=== PATIENT | male | born 1945 | race Caucasian/White ===

== ENCOUNTER 2017-05-18 10:24 | Inpatient (IN) | payer OTHER, MEDICARE ==
[2017-05-18] VITALS (8 sets, daily range): BP systolic 114–140; BP diastolic 57–65; PULSE 92–105; RESP 17–18; TEMP 98–99.1; O2SAT 92–98
[~2017-05-18] VITALS: Ht 182.9 cm; Wt 66.0 kg
[2017-05-18] MEDS ORDERED: IOHEXOL 350 MG/ML 10 ML VIAL (for RAD DIAG) IVCONTRAST ONE (10:25)
[2017-05-18] MEDS ORDERED: ALBU2TAB4 PO (11:06)
[2017-05-18] MEDS ORDERED: HYDR-3801 PO (11:06)
[2017-05-18] MEDS ORDERED: LEVO50TA4 PO (11:06)
[2017-05-18] MEDS ORDERED: MIRA3350 PO (11:06)
[2017-05-18] MEDS ORDERED: PROT40TA PO (11:06)
[2017-05-18] MEDS ORDERED: POTA10CA PO (11:06)
[2017-05-18] MEDS ORDERED: MORP-43 PO (11:06)
[2017-05-18] MEDS ORDERED: ALLO300T2 PO (11:06)
[2017-05-18] MEDS ORDERED: COLA100C5 (11:06)
[2017-05-18] MEDS ORDERED: FURO1TAB62 PO (11:06)
[2017-05-18 11:48] LABS: AUTOMATED NEUTROPHIL # 5.9 TH/MM3 (1.8-7.7); BASOPHIL % 0.3 % (0.0-2.0); EOSINOPHIL % 0.1 % (0.0-4.0); HEMATOCRIT 21.6 % (39.0-51.0); HEMOGLOBIN 7.3 GM/DL (13.0-17.0); LYMPHOCYTE # 0.4 TH/MM3 (1.0-4.8); MEAN CELL VOLUME 88.1 FL (80.0-100.0); MEAN CORPUSCULAR HEMOGLOBIN 29.5 PG (27.0-34.0); MEAN CORPUSCULAR HGB CONC 33.5 % (32.0-36.0); MEAN PLATELET VOLUME 8.7 FL (7.0-11.0); MONO % 9.2 % (0.0-8.0); MONOCYTE # 0.6 TH/MM3 (0-0.9); NEUT % 84.4 % (16.0-70.0); PLATELET COUNT 127 TH/MM3 (150-450); RED BLOOD COUNT 2.46 MIL/MM3 (4.50-5.90); RED CELL DISTRIBUTION WIDTH 22.6 % (11.6-17.2)
--- NOTE | 2017-05-18 11:49 | RADRPT ---
EXAM DATE/TIME: 05/18/2017 11:36 [facility] COMPARISON: No previous studies available for comparison. INDICATIONS : Fever short of breath. MEDICAL HISTORY : Lymphoma. SURGICAL HISTORY : Infusaport left ENCOUNTER: Initial ACUITY: 1 day PAIN SCORE: 5/10 LOCATION: Bilateral chest FINDINGS: PA and lateral views of the chest demonstrate small moderate bilateral pleural effusions with bibasil ar densities. Heart borderline enlarged. [id number] catheter in the left tip in the cavoatrial ирина ction. There is linear opacity in the right midlung/right lower lobe. Osseous structures are intact. CONCLUSION: 1. Small moderate bilateral pleural effusions and bibasilar densities likely atelectasis. 2. Right midlung/right basilar subsegmental atelectasis/scarring. Eugenio Truong MD on May 18, 2017 at 11:45 Board Certified Radiologist. This report was verified electronically.
--- NOTE | 2017-05-18 11:53 | PD ---
HPI Chief Complaint: Fever Time Seen by Provider: 10:34 Travel History International Travel<30 days: No Contact w/Intl Traveler<30days: No Traveled to known affect area: No History of Present Illness HPI Patient is a 71 year old male recently diagnosed with Non-Hodgkin lymphoma currently undergoing chemotherapy presenting with a fever. His reports that this morning his temperature was 100.6 and she was informed by his oncologist Dr. Mauro to go immediately to the ER with any temperature above 100.5. The patient is followed by Dr. Ha. On 04/14 he was in the hospital diagnosed with neutropenic fever. During this hospitalization he had bilateral thoracocentesis with 2L and 1L drained. His only symptom today is worsening right sided lateral chest pain which is similar to the chest pain he felt in his most recent hospitalization. It is most painful when he takes a deep breath. Denies shortness of breath, chills, nausea, vomiting, abdominal pain. Severity is 100.6, associated with some mild back pain and right-sided lateral chest pain, context as above, gradually worsening. He has not taken any Tylenol ibuprofen prior to arrival. PFSH Past Medical History Asthma: Yes Cancer: Yes (Non hodgkins lymphoma) Congestive Heart Failure: Yes GERD: Yes Gout: Yes Hypertension: Yes Thyroid Disease: Yes Influenza Vaccination: Yes ?: Not Social History Alcohol Use: No Tobacco Use: No Substance Use: No Allergies-Medications (Allergen,Severity, Reaction): Coded Allergies: itraconazole (Verified Allergy, Unknown, 05/18/17) Reported Meds & Prescriptions Reported Meds & Active Scripts Active Reported Miralax Powder (Polyethylene Glycol 3350 Powder) 17 Gm Powd 17 Gm PO DAILY Mix and dissolve one measuring cap-ful (17 grams) in water or juice. Morphabond ER 12 HR (Morphine Sulfate) 15 Mg Tab 15 Mg PO Q12H Colace (Docusate Sodium) 100 Mg Capsule Albuterol (Albuterol Sulfate) 2 Mg Tab 2.5 Mg PO TID Potassium Chloride ER (Potassium Chloride) 10 Meq Cap 10 Meq PO BID Protonix (Pantoprazole Sodium) 40 Mg Tab 40 Mg PO DAILY Allopurinol 300 Mg Tab 300 Mg PO DAILY Hydralazine (Hydralazine HCl) 100 Mg Tab 100 Mg PO BID Take with meals Lasix (Furosemide) 20 Mg Tab 20 Mg PO BID Levothyroxine (Levothyroxine Sodium) 50 Mcg Tab 50 Mcg PO DAILY Review of Systems Except as stated in HPI: all other systems reviewed are Neg Physical Exam Narrative GENERAL: Well-developed and nourished but in no obvious distress, quite pleasant. SKIN: Focused skin assessment warm/dry. HEAD: Atraumatic. Normocephalic. EYES: Pupils equal and round. No scleral icterus. No injection or drainage. ENT: No nasal bleeding or discharge. Mucous membranes pink and moist. TMs clear bilaterally, oropharynx clear and moist. NECK: Trachea midline. No JVD. CARDIOVASCULAR: Regular rate and rhythm. No murmur appreciated. RESPIRATORY: No accessory muscle use. Clear to auscultation. Breath sounds equal bilaterally. GASTROINTESTINAL: Abdomen soft, non-tender, nondistended. Hepatic and splenic margins not palpable. MUSCULOSKELETAL: No obvious deformities. No clubbing. No cyanosis. No edema. NEUROLOGICAL: Awake and alert. No obvious cranial nerve deficits. Motor grossly within normal limits. Normal speech. PSYCHIATRIC: Appropriate mood and affect; insight and judgment normal. Data Data Last Documented VS Vital Signs Date Time Temp Pulse Resp B/P (MAP) Pulse Ox O2 Delivery O2 Flow Rate FiO2 05/18/17 15:10 93 18 117/57 (77) 95 Nasal Cannula 2.00 05/18/17 10:53 99.0 Orders Orders Sepsis Workup Initiated (05/18/17 ) Complete Blood Count With Diff (05/18/17 11:11) Comprehensive Metabolic Panel (05/18/17 11:11) Prothrombin Time / Inr (Pt) (05/18/17 11:11) Act Partial Throm Time (Ptt) (05/18/17 11:11) Lactic Acid Sepsis Protocol (05/18/17 11:11) Magnesium (Mg) (05/18/17 11:11) Phosphorus (Po4) (05/18/17 11:11) Lipase (05/18/17 11:11) Ckmb (Isoenzyme) Profile (05/18/17 11:11) Urinalysis - C+S If Indicated (05/18/17 11:11) Influenzae A/B Antigen (05/18/17 11:11) Blood Culture (05/18/17 11:11) Chest, Pa & Lat (05/18/17 11:11) Ecg Monitoring (05/18/17 11:11) Iv Access Insert/Monitor (05/18/17 11:11) Oximetry (05/18/17 11:11) Oxygen Administration (05/18/17 11:11) Isolation 08,20 (05/18/17 11:11) Urine Culture (05/18/17 11:50) Morphine Inj (Morphine Inj) (05/18/17 13:00) Electrocardiogram (05/18/17 ) Ct Abd/Pel W Iv Contrast(Rout) (05/18/17 ) Hydromorphone Pf Inj (Dilaudid Pf Inj) (05/18/17 15:00) (Hub Use Only)Inp Phy Cons/Ref (05/18/17 ) Iohexol 350 Inj (Omnipaque 350 Inj) (05/18/17 10:25) Cefepime Inj (Maxipime Inj) (05/18/17 16:15) Admit Order (Ed Use Only) (05/18/17 ) Labs Laboratory Tests Test 05/18/17 11:20 05/18/17 11:50 White Blood Count 7.0 TH/MM3 Red Blood Count 2.46 MIL/MM3 Hemoglobin 7.3 GM/DL Hematocrit 21.6 % Mean Corpuscular Volume 88.1 FL Mean Corpuscular Hemoglobin 29.5 PG Mean Corpuscular Hemoglobin Concent 33.5 % Red Cell Distribution Width 22.6 % Platelet Count 127 TH/MM3 Mean Platelet Volume 8.7 FL Neutrophils (%) (Auto) 84.4 % Lymphocytes (%) (Auto) 6.0 % Monocytes (%) (Auto) 9.2 % Eosinophils (%) (Auto) 0.1 % Basophils (%) (Auto) 0.3 % Neutrophils # (Auto) 5.9 TH/MM3 Lymphocytes # (Auto) 0.4 TH/MM3 Monocytes # (Auto) 0.6 TH/MM3 Eosinophils # (Auto) 0.0 TH/MM3 Basophils # (Auto) 0.0 TH/MM3 CBC Comment AUTO DIFF Differential Total Cells Counted 100 Neutrophils % (Manual) 70 % Band Neutrophils % 17 % Lymphocytes % 7 % Monocytes % 4 % Neutrophils # (Manual) 6.2 TH/MM3 Metamyelocytes 1 % Myelocytes 1 % Differential Comment FINAL DIFF MANUAL Toxic Granulation 1+ Toxic Vacuolation PRESENT Platelet Estimate LOW Platelet Morphology Comment NORMAL Polychromasia 2.0 % Tear Drop Cells 1+ Prothrombin Time 12.0 SEC Prothromb Time International Ratio 1.2 RATIO Activated Partial Thromboplast Time 32.8 SEC Blood Urea Nitrogen 12 MG/DL Creatinine 0.49 MG/DL Random Glucose 143 MG/DL Total Protein 6.0 GM/DL Albumin 2.6 GM/DL Calcium Level 8.3 MG/DL Phosphorus Level 3.5 MG/DL Magnesium Level 1.8 MG/DL Alkaline Phosphatase 90 U/L Aspartate Amino Transf (AST/SGOT) 10 U/L Alanine Aminotransferase (ALT/SGPT) 12 U/L Total Bilirubin 0.3 MG/DL Sodium Level 134 MEQ/L Potassium Level 4.2 MEQ/L Chloride Level 97 MEQ/L Carbon Dioxide Level 27.5 MEQ/L Anion Gap 10 MEQ/L Estimat Glomerular Filtration Rate 169 ML/MIN Lactic Acid Level 1.0 mmol/L Total Creatine Kinase 19 U/L Lipase 54 U/L Urine Color YELLOW Urine Turbidity CLEAR Urine pH 6.5 Urine Specific [place] 1.013 Urine Protein 30 mg/dL Urine Glucose (UA) NEG mg/dL Urine Ketones NEG mg/dL Urine Occult Blood MOD Urine Nitrite NEG Urine Bilirubin NEG Urine Urobilinogen 2.0 MG/DL Urine Leukocyte Esterase NEG Urine RBC 71 /hpf Urine WBC 2 /hpf Urine Bacteria OCC /hpf Urine Hyaline Casts 1 /lpf Urine Mucus FEW /lpf Microscopic Urinalysis Comment CATH-CULTURE IND MDM Medical Decision Making Medical Screen Exam Complete: Yes Emergency Medical Condition: Yes Differential Diagnosis Fever, neutropenic fever, pneumonia, urinary tract infection, influenza. Narrative Course Patient roomed in emergency department, initial workup significant for some moderate thrombocytopenia and moderate anemia, no syncope and source of infection was identified, chest x-ray negative, UA negative, influenza test negative. Hemodynamically stable he has not been febrile in the emergency department. The patient was discussed with Dr. Ha and she is concerned given his level of neutropenia in the past that he would do well from observation status and appeared cefepime at this time. So ordered and discussed with Dr. Escamilla who will admit. A CT scan was ordered on revisit as the patient stated his pain was getting a little worse in his back. Last 24 hours Impressions Chest X-Ray 05/18/17 1111 Signed Impressions: Service Date/Time: Thursday, May 18, 2017 11:36 - CONCLUSION: 1. Small moderate bilateral pleural effusions and bibasilar densities likely atelectasis. 2. Right midlung/right basilar subsegmental atelectasis/scarring. Eugenio Truong MD Abdomen/Pelvis CT 05/18/17 0000 Signed Impressions: Service Date/Time: Thursday, May 18, 2017 15:33 - CONCLUSION: 1. Moderate size bilateral pleural effusions with consolidation in both posterior lung bases. 2. Mild splenomegaly with abnormal low attenuation area in the anterior spleen which could represent an area of infarction or possible mass. 3. Mild hepatomegaly with scattered small low attenuation lesions which are nonspecific but may represent cysts. 4. Bilateral ureteral stent catheters in place with mild hydronephrosis and tiny renal calculi. 5. Anasarca and ascites. 6. Possible mild retroperitoneal adenopathy. 7. Nonspecific bowel gas pattern. Thuan Bustamante MD Diagnosis Primary Impression: Fever Qualified Codes: R50.9 - Fever, unspecified Admitting Information Admitting Physician Requests: Observation Condition: Stable Young Atwood MD May 18, 2017 11:53
[2017-05-18 11:55] LABS: INTERNATIONAL NORMALIZED RATIO 1.2 RATIO
[2017-05-18 12:08] LABS: ALBUMIN 2.6 GM/DL (3.4-5.0); ALT (GPT) 12 U/L (12-78); AST (GOT) 10 U/L (15-37); BICARBONATE 27.5 MEQ/L (21.0-32.0); BLOOD UREA NITROGEN 12 MG/DL (7-18); CALCIUM 8.3 MG/DL (8.5-10.1); CHLORIDE 97 MEQ/L (98-107); CREATININE 0.49 MG/DL (0.60-1.30); GLOMERULAR FILTRATION RATE 169 ML/MIN (>89); GLUCOSE,RANDOM 143 MG/DL (74-106); MAGNESIUM 1.8 MG/DL (1.5-2.5); SODIUM (NA) 134 MEQ/L (136-145)
[2017-05-18 12:12] LABS: ALKALINE PHOSPHATASE 90 U/L (45-117); PHOSPHORUS 3.5 MG/DL (2.5-4.9); TOTAL BILIRUBIN ADULT 0.3 MG/DL (0.2-1.0)
[2017-05-18 12:15] LABS: BACTERIA, URINE OCC /hpf; BILIRUBIN, URINE NEG (NEG); BLOOD, URINE MOD (NEG); GLUCOSE,URINE NEG (NEG); HYALINE CAST, URINE 1 /lpf (RARE); KETONE, URINE NEG (NEG); MUCUS URINE FEW /lpf (OCC); NITRITE,URINE NEG (NEG); PH, URINE 6.5 (5.0-8.5); URINE COLOR YELLOW (YELLW/STRAW); URINE LEUKOCYTE ESTERASE NEG (NEG)
[2017-05-18 12:47] LABS: BANDS 17 % (0-6); LYMPHOCYTES 7 % (9-44); METAMYELOCYTES 1 % (0-1); MONOCYTES 4 % (0-8); MYELOCYTES 1 % (0-0); NEUTROPHIL # MANUAL DIFF 6.2 TH/MM3 (1.8-7.7); POLYS (SEG NEUTROPHILS) 70 % (16-70)
[2017-05-18 12:48] LABS: TOXIC GRANULATION 1+ (NORMAL)
[2017-05-18 12:49] LABS: TOXIC VACUOLATION PRESENT (NONE SEEN)
[2017-05-18 12:50] LABS: TEARDROP RBCS 1+ (NORMAL)
[2017-05-18] MEDS ORDERED: MORPHINE SULFATE 2 MG/ML INJ IV PUSH ONE (13:00)
[2017-05-18] MEDS ORDERED: HYDROmorphone HCL PF 2 MG/ML VIAL IV PUSH ONE (15:00)
--- NOTE | 2017-05-18 16:06 | RADRPT ---
EXAM DATE/TIME: 05/18/2017 15:33 [facility] COMPARISON: No previous studies available for comparison. INDICATIONS : Patient has fever and abdominal pain. IV CONTRAST: 96 cc Omnipaque 350 (iohexol) IV ORAL CONTRAST: No oral contrast ingested. RADIATION DOSE: 6.17 CTDIvol (mGy) MEDICAL HISTORY : Hypertension. Lymphoma. SURGICAL HISTORY : None. ENCOUNTER: Initial ACUITY: 1 day PAIN SCALE: 5/10 LOCATION: abdomen TECHNIQUE: Volumetric scanning of the abdomen and pelvis was performed. Using automated exposure control and ad justment of the mA and/or kV according to patient size, radiation dose was kept as low as reasonably achievable to obtain optimal diagnostic quality images. DICOM format image data is available electro nically for review and comparison. FINDINGS: LOWER LUNGS: There are moderate-sized bilateral pleural effusions with consolidation in both posterior lung bases. LIVER: The liver is mildly prominent with multiple small scattered low attenuation lesions measuring less th an a centimeter. SPLEEN: There is mild splenomegaly with abnormal low attenuation area involving the anterior spleen measuring up to 3 cm. There is surrounding small amount of ascitic fluid. PANCREAS: Within normal limits. KIDNEYS: Normal in size and shape. The cyst extends off the upper pole of the right kidney. There are bilatera l ureteral stent catheters in place with mild hydronephrosis. There is a single minute 1 mm calculus in the upper pole the left kidney and tiny less than 1 mm calculus in the lower pole of the right kid suyapa. ADRENAL GLANDS: Within normal limits. VASCULAR: There is no aortic aneurysm. BOWEL/MESENTERY: No oral contrast was given limiting the sensitivity of the exam. There is evidence of anasarca and as cites greatest in the anterior pelvis. There are multiple loops of nondilated air-containing small bekah wel. Gas and stool is noted segmental and colon. There is no evidence of free air. ABDOMINAL WALL: Within normal limits. RETROPERITONEUM: Not well delineated due to the anasarca and ascites. There is soft tissue density in the retroperiton eum which is poorly defined. BLADDER: No wall thickening or mass. REPRODUCTIVE: Within normal limits. INGUINAL: There is no lymphadenopathy or hernia. MUSCULOSKELETAL: Within normal limits for patient age. CONCLUSION: 1. Moderate size bilateral pleural effusions with consolidation in both posterior lung bases. 2. Mild splenomegaly with abnormal low attenuation area in the anterior spleen which could represent an area of infarction or possible mass. 3. Mild hepatomegaly with scattered small low attenuation lesions which are nonspecific but may repre sent cysts. 4. Bilateral ureteral stent catheters in place with mild hydronephrosis and tiny renal calculi. 5. Anasarca and ascites. 6. Possible mild retroperitoneal adenopathy. 7. Nonspecific bowel gas pattern. Thuan Bustamante MD on May 18, 2017 at 15:54 Board Certified Radiologist. This report was verified electronically.
[2017-05-18] MEDS ORDERED: CEFEPIME INJ 1,000 MG in SODIUM CHLORIDE 0.9% INJ 100 ML IV ONE (16:15)
--- NOTE | 2017-05-18 18:25 | HHI.HP ---
HPI Service [facility] Primary Care Physician Sancho Mackenzie MD Admission Diagnosis Fever Diagnoses: (1) Non-Hodgkin lymphoma Diagnosis: Principal (2) Fever Diagnosis: Principal (3) Anemia Diagnosis: Principal (4) HTN (hypertension) Diagnosis: Principal Chief Complaint: fevers Travel History International Travel<30 Days: No Contact w/Intl Traveler <30 Da: No Traveled to Known Affected Are: No History of Present Illness 71-year-old male with a typically no past medical history prior to February 2017 when he was diagnosed with non-Hodgkin's lymphoma. Since that diagnosis patient has also been diagnosed with hypertension, elevated uric acid levels, hypothyroidism. She has been under the care of and began chemotherapy on 04/04/17. He also mentions that he was recently hospitalized at [facility] followed by due to an infection in his blood for which she had been receiving IV antibiotics. was at bedside reports that patient was due to repeat his blood check cultures tomorrow to see if he was to continue on IV antibiotics. She presented to the emergency room department today with complaints of fever. She reports that was informed by his oncologist that if he was to have a fever above 100.5 he was to come to the emergency department. Last night he noticed his temperature was 100.3. This morning he checked his temperature and he was 100.6. He denies any chills, nausea, vomiting, diarrhea, abdominal pain, headache, open sores or wounds recent ill contacts. who is very meticulous and has documented no signs shares with me that they have last week he was having high blood pressures along with shortness of breath. He visited his doctor and was instructed to try exercises and high blood pressure along with shortness of breath was attributed to dehydration. She reports that he follow the instructions of his doctor and performed exercises as well as improved hydration and symptoms of shortness of breath and hypertension resolved. She denies any constipation, blood in stool, or abdominal pain. He also denies any dysuria or hematuria although noticed that yesterday his urine had an odor. He does complain of chronic pain and reports that he takes his morphine sulfate on a regular basis and pain is well controlled. At the current moment he reports pain in the right mid back which is increased with shortness of breath. will consult DR MONTALVO MAY NEED ID CONSULT IN FUTURE Review of Systems Constitutional: COMPLAINS OF: Fatigue, Fever, DENIES: Diaphoretic episodes, Weight gain, Weight loss, Chills, Dizziness Endocrine: DENIES: Heat/cold intolerance, Polydipsia, Polyphagia Eyes: DENIES: Blurred vision, Diplopia, Eye inflammation, Eye pain Ears, nose, mouth, throat: DENIES: Tinnitus, Hearing loss, Vertigo, Nasal discharge, Oral lesions, Throat pain Respiratory: DENIES: Apneas, Cough, Snoring, Wheezing, Hemoptysis, Sputum production Cardiovascular: DENIES: Chest pain, Palpitations, Syncope, Dyspnea on Exertion , PND Gastrointestinal: DENIES: Abdominal pain, Black stools, Bloody stools, Constipation, Diarrhea, Nausea Genitourinary: DENIES: Sexual dysfunction, Urinary frequency, Urinary incontinence, Urgency Musculoskeletal: COMPLAINS OF: Joint pain, Back pain, DENIES: Muscle aches, Stiffness, Joint Swelling Integumentary: DENIES: Abnormal pigmentation, Nail changes, Pruritus Hematologic/lymphatic: DENIES: Bruising, Lymphadenopathy Immunologic/allergic: DENIES: Eczema, Urticaria Neurologic: DENIES: Abnormal gait, Localized weakness, Paresthesias, Seizures, Speech Problems, Poor Balance Psychiatric: DENIES: Anxiety, Confusion, Mood changes, Depression, Hallucinations, Agitation, Suicidal Ideation, Homicidal Ideation Except as stated in HPI: all other systems reviewed are Neg Past Family Social History Past Medical History Non-Hodgkin's lymphoma hypothyroidism HTN elevated uric acid Past Surgical History August 2016 bilateral inguinal hernia repairs 2012 right hip replacement Renal stent Left upper chest port Reported Medications Reported Meds & Active Scripts Active Reported Miralax Powder (Polyethylene Glycol 3350 Powder) 17 Gm Powd 17 Gm PO DAILY Mix and dissolve one measuring cap-ful (17 grams) in water or juice. Morphabond ER 12 HR (Morphine Sulfate) 15 Mg Tab Q4 hours. Colace (Docusate Sodium) 100 Mg Capsule BID Albuterol (Albuterol Sulfate) 2 Mg Tab 2.5 Mg PO TID Potassium Chloride ER (Potassium Chloride) 10 Meq Cap 10 Meq PO BID Protonix (Pantoprazole Sodium) 40 Mg Tab 40 Mg PO DAILY Allopurinol 300 Mg Tab 300 Mg PO DAILY Hydralazine (Hydralazine HCl) 50 Mg Tab PRN for SBP>130 Take with meals Lasix (Furosemide) 20 Mg Tab 20 Mg PO BID Levothyroxine (Levothyroxine Sodium) 50 Mcg Tab 50 Mcg PO DAILY Metoprolol Tartrate 25mg BID hold for SBP<110 or HR <55 Medications verified with at bedside and patient Allergies: Coded Allergies: itraconazole (Verified Allergy, Unknown, 05/18/17) Active Ordered Medications Current Medications Medications (Trade) Dose Ordered Sig/Mikael Route Start Time Stop Time Status Last Admin (NS Flush) 2 ml UNSCH PRN IV FLUSH 05/18/17 18:45 UNV (NS Flush) 2 ml BID IV FLUSH 05/18/17 21:00 UNV (Tylenol) 650 mg Q4H PRN PO 05/18/17 18:45 (Zofran Inj) 4 mg Q6H PRN IVP 05/18/17 18:45 UNV (Narcan Inj) 0.4 mg UNSCH PRN IV PUSH 05/18/17 18:45 UNV (Evelia-Colace) 1 tab BID PO 05/18/17 21:00 UNV (Milk Of Magnesia Liq) 30 ml Q12H PRN PO 05/18/17 18:45 UNV (Senokot) 17.2 mg Q12H PRN PO 05/18/17 18:45 UNV (Dulcolax Supp) 10 mg DAILY PRN RECTAL 05/18/17 18:45 UNV (Lactulose Liq) 30 ml DAILY PRN PO 05/18/17 18:45 UNV (Percocet 5-325 Mg) 1 tab Q6H PRN PO 05/18/17 18:45 UNV (Percocet 10-325 Mg) 1 tab Q6H PRN PO 05/18/17 18:45 UNV (Morphine Inj) 2 mg Q3H PRN IV PUSH 05/18/17 18:45 UNV (Morphine Inj) 4 mg Q3H PRN IV PUSH 05/18/17 18:45 UNV (Zyloprim) 300 mg DAILY PO 05/19/17 09:00 (Synthroid) 50 mcg DAILY PO 05/19/17 09:00 UNV (Protonix) 40 mg DAILY PO 05/19/17 09:00 UNV (Duoneb Neb) 1 ampule Q4HR NEB PRN NEB 05/18/17 18:45 Family History PROBABLE HYPERTENSION Social History Tobacco, alcohol, illicit drug use: Denies Physical Exam Vital Signs Vital Signs Date Time Temp Pulse Resp B/P (MAP) Pulse Ox O2 Delivery O2 Flow Rate FiO2 05/18/17 17:42 98.4 105 18 117/58 (77) 98 Nasal Cannula 2.00 05/18/17 15:10 93 18 117/57 (77) 95 Nasal Cannula 2.00 05/18/17 11:28 98 Room Air 05/18/17 11:28 18 98 Room Air 05/18/17 10:57 91 18 96 Room Air 05/18/17 10:53 99.0 92 18 128/59 (82) 95 Room Air 05/18/17 10:39 99.1 101 18 140/65 (90) 98 Room Air Physical Exam GENERAL: She is a thin male, well-developed patient, in no apparent distress. SKIN: No rashes, ecchymoses or lesions. Cool and dry. HEAD: Atraumatic. Normocephalic. No temporal or scalp tenderness. EYES: Pupils equal round and reactive. Extraocular motions intact. No scleral icterus. No injection or drainage. ENT: Nose without bleeding, purulent drainage or septal hematoma. Throat without erythema, tonsillar hypertrophy or exudate. Uvula midline. Airway patent. NECK: Trachea midline. No JVD. Supple, nontender, no meningeal signs. CARDIOVASCULAR: Regular rate and rhythm without murmurs, gallops, or rubs. RESPIRATORY: Diminished at bases otherwise clear. Breath sounds equal bilaterally. No wheezes, rales, or rhonchi. GASTROINTESTINAL: Abdomen soft, non-tender, nondistended. No palpable masses. No guarding. MUSCULOSKELETAL: Extremities without clubbing, or cyanosis. Foot edema +2, right foot edema +1. No joint tenderness, effusion, or edema noted. No calf tenderness. Negative Homans sign bilaterally. NEUROLOGICAL: Awake and alert. Cranial nerves II through XII intact. Motor and sensory grossly within normal limits. Five out of 5 muscle strength in all muscle groups. Normal speech. Laboratory Laboratory Tests Test 05/18/17 11:20 05/18/17 11:50 White Blood Count 7.0 Red Blood Count 2.46 Hemoglobin 7.3 Hematocrit 21.6 Mean Corpuscular Volume 88.1 Mean Corpuscular Hemoglobin 29.5 Mean Corpuscular Hemoglobin Concent 33.5 Red Cell Distribution Width 22.6 Platelet Count 127 Mean Platelet Volume 8.7 Neutrophils (%) (Auto) 84.4 Lymphocytes (%) (Auto) 6.0 Monocytes (%) (Auto) 9.2 Eosinophils (%) (Auto) 0.1 Basophils (%) (Auto) 0.3 Neutrophils # (Auto) 5.9 Lymphocytes # (Auto) 0.4 Monocytes # (Auto) 0.6 Eosinophils # (Auto) 0.0 Basophils # (Auto) 0.0 CBC Comment AUTO DIFF Differential Total Cells Counted 100 Neutrophils % (Manual) 70 Band Neutrophils % 17 Lymphocytes % 7 Monocytes % 4 Neutrophils # (Manual) 6.2 Metamyelocytes 1 Myelocytes 1 Differential Comment FINAL DIFF MANUAL Toxic Granulation 1+ Toxic Vacuolation PRESENT Platelet Estimate LOW Platelet Morphology Comment NORMAL Polychromasia 2.0 Tear Drop Cells 1+ Prothrombin Time 12.0 Prothromb Time International Ratio 1.2 Activated Partial Thromboplast Time 32.8 Blood Urea Nitrogen 12 Creatinine 0.49 Random Glucose 143 Total Protein 6.0 Albumin 2.6 Calcium Level 8.3 Phosphorus Level 3.5 Magnesium Level 1.8 Alkaline Phosphatase 90 Aspartate Amino Transf (AST/SGOT) 10 Alanine Aminotransferase (ALT/SGPT) 12 Total Bilirubin 0.3 Sodium Level 134 Potassium Level 4.2 Chloride Level 97 Carbon Dioxide Level 27.5 Anion Gap 10 Estimat Glomerular Filtration Rate 169 Lactic Acid Level 1.0 Total Creatine Kinase 19 Lipase 54 Urine Color YELLOW Urine Turbidity CLEAR Urine pH 6.5 Urine Specific [place] 1.013 Urine Protein 30 Urine Glucose (UA) NEG Urine Ketones NEG Urine Occult Blood MOD Urine Nitrite NEG Urine Bilirubin NEG Urine Urobilinogen 2.0 Urine Leukocyte Esterase NEG Urine RBC 71 Urine WBC 2 Urine Bacteria OCC Urine Hyaline Casts 1 Urine Mucus FEW Microscopic Urinalysis Comment CATH-CULTURE IND Date/Time Source Procedure Growth Status 05/18/17 11:20 Blood Peripheral Aerobic Blood Culture Pending Received 05/18/17 11:20 Blood Peripheral Anaerobic Blood Culture Pending Received 05/18/17 11:20 Nasal Washing Influenza Types A,B Antigen (PATRICIA) - Final NEGATIVE FOR FLU A AND B ANTIGEN.... Complete 05/18/17 11:50 Urine Catheterized Urine Urine Culture Pending Received Result Diagram: 05/18/17 1120 05/18/17 1120 Imaging Last Impressions Chest X-Ray 05/18/17 1111 Signed Impressions: Service Date/Time: Thursday, May 18, 2017 11:36 - CONCLUSION: 1. Small moderate bilateral pleural effusions and bibasilar densities likely atelectasis. 2. Right midlung/right basilar subsegmental atelectasis/scarring. Eugenio Truong MD Abdomen/Pelvis CT 05/18/17 0000 Signed Impressions: Service Date/Time: Thursday, May 18, 2017 15:33 - CONCLUSION: 1. Moderate size bilateral pleural effusions with consolidation in both posterior lung bases. 2. Mild splenomegaly with abnormal low attenuation area in the anterior spleen which could represent an area of infarction or possible mass. 3. Mild hepatomegaly with scattered small low attenuation lesions which are nonspecific but may represent cysts. 4. Bilateral ureteral stent catheters in place with mild hydronephrosis and tiny renal calculi. 5. Anasarca and ascites. 6. Possible mild retroperitoneal adenopathy. 7. Nonspecific bowel gas pattern. MD Mariana Rao VTE Risk Assessment Caprini VTE Risk Assessment: Mod/High Risk (score >= 2) Caprini Risk Assessment Model Point Value = 1 Point Value = 2 Point Value = 3 Point Value = 5 Age 41-60 Minor surgery BMI > 25 kg/m2 Swollen legs Varicose veins or History of unexplained or recurrent spontaneous Oral contraceptives or hormone replacement Sepsis (< 1 month) Serious lung disease, including pneumonia (< 1 month) Abnormal pulmonary function Acute myocardial infarction Congestive heart failure (< 1 month) History of inflammatory bowel disease Medical patient at bed rest Age 61-74 Arthroscopic surgery Major open surgery (> 45 min) Laparoscopic surgery (> 45 min) Malignancy Confined to bed (> 72 hours) Immobilizing plaster cast Central venous access Age >= 75 History of VTE Family history of VTE Factor V Leiden Prothrombin 02138P Lupus anticoagulant Anticardiolipin antibodies Elevated serum homocysteine Heparin-induced thrombocytopenia Other congenital or acquired thrombophilia Stroke (< 1 month) Elective arthroplasty Hip, pelvis, or leg fracture Acute spinal cord injury (< 1 month) Prophylaxis Regimen Total Risk Factor Score Risk Level Prophylaxis Regimen 0-1 Low Early ambulation 2 Moderate Order ONE of the following: *Sequential Compression Device (SCD) *Heparin 5000 units SQ BID 3-4 Higher Order ONE of the following medications: *Heparin 5000 units SQ TID *Enoxaparin/Lovenox 40 mg SQ daily (WT < 150 kg, CrCl > 30 mL/min) *Enoxaparin/Lovenox 30 mg SQ daily (WT < 150 kg, CrCl > 10-29 mL/min) *Enoxaparin/Lovenox 30 mg SQ BID (WT < 150 kg, CrCl > 30 mL/min) AND/OR *Sequential Compression Device (SCD) 5 or more Highest Order ONE of the following medications: *Heparin 5000 units SQ TID (Preferred with Epidurals) *Enoxaparin/Lovenox 40 mg SQ daily (WT < 150 kg, CrCl > 30 mL/min) *Enoxaparin/Lovenox 30 mg SQ daily (WT < 150 kg, CrCl > 10-29 mL/min) *Enoxaparin/Lovenox 30 mg SQ BID (WT < 150 kg, CrCl > 30 mL/min) AND *Sequential Compression Device (SCD) Assessment and Plan Problem List: (1) Back pain, chronic ICD Code: M54.9 - Dorsalgia, unspecified; G89.29 - Other chronic pain (2) Non-Hodgkin lymphoma ICD Code: C85.90 - Non-Hodgkin lymphoma, unspecified, unspecified site (3) HTN (hypertension) ICD Code: I10 - Essential (primary) hypertension (4) Anemia ICD Code: D64.9 - Anemia, unspecified (5) Fever ICD Code: R50.9 - Fever, unspecified Assessment and Plan 71-year-old male with history of non-Hodgkin's lymphoma, hypertension, gout, hypothyroidism, and elevated uric acid levels who presents to the emergency department with reports of fevers since last night. Patient is followed by who is his oncologist. Non-Hodgkin's lymphoma Fevers Chronic pain Anemia - CBC with no leukocytosis, elevated neutrophil count at 84.4 - T-max on admission 99.1, her rate 101 - Blood cultures 2 obtained and pending - Nasal washings negative for flu - Chest x-ray reviewed, small to moderate bilateral pleural effusions and basilar densities likely atelectasis. Right mid lung/right basilar subsegmental atelectasis/scarring. - CT scan viewed, moderate size bilateral pleural effusions and consolidation in both posterior lung bases. Mild splenomegaly with abnormal low attenuation areas in the anterior spleen which could represent areas of infarction or possible mass. Mild hepatomegaly with scattered small low ALISA relation lesions which are nonspecific but may represent cysts. Bilateral urethral stent catheters in place with mild hydronephrosis and tiny renal calculi. Sarcoma and ascites, retroperitoneal adenopathy. - UA positive cultures and sensitivity pending, follow and adjust antibiotics accordingly - Cefepime 1 g given IV in the emergency department, continue will also add IV Vanco. - Consult oncology, appreciate recommendations - Pain management with home dose Morphine, oral Percocet and IV morphine for breakthrough pain. HTN, controlled -Will hold off on HTN meds, if needed will restart Gout - Continue home meds Hypothyroidism - Continue home dose Synthroid DVT- pro sub q Lovenox The exam, history, and the medical decision-making described in the above note were completed with the assistance of the mid-level provider. I reviewed and agree with the findings presented. I attest that I had a [id number] encounter with the patient on the same day, and personally performed and documented my assessment and findings in the medical record. Code Status FULL CODE Discussed Condition With ER PHYSICIAN AND MOLD TECHNICIAN AND RN AND PT AND Physician Certification 2 Midnight Certification Type: Admission for Inpatient Services Order for Inpatient Services The services are ordered in accordance with Medicare regulations or non- Medicare payer requirements, as applicable. In the case of services not specified as inpatient-only, they are appropriately provided as inpatient services in accordance with the 2-midnight benchmark. Estimated LOS (days): 3 days is the estimated time the patient will need to remain in the hospital, assuming treatment plan goals are met and no additional complications. Post-Hospital Plan: Home Dia Lopez May 18, 2017 18:25 John Escamilla DO May 18, 2017 19:28
[2017-05-18] MEDS ORDERED: MORPHINE SULFATE 2 MG/ML INJ IV PUSH PRN (18:45)
[2017-05-18] MEDS ORDERED: SENNOSIDES 8.6 MG TAB PO PRN (18:45)
[2017-05-18] MEDS ORDERED: LACTULOSE SYRUP 20 GM/30 ML CUP PO PRN (18:45)
[2017-05-18] MEDS ORDERED: ACETAMINOPHEN 325 MG TAB PO PRN (18:45)
[2017-05-18] MEDS ORDERED: oxyCODONE/ACETAMINOPHEN 5 MG/325 MG TAB PO PRN (18:45)
[2017-05-18] MEDS ORDERED: NALOXONE HCL 0.4 MG/ML AMP IV PUSH PRN (18:45)
[2017-05-18] MEDS ORDERED: MAGNESIUM HYDROXIDE SUSP 30 ML CUP PO PRN (18:45)
[2017-05-18] MEDS ORDERED: oxyCODONE/ACETAMINOPHEN 10 MG/325 MG TAB PO PRN (18:45)
[2017-05-18] MEDS ORDERED: RESP: ALBUTEROL 2.5 MG/IPRATROPIUM 0.5 MG NEB (PRN) NEB (18:45)
[2017-05-18] MEDS ORDERED: BISACODYL 10 MG SUPP RECTAL PRN (18:45)
[2017-05-18] MEDS ORDERED: ONDANSETRON HCL 4 MG/2 ML VIAL IVP PRN (18:45)
[2017-05-18] MEDS ORDERED: VANCOMYCIN INJ 1,000 MG in SODIUM CHLOR 0.9% 250 ML INJ 250 ML IV ONE (19:15)
[2017-05-18] MEDS ORDERED: Vancomycin Consult Pharmacy 1 EA OTHER SCH (19:15)
[2017-05-18] MEDS ORDERED: VANCOMYCIN 1,500 MG/NS 500 ML IV ONE ×2 (20:00)
[2017-05-18] MEDS ORDERED: ENOXAPARIN SODIUM 30 MG/0.3 ML SYRINGE SQ SCH (21:00)
[2017-05-18] MEDS: DOCUSATE SODIUM 50 MG/SENNA 8.6 MG TAB PO SCH (21:45)
[2017-05-18] MEDS: MORPHINE SULFATE 15 MG TAB PO SCH (21:46)
[2017-05-18] MEDS: SODIUM CHLORIDE 0.9% FLUSH 10 ML FLUSH IV FLUSH SCH (21:46)
[2017-05-19] VITALS (13 sets, daily range): BP systolic 117–185; BP diastolic 57–87; PULSE 85–102; RESP 14–19; TEMP 96.2–99.1; O2SAT 92–96
[2017-05-19] MEDS: MORPHINE SULFATE 15 MG TAB PO SCH ×6 (00:44→20:06)
[2017-05-19] MEDS: LEVOTHYROXINE SODIUM 50 MCG TAB PO SCH (05:27)
[2017-05-19] MEDS: CEFEPIME INJ 1,000 MG in SODIUM CHLORIDE 0.9% INJ 100 ML IV SCH ×2 (05:27→16:12)
[2017-05-19 06:51] LABS: ALBUMIN 2.2 GM/DL (3.4-5.0); ALT (GPT) 11 U/L (12-78); AST (GOT) 15 U/L (15-37); BLOOD UREA NITROGEN 9 MG/DL (7-18); CALCIUM 8.3 MG/DL (8.5-10.1); CHLORIDE 101 MEQ/L (98-107); CREATININE 0.48 MG/DL (0.60-1.30); GLOMERULAR FILTRATION RATE 173 ML/MIN (>89); GLUCOSE,RANDOM 130 MG/DL (74-106); MAGNESIUM 1.7 MG/DL (1.5-2.5); PHOSPHORUS 3.4 MG/DL (2.5-4.9); SODIUM (NA) 135 MEQ/L (136-145)
[2017-05-19 07:00] LABS: ALKALINE PHOSPHATASE 78 U/L (45-117); FREE T4 1.41 NG/DL (0.76-1.46); TOTAL BILIRUBIN ADULT 0.4 MG/DL (0.2-1.0); TOTAL PROTEIN 5.1 GM/DL (6.4-8.2)
[2017-05-19 07:05] LABS: AUTOMATED NEUTROPHIL # 4.1 TH/MM3 (1.8-7.7); BASOPHIL % 0.5 % (0.0-2.0); EOSINOPHIL % 0.2 % (0.0-4.0); LYMPH % 6.9 % (9.0-44.0); LYMPHOCYTE # 0.3 TH/MM3 (1.0-4.8); MEAN CELL VOLUME 88.4 FL (80.0-100.0); MEAN CORPUSCULAR HEMOGLOBIN 29.3 PG (27.0-34.0); MEAN CORPUSCULAR HGB CONC 33.2 % (32.0-36.0); MEAN PLATELET VOLUME 8.8 FL (7.0-11.0); MONO % 9.3 % (0.0-8.0); MONOCYTE # 0.5 TH/MM3 (0-0.9); NEUT % 83.1 % (16.0-70.0); PLATELET COUNT 107 TH/MM3 (150-450); RED BLOOD COUNT 2.09 MIL/MM3 (4.50-5.90); RED CELL DISTRIBUTION WIDTH 22.5 % (11.6-17.2); WHITE BLOOD COUNT 4.9 TH/MM3 (4.0-11.0)
[2017-05-19 07:20] LABS: HEMATOCRIT 18.5 % (39.0-51.0); HEMOGLOBIN 6.1 GM/DL (13.0-17.0)
[2017-05-19] MEDS ORDERED: SODIUM CHLOR 0.9% 250 ML INJ 250 ML IV ONE (07:45)
[2017-05-19 08:03] LABS: BANDS 22 % (0-6); LYMPHOCYTES 6 % (9-44); MONOCYTES 8 % (0-8); NEUTROPHIL # MANUAL DIFF 4.2 TH/MM3 (1.8-7.7); POLYS (SEG NEUTROPHILS) 64 % (16-70); TOXIC GRANULATION 1+ (NORMAL)
[2017-05-19 08:04] LABS: OVALOCYTES 1+ (NORMAL)
[2017-05-19] MEDS: DOCUSATE SODIUM 50 MG/SENNA 8.6 MG TAB PO SCH ×2 (08:24→20:06)
[2017-05-19] MEDS: PANTOPRAZOLE SOD 40 MG DELAYED RELEASE TAB PO SCH (08:24)
[2017-05-19] MEDS: SODIUM CHLORIDE 0.9% FLUSH 10 ML FLUSH IV FLUSH SCH ×2 (08:24→20:07)
[2017-05-19] MEDS: ALLOPURINOL 300 MG TAB PO SCH (08:24)
[2017-05-19] MEDS: POLYETHYLENE GLYCOL 17 GM PKG PO SCH (08:25)
[2017-05-19] MEDS: VANCOMYCIN INJ 1,250 MG in SODIUM CHLOR 0.9% 250 ML INJ 250 ML IV SCH ×2 (09:41→22:29)
[2017-05-19 16:05] LABS: HEMOGLOBIN A1C 5.4 % (4.3-6.0)
[2017-05-19] MEDS: FUROSEMIDE 20 MG TAB PO SCH (16:11)
[2017-05-19 17:56] LABS: AUTOMATED NEUTROPHIL # 5.7 TH/MM3 (1.8-7.7); BASOPHIL % 0.4 % (0.0-2.0); EOSINOPHIL % 0.2 % (0.0-4.0); HEMATOCRIT 23.3 % (39.0-51.0); HEMOGLOBIN 8.1 GM/DL (13.0-17.0); LYMPH % 6.3 % (9.0-44.0); LYMPHOCYTE # 0.4 TH/MM3 (1.0-4.8); MEAN CELL VOLUME 87.5 FL (80.0-100.0); MEAN CORPUSCULAR HEMOGLOBIN 30.6 PG (27.0-34.0); MEAN PLATELET VOLUME 8.4 FL (7.0-11.0); MONO % 7.3 % (0.0-8.0); MONOCYTE # 0.5 TH/MM3 (0-0.9); NEUT % 85.8 % (16.0-70.0); PLATELET COUNT 121 TH/MM3 (150-450); RED BLOOD COUNT 2.66 MIL/MM3 (4.50-5.90); RED CELL DISTRIBUTION WIDTH 18.3 % (11.6-17.2); WHITE BLOOD COUNT 6.6 TH/MM3 (4.0-11.0)
--- NOTE | 2017-05-19 18:58 | HHI.PR ---
Subjective Remarks 71M here for a fever that so far seems to be caused by UTI. Blood cultures pending. He has no complaints today. Says he thought his urine smelled funny last weekend. Objective Vitals Vital Signs Date Time Temp Pulse Resp B/P (MAP) Pulse Ox O2 Delivery O2 Flow Rate FiO2 05/19/17 17:26 98.4 85 18 128/62 95 05/19/17 16:00 96.7 94 19 128/61 (83) 93 05/19/17 14:54 96.2 94 18 126/61 95 05/19/17 14:31 97.5 97 17 132/60 95 05/19/17 12:00 98.0 97 19 119/57 (77) 95 05/19/17 11:55 97.9 93 17 122/58 95 05/19/17 11:28 98.2 96 17 122/58 94 05/19/17 08:26 92 05/19/17 08:00 97.8 102 19 117/58 (77) 94 05/19/17 05:24 98.4 99 14 143/62 (89) 92 05/19/17 00:30 99.1 100 126/62 (83) 93 05/18/17 22:01 95 21 05/18/17 20:00 98.5 97 17 114/58 (76) 92 05/18/17 19:10 98.0 99 17 125/59 (81) 95 I/O 05/18/17 05/18/17 05/18/17 05/19/17 05/19/17 05/19/17 07:00 15:00 23:00 07:00 15:00 23:00 Intake Total 240 ml 662.5 ml 550 ml Balance 240 ml 662.5 ml 550 ml Intake Oral 240 ml IV Total 262.5 ml 150 ml Packed Cells 400 ml 400 ml # Voids 2 # Bowel Movements 0 Result Diagram: 05/19/17 1730 05/19/17 0555 Objective Remarks GENERAL: Well-nourished, tall, thin patient. SKIN: Warm and dry, resolving blister type rash on both legs HEAD: Normocephalic. EYES: No scleral icterus. No injection or drainage. NECK: Supple, trachea midline. No JVD or lymphadenopathy. CARDIOVASCULAR: Regular rate and rhythm without murmurs, gallops, or rubs. RESPIRATORY: Breath sounds equal bilaterally. No accessory muscle use. GASTROINTESTINAL: Abdomen soft, non-tender, nondistended. EXTREMITIES: No cyanosis, or edema. NEUROLOGICAL: Awake, alert, and oriented x 3. Non-focal. A/P Problem List: (1) Back pain, chronic ICD Code: M54.9 - Dorsalgia, unspecified; G89.29 - Other chronic pain (2) Non-Hodgkin lymphoma ICD Code: C85.90 - Non-Hodgkin lymphoma, unspecified, unspecified site (3) HTN (hypertension) ICD Code: I10 - Essential (primary) hypertension (4) Anemia ICD Code: D64.9 - Anemia, unspecified (5) Fever ICD Code: R50.9 - Fever, unspecified Assessment and Plan Neutropenic Fever Baseline WBC per patient is 0.6, so normal level of WBC on labs may be his mounted defense to infection Undergoing chemotherapy for Non-Hodgkin's Lymphoma Fevers reducing on Vancomycin UTI was born in the presence of Keflex for his leg and Flagyl for bacteremia Continue IV Vancomycin, and plan for PO choices that are not beta-lactams (ie Cipro vs. Bactrim) Blood cultures pending Flu test negative Anemia Recieving PRBC today Will follow H&H Hypertension Metoprolol held due to normal BP h/o Gout, Hypothyroidism Continue home meds DVT Prophylaxis Lovenox held at patient's request due to low PLT and severe anemia Will discuss resuming tomorrow if they agree Problem Qualifiers (1) Fever: Qualified Codes: R50.9 - Fever, unspecified Gio Thomason MD May 19, 2017 18:58
[2017-05-19] MEDS: cloNIDine HCL 0.1 MG TAB PO PRN (20:21)
[2017-05-19 20:44] LABS: CALCIUM 8.7 MG/DL (8.5-10.1); CREATININE 0.46 MG/DL (0.60-1.30)
[2017-05-19] MEDS: MORPHINE SULFATE 2 MG/ML INJ IV PUSH PRN (22:39)
[2017-05-20] VITALS (7 sets, daily range): BP systolic 121–168; BP diastolic 54–72; PULSE 88–99; RESP 16–22; TEMP 96.8–98.7; O2SAT 92–95
[2017-05-20] MEDS: MORPHINE SULFATE 15 MG TAB PO SCH ×6 (00:10→20:18)
[2017-05-20] MEDS: cloNIDine HCL 0.1 MG TAB PO PRN (00:14)
--- NOTE | 2017-05-20 01:21 | EKG ---
Date Performed: 05/18/2017 Time Performed: 11:10:40 PTAGE: 71 years EKG: Sinus rhythm NORMAL ECG PREVIOUS TRACING : 05/18/2017 11.01 DOCTOR: Jd Vogel Interpretating Date/Time 05/20/2017 01:19:13
[2017-05-20] MEDS: CEFEPIME INJ 1,000 MG in SODIUM CHLORIDE 0.9% INJ 100 ML IV SCH ×2 (04:37→16:10)
[2017-05-20] MEDS: LEVOTHYROXINE SODIUM 50 MCG TAB PO SCH (04:37)
--- NOTE | 2017-05-20 08:06 | MB ---
cc: PAUL MONTALVO MD DATE OF CONSULTATION 05/20/2017 CHIEF COMPLAINT 1. Stage IV diffuse large B-cell lymphoma. 2. Fever 3. Chemotherapy HISTORY OF PRESENT ILLNESS Mr. Hawthorne is a 71-year-old gentleman who was previously in normal health when he developed a decline in his performance status and B-symptoms and was subsequently diagnosed with a diffuse large B-cell lymphoma, germinal center B-cell type, non-double hit lymphoma. He received cycle one of chemotherapy on April 04, 2017 in [place], [place]. He subsequently was hospitalized at [facility], admitted on April 14 for febrile neutropenia. A blood cell count on admission was 0.8, hemoglobin 8.9 and platelet count is 63,000. He was found to have positive blood cultures with bacteremia due to Bacteroides fragilis with possible blood cultures found on April 14 with repeat blood cultures negative. He was initially treated with broad spectrum antibiotics which were decreased to IV Flagyl and then to oral Flagyl. He was discharged from the hospital with two weeks of oral antibiotic therapy which he has completed. He received his second cycle of chemotherapy on May 04, 2017. He reports that he has tolerated this chemotherapy very well. He states that the swelling in his legs has completely resolved and he has noticed a decrease and his abdominal distension from his ascites. No nausea or vomiting, an increase in his appetite where he is eating [id number] calories per day. He reports that he and his check his vital signs and temperature approximately four x per day. He had been running a little bit on the high side and then his fever cracked 100.5 and they brought him into the emergency room. In the emergency room, his chest x-ray showed small to moderate bilateral pleural effusions and bibasilar densities likely atelectasis. Cultures including blood cultures and urine cultures were negative. He is negative for influenza and he has been afebrile since he has been here. He is on broad-spectrum antibiotic therapy. PAST MEDICAL HISTORY 1. Hypertension 2. Diffuse large B-cell lymphoma PAST SURGICAL HISTORY 1. Hernia repair 2. Hip replacement 3. Bilateral ureteral stent placement ROS: as above in HPI FAMILY HISTORY Mother at the age of 64 of colon cancer. Father at the age of 78 from an [place]. Maternal grandmother at the age of 74 from leukemia. SOCIAL HISTORY He is . He has a good support system with his . He is a former smoker. PHYSICAL EXAMINATION GENERAL: This is a chronically ill appearing man in no distress sitting in bedside chair. EYES: PERRLA and EOMI. EARS, NOSE, AND THROAT: Oropharynx is clear. RESPIRATORY: Clear to auscultation bilaterally. CARDIOVASCULAR: Regular rate and rhythm with no murmurs. ABDOMEN: Soft, mild distension, nontender. EXTREMITIES: No edema, healing lesions on the anterior shins from past swelling and irritation of the skin. Overall, the patient is thin and gaunt and does have a chronically ill-appearing look about him. NEUROLOGIC: He is grossly nonfocal. ASSESSMENT/PLAN 1. Fever in a patient with diffuse large B-cell lymphoma on chemotherapy. Cultures including urine culture and blood cultures are negative. Chest x-ray with no evidence of pneumonia. He is currently on antibiotic therapy with Cefepme. Continue to follow cultures and temperature. 2. Previous bacteremia status post completion of antibiotic therapy prior to initiation of chemotherapy. 3. Diffuse large B-cell lymphoma: next round of chemotherapy is due on May 25, 2016. MD JAYJAY Shankar/NAREN /1:01 AM /7:50 AM NEO
[2017-05-20] MEDS: FUROSEMIDE 20 MG TAB PO SCH (09:00)
[2017-05-20] MEDS: POLYETHYLENE GLYCOL 17 GM PKG PO SCH (09:00)
[2017-05-20] MEDS: PANTOPRAZOLE SOD 40 MG DELAYED RELEASE TAB PO SCH (09:00)
[2017-05-20] MEDS: ALLOPURINOL 300 MG TAB PO SCH (09:00)
[2017-05-20] MEDS: DOCUSATE SODIUM 50 MG/SENNA 8.6 MG TAB PO SCH ×2 (09:00→20:18)
[2017-05-20] MEDS: SODIUM CHLORIDE 0.9% FLUSH 10 ML FLUSH IV FLUSH SCH ×2 (09:00→20:19)
[2017-05-20] MEDS ORDERED: PHARMACY ORDERED LAB ONE (09:45)
[2017-05-20] MEDS: VANCOMYCIN INJ 1,250 MG in SODIUM CHLOR 0.9% 250 ML INJ 250 ML IV SCH ×2 (10:00→20:18)
[2017-05-20] MEDS ORDERED: FUROSEMIDE 20 MG/2 ML VIAL IV PUSH ONE (11:45)
[2017-05-20] MEDS: SODIUM CHLORIDE 0.9% FLUSH 10 ML FLUSH IV FLUSH PRN ×2 (15:47→16:10)
[2017-05-20] MEDS: MORPHINE SULFATE 2 MG/ML INJ IV PUSH PRN (15:47)
--- NOTE | 2017-05-20 19:21 | HHI.PR ---
Subjective Remarks 71M admitted for neutropenic fever. Patient is doing very well today, afebrile , eager to go home. Objective Vitals Vital Signs Date Time Temp Pulse Resp B/P (MAP) Pulse Ox O2 Delivery O2 Flow Rate FiO2 05/20/17 17:09 18 05/20/17 16:00 97.3 96 16 121/54 (76) 95 05/20/17 15:52 18 05/20/17 12:00 97.7 88 16 131/58 (82) 94 05/20/17 09:03 92 05/20/17 08:00 97.6 99 18 123/61 (81) 92 05/20/17 04:35 96.8 98 16 133/64 (87) 95 05/20/17 00:09 98.6 97 168/72 (104) 93 05/19/17 20:20 95 05/19/17 20:03 98.1 95 16 185/87 (119) 96 I/O 05/19/17 05/19/17 05/19/17 05/20/17 05/20/17 05/20/17 06:59 14:59 22:59 06:59 14:59 22:59 Intake Total 240 ml 662.5 ml 1305 ml 842.5 ml 720 ml Balance 240 ml 662.5 ml 1305 ml 842.5 ml 720 ml Intake Oral 240 ml 755 ml 480 ml 720 ml IV Total 262.5 ml 150 ml 362.5 ml Packed Cells 400 ml 400 ml # Voids 2 7 3 5 # Bowel Movements 0 1 0 1 Result Diagram: 05/19/17 1730 05/19/172014 Objective Remarks GENERAL: Well-nourished, tall, thin patient. SKIN: Warm and dry, resolving blister type rash on both legs HEAD: Normocephalic. EYES: No scleral icterus. No injection or drainage. NECK: Supple, trachea midline. No JVD or lymphadenopathy. CARDIOVASCULAR: Regular rate and rhythm without murmurs, gallops, or rubs. RESPIRATORY: Breath sounds equal bilaterally. No accessory muscle use. GASTROINTESTINAL: Abdomen soft, non-tender, nondistended. EXTREMITIES: No cyanosis, or edema. NEUROLOGICAL: Awake, alert, and oriented x 3. Non-focal. A/P Problem List: (1) Back pain, chronic ICD Code: M54.9 - Dorsalgia, unspecified; G89.29 - Other chronic pain (2) Non-Hodgkin lymphoma ICD Code: C85.90 - Non-Hodgkin lymphoma, unspecified, unspecified site (3) HTN (hypertension) ICD Code: I10 - Essential (primary) hypertension (4) Anemia ICD Code: D64.9 - Anemia, unspecified (5) Fever ICD Code: R50.9 - Fever, unspecified Assessment and Plan Neutropenic Fever Blood counts are improved, normalizing, fever resolved Undergoing chemotherapy for Non-Hodgkin's Lymphoma UTI was born in the presence of Keflex for his leg and Flagyl for bacteremia Continue IV Vancomycin, and plan for PO choices that are not beta-lactams (ie Cipro vs. Bactrim) Blood cultures pending Flu test negative Anemia Hgb improved following 2 units of PRBC, at 8.1 Hypertension Metoprolol held due to normal BP h/o Gout, Hypothyroidism Continue home meds DVT Prophylaxis Lovenox held at patient's request due to low PLT and severe anemia Will discuss resuming tomorrow if they agree Problem Qualifiers (1) Fever: Qualified Codes: R50.9 - Fever, unspecified Gio Thomason MD May 20, 2017 19:21
[2017-05-20 21:17] LABS: AUTOMATED NEUTROPHIL # 5.3 TH/MM3 (1.8-7.7); BASOPHIL % 0.5 % (0.0-2.0); EOSINOPHIL % 0.5 % (0.0-4.0); HEMOGLOBIN 8.2 GM/DL (13.0-17.0); LYMPH % 6.4 % (9.0-44.0); LYMPHOCYTE # 0.4 TH/MM3 (1.0-4.8); MEAN CELL VOLUME 88.2 FL (80.0-100.0); MEAN PLATELET VOLUME 8.5 FL (7.0-11.0); MONO % 8.6 % (0.0-8.0); MONOCYTE # 0.5 TH/MM3 (0-0.9); PLATELET COUNT 147 TH/MM3 (150-450); RED BLOOD COUNT 2.72 MIL/MM3 (4.50-5.90); RED CELL DISTRIBUTION WIDTH 19.6 % (11.6-17.2); WHITE BLOOD COUNT 6.3 TH/MM3 (4.0-11.0)
[2017-05-21] VITALS: BP 149/66; PULSE 99; RESP 20; TEMP 98.5; O2SAT 94
[2017-05-21] MEDS: MORPHINE SULFATE 15 MG TAB PO SCH ×3 (00:13→08:48)
[2017-05-21] MEDS: LEVOTHYROXINE SODIUM 50 MCG TAB PO SCH (04:44)
[2017-05-21] MEDS: CEFEPIME INJ 1,000 MG in SODIUM CHLORIDE 0.9% INJ 100 ML IV SCH (04:45)
[2017-05-21 05:33] LABS: CREATININE 0.45 MG/DL (0.60-1.30)
[2017-05-21 08:00] VITALS: BP 123/60; PULSE 109; RESP 18; TEMP 97.3; O2SAT 96
[2017-05-21] MEDS: ALLOPURINOL 300 MG TAB PO SCH (08:48)
[2017-05-21] MEDS: DOCUSATE SODIUM 50 MG/SENNA 8.6 MG TAB PO SCH (08:49)
[2017-05-21] MEDS: SODIUM CHLORIDE 0.9% FLUSH 10 ML FLUSH IV FLUSH SCH (08:49)
[2017-05-21] MEDS: POLYETHYLENE GLYCOL 17 GM PKG PO SCH (08:49)
[2017-05-21] MEDS: PANTOPRAZOLE SOD 40 MG DELAYED RELEASE TAB PO SCH (08:49)
[2017-05-21] MEDS: FUROSEMIDE 20 MG TAB PO SCH (08:49)
--- NOTE | 2017-05-21 09:10 | HHI.PR ---
Subjective Remarks Patient states that he is not short of breath or coughing. She did not have the symptoms either prior to admission. He has not had any chills or fever. He wants to go home. He denies any symptoms of diarrhea nor any chills or fever. Objective Vitals Vital Signs Date Time Temp Pulse Resp B/P (MAP) Pulse Ox O2 Delivery O2 Flow Rate FiO2 05/21/17 00:00 98.5 99 20 149/66 (93) 94 05/20/17 20:00 98.7 93 22 142/65 (90) 94 05/20/17 17:09 18 05/20/17 16:00 97.3 96 16 121/54 (76) 95 05/20/17 15:52 18 05/20/17 12:00 97.7 88 16 131/58 (82) 94 05/20/17 09:03 92 I/O 05/20/17 05/20/17 05/20/17 05/21/17 05/21/17 05/21/17 07:00 15:00 23:00 07:00 15:00 23:00 Intake Total 842.5 ml 982.5 ml 460 ml Balance 842.5 ml 982.5 ml 460 ml Intake Oral 480 ml 720 ml 360 ml IV Total 362.5 ml 262.5 ml 100 ml # Voids 3 5 2 # Bowel Movements 0 1 0 Result Diagram: 05/20/17201905/21/17 0455 Other Results Microbiology Date/Time Source Procedure Growth Status 05/18/17 11:20 Blood Peripheral Aerobic Blood Culture - Preliminary NO GROWTH IN 2 DAYS Resulted 05/18/17 11:20 Blood Peripheral Anaerobic Blood Culture - Preliminary NO GROWTH IN 2 DAYS Resulted 05/18/17 11:20 Nasal Washing Influenza Types A,B Antigen (PATRICIA) - Final NEGATIVE FOR FLU A AND B ANTIGEN.... Complete 05/18/17 11:50 Urine Catheterized Urine Urine Culture - Final NO GROWTH IN 48 HOURS. Complete Objective Remarks GENERAL: This is a well-nourished, well-developed patient, in no apparent distress. CARDIOVASCULAR: Regular rate and rhythm RESPIRATORY: Relatively clear to auscultation bilaterally GASTROINTESTINAL: Abdomen soft, non-tender, nondistended. Normal active bowel sounds MUSCULOSKELETAL: Extremities without clubbing, cyanosis, or edema. NEURO: Alert & Oriented x4 to person, place, time, situation. Moves all ext x4 A/P Problem List: (1) Back pain, chronic ICD Code: M54.9 - Dorsalgia, unspecified; G89.29 - Other chronic pain Status: Chronic (2) Non-Hodgkin lymphoma ICD Code: C85.90 - Non-Hodgkin lymphoma, unspecified, unspecified site Status: Acute (3) HTN (hypertension) ICD Code: I10 - Essential (primary) hypertension Status: Chronic (4) Anemia ICD Code: D64.9 - Anemia, unspecified (5) Fever ICD Code: R50.9 - Fever, unspecified Status: Resolved Assessment and Plan Patient was admitted for Neutropenic Fever and has been undergoing chemotherapy for non-Hodgkin's lymphoma Blood counts are improved, normalizing, fever resolved Undergoing chemotherapy for Non-Hodgkin's Lymphoma with next cycle in May Patient has been on IV vancomycin and cefepime since admission with negative blood cultures and urine cultures. Flu test negative Although patient had some pulmonary findings of CT, there is no signs of symptoms of pneumonia and this could be due to atelectasis; at this time, will discharge patient to home on by mouth Levaquin. Anemia, likely due to chemotherapy therapy induced Hgb improved following 2 units of PRBC, at 8.1 No signs of active bleeding Hypertension, essential Metoprolol held due to normal BP h/o Gout, Hypothyroidism Continue home medications. DVT Prophylaxis Lovenox held at patient's request due to low PLT and severe anemia Bilateral SCDs Discharge Planning Discharge patient home with outpatient follow-up with oncology. Problem Qualifiers (1) HTN (hypertension): Qualified Codes: I10 - Essential (primary) hypertension (2) Fever: Qualified Codes: R50.9 - Fever, unspecified Sarah Pickering MD May 21, 2017 09:10
[2017-05-21] MEDS ORDERED: LEVA750T9 PO (09:13)
--- NOTE | 2017-05-21 09:19 | HHI.DS ---
Discharge Summary Admission Date May 18, 2017 at 16:04 Discharge Date: May 21, 2017 Admitting Diagnosis Fever (1) Neutropenia with fever ICD Code: D70.9 - Neutropenia, unspecified; R50.81 - Fever presenting with conditions classified elsewhere Diagnosis: Principal Status: Resolved (2) Back pain, chronic ICD Code: M54.9 - Dorsalgia, unspecified; G89.29 - Other chronic pain Diagnosis: Secondary Status: Chronic (3) Non-Hodgkin lymphoma ICD Code: C85.90 - Non-Hodgkin lymphoma, unspecified, unspecified site Diagnosis: Principal Status: Acute (4) HTN (hypertension) ICD Code: I10 - Essential (primary) hypertension Diagnosis: Secondary Status: Chronic (5) Anemia ICD Code: D64.9 - Anemia, unspecified Diagnosis: Secondary Procedures none Brief History - From Admission 71-year-old male with a typically no past medical history prior to February 2017 when he was diagnosed with non-Hodgkin's lymphoma. Since that diagnosis patient has also been diagnosed with hypertension, elevated uric acid levels, hypothyroidism. She has been under the care of and began chemotherapy on 04/04/17. He also mentions that he was recently hospitalized at [facility] followed by due to an infection in his blood for which she had been receiving IV antibiotics. was at bedside reports that patient was due to repeat his blood check cultures tomorrow to see if he was to continue on IV antibiotics. She presented to the emergency room department today with complaints of fever. She reports that was informed by his oncologist that if he was to have a fever above 100.5 he was to come to the emergency department. Last night he noticed his temperature was 100.3. This morning he checked his temperature and he was 100.6. He denies any chills, nausea, vomiting, diarrhea, abdominal pain, headache, open sores or wounds recent ill contacts. who is very meticulous and has documented no signs shares with me that they have last week he was having high blood pressures along with shortness of breath. He visited his doctor and was instructed to try exercises and high blood pressure along with shortness of breath was attributed to dehydration. She reports that he follow the instructions of his doctor and performed exercises as well as improved hydration and symptoms of shortness of breath and hypertension resolved. She denies any constipation, blood in stool, or abdominal pain. He also denies any dysuria or hematuria although noticed that yesterday his urine had an odor. He does complain of chronic pain and reports that he takes his morphine sulfate on a regular basis and pain is well controlled. At the current moment he reports pain in the right mid back which is increased with shortness of breath. will consult DR MONTALVO MAY NEED ID CONSULT IN FUTURE CBC/BMP: 05/20/17 2020 05/21/17 0455 Significant Findings Laboratory Tests Test 05/18/17 11:20 05/18/17 11:50 05/19/17 05:55 05/19/17 17:30 Red Blood Count 2.46 MIL/MM3 (4.50-5.90) 2.09 MIL/MM3 (4.50-5.90) 2.66 MIL/MM3 (4.50-5.90) Hemoglobin 7.3 GM/DL (13.0-17.0) 6.1 GM/DL (13.0-17.0) 8.1 GM/DL (13.0-17.0) Hematocrit 21.6 % (39.0-51.0) 18.5 % (39.0-51.0) 23.3 % (39.0-51.0) Red Cell Distribution Width 22.6 % (11.6-17.2) 22.5 % (11.6-17.2) 18.3 % (11.6-17.2) Platelet Count 127 TH/MM3 (150-450) 107 TH/MM3 (150-450) 121 TH/MM3 (150-450) Neutrophils (%) (Auto) 84.4 % (16.0-70.0) 83.1 % (16.0-70.0) 85.8 % (16.0-70.0) Lymphocytes (%) (Auto) 6.0 % (9.0-44.0) 6.9 % (9.0-44.0) 6.3 % (9.0-44.0) Monocytes (%) (Auto) 9.2 % (0.0-8.0) 9.3 % (0.0-8.0) Lymphocytes # (Auto) 0.4 TH/MM3 (1.0-4.8) 0.3 TH/MM3 (1.0-4.8) 0.4 TH/MM3 (1.0-4.8) Band Neutrophils % 17 % (0-6) 22 % (0-6) Lymphocytes % 7 % (9-44) 6 % (9-44) Myelocytes 1 % (0-0) Toxic Granulation 1+ (NORMAL) 1+ (NORMAL) Toxic Vacuolation PRESENT (NONE SEEN) Platelet Estimate LOW (NORMAL) LOW (NORMAL) Polychromasia 2.0 % (0.0-1.9) Tear Drop Cells 1+ (NORMAL) Prothrombin Time 12.0 SEC (9.8-11.6) Activated Partial Thromboplast Time 32.8 SEC (24.3-30.1) Creatinine 0.49 MG/DL (0.60-1.30) 0.48 MG/DL (0.60-1.30) Random Glucose 143 MG/DL (74-106) 130 MG/DL (74-106) Total Protein 6.0 GM/DL (6.4-8.2) 5.1 GM/DL (6.4-8.2) Albumin 2.6 GM/DL (3.4-5.0) 2.2 GM/DL (3.4-5.0) Calcium Level 8.3 MG/DL (8.5-10.1) 8.3 MG/DL (8.5-10.1) Aspartate Amino Transf (AST/SGOT) 10 U/L (15-37) Sodium Level 134 MEQ/L (136-145) 135 MEQ/L (136-145) Chloride Level 97 MEQ/L (98-107) Total Creatine Kinase 19 U/L (39-308) Lipase 54 U/L (73-393) Urine Protein 30 mg/dL (NEG-TRACE) Urine Occult Blood MOD (NEG) Urine RBC 71 /hpf (0-3) Urine Bacteria OCC /hpf (NONE) Urine Mucus FEW /lpf (OCC) Ovalocytes 1+ (NORMAL) Alanine Aminotransferase (ALT/SGPT) 11 U/L (12-78) Thyroid Stimulating Hormone 3rd Gen 4.200 uIU/ML (0.358-3.740) Test 1/30/18 20:15 05/20/17 09:40 05/20/17 20:20 05/21/17 04:55 Creatinine 0.46 MG/DL (0.60-1.30) 0.45 MG/DL (0.60-1.30) Random Glucose 137 MG/DL (74-106) Red Blood Count 2.72 MIL/MM3 (4.50-5.90) Hemoglobin 8.2 GM/DL (13.0-17.0) Hematocrit 24.0 % (39.0-51.0) Red Cell Distribution Width 19.6 % (11.6-17.2) Platelet Count 147 TH/MM3 (150-450) Neutrophils (%) (Auto) 84.0 % (16.0-70.0) Lymphocytes (%) (Auto) 6.4 % (9.0-44.0) Monocytes (%) (Auto) 8.6 % (0.0-8.0) Lymphocytes # (Auto) 0.4 TH/MM3 (1.0-4.8) Imaging Last Impressions Chest X-Ray 05/18/17 1111 Signed Impressions: Service Date/Time: Thursday, May 18, 2017 11:36 - CONCLUSION: 1. Small moderate bilateral pleural effusions and bibasilar densities likely atelectasis. 2. Right midlung/right basilar subsegmental atelectasis/scarring. Eugenio Truong MD Abdomen/Pelvis CT 05/18/17 0000 Signed Impressions: Service Date/Time: Thursday, May 18, 2017 15:33 - CONCLUSION: 1. Moderate size bilateral pleural effusions with consolidation in both posterior lung bases. 2. Mild splenomegaly with abnormal low attenuation area in the anterior spleen which could represent an area of infarction or possible mass. 3. Mild hepatomegaly with scattered small low attenuation lesions which are nonspecific but may represent cysts. 4. Bilateral ureteral stent catheters in place with mild hydronephrosis and tiny renal calculi. 5. Anasarca and ascites. 6. Possible mild retroperitoneal adenopathy. 7. Nonspecific bowel gas pattern. Thuan Bustamante MD PE at Discharge GENERAL: This is a well-nourished, well-developed patient, in no apparent distress. CARDIOVASCULAR: Regular rate and rhythm RESPIRATORY: Relatively clear to auscultation bilaterally GASTROINTESTINAL: Abdomen soft, non-tender, nondistended. Normal active bowel sounds MUSCULOSKELETAL: Extremities without clubbing, cyanosis, or edema. NEURO: Alert & Oriented x4 to person, place, time, situation. Moves all ext x4 Hospital Course 71-year-old white male currently undergoing chemotherapy for non-Hodgkin's lymphoma was admitted for neutropenia fever with negative blood and urine cultures. There is no clinical symptoms of pneumonia nor any other symptoms of abdominal pain with diarrhea. He responded well with IV cefepime IV and vancomycin IV with no further fevers during hospitalization. His blood counts were improving on oscillation and required 2 units of transfusion for his acute anemia likely due to his lymphoma and recent chemotherapy. Dr. Montalvo, hematology oncology did see the patient during this hospitalization and recommended follow-up as an outpatient. This time patient has a maximum benefit of hospital stay, he'll be discharged home on by mouth Levaquin with outpatient follow-up Pt Condition on Discharge: Good Discharge Disposition: Discharge Home Discharge Time: <= 30 minutes Discharge Instructions DIET: Follow Instructions for: As Tolerated, No Restrictions, Heart Healthy Diet Activities you can perform: Regular-No Restrictions Follow up Referrals: Oncology/Hematology PCP Follow-up New Medications: Levofloxacin (Levaquin) 750 Mg Tablet 750 MG PO DAILY for Infection for 5 Days, #5 TAB 0 Refills Continued Medications: Albuterol (Albuterol) 2 Mg Tab 2.5 MG PO TID for Asthma Management, #90 TAB 0 Refills Allopurinol (Allopurinol) 300 Mg Tab 300 MG PO DAILY for Gout, #30 TAB 0 Refills Docusate Sodium (Colace) 100 Mg Capsule Furosemide (Lasix) 20 Mg Tab 20 MG PO BID, #60 TAB 0 Refills Hydralazine (Hydralazine) 100 Mg Tab 100 MG PO BID for Blood Pressure Management, TAB 0 Refills Take with meals Levothyroxine (Levothyroxine) 50 Mcg Tab 50 MCG PO DAILY for Thyroid, #30 TAB 0 Refills Morphine Sulfate ER 12 HR (Morphabond ER 12 HR) 15 Mg Tab 15 MG PO Q12H, TAB 0 Refills Pantoprazole (Protonix) 40 Mg Tab 40 MG PO DAILY for Reflux, #30 TAB 0 Refills Polyethylene Glycol 3350 Powder (Miralax Powder) 17 Gm Powd 17 GM PO DAILY for Constipation, #1 CAN 0 Refills Mix and dissolve one measuring cap-ful (17 grams) in water or juice. Potassium Chloride ER (Potassium Chloride ER) 10 Meq Cap 10 MEQ PO BID for Electrolyte Replacement, #60 CAP 0 Refills Sarah Pickering MD May 21, 2017 09:19
[2017-05-21] MEDS ORDERED: SODIUM CHLORIDE 0.9% FLUSH 10 ML FLUSH IVF PRN (11:00)
[2017-05-21 11:38] LABS: AUTOMATED NEUTROPHIL # 6.2 TH/MM3 (1.8-7.7); BASOPHIL % 0.3 % (0.0-2.0); EOSINOPHIL % 0.2 % (0.0-4.0); HEMATOCRIT 25.7 % (39.0-51.0); HEMOGLOBIN 8.5 GM/DL (13.0-17.0); LYMPH % 4.7 % (9.0-44.0); LYMPHOCYTE # 0.3 TH/MM3 (1.0-4.8); MEAN CELL VOLUME 88.7 FL (80.0-100.0); MEAN CORPUSCULAR HEMOGLOBIN 29.5 PG (27.0-34.0); MEAN CORPUSCULAR HGB CONC 33.3 % (32.0-36.0); MEAN PLATELET VOLUME 8.5 FL (7.0-11.0); MONO % 7.4 % (0.0-8.0); MONOCYTE # 0.5 TH/MM3 (0-0.9); NEUT % 87.4 % (16.0-70.0); PLATELET COUNT 156 TH/MM3 (150-450); RED BLOOD COUNT 2.89 MIL/MM3 (4.50-5.90); RED CELL DISTRIBUTION WIDTH 19.3 % (11.6-17.2)
--- NOTE | 2017-05-21 12:10 | PD.ONC.PN ---
Subjective Subjective Remarks Afebrile overnight. Late entry, patient seen at 10AM. Patient has a discharge order entered. He feels very good and is very eager to go home. states he feels like his buttock wound will improve when he goes home because he won't be sitting down so much. Patient's notes that the patient has a rash on both ankles. It doesn't itch. He noticed it after blood transfusion the other day. It coincides with swelling in both ankles that started after the blood transfusion. Objective Data Date Time Temp Pulse Resp B/P (MAP) Pulse Ox O2 Delivery O2 Flow Rate FiO2 05/21/17 08:00 97.3 109 18 123/60 (81) 96 05/21/17 00:00 98.5 99 20 149/66 (93) 94 05/20/17 20:00 98.7 93 22 142/65 (90) 94 05/20/17 17:09 18 05/20/17 16:00 97.3 96 16 121/54 (76) 95 05/20/17 15:52 18 05/21/17 05/21/17 05/21/17 06:59 14:59 22:59 Intake Total 460 ml Balance 460 ml Result Diagram: 05/21/17 1100 05/21/17 0455 Laboratory Results Laboratory Tests Test 05/20/17 20:20 05/21/17 04:55 05/21/17 11:00 White Blood Count 6.3 TH/MM3 7.0 TH/MM3 Red Blood Count 2.72 MIL/MM3 2.89 MIL/MM3 Hemoglobin 8.2 GM/DL 8.5 GM/DL Hematocrit 24.0 % 25.7 % Mean Corpuscular Volume 88.2 FL 88.7 FL Mean Corpuscular Hemoglobin 30.0 PG 29.5 PG Mean Corpuscular Hemoglobin Concent 34.0 % 33.3 % Red Cell Distribution Width 19.6 % 19.3 % Platelet Count 147 TH/MM3 156 TH/MM3 Mean Platelet Volume 8.5 FL 8.5 FL Neutrophils (%) (Auto) 84.0 % 87.4 % Lymphocytes (%) (Auto) 6.4 % 4.7 % Monocytes (%) (Auto) 8.6 % 7.4 % Eosinophils (%) (Auto) 0.5 % 0.2 % Basophils (%) (Auto) 0.5 % 0.3 % Neutrophils # (Auto) 5.3 TH/MM3 6.2 TH/MM3 Lymphocytes # (Auto) 0.4 TH/MM3 0.3 TH/MM3 Monocytes # (Auto) 0.5 TH/MM3 0.5 TH/MM3 Eosinophils # (Auto) 0.0 TH/MM3 0.0 TH/MM3 Basophils # (Auto) 0.0 TH/MM3 0.0 TH/MM3 CBC Comment DIFF FINAL DIFF FINAL Differential Comment Creatinine 0.45 MG/DL Estimat Glomerular Filtration Rate 186 ML/MIN Objective Remarks GENERAL: Pleasant middle aged male, sitting up in chair with feet elevated on bedside commode SKIN: Warm and dry. fine macular red rash on bilateral ankles. appears to be dermatitis. no papules or welts. no sign of infection. HEAD: Normocephalic. EYES: No injection or drainage. NECK: Supple, trachea midline. CARDIOVASCULAR: Regular rate and rhythm RESPIRATORY: Breath sounds equal bilaterally. No accessory muscle use. GASTROINTESTINAL: Abdomen soft, non-tender, nondistended. EXTREMITIES: No cyanosis. 2+ dependent edema in bilateral ankles. NEUROLOGICAL: No obvious focal deficit. Awake, alert, and oriented x3. Assessment/Plan Assessment 71y/o male with Stage IV diffuse large B-cell lymphoma admitted with fever. Now afebrile with negative blood cultures and feeling improved. Plan 1. rash on ankles + dependent edema: this looks like some type of contact dermatitis, especially as it seems to be in the distribution of his socks. It is blanchable and is not petechiae or infection. I advised the patient and to monitor it and keep feet elevated when sitting d/t the dependent edema. 2. DLBCL: follow up in clinic on 05/25/17. Nimco Benson May 21, 2017 12:10
[2017-05-22] MEDS ORDERED: PHARMACY ORDERED LAB ONE (09:45)
== END 2017-05-21 11:41 | disposition home or self-care (01) | DRG 809 ==
LOC: NEPE 10:24 → NEDA 16:04 → N07A 20:36
PROVIDERS: ADMIT Family Medicine; ATTEND Family Medicine
PROC: 30233N1 Transfusion of Nonautologous Red Blood Cells into Peripheral Vein, Percutaneous Approach (ICD-10-PCS; principal; 2017-05-19)
DX: D70.9 Neutropenia, unspecified (principal); C83.30 Diffuse large B-cell lymphoma, unspecified site; R50.81 Fever presenting with conditions classified elsewhere; D64.81 Anemia due to antineoplastic chemotherapy; I10 Essential (primary) hypertension; E03.9 Hypothyroidism, unspecified; G89.29 Other chronic pain; M10.9 Gout, unspecified; L25.9 Unspecified contact dermatitis, unspecified cause; S80.822A Blister (nonthermal), left lower leg, initial encounter; S80.821A Blister (nonthermal), right lower leg, initial encounter; X58.XXXA Exposure to other specified factors, initial encounter; Z96.641 Presence of right artificial hip joint
CPT/HCPCS: 36430; 71046; 74177; 80048; 80053; 80202; 81001; 82550; 82565; 83036; 83605; 83690; 83735; 84100; 84439; 84443; 85007; 85025; 85027; 85610; 85730; 86850; 86900; 86901; 86920; 87040; 87086; 87804; 93005; 94150; 96374; 96375; J0692; J1170; J1642; J1650; J1940; J2270; J3370; J7040; J7050; P9040; Q9967

== ENCOUNTER 2017-06-06 08:15 | Inpatient (IN) | payer OTHER, MEDICARE ==
[2017-06-06] VITALS (10 sets, daily range): BP systolic 128–146; BP diastolic 61–67; PULSE 92–121; RESP 18; TEMP 98.3–100.3; O2SAT 96–99
[~2017-06-06] VITALS: Ht 182.9 cm; Wt 69.4 kg
[~2017-06-06 08:15] MED LIST: ALBU2TAB4 PO; ALLO300T2 PO; COLA100C5; FURO1TAB62 PO; HYDR-3801 PO; LEVA750T9 PO; LEVO50TA4 PO; MIRA3350 PO; MORP-43 PO; POTA10CA PO; PROT40TA PO
--- NOTE | 2017-06-06 09:29 | RADRPT ---
EXAM DATE/TIME: 06/06/2017 09:21 [facility] COMPARISON: CHEST PA & LAT, May 18, 2017, 11:36. INDICATIONS : Fever. MEDICAL HISTORY : Lymphoma. SURGICAL HISTORY : Infusaport. ENCOUNTER: Initial ACUITY: 1 day PAIN SCORE: 0/10 LOCATION: Bilateral chest FINDINGS: There is a proximal infiltrate in the right midlung and right lower lung with a right-sided pleural e ffusion. The effusion appears to be stable compared to the prior study. Infiltrate appears to be mild ly increased compared to the prior study. There is blunting of the left costophrenic angle consisting a left-sided effusion which appears to be stable. There is a left-sided [id number] in place. No p neumothorax. The heart size is stable. CONCLUSION: 1. There continues to be bilateral pleural effusions, right greater than left. This is Essentially ab out the same compared to the prior exam. 2. Increasing parenchymal infiltrate in the right lung base compared to the prior study. Jaylan Candelaria MD on June 06, 2017 at 9:26 Board Certified Radiologist. This report was verified electronically.
[2017-06-06] MEDS ORDERED: SODIUM CHLOR 0.9% 1000 ML INJ 1,000 ML IV ONE (09:30)
[2017-06-06] MEDS ORDERED: ACETAMINOPHEN 325 MG TAB PO ONE (09:30)
[2017-06-06] MEDS ORDERED: HYDROmorphone HCL PF 1 MG/ML VIAL IV PUSH ONE (09:30)
[2017-06-06] MEDS ORDERED: HYDROmorphone HCL PF 2 MG/ML VIAL IV PUSH ONE (09:45)
[2017-06-06 10:27] LABS: HEMOGLOBIN 8.4 GM/DL (13.0-17.0); MEAN CELL VOLUME 85.6 FL (80.0-100.0); MEAN CORPUSCULAR HGB CONC 33.8 % (32.0-36.0); MEAN PLATELET VOLUME 8.1 FL (7.0-11.0); PLATELET COUNT 67 TH/MM3 (150-450); RED BLOOD COUNT 2.92 MIL/MM3 (4.50-5.90); RED CELL DISTRIBUTION WIDTH 19.1 % (11.6-17.2); WHITE BLOOD COUNT 2.2 TH/MM3 (4.0-11.0)
[2017-06-06] MEDS ORDERED: HYDR-3799 PO (10:36)
[2017-06-06] MEDS ORDERED: METO25TA3 PO (10:36)
[2017-06-06] MEDS ORDERED: VANCOMYCIN INJ 1,250 MG in SODIUM CHLOR 0.9% 250 ML INJ 250 ML IV ONE (10:45)
[2017-06-06] MEDS ORDERED: CEFEPIME INJ 2,000 MG in SODIUM CHLORIDE 0.9% INJ 100 ML IV ONE (10:45)
--- NOTE | 2017-06-06 10:48 | PD ---
HPI Chief Complaint: Fever Time Seen by Provider: 09:05 Travel History International Travel<30 days: No Contact w/Intl Traveler<30days: No Traveled to known affect area: No History of Present Illness HPI 71-year-old male arrives due to fever. He has lymphoma and is currently undergoing chemotherapy. He follows with Dr. Pena and Dr. Ha. He reports back pain in the thoracic distribution. He has a history of pleural effusions which tend to correlate with severity of back pain. Severity moderate. Timing constant. Temperature at home was 102. PFSH Past Medical History Asthma: No Heart Rhythm Problems: No Cancer: Yes (Non-Hodgkins Lymphoma 2016) Cardiovascular Problems: Yes High Cholesterol: No Chemotherapy: Yes Chest Pain: No Congestive Heart Failure: No COPD: No Diabetes: No Endocrine: Yes GERD: Yes Gout: Yes Genitourinary: Yes (Kidney stent placed March 2017) Hypertension: Yes Immune Disorder: No Implanted Vascular Access Dvce: Yes Kidney Stones: No Musculoskeletal: No Neurologic: No Psychiatric: No Reproductive: No Respiratory: Yes Renal Failure: No Sickle Cell Disease: No Sleep Apnea: No Thyroid Disease: Yes (Hypothyroidism) Tetanus Vaccination: Unknown Influenza Vaccination: Yes ?: Not Past Surgical History Abdominal Surgery: Yes (Bilateral inguinal hernia repair) Cardiac Surgery: No Ear Surgery: No Endocrine Surgery: No Eye Surgery: No Genitourinary Surgery: No Gynecologic Surgery: No Insulin Pump: Yes (R hip replacement) Oral Surgery: No Thoracic Surgery: No Other Surgery: Yes Social History Alcohol Use: No Tobacco Use: Yes (15 PACK YEARS) Substance Use: No Allergies-Medications (Allergen,Severity, Reaction): Coded Allergies: itraconazole (Verified Allergy, Unknown, 05/18/17) Reported Meds & Prescriptions Reported Meds & Active Scripts Active Reported Hydralazine HCl 25 Mg Tablet 25 Mg PO TID Metoprolol Tartrate 25 Mg Tab 25 Mg PO BID Miralax Powder (Polyethylene Glycol 3350 Powder) 17 Gm Powd 17 Gm PO DAILY Mix and dissolve one measuring cap-ful (17 grams) in water or juice. Morphabond ER 12 HR (Morphine Sulfate) 15 Mg Tab 15 Mg PO Q12H Colace (Docusate Sodium) 100 Mg Capsule Albuterol (Albuterol Sulfate) 2 Mg Tab 2.5 Mg PO TID Potassium Chloride ER (Potassium Chloride) 10 Meq Cap 10 Meq PO BID Protonix (Pantoprazole Sodium) 40 Mg Tab 40 Mg PO DAILY Allopurinol 300 Mg Tab 300 Mg PO DAILY Lasix (Furosemide) 20 Mg Tab 20 Mg PO BID Levothyroxine (Levothyroxine Sodium) 50 Mcg Tab 50 Mcg PO DAILY Review of Systems Except as stated in HPI: all other systems reviewed are Neg General / Constitutional: No: Fever Physical Exam Narrative GENERAL: 71-year-old male mild distress secondary to fever and illness Vital Signs Date Time Temp Pulse Resp B/P (MAP) Pulse Ox O2 Delivery O2 Flow Rate FiO2 06/06/17 10:29 99.1 06/06/17 09:30 100.3 92 18 129/61 (83) 96 Room Air 06/06/17 09:27 98 Room Air 06/06/17 08:34 18 97 Room Air 06/06/17 08:19 98.6 109 18 146/64 (91) 98 SKIN: Warm and dry. HEAD: Atraumatic. Normocephalic. EYES: Pupils equal and round. No scleral icterus. No injection or drainage. ENT: No nasal bleeding or discharge. Mucous membranes pink and moist. NECK: Trachea midline. No JVD. CARDIOVASCULAR: Tachycardic. Regular rhythm. RESPIRATORY: Slightly diminished breath sounds in the bases. No significant dyspnea. GASTROINTESTINAL: Abdomen soft, non-tender, nondistended. Hepatic and splenic margins not palpable. MUSCULOSKELETAL: Extremities without clubbing, cyanosis, or edema. No obvious deformities. NEUROLOGICAL: Awake and alert. No obvious cranial nerve deficits. Motor grossly within normal limits. Five out of 5 muscle strength in the arms and legs. Normal speech. PSYCHIATRIC: Appropriate mood and affect; insight and judgment normal. Data Data Last Documented VS Vital Signs Date Time Temp Pulse Resp B/P (MAP) Pulse Ox O2 Delivery O2 Flow Rate FiO2 06/06/17 10:29 99.1 06/06/17 09:30 92 18 129/61 (83) 96 Room Air Orders Orders Complete Blood Count With Diff (06/06/17 09:07) Comprehensive Metabolic Panel (06/06/17 09:07) Urinalysis - C+S If Indicated (06/06/17 09:07) Blood Culture (06/06/17 09:07) Iv Access Insert/Monitor (06/06/17 09:07) Chest, Single Ap (06/06/17 09:07) Ecg Monitoring (06/06/17 09:07) Oximetry (06/06/17 09:07) Hydromorphone Pf Inj (Dilaudid Pf Inj) (06/06/17 09:30) Sodium Chlor 0.9% 1000 Ml Inj (Ns 1000 M (06/06/17 09:30) Acetaminophen (Tylenol) (06/06/17 09:30) Hydromorphone Pf Inj (Dilaudid Pf Inj) (06/06/17 09:45) Cefepime Inj (Maxipime Inj) (06/06/17 10:45) Vancomycin Inj (Vancomycin Inj) (06/06/17 10:45) Oseltamivir (Tamiflu) (06/06/17 11:00) Lactic Acid Sepsis Protocol (06/06/17 10:48) Admit Order (Ed Use Only) (06/06/17 ) Flight Follower / Telemetry BRIANNA.Q8H (06/06/17 10:56) Vital Signs (Adult) Q4H (06/06/17 10:56) Diet Heart Healthy (06/06/17 Lunch) Activity Bed Rest (06/06/17 10:56) Labs Laboratory Tests Test 06/06/17 09:15 06/06/17 09:20 White Blood Count 2.2 TH/MM3 Red Blood Count 2.92 MIL/MM3 Hemoglobin 8.4 GM/DL Hematocrit 25.0 % Mean Corpuscular Volume 85.6 FL Mean Corpuscular Hemoglobin 29.0 PG Mean Corpuscular Hemoglobin Concent 33.8 % Red Cell Distribution Width 19.1 % Platelet Count 67 TH/MM3 Mean Platelet Volume 8.1 FL CBC Comment AUTO DIFF Differential Total Cells Counted 100 Neutrophils % (Manual) 29 % Band Neutrophils % 32 % Lymphocytes % 11 % Monocytes % 25 % Eosinophils % 1 % Neutrophils # (Manual) 1.4 TH/MM3 Metamyelocytes 1 % Myelocytes 1 % Differential Comment FINAL DIFF MANUAL Platelet Estimate LOW Platelet Morphology Comment NORMAL Ovalocytes 1+ Blood Urea Nitrogen 15 MG/DL Creatinine 0.63 MG/DL Random Glucose 155 MG/DL Total Protein 6.1 GM/DL Albumin 2.8 GM/DL Calcium Level 8.9 MG/DL Alkaline Phosphatase 109 U/L Aspartate Amino Transf (AST/SGOT) 11 U/L Alanine Aminotransferase (ALT/SGPT) 13 U/L Total Bilirubin 0.7 MG/DL Sodium Level 131 MEQ/L Potassium Level 4.2 MEQ/L Chloride Level 95 MEQ/L Carbon Dioxide Level 27.3 MEQ/L Anion Gap 9 MEQ/L Estimat Glomerular Filtration Rate 126 ML/MIN Urine Color YELLOW Urine Turbidity HAZY Urine pH 5.5 Urine Specific [place] 1.018 Urine Protein 30 mg/dL Urine Glucose (UA) NEG mg/dL Urine Ketones NEG mg/dL Urine Occult Blood MOD Urine Nitrite NEG Urine Bilirubin NEG Urine Urobilinogen 2.0 MG/DL Urine Leukocyte Esterase NEG Urine RBC /hpf Urine WBC 1 /hpf Urine Bacteria RARE /hpf Urine Hyaline Casts 1 /lpf Urine Mucus FEW /lpf Microscopic Urinalysis Comment CULT NOT INDICATED MDM Medical Decision Making Medical Screen Exam Complete: Yes Emergency Medical Condition: Yes Differential Diagnosis Neutropenic fever, sepsis, influenza Narrative Course CBC & BMP Diagram 06/06/17 09:15 Last Impressions Chest X-Ray 06/06/17 0907 Signed Impressions: Service Date/Time: Thursday, June 06, 2017 09:21 - CONCLUSION: 1. There continues to be bilateral pleural effusions, right greater than left. This is Essentially about the same compared to the prior exam. 2. Increasing parenchymal infiltrate in the right lung base compared to the prior study. Jaylan Candelaria MD Patient will be admitted for IV antibiotics. There is potential for influenza infection as well. Cefepime Vanco started Tamiflu added. d/w Dr Whitten Sepsis Criteria SIRS Criteria (2 or more): Heart rate over 90, WBC > 09344, < 4000 or > 10% bands Diagnosis Primary Impression: Fever Qualified Codes: R50.9 - Fever, unspecified Additional Impression: Neutropenic fever Admitting Information Admitting Physician Requests: Admit Danilo Vogel MD Jun 06, 2017 10:48
[2017-06-06 10:50] LABS: BACTERIA, URINE RARE /hpf; BILIRUBIN, URINE NEG (NEG); BLOOD, URINE MOD (NEG); GLUCOSE,URINE NEG (NEG); HYALINE CAST, URINE 1 /lpf (RARE); KETONE, URINE NEG (NEG); MUCUS URINE FEW /lpf (OCC); NITRITE,URINE NEG (NEG); PH, URINE 5.5 (5.0-8.5); URINE COLOR YELLOW (YELLW/STRAW); URINE LEUKOCYTE ESTERASE NEG (NEG)
[2017-06-06 10:52] LABS: ALBUMIN 2.8 GM/DL (3.4-5.0); AST (GOT) 11 U/L (15-37); BICARBONATE 27.3 MEQ/L (21.0-32.0); BLOOD UREA NITROGEN 15 MG/DL (7-18); CALCIUM 8.9 MG/DL (8.5-10.1); CHLORIDE 95 MEQ/L (98-107); CREATININE 0.63 MG/DL (0.60-1.30); GLOMERULAR FILTRATION RATE 126 ML/MIN (>89); GLUCOSE,RANDOM 155 MG/DL (74-106); SODIUM (NA) 131 MEQ/L (136-145)
[2017-06-06 10:53] LABS: ALT (GPT) 13 U/L (12-78)
[2017-06-06 10:55] LABS: ALKALINE PHOSPHATASE 109 U/L (45-117); TOTAL BILIRUBIN ADULT 0.7 MG/DL (0.2-1.0); TOTAL PROTEIN 6.1 GM/DL (6.4-8.2)
--- NOTE | 2017-06-06 10:55 | HHI.HP ---
HPI Service [facility] Hospitalists Primary Care Physician Sancho Mackenzie MD Admission Diagnosis Diagnoses: Chief Complaint: fever and low back pain Travel History International Travel<30 Days: No Contact w/Intl Traveler <30 Da: No Traveled to Known Affected Are: No History of Present Illness This is a 71-year-old male with history of non-Hodgkin's lymphoma undergoing chemotherapy under Dr. Ha (Becky) presenting with fever of 101. He started chemotherapy 04/04/2017. In April, he was hospitalized at [facility] for which she was treated for an infection, readmitted at [facility] late April for neutropenic fever complicated by anemia. Patient was discharged May 21. Patient then went for his 3rd cycle of chemotherapy R-CHOP 05/28/17 and 4th cycle scheduled 06/15/17. Since his chemotherapy, patient has been stable without any clinical complaints until 2 days ago when he started having mild coughing, productive with pale yellow sputum not associated with SOB or chest pain. He Also started having right low back pain radiating to the right hip yesterday. No sick contacts. noticed that his blood pressure is elevated than usual with SBP to 158, HR 122, and fever 101 hence patient was brought to the hospital. Patient denies any nausea, vomiting, chest pain, shortness of breath, headache, diarrhea or any urinary symptoms. Patient took his metoprolol today. Review of Systems ROS Limitations: Other (All other pertinent systems were reviewed and are negative.) Past Family Social History Past Medical History Non-Hodgkin's lymphoma hypothyroidism HTN elevated uric acid History of gout Past Surgical History August 2016 bilateral inguinal hernia repairs 2012 right hip replacement Renal stent Left upper chest port Reported Medications Hydralazine HCl 25 Mg Tablet 25 Mg PO TID when necessary for SBP more than 160. Metoprolol Tartrate 25 Mg Tab 25 Mg PO BID Miralax Powder (Polyethylene Glycol 3350 Powder) 17 Gm Powd 17 Gm PO DAILY Mix and dissolve one measuring cap-ful (17 grams) in water or juice. Morphabond ER 12 HR (Morphine Sulfate) 15 Mg Tab 15 Mg PO Q12H Colace (Docusate Sodium) 100 Mg Capsule Albuterol (Albuterol Sulfate) 2 Mg Tab 2.5 Mg PO TID Potassium Chloride ER (Potassium Chloride) 10 Meq Cap 10 Meq PO BID Protonix (Pantoprazole Sodium) 40 Mg Tab 40 Mg PO DAILY Allopurinol 300 Mg Tab 300 Mg PO DAILY Lasix (Furosemide) 20 Mg Tab 20 Mg PO BID Levothyroxine (Levothyroxine Sodium) 50 Mcg Tab 50 Mcg PO DAILY Allergies: Coded Allergies: itraconazole (Verified Allergy, Unknown, 05/18/17) Family History ? Hypertension Social History Denies any history of significant tobacco, alcohol or drug use. Physical Exam Vital Signs Vital Signs Date Time Temp Pulse Resp B/P (MAP) Pulse Ox O2 Delivery O2 Flow Rate FiO2 06/06/17 10:29 99.1 06/06/17 09:30 100.3 92 18 129/61 (83) 96 Room Air 06/06/17 09:27 98 Room Air 06/06/17 08:34 18 97 Room Air 06/06/17 08:19 98.6 109 18 146/64 (91) 98 Physical Exam GENERAL: Not in acute distress, well-nourished. 10. HEAD: Atraumatic. Normocephalic. No temporal or scalp tenderness. EYES: PERRL, full EOMs, no jaundice, nonicteric, pink conjunctivae without injection, moist mucosa NECK: Trachea midline, no mass, no obvious thyromegaly. No JVD or lymphadenopathy. CARDIOVASCULAR: Regular rate and rhythm without murmurs, gallops, or rubs. RESPIRATORY: Clear to auscultation with normal respiratory effort. Decreased breath sounds on the right, no wheezing or crackles. GASTROINTESTINAL: Abdomen soft, normal bowel sounds, non-tender, nondistended. No hepato-splenomegaly or palpable mass. No guarding. MARIE and exam deferred. MUSCULOSKELETAL: Extremities without clubbing, cyanosis, trace lower extremity edema. No joint tenderness. No calf tenderness. Distal pulses intact, 2+ bilaterally. NEUROLOGICAL: Awake, alert, oriented 3. No obvious cranial nerve deficits. Moves all 4 extremities, muscle strength testing 5 over 5. Motor and sensory grossly within normal limits. .Supple neck, no meningeal signs. Grossly negative cerebellar examination. No focal neurologic deficits. Laboratory Laboratory Tests Test 06/06/17 09:15 06/06/17 09:20 White Blood Count 2.2 Red Blood Count 2.92 Hemoglobin 8.4 Hematocrit 25.0 Mean Corpuscular Volume 85.6 Mean Corpuscular Hemoglobin 29.0 Mean Corpuscular Hemoglobin Concent 33.8 Red Cell Distribution Width 19.1 Platelet Count 67 Mean Platelet Volume 8.1 CBC Comment AUTO DIFF Blood Urea Nitrogen 15 Creatinine 0.63 Random Glucose 155 Albumin 2.8 Calcium Level 8.9 Aspartate Amino Transf (AST/SGOT) 11 Alanine Aminotransferase (ALT/SGPT) 13 Sodium Level 131 Potassium Level 4.2 Chloride Level 95 Carbon Dioxide Level 27.3 Anion Gap 9 Estimat Glomerular Filtration Rate 126 Urine Color YELLOW Urine Turbidity HAZY Urine pH 5.5 Urine Specific [place] 1.018 Urine Protein 30 Urine Glucose (UA) NEG Urine Ketones NEG Urine Occult Blood MOD Urine Nitrite NEG Urine Bilirubin NEG Urine Urobilinogen 2.0 Urine Leukocyte Esterase NEG Urine RBC Urine WBC 1 Urine Bacteria RARE Urine Hyaline Casts 1 Urine Mucus FEW Microscopic Urinalysis Comment CULT NOT INDICATED Date/Time Source Procedure Growth Status 06/06/17 09:20 Blood Peripheral Aerobic Blood Culture Pending Received 06/06/17 09:20 Blood Peripheral Anaerobic Blood Culture Pending Received Result Diagram: 06/06/17 0915 06/06/17 0915 Imaging Last Impressions Chest X-Ray 06/06/17 0907 Signed Impressions: Service Date/Time: Tuesday, June 06, 2017 09:21 - CONCLUSION: 1. There continues to be bilateral pleural effusions, right greater than left. This is Essentially about the same compared to the prior exam. 2. Increasing parenchymal infiltrate in the right lung base compared to the prior study. Jaylan Candelaria MD Caprini VTE Risk Assessment Caprini VTE Risk Assessment: Mod/High Risk (score >= 2) Caprini Risk Assessment Model Point Value = 1 Point Value = 2 Point Value = 3 Point Value = 5 Age 41-60 Minor surgery BMI > 25 kg/m2 Swollen legs Varicose veins or History of unexplained or recurrent spontaneous Oral contraceptives or hormone replacement Sepsis (< 1 month) Serious lung disease, including pneumonia (< 1 month) Abnormal pulmonary function Acute myocardial infarction Congestive heart failure (< 1 month) History of inflammatory bowel disease Medical patient at bed rest Age 61-74 Arthroscopic surgery Major open surgery (> 45 min) Laparoscopic surgery (> 45 min) Malignancy Confined to bed (> 72 hours) Immobilizing plaster cast Central venous access Age >= 75 History of VTE Family history of VTE Factor V Leiden Prothrombin [id number] Lupus anticoagulant Anticardiolipin antibodies Elevated serum homocysteine Heparin-induced thrombocytopenia Other congenital or acquired thrombophilia Stroke (< 1 month) Elective arthroplasty Hip, pelvis, or leg fracture Acute spinal cord injury (< 1 month) Prophylaxis Regimen Total Risk Factor Score Risk Level Prophylaxis Regimen 0-1 Low Early ambulation 2 Moderate Order ONE of the following: *Sequential Compression Device (SCD) *Heparin 5000 units SQ BID 3-4 Higher Order ONE of the following medications: *Heparin 5000 units SQ TID *Enoxaparin/Lovenox 40 mg SQ daily (WT < 150 kg, CrCl > 30 mL/min) *Enoxaparin/Lovenox 30 mg SQ daily (WT < 150 kg, CrCl > 10-29 mL/min) *Enoxaparin/Lovenox 30 mg SQ BID (WT < 150 kg, CrCl > 30 mL/min) AND/OR *Sequential Compression Device (SCD) 5 or more Highest Order ONE of the following medications: *Heparin 5000 units SQ TID (Preferred with Epidurals) *Enoxaparin/Lovenox 40 mg SQ daily (WT < 150 kg, CrCl > 30 mL/min) *Enoxaparin/Lovenox 30 mg SQ daily (WT < 150 kg, CrCl > 10-29 mL/min) *Enoxaparin/Lovenox 30 mg SQ BID (WT < 150 kg, CrCl > 30 mL/min) AND *Sequential Compression Device (SCD) Assessment and Plan Problem List: (1) Pleural effusion ICD Code: J90 - Pleural effusion, not elsewhere classified Status: Acute (2) NHL (non-Hodgkin's lymphoma) ICD Code: C85.90 - Non-Hodgkin lymphoma, unspecified, unspecified site Status: Chronic (3) Hypertension ICD Code: I10 - Essential (primary) hypertension Status: Acute (4) Anemia ICD Code: D64.9 - Anemia, unspecified Status: Acute (5) Fever ICD Code: R50.9 - Fever, unspecified Status: Acute (6) Neutropenic fever ICD Code: D70.9 - Neutropenia, unspecified; R50.81 - Fever presenting with conditions classified elsewhere Status: Acute Assessment and Plan This is a 71-year-old male diagnosed with non-Hodgkin's lymphoma in February 2017 presenting with fever. Non-Hodgkin's lymphoma, pleural effusion, consider pneumonia -chest x-ray personally reviewed showed bilateral pleural effusion right greater than left, similar to prior chest x-rays but with increasing parenchymal infiltrate on the right base compared to chest x-ray on May 18, 2017. With fever and leukocytosis, start vancomycin and Zosyn. Check rapid flu and sputum culture. Hold off on Tamiflu for now, consult hematology, follow-up blood culture results. DuoNeb's as needed Pancytopenia-previous hemoglobin is 9.1, now at 8.4, previously platelet count is 200, now at 67. Check differential count for leukopenia of 2.2. Check LDH, haptoglobin, consult hematology/oncology. Urinalysis unremarkable. Monitor CBC. Mild hyponatremia-could be secondary to dehydration specially with hypochloremia , ORAL rehydration for now, hold Lasix for now (taking for edema) Hypertension- restart metoprolol, hydralazine as needed. Hypothyroidism-continue Synthroid History of gout-continue allopurinol DVT prophylaxis: With thrombocytopenia and anemia, relative contraindication for blood thinners. Start SCDs Discussed Condition With Patient's Physician Certification 2 Midnight Certification Type: Admission for Inpatient Services Order for Inpatient Services The services are ordered in accordance with Medicare regulations or non- Medicare payer requirements, as applicable. In the case of services not specified as inpatient-only, they are appropriately provided as inpatient services in accordance with the 2-midnight benchmark. Estimated LOS (days): 2 days is the estimated time the patient will need to remain in the hospital, assuming treatment plan goals are met and no additional complications. Post-Hospital Plan: Home Problem Qualifiers (1) Fever: Qualified Codes: R50.9 - Fever, unspecified Rk Whitten MD Jun 06, 2017 10:55
[2017-06-06] MEDS ORDERED: OSELTAMIVIR PHOSPHATE 75 MG CAP PO ONE (11:00)
[2017-06-06 11:10] LABS: BANDS 32 % (0-6); LYMPHOCYTES 11 % (9-44); METAMYELOCYTES 1 % (0-1); MONOCYTES 25 % (0-8); MYELOCYTES 1 % (0-0); NEUTROPHIL # MANUAL DIFF 1.4 TH/MM3 (1.8-7.7); POLYS (SEG NEUTROPHILS) 29 % (16-70)
[2017-06-06 11:11] LABS: OVALOCYTES 1+ (NORMAL)
[2017-06-06] MEDS ORDERED: ACETAMINOPHEN 325 MG TAB PO PRN ×2 (11:30→11:45)
[2017-06-06] MEDS ORDERED: NALOXONE HCL 0.4 MG/ML AMP IV PUSH PRN ×2 (11:30→11:45)
[2017-06-06] MEDS ORDERED: BISACODYL 10 MG SUPP RECTAL PRN (11:30)
[2017-06-06] MEDS ORDERED: ONDANSETRON HCL 4 MG/2 ML VIAL IVP PRN (11:30)
[2017-06-06] MEDS ORDERED: LACTULOSE SYRUP 20 GM/30 ML CUP PO PRN (11:30)
[2017-06-06] MEDS ORDERED: MAGNESIUM HYDROXIDE SUSP 30 ML CUP PO PRN (11:30)
[2017-06-06] MEDS ORDERED: hydrALAZINE HCL 25 MG TAB PO PRN (11:30)
[2017-06-06] MEDS ORDERED: SENNOSIDES 8.6 MG TAB PO PRN (11:30)
[2017-06-06] MEDS ORDERED: MORPHINE SULFATE 4 MG/ML INJ IV PUSH PRN (11:45)
[2017-06-06] MEDS ORDERED: RESP: ALBUTEROL 2.5 MG/IPRATROPIUM 0.5 MG NEB (PRN) NEB (11:45)
[2017-06-06] MEDS ORDERED: MORPHINE SULFATE 15 MG TAB PO PRN (11:45)
[2017-06-06] MEDS: MORPHINE SULFATE 15 MG CONTROLLED RELEASE TAB PO SCH (15:00)
[2017-06-06] MEDS: PIPERACIL-TAZO 3.375 GM PREMIX 50 ML IV SCH ×2 (16:10→21:30)
--- NOTE | 2017-06-06 17:22 | MB ---
cc: PAUL MONTALVO MD, RUBY ANNE E. M.D. DATE OF CONSULTATION 06/06/17 REASON FOR CONSULTATION [address] Whitten CHIEF COMPLAINT Dr. Whitten requests a consultation for Mr. Hawthorne regarding newly diagnosed diffuse large B-cell lymphoma. HISTORY OF PRESENT ILLNESS Mr. Hawthorne is a 71-year-old man with advanced stage IV diffuse large B-cell lymphoma status post cycle two of R-CHOP chemotherapy about nine days ago. He was feeling well until the day of his admission. He reports starting a fever in the afternoon and presented to the emergency room with fever and neutropenia. His ANC is 1400. He denies any localizing symptoms. He is not short of breath. He presents with large left-sided pleural effusion, obstructive neuropathy and renal insufficiency. He has tolerated the chemotherapy well. 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 He has optimized his diet. His weight is stable. He denies any sick contact. No sore throat. No urinary complaints. Bowel movements are good. Denies any nausea associated with the chemotherapy. The rest of the review of systems is negative. PAST MEDICAL HISTORY 1. Hypertension 2. Lymphoma 3. Pleural effusion, 4. Chronic pain. PAST SURGICAL HISTORY 1. Hernia repair 2. Hip replacement 3. Stent placement 4. Colonoscopy. FAMILY HISTORY Mother age 64 of colon cancer. Father of heart disease age 78. SOCIAL HISTORY He is , lives with his . He quit smoking 15 years ago, has a 40 pack-year smoking history. He previously consumed two drinks per day. PHYSICAL EXAMINATION VITAL SIGNS: Temperature 98.3, heart rate 97, respiratory rate 18, blood pressure 132/63, saturation 97%. GENERAL: Mr. Hawthorne is a well-developed slender elderly man in no acute distress. HEENT: Pupils are round, reactive to light and accommodation. He has generalized pallor. Oropharynx is clear. No erythema. NECK: Supple with no adenopathy. No axillary adenopathy. LUNGS: Diminished breath sounds in the right lung field. CARDIOVASCULAR: A normal rate, rhythm. ABDOMEN: Benign, soft and nontender. LOWER EXTREMITIES: Lower extremity with healing scab on the left lower leg. No edema. NEUROLOGIC: Nonfocal. LABORATORY DATA Significant for pancytopenia. White blood cell count 2.2, hemoglobin 8.4, platelet count of 67,000, ANC 1400. Sodium was 131, BUN 15, creatinine 0.63. ALLERGIES ITRACONAZOLE MEDICATIONS Current, 1. Allopurinol. 2. Protonix. 3. MiraLax. 4. Synthroid. 5. Vancomycin. 6. Lopressor. 7. Piperacillin/tazobactam 8. Oramorph 15 mg q.12 h. 9. Oxycodone p.r.n. pain. 10. Morphine p.r.n. for breakthrough 11. Ondansetron p.r.n. 12. Lactulose p.r.n. ASSESSMENT/PLAN Mr. Hawthorne is a 71-year-old man with stage IV diffuse large B-cell lymphoma status post R-CHOP chemotherapy nine days ago. He is admitted for neutropenic fever. We discussed the concern for neutropenia and fever. He is improving with his CHOP chemotherapy. His third spacing has improved. He has no localizing symptoms. We discussed, however, empiric antibiotic therapy. Blood cultures were obtained. Urine cultures are obtained. He denies any urinary symptoms. He reports the same thing happened during the last cycle of chemotherapy. He did receive G-CSF support. His pain medication regimen will continue. We will monitor for breakthrough pain and treat accordingly. We will monitor his bowel regimen continuous to keep his bowel movements regular. Empiric antibiotic therapy is initiated. We will follow the cultures. Dr. Montalvo will return on Thursday to resume his care. I anticipate prompt recovery despite the cytopenia. We will monitor closely. MD TOBIAS Gallardo/ /2:51 PM /4:48 PM
[2017-06-06] MEDS: METOPROLOL TARTRATE 25 MG TAB PO SCH (21:27)
[2017-06-06] MEDS: DOCUSATE SODIUM 50 MG/SENNA 8.6 MG TAB PO SCH (21:27)
[2017-06-06] MEDS: SODIUM CHLORIDE 0.9% FLUSH 10 ML FLUSH IV FLUSH SCH (21:28)
[2017-06-07] VITALS (12 sets, daily range): BP systolic 121–151; BP diastolic 49–72; PULSE 100–115; RESP 16–18; TEMP 97.6–100.9; O2SAT 92–96
[2017-06-07] MEDS: VANCOMYCIN INJ 1,250 MG in SODIUM CHLOR 0.9% 250 ML INJ 250 ML IV SCH ×2 (00:10→10:53)
[2017-06-07] MEDS: MORPHINE SULFATE 15 MG CONTROLLED RELEASE TAB PO SCH ×2 (04:08→15:20)
[2017-06-07] MEDS: PIPERACIL-TAZO 3.375 GM PREMIX 50 ML IV SCH ×4 (04:09→23:24)
[2017-06-07] MEDS: LEVOTHYROXINE SODIUM 50 MCG TAB PO SCH (06:26)
[2017-06-07 08:00] LABS: ALBUMIN 2.3 GM/DL (3.4-5.0); AST (GOT) 5 U/L (15-37); BICARBONATE 28.1 MEQ/L (21.0-32.0); BLOOD UREA NITROGEN 11 MG/DL (7-18); CALCIUM 8.4 MG/DL (8.5-10.1); CHLORIDE 99 MEQ/L (98-107); GLOMERULAR FILTRATION RATE 213 ML/MIN (>89); GLUCOSE,RANDOM 128 MG/DL (74-106); SODIUM (NA) 135 MEQ/L (136-145)
[2017-06-07 08:02] LABS: ALT (GPT) 8 U/L (12-78)
[2017-06-07 08:04] LABS: ALKALINE PHOSPHATASE 88 U/L (45-117); TOTAL BILIRUBIN ADULT 0.6 MG/DL (0.2-1.0); TOTAL PROTEIN 5.1 GM/DL (6.4-8.2)
--- NOTE | 2017-06-07 08:37 | HHI.PR ---
Subjective Remarks Patient seen and examined this morning. Temperature 98.6, overnight T-max 100.9 , pulse 100, respiratory rate 18, blood pressure 121/57, pulse ox 95 on room air. Patient is sitting up on side of bed reports that he is feeling a lot better at this time. Has not felt like he had a fever since middle the night. He is glad that he is feeling better some. He understands that because of his illness with Hodgkin lymphoma and fever that we will continue monitoring him in the hospital at this time, and he agrees to this plan. Objective Vitals Vital Signs Date Time Temp Pulse Resp B/P (MAP) Pulse Ox O2 Delivery O2 Flow Rate FiO2 06/07/17 06:31 98.6 100 18 121/57 (78) 95 06/07/17 05:17 16 06/07/17 04:06 99.0 108 16 151/72 (98) 96 06/07/17 01:59 16 06/07/17 00:12 100.9 101 18 129/58 (81) 93 06/06/17 19:25 06/06/17 19:10 98 06/06/17 18:00 99.5 113 18 146/67 (93) 99 Room Air 06/06/17 15:01 103 18 143/63 (89) 98 Room Air 06/06/17 13:30 98.3 97 18 132/63 (86) 97 Room Air 06/06/17 11:30 98 18 128/67 (87) 98 Room Air 06/06/17 10:37 18 06/06/17 10:37 18 06/06/17 10:29 99.1 06/06/17 09:30 100.3 92 18 129/61 (83) 96 Room Air 06/06/17 09:27 98 Room Air 06/06/17 08:34 18 97 Room Air I/O 06/06/17 06/06/17 06/06/17 06/07/17 06/07/17 06/07/17 07:00 15:00 23:00 07:00 15:00 23:00 Intake Total 1362.5 ml 50 ml Balance 1362.5 ml 50 ml Intake IV Total 1362.5 ml 50 ml Result Diagram: 06/06/1715 06/07/1719 Imaging Last Impressions Chest X-Ray 06/06/17 0907 Signed Impressions: Service Date/Time: Tuesday, June 06, 2017 09:21 - CONCLUSION: 1. There continues to be bilateral pleural effusions, right greater than left. This is Essentially about the same compared to the prior exam. 2. Increasing parenchymal infiltrate in the right lung base compared to the prior study. Jaylan Candelaria MD Objective Remarks GEN: Thin, cachectic appearing male. No acute distress. CV: Regular rate and rhythm without obvious murmurs LUNGS: Clear to auscultation bilaterally. Normal respiratory effort. No wheezes , rales, rhonchi. GI: Soft, nontender, nondistended. No palpable masses. Bowel sounds WNL. EXT: No edema. NEURO/PSYCH: Afocal. Awake, alert, and oriented x3. Appropriate insight and judgment. Medications and IVs Current Medications Medications (Trade) Dose Ordered Sig/Mikael Route Start Time Stop Time Status Last Admin (NS Flush) 2 ml UNSCH PRN IV FLUSH 06/06/17 11:30 (NS Flush) 2 ml BID IV FLUSH 06/06/17 21:00 06/06/17 21:28 (Tylenol) 650 mg Q4H PRN PO 06/06/17 11:30 (Zofran Inj) 4 mg Q6H PRN IVP 06/06/17 11:30 (Narcan Inj) 0.4 mg UNSCH PRN IV PUSH 06/06/17 11:30 (Evelia-Colace) 1 tab BID PO 06/06/17 21:00 06/06/17 21:27 (Milk Of Magnesia Liq) 30 ml Q12H PRN PO 06/06/17 11:30 (Senokot) 17.2 mg Q12H PRN PO 06/06/17 11:30 (Dulcolax Supp) 10 mg DAILY PRN RECTAL 06/06/17 11:30 (Lactulose Liq) 30 ml DAILY PRN PO 06/06/17 11:30 (Zyloprim) 300 mg DAILY PO 06/07/17 09:00 (Apresoline) 25 mg TID PRN PO 06/06/17 11:30 (Synthroid) 50 mcg DAILY@0600 PO 06/07/17 06:00 06/07/17 06:26 (Lopressor) 25 mg BID PO 06/06/17 21:00 06/06/17 21:27 (Protonix) 40 mg DAILY PO 06/07/17 09:00 (Miralax) 17 gm DAILY PO 06/07/17 09:00 (Oramorph Sr) 15 mg Q12H PO 06/06/17 15:00 06/07/17 04:08 Piperacillin Sod/ Tazobactam Sod 50 ml @ 100 mls/hr Q6H IV 06/06/17 16:00 06/07/17 04:09 Vancomycin HCl 1250 mg/Sodium Chloride 262.5 ml @ 262.5 mls/ hr Q12H IV 06/07/17 00:00 06/07/17 00:10 (Duoneb Neb) 1 ampule Q4HR NEB PRN NEB 06/06/17 11:45 (Tylenol) 650 mg Q6H PRN PO 06/06/17 11:45 (Morphine Inj) 4 mg Q3H PRN IV PUSH 06/06/17 11:45 (Roxicodone) 5 mg Q4H PRN PO 06/06/17 11:45 06/07/17 00:10 (Msir) 5 mg Q4H PRN PO 06/06/17 11:45 A/P Problem List: (1) Pleural effusion ICD Code: J90 - Pleural effusion, not elsewhere classified Status: Acute (2) NHL (non-Hodgkin's lymphoma) ICD Code: C85.90 - Non-Hodgkin lymphoma, unspecified, unspecified site Status: Chronic (3) Hypertension ICD Code: I10 - Essential (primary) hypertension Status: Acute (4) Anemia ICD Code: D64.9 - Anemia, unspecified Status: Acute (5) Fever ICD Code: R50.9 - Fever, unspecified Status: Acute (6) Neutropenic fever ICD Code: D70.9 - Neutropenia, unspecified; R50.81 - Fever presenting with conditions classified elsewhere Status: Acute Assessment and Plan This is a 71-year-old male diagnosed with non-Hodgkin's lymphoma in February 2017 presenting with fever. Non-Hodgkin's lymphoma, pleural effusion, consider pneumonia -chest x-ray personally reviewed showed bilateral pleural effusion right greater than left, similar to prior chest x-rays but with increasing parenchymal infiltrate on the right base compared to chest x-ray on May 18, 2017. With fever and leukocytosis, start vancomycin and Zosyn. Check sputum culture. Negative for flu, will not start Tamiflu at this time, consult hematology, follow-up blood culture results. DuoNeb's as needed Pancytopenia-previous hemoglobin is 9.1, now at 8.4, previously platelet count is 200, now at 67. Check differential count for leukopenia of 2.2. Check LDH, haptoglobin, consult hematology/oncology. Urinalysis unremarkable. Monitor CBC. Mild hyponatremia-improved, 135, could be secondary to dehydration specially with hypochloremia, ORAL rehydration for now, hold Lasix for now (taking for edema) Hypertension- restart metoprolol, hydralazine as needed. Hypothyroidism-continue Synthroid History of gout-continue allopurinol DVT prophylaxis: With thrombocytopenia and anemia, relative contraindication for blood thinners. Start SCDs Problem Qualifiers (1) Fever: Qualified Codes: R50.9 - Fever, unspecified Humberto Berry MD, R3 Jun 07, 2017 08:37
[2017-06-07] MEDS: MORPHINE SULFATE 15 MG TAB PO PRN ×3 (09:58→23:04)
[2017-06-07] MEDS: POLYETHYLENE GLYCOL 17 GM PKG PO SCH (09:58)
[2017-06-07] MEDS: DOCUSATE SODIUM 50 MG/SENNA 8.6 MG TAB PO SCH ×2 (09:59→21:29)
[2017-06-07] MEDS: METOPROLOL TARTRATE 25 MG TAB PO SCH ×2 (09:59→21:29)
[2017-06-07] MEDS: PANTOPRAZOLE SOD 40 MG DELAYED RELEASE TAB PO SCH (09:59)
[2017-06-07] MEDS: SODIUM CHLORIDE 0.9% FLUSH 10 ML FLUSH IV FLUSH SCH ×2 (09:59→21:32)
[2017-06-07] MEDS: ALLOPURINOL 300 MG TAB PO SCH (09:59)
--- NOTE | 2017-06-07 10:46 | PD.ONC.PN ---
Subjective Subjective Remarks Tmax 100.9 overnight. Patient resting in bed in nad. States, " I feel much better today." Objective Data Date Time Temp Pulse Resp B/P (MAP) Pulse Ox O2 Delivery O2 Flow Rate FiO2 06/07/17 10:14 99.0 06/07/17 09:19 112 18 127/62 (83) 95 06/07/17 06:31 98.6 100 18 121/57 (78) 95 06/07/17 05:17 16 06/07/17 04:06 99.0 108 16 151/72 (98) 96 06/07/17 04:00 108 06/07/17 01:59 16 06/07/17 00:12 100.9 101 18 129/58 (81) 93 06/07/17 00:00 103 06/06/17 21:36 121 06/06/17 19:25 06/06/17 19:10 98 06/06/17 18:00 99.5 113 18 146/67 (93) 99 Room Air 06/06/17 15:01 103 18 143/63 (89) 98 Room Air 06/06/17 13:30 98.3 97 18 132/63 (86) 97 Room Air 06/06/17 11:30 98 18 128/67 (87) 98 Room Air 06/07/17 06/07/17 06/07/17 07:00 15:00 23:00 Intake Total 240 ml Output Total 101 ml Balance 139 ml Result Diagram: 06/06/17 0915 06/07/17 0619 Laboratory Results Laboratory Tests Test 06/06/17 11:35 06/07/17 06:19 Lactic Acid Level 0.8 mmol/L Haptoglobin 279 MG/DL Blood Urea Nitrogen 11 MG/DL Creatinine 0.40 MG/DL Random Glucose 128 MG/DL Total Protein 5.1 GM/DL Albumin 2.3 GM/DL Calcium Level 8.4 MG/DL Alkaline Phosphatase 88 U/L Aspartate Amino Transf (AST/SGOT) 5 U/L Alanine Aminotransferase (ALT/SGPT) 8 U/L Lactate Dehydrogenase 144 U/L Total Bilirubin 0.6 MG/DL Sodium Level 135 MEQ/L Potassium Level 3.6 MEQ/L Chloride Level 99 MEQ/L Carbon Dioxide Level 28.1 MEQ/L Anion Gap 8 MEQ/L Estimat Glomerular Filtration Rate 213 ML/MIN Culture Results Microbiology Date/Time Source Procedure Growth Status 06/06/17 09:20 Blood Peripheral Aerobic Blood Culture Pending Received 06/06/17 09:20 Blood Peripheral Anaerobic Blood Culture Pending Received 06/06/17 09:15 Blood Peripheral Aerobic Blood Culture Pending Received 06/06/17 09:15 Blood Peripheral Anaerobic Blood Culture Pending Received 06/06/17 16:10 Nasal Washing Influenza Types A,B Antigen (PATRICIA) - Final NEGATIVE FOR FLU A AND B ANTIGEN.... Complete 06/06/17 15:15 Sputum Expectorated Sputum Gram Stain - Final Resulted 06/06/17 15:15 Sputum Expectorated Sputum Sputum Culture Pending Resulted Administered Medications Medications (Trade) Dose Ordered Sig/Mikael Route PRN Reason Start Time Stop Time Status Last Admin Dose Admin Sodium Chloride (NS Flush) 2 ml BID IV FLUSH 06/06/17 21:00 06/07/17 09:59 Senna/Docusate Sodium (Evelia-Colace) 1 tab BID PO 06/06/17 21:00 06/07/17 09:59 Allopurinol (Zyloprim) 300 mg DAILY PO 06/07/17 09:00 06/07/17 09:59 Levothyroxine Sodium (Synthroid) 50 mcg DAILY@0600 PO 06/07/17 06:00 06/07/17 06:26 Metoprolol Tartrate (Lopressor) 25 mg BID PO 06/06/17 21:00 06/07/17 09:59 Pantoprazole Sodium (Protonix) 40 mg DAILY PO 06/07/17 09:00 06/07/17 09:59 Polyethylene Glycol (Miralax) 17 gm DAILY PO 06/07/17 09:00 06/07/17 09:58 Morphine Sulfate (Oramorph Sr) 15 mg Q12H PO 06/06/17 15:00 06/07/17 04:08 Piperacillin Sod/ Tazobactam Sod 50 ml @ 100 mls/hr Q6H IV 06/06/17 16:00 06/07/17 09:58 Vancomycin HCl 1250 mg/Sodium Chloride 262.5 ml @ 262.5 mls/ hr Q12H IV 06/07/17 00:00 06/07/17 00:10 Morphine Sulfate (Msir) 15 mg Q3H PRN PO pain 3-10 06/07/17 09:00 06/07/17 09:58 Objective Remarks GENERAL: Middle aged male, sitting up in bed in nad. SKIN: Warm and dry. HEAD: Normocephalic. EYES: No injection or drainage. NECK: Supple, trachea midline CARDIOVASCULAR: Regular rate and rhythm RESPIRATORY: Breath sounds equal bilaterally. No accessory muscle use. GASTROINTESTINAL: Abdomen soft, non-tender, nondistended. EXTREMITIES: No cyanosis NEUROLOGICAL: awake and alert, normal speech. moving all extremities. Assessment/Plan Problem List: (1) Neutropenic fever ICD Codes: D70.9 - Neutropenia, unspecified; R50.81 - Fever presenting with conditions classified elsewhere Status: Acute Plan: --BC pending --on Zosyn + Vanco --CXR shows bilateral pleural effusions and increasing parenchymal infiltrate, right lung base. (2) NHL (non-Hodgkin's lymphoma) ICD Codes: C85.90 - Non-Hodgkin lymphoma, unspecified, unspecified site Status: Chronic Plan: --s/p RCHOP in clinic --follows with Dr. Ha. Assessment 71y/o male with newly diagnosed diffuse large B-cell lymphoma admitted with neutropenic fever. h/o Hypertension. Lymphoma. Pleural effusion. Chronic pain. Plan 1. continue antibiotics. 2. give 2 unit pRBC. 3. start gentle hydration with NS @ 42cc/hr. Attending Statement The exam, history, and the medical decision-making described in the above note were completed with the assistance of the mid-level provider. I reviewed and agree with the findings presented. I attest that I had a [id number] encounter with the patient on the same day, and personally performed and documented my assessment and findings in the medical record. Fevers continue, still neutropenic, cultures pending. Transfuse 2uprbc. Clinically improve, tolerating abx therapy. Problem Qualifiers (1) NHL (non-Hodgkin's lymphoma): Nimco Benson Jun 07, 2017 10:46 Margie Jacobs MD Jun 07, 2017 23:39
[2017-06-07] MEDS: SODIUM CHLOR 0.9% 1000 ML INJ 1,000 ML IV SCH ×2 (11:00→23:00)
[2017-06-07 11:10] LABS: MEAN CELL VOLUME 85.1 FL (80.0-100.0); MEAN CORPUSCULAR HEMOGLOBIN 28.7 PG (27.0-34.0); MEAN CORPUSCULAR HGB CONC 33.8 % (32.0-36.0); MEAN PLATELET VOLUME 8.3 FL (7.0-11.0); PLATELET COUNT 62 TH/MM3 (150-450); RED CELL DISTRIBUTION WIDTH 19.6 % (11.6-17.2); WHITE BLOOD COUNT 3.3 TH/MM3 (4.0-11.0)
[2017-06-07 11:16] LABS: HEMOGLOBIN 6.9 GM/DL (13.0-17.0)
[2017-06-07 11:17] LABS: HEMATOCRIT 20.4 % (39.0-51.0)
[2017-06-07 11:34] LABS: CALCIUM 8.4 MG/DL (8.5-10.1); CREATININE 0.67 MG/DL (0.60-1.30)
[2017-06-07] MEDS ORDERED: SODIUM CHLOR 0.9% 250 ML INJ 250 ML IV ONE (11:45)
[2017-06-07] MEDS ORDERED: FUROSEMIDE 20 MG/2 ML VIAL IV PUSH ONE (11:45)
[2017-06-07 12:04] LABS: BANDS 41 % (0-6); LYMPHOCYTES 4 % (9-44); MONOCYTES 10 % (0-8); NEUTROPHIL # MANUAL DIFF 2.8 TH/MM3 (1.8-7.7); POLYS (SEG NEUTROPHILS) 45 % (16-70); TOXIC GRANULATION 2+ (NORMAL)
[2017-06-07] MEDS: ACETAMINOPHEN 325 MG TAB PO PRN (19:36)
[2017-06-07] MEDS: diphenhydrAMINE HCL 25 MG CAP PO PRN (19:36)
[2017-06-08] VITALS (12 sets, daily range): BP systolic 107–150; BP diastolic 54–68; PULSE 89–111; RESP 16–20; TEMP 98.1–101.7; O2SAT 92–95
[2017-06-08] MEDS: VANCOMYCIN INJ 1,250 MG in SODIUM CHLOR 0.9% 250 ML INJ 250 ML IV SCH ×2 (00:57→11:19)
[2017-06-08] MEDS: ACETAMINOPHEN 325 MG TAB PO PRN (00:58)
[2017-06-08] MEDS: diphenhydrAMINE HCL 25 MG CAP PO PRN (00:58)
[2017-06-08] MEDS: SODIUM CHLORIDE 0.9% FLUSH 10 ML FLUSH IV FLUSH PRN ×3 (01:10→05:59)
[2017-06-08] MEDS: MORPHINE SULFATE 15 MG TAB PO PRN ×6 (02:16→21:47)
[2017-06-08] MEDS: MORPHINE SULFATE 15 MG CONTROLLED RELEASE TAB PO SCH ×2 (03:05→15:26)
[2017-06-08] MEDS: PIPERACIL-TAZO 3.375 GM PREMIX 50 ML IV SCH (05:08)
[2017-06-08] MEDS: LEVOTHYROXINE SODIUM 50 MCG TAB PO SCH (05:58)
[2017-06-08 06:22] LABS: HEMATOCRIT 23.7 % (39.0-51.0); HEMOGLOBIN 8.1 GM/DL (13.0-17.0); MEAN CELL VOLUME 85.2 FL (80.0-100.0); MEAN CORPUSCULAR HEMOGLOBIN 29.2 PG (27.0-34.0); MEAN CORPUSCULAR HGB CONC 34.3 % (32.0-36.0); MEAN PLATELET VOLUME 8.4 FL (7.0-11.0); PLATELET COUNT 57 TH/MM3 (150-450); RED BLOOD COUNT 2.78 MIL/MM3 (4.50-5.90); RED CELL DISTRIBUTION WIDTH 17.4 % (11.6-17.2); WHITE BLOOD COUNT 4.6 TH/MM3 (4.0-11.0)
[2017-06-08 06:47] LABS: BICARBONATE 28.3 MEQ/L (21.0-32.0); CALCIUM 8.1 MG/DL (8.5-10.1); CREATININE 0.44 MG/DL (0.60-1.30)
[2017-06-08] MEDS: DOCUSATE SODIUM 50 MG/SENNA 8.6 MG TAB PO SCH ×2 (07:50→21:25)
[2017-06-08] MEDS: PANTOPRAZOLE SOD 40 MG DELAYED RELEASE TAB PO SCH (07:50)
[2017-06-08] MEDS: ALLOPURINOL 300 MG TAB PO SCH (07:50)
[2017-06-08] MEDS: POLYETHYLENE GLYCOL 17 GM PKG PO SCH (07:50)
[2017-06-08] MEDS: METOPROLOL TARTRATE 25 MG TAB PO SCH ×2 (07:51→21:25)
[2017-06-08] MEDS: SODIUM CHLORIDE 0.9% FLUSH 10 ML FLUSH IV FLUSH SCH ×2 (07:51→21:27)
[2017-06-08] MEDS ORDERED: POTASSIUM CHLORIDE 20 MEQ CONTROLLED RELEASE TAB PO ONE (09:00)
[2017-06-08 09:17] LABS: BANDS 17 % (0-6); LYMPHOCYTES 17 % (9-44); MONOCYTES 9 % (0-8); NEUTROPHIL # MANUAL DIFF 3.4 TH/MM3 (1.8-7.7); POLYS (SEG NEUTROPHILS) 57 % (16-70)
[2017-06-08 09:18] LABS: OVALOCYTES 1+ (NORMAL); TOXIC GRANULATION 2+ (NORMAL)
--- NOTE | 2017-06-08 11:27 | PD.ONC.PN ---
Subjective Subjective Remarks Patient has low-grade fever of 100.1 last evening Has been afebrile since then Reports he feels overall much improved No longer neutropenic Objective Data Date Time Temp Pulse Resp B/P (MAP) Pulse Ox O2 Delivery O2 Flow Rate FiO2 06/08/17 09:30 95 21 06/08/17 08:00 98.2 110 18 127/66 (86) 95 06/08/17 07:50 85 Room Air 06/08/17 05:01 98.1 99 16 128/55 93 06/08/17 01:55 98.7 89 18 128/54 93 06/08/17 00:49 99.0 90 18 107/64 93 06/07/17 21:48 98.8 106 18 128/54 93 06/07/17 21:20 100.1 108 18 125/49 92 06/07/17 19:40 100.5 106 18 137/58 (84) 96 06/07/17 15:26 99.4 115 18 145/56 (85) 06/07/17 12:19 97.6 101 18 136/60 (85) 95 06/08/17 06/08/17 06/08/17 07:00 15:00 23:00 Intake Total 1685 ml Output Total 950 ml 400 ml Balance 735 ml -400 ml Result Diagram: 06/08/1755406/08/17 0555 Laboratory Results Laboratory Tests Test 06/08/17 05:55 White Blood Count 4.6 TH/MM3 Red Blood Count 2.78 MIL/MM3 Hemoglobin 8.1 GM/DL Hematocrit 23.7 % Mean Corpuscular Volume 85.2 FL Mean Corpuscular Hemoglobin 29.2 PG Mean Corpuscular Hemoglobin Concent 34.3 % Red Cell Distribution Width 17.4 % Platelet Count 57 TH/MM3 Mean Platelet Volume 8.4 FL CBC Comment AUTO DIFF Differential Total Cells Counted 100 Neutrophils % (Manual) 57 % Band Neutrophils % 17 % Lymphocytes % 17 % Monocytes % 9 % Neutrophils # (Manual) 3.4 TH/MM3 Differential Comment FINAL DIFF MANUAL Toxic Granulation 2+ Platelet Estimate LOW Platelet Morphology Comment NORMAL Ovalocytes 1+ Blood Urea Nitrogen 8 MG/DL Creatinine 0.44 MG/DL Random Glucose 122 MG/DL Calcium Level 8.1 MG/DL Sodium Level 137 MEQ/L Potassium Level 3.4 MEQ/L Chloride Level 101 MEQ/L Carbon Dioxide Level 28.3 MEQ/L Anion Gap 8 MEQ/L Estimat Glomerular Filtration Rate 191 ML/MIN Culture Results Microbiology Date/Time Source Procedure Growth Status 06/06/17 09:20 Blood Peripheral Aerobic Blood Culture - Preliminary NO GROWTH IN 2 DAYS Resulted 06/06/17 09:20 Blood Peripheral Anaerobic Blood Culture - Preliminary NO GROWTH IN 2 DAYS Resulted 06/06/17 09:15 Blood Peripheral Aerobic Blood Culture - Preliminary NO GROWTH IN 2 DAYS Resulted 06/06/17 09:15 Blood Peripheral Anaerobic Blood Culture - Preliminary NO GROWTH IN 2 DAYS Resulted 06/06/17 16:10 Nasal Washing Influenza Types A,B Antigen (PATRICIA) - Final NEGATIVE FOR FLU A AND B ANTIGEN.... Complete 06/06/17 15:15 Sputum Expectorated Sputum Gram Stain - Final Resulted 06/06/17 15:15 Sputum Expectorated Sputum Sputum Culture - Preliminary HEAVY GROWTH NORMAL RESPIRATORY GABRIEL... Resulted Administered Medications Medications (Trade) Dose Ordered Sig/Mikael Route PRN Reason Start Time Stop Time Status Last Admin Dose Admin Sodium Chloride (NS Flush) 2 ml UNSCH PRN IV FLUSH FLUSH AFTER USING IV ACCESS 06/06/17 11:30 06/08/17 05:59 Sodium Chloride (NS Flush) 2 ml BID IV FLUSH 06/06/17 21:00 06/08/17 07:51 Senna/Docusate Sodium (Evelia-Colace) 1 tab BID PO 06/06/17 21:00 06/08/17 07:50 Allopurinol (Zyloprim) 300 mg DAILY PO 06/07/17 09:00 06/08/17 07:50 Levothyroxine Sodium (Synthroid) 50 mcg DAILY@0600 PO 06/07/17 06:00 06/08/17 05:58 Metoprolol Tartrate (Lopressor) 25 mg BID PO 06/06/17 21:00 06/08/17 07:51 Pantoprazole Sodium (Protonix) 40 mg DAILY PO 06/07/17 09:00 06/08/17 07:50 Polyethylene Glycol (Miralax) 17 gm DAILY PO 06/07/17 09:00 06/08/17 07:50 Morphine Sulfate (Oramorph Sr) 15 mg Q12H PO 06/06/17 15:00 06/08/17 03:05 Piperacillin Sod/ Tazobactam Sod 50 ml @ 100 mls/hr Q6H IV 06/06/17 16:00 06/08/17 05:08 Vancomycin HCl 1250 mg/Sodium Chloride 262.5 ml @ 262.5 mls/ hr Q12H IV 06/07/17 00:00 06/08/17 11:19 Morphine Sulfate (Msir) 15 mg Q3H PRN PO pain 3-10 06/07/17 09:00 06/08/17 11:18 Sodium Chloride 1,000 ml @ 42 mls/hr [id number] IV 06/07/17 11:00 06/07/17 23:00 Objective Remarks GENERAL: Middle aged male, sitting up in chair at bedside in no obvious distress. Visitor present. SKIN: Warm and dry. HEAD: Normocephalic. EYES: No injection or drainage. NECK: Supple, trachea midline CARDIOVASCULAR: Regular rate and rhythm. RESPIRATORY: Breath sounds equal bilaterally. No accessory muscle use. GASTROINTESTINAL: Abdomen soft, non-tender, nondistended. EXTREMITIES: No cyanosis. No edema NEUROLOGICAL: Awake and alert, normal speech. Moving all extremities. Assessment/Plan Problem List: (1) Neutropenic fever ICD Codes: D70.9 - Neutropenia, unspecified; R50.81 - Fever presenting with conditions classified elsewhere Status: Acute Plan: --BC show no growth 2 days --on Vanco --CXR shows bilateral pleural effusions and increasing parenchymal infiltrate, right lung base. (2) NHL (non-Hodgkin's lymphoma) ICD Codes: C85.90 - Non-Hodgkin lymphoma, unspecified, unspecified site Status: Chronic Plan: --s/p RCHOP in clinic --follows with Dr. Ha. Assessment 71y/o male with newly diagnosed diffuse large B-cell lymphoma admitted with neutropenic fever. h/o Hypertension. Lymphoma. Pleural effusion. Chronic pain. Plan 1. Stop Zosyn 2. Continue vancomycin 3. If blood cultures remain negative tomorrow and no more fever he can likely be discharged on po antibiotics 4. Discontinue neutropenic precautions 5. Monitor CBC Attending Statement The exam, history, and the medical decision-making described in the above note were completed with the assistance of the mid-level provider. I reviewed and agree with the findings presented. I attest that I had a [id number] encounter with the patient on the same day, and personally performed and documented my assessment and findings in the medical record. 71 yoM with DLBCL admitted with neutropenic fever. continue to follow cultures. continue broad spectrum antibiotics. Problem Qualifiers (1) NHL (non-Hodgkin's lymphoma): Smita Zapien Jun 08, 2017 11:27 Flakita Ha MD Jun 09, 2017 07:22
[2017-06-08] MEDS ORDERED: ALPRAZolam 0.25 MG TAB PO ONE (16:45)
--- NOTE | 2017-06-08 17:41 | RADRPT ---
EXAM DATE/TIME: 06/08/2017 17:20 [facility] COMPARISON: CHEST SINGLE AP, June 06, 2017, 9:21. INDICATIONS : Fever. Cough. MEDICAL HISTORY : Lymphoma. SURGICAL HISTORY : Infusaport. ENCOUNTER: Subsequent ACUITY: 2 days PAIN SCORE: 3/10 LOCATION: Right chest FINDINGS: Stable left subclavian [id number]. Redemonstration of bilateral small pleural effusions, right gre ater than left with associated airspace disease. This is more confluent in the right mid to lower arin g zones. The cardiomediastinal contours are stable. Remainder of the exam is unchanged. CONCLUSION: 1. No significant interval change. 2. Stable bilateral pleural effusions, right greater than left, with bilateral lower lung zone airspa ce consolidation more confluent in the mid to lower lung zone on the right. Kobe Conteh MD on June 08, 2017 at 17:37 Board Certified Radiologist. This report was verified electronically.
--- NOTE | 2017-06-08 18:19 | HHI.PR ---
Subjective Remarks Patient looks frail cachectic and tired Objective Vitals Vital Signs Date Time Temp Pulse Resp B/P (MAP) Pulse Ox O2 Delivery O2 Flow Rate FiO2 06/08/17 15:28 101.7 111 20 150/67 (94) 93 06/08/17 15:21 20 06/08/17 13:43 99.0 95 18 128/62 (84) 95 06/08/17 09:30 95 21 06/08/17 08:00 98.2 110 18 127/66 (86) 95 06/08/17 07:50 85 Room Air 06/08/17 05:01 98.1 99 16 128/55 93 06/08/17 01:55 98.7 89 18 128/54 93 06/08/17 00:49 99.0 90 18 107/64 93 06/07/17 21:48 98.8 106 18 128/54 93 06/07/17 21:20 100.1 108 18 125/49 92 06/07/17 19:40 100.5 106 18 137/58 (84) 96 I/O 06/07/17 06/07/17 06/07/17 06/08/17 06/08/17 06/08/17 07:00 15:00 23:00 07:00 15:00 23:00 Intake Total 240 ml 1095 ml 1685 ml 1800 ml Output Total 101 ml 500 ml 950 ml 400 ml 800 ml Balance 139 ml 595 ml 735 ml -400 ml 1000 ml Intake Oral 240 ml 760 ml 240 ml 1800 ml IV Total 315 ml 575 ml Packed Cells 800 ml Blood Product IV Normal Saline Flush 20 ml 70 ml Output Urine Total 100 ml 500 ml 950 ml 400 ml 800 ml Stool Total 1 ml # Bowel Movements 0 Result Diagram: 06/08/17 0555 06/08/17 0555 Objective Remarks GEN: Thin, cachectic appearing male. No acute distress. cv: s1 s2 , no m LUNGS: Decreased breath sounds on the right base. No wheezes, rales, rhonchi. GI: Soft, nontender, nondistended. No palpable masses. Bowel sounds WNL. EXT: No edema or cyanosis, pedal pulses appreciated NEURO/PSYCH: Awake alert oriented x3. Appropriate insight and judgment. A/P Problem List: (1) Pleural effusion ICD Code: J90 - Pleural effusion, not elsewhere classified Status: Acute (2) NHL (non-Hodgkin's lymphoma) ICD Code: C85.90 - Non-Hodgkin lymphoma, unspecified, unspecified site Status: Chronic (3) Hypertension ICD Code: I10 - Essential (primary) hypertension Status: Acute (4) Anemia ICD Code: D64.9 - Anemia, unspecified Status: Acute (5) Fever ICD Code: R50.9 - Fever, unspecified Status: Acute (6) Neutropenic fever ICD Code: D70.9 - Neutropenia, unspecified; R50.81 - Fever presenting with conditions classified elsewhere Status: Acute Assessment and Plan 06/08: Continued to have fever max 101.7, hemoglobin improved from 6.9-8.1, continue vancomycin and monitor blood culture, appreciate oncology input, Repeat CBC BMP in a.m., monitor temperature, blood pressure A/p: This is a 71-year-old male diagnosed with non-Hodgkin's lymphoma in February 2017 presenting with fever. Non-Hodgkin's lymphoma, pleural effusion, consider pneumonia -chest x-ray personally reviewed showed bilateral pleural effusion right greater than left, similar to prior chest x-rays but with increasing parenchymal infiltrate on the right base compared to chest x-ray on May 18, 2017. With fever and leukocytosis, start vancomycin and Zosyn. Check sputum culture. Negative for flu, will not start Tamiflu at this time, consult hematology, follow-up blood culture results. DuoNeb's as needed Pancytopenia-previous hemoglobin is 9.1, now at 8.4, previously platelet count is 200, now at 67. Check differential count for leukopenia of 2.2. Check LDH, haptoglobin, consult hematology/oncology. Urinalysis unremarkable. Monitor CBC. Mild hyponatremia-improved, 135, could be secondary to dehydration specially with hypochloremia, ORAL rehydration for now, hold Lasix for now (taking for edema) Hypertension- restart metoprolol, hydralazine as needed. Hypothyroidism-continue Synthroid History of gout-continue allopurinol DVT prophylaxis: With thrombocytopenia and anemia, relative contraindication for blood thinners. Start SCDs Problem Qualifiers (1) NHL (non-Hodgkin's lymphoma): (2) Fever: Qualified Codes: R50.9 - Fever, unspecified Erik Govea MD Jun 08, 2017 18:18
[2017-06-08] MEDS: SODIUM CHLOR 0.9% 1000 ML INJ 1,000 ML IV SCH (23:00)
[2017-06-09] VITALS (9 sets, daily range): BP systolic 124–136; BP diastolic 55–65; PULSE 84–105; RESP 16–18; TEMP 97.8–100; O2SAT 90–95
[2017-06-09] MEDS: VANCOMYCIN INJ 1,250 MG in SODIUM CHLOR 0.9% 250 ML INJ 250 ML IV SCH ×2 (00:36→14:05)
[2017-06-09] MEDS: MORPHINE SULFATE 15 MG TAB PO PRN ×7 (00:48→21:05)
[2017-06-09 01:18] LABS: BILIRUBIN, URINE NEG (NEG); BLOOD, URINE MOD (NEG); GLUCOSE,URINE NEG (NEG); KETONE, URINE NEG (NEG); MUCUS URINE FEW /lpf (OCC); NITRITE,URINE NEG (NEG); SQUAMOUS EPITHELIAL CELL URINE <1 /hpf (0-5); URINE COLOR YELLOW (YELLW/STRAW); URINE LEUKOCYTE ESTERASE NEG (NEG)
[2017-06-09] MEDS: MORPHINE SULFATE 15 MG CONTROLLED RELEASE TAB PO SCH ×2 (03:05→17:38)
[2017-06-09] MEDS: SODIUM CHLORIDE 0.9% FLUSH 10 ML FLUSH IV FLUSH PRN (03:07)
[2017-06-09 05:31] LABS: AUTOMATED NEUTROPHIL # 4.8 TH/MM3 (1.8-7.7); BASOPHIL # 0.1 TH/MM3 (0-0.2); BASOPHIL % 1.2 % (0.0-2.0); EOSINOPHIL % 0.6 % (0.0-4.0); HEMATOCRIT 24.4 % (39.0-51.0); HEMOGLOBIN 8.4 GM/DL (13.0-17.0); LYMPH % 8.3 % (9.0-44.0); LYMPHOCYTE # 0.5 TH/MM3 (1.0-4.8); MEAN CELL VOLUME 85.7 FL (80.0-100.0); MEAN CORPUSCULAR HEMOGLOBIN 29.5 PG (27.0-34.0); MEAN CORPUSCULAR HGB CONC 34.5 % (32.0-36.0); MEAN PLATELET VOLUME 8.7 FL (7.0-11.0); MONO % 9.4 % (0.0-8.0); MONOCYTE # 0.6 TH/MM3 (0-0.9); NEUT % 80.5 % (16.0-70.0); PLATELET COUNT 78 TH/MM3 (150-450); RED BLOOD COUNT 2.85 MIL/MM3 (4.50-5.90); RED CELL DISTRIBUTION WIDTH 18.3 % (11.6-17.2); WHITE BLOOD COUNT 5.9 TH/MM3 (4.0-11.0)
[2017-06-09 05:51] LABS: BICARBONATE 26.3 MEQ/L (21.0-32.0); CALCIUM 8.4 MG/DL (8.5-10.1); CREATININE 0.48 MG/DL (0.60-1.30)
[2017-06-09] MEDS: LEVOTHYROXINE SODIUM 50 MCG TAB PO SCH (06:29)
[2017-06-09] MEDS ORDERED: SODIUM CHLORIDE 0.9% FLUSH 10 ML FLUSH IV FLUSH PRN (06:45)
[2017-06-09 06:59] LABS: BANDS 17 % (0-6); LYMPHOCYTES 6 % (9-44); MONOCYTES 7 % (0-8); NEUTROPHIL # MANUAL DIFF 5.1 TH/MM3 (1.8-7.7); POLYS (SEG NEUTROPHILS) 70 % (16-70)
[2017-06-09 07:00] LABS: TOXIC GRANULATION 1+ (NORMAL)
[2017-06-09] MEDS: DOCUSATE SODIUM 50 MG/SENNA 8.6 MG TAB PO SCH ×2 (07:54→21:06)
[2017-06-09] MEDS: PANTOPRAZOLE SOD 40 MG DELAYED RELEASE TAB PO SCH (07:54)
[2017-06-09] MEDS: METOPROLOL TARTRATE 25 MG TAB PO SCH ×2 (07:54→21:05)
[2017-06-09] MEDS: POLYETHYLENE GLYCOL 17 GM PKG PO SCH (07:54)
[2017-06-09] MEDS: SODIUM CHLORIDE 0.9% FLUSH 10 ML FLUSH IV FLUSH SCH ×2 (07:58→21:08)
[2017-06-09] MEDS: ALLOPURINOL 300 MG TAB PO SCH (07:59)
[2017-06-09] MEDS: PIPERACIL-TAZO 4.5 GM PREMIX 100 ML IV SCH ×3 (11:27→22:46)
[2017-06-09] MEDS ORDERED: Vancomycin Consult Pharmacy 1 EA OTHER SCH (12:30)
--- NOTE | 2017-06-09 12:44 | PD.ONC.PN ---
Subjective Subjective Remarks Tmax 101.7 yesterday afternoon. Patient states he feels much better today. Denies cough, no urinary symptoms. feels ready to go home and tackle his "to-do" list. Objective Data Date Time Temp Pulse Resp B/P (MAP) Pulse Ox O2 Delivery O2 Flow Rate FiO2 06/09/17 11:30 94 06/09/17 06:35 98.3 06/09/17 03:08 98.5 06/09/17 03:08 97.8 104 16 131/55 (80) 94 06/09/17 00:00 18 06/08/17 23:56 99.7 106 18 146/68 (94) 92 06/08/17 23:55 100.2 06/08/17 21:00 Room Air 06/08/17 20:58 99.0 109 18 139/54 (82) 94 06/08/17 20:30 94 21 06/08/17 19:28 99.9 06/08/17 16:26 18 06/08/17 16:26 18 06/08/17 15:30 93 Room Air 06/08/17 15:28 101.7 111 20 150/67 (94) 93 06/08/17 15:21 20 06/08/17 13:43 99.0 95 18 128/62 (84) 95 06/09/17 06/09/17 06/09/17 06:59 14:59 22:59 Intake Total 720 ml Output Total 600 ml Balance 120 ml Result Diagram: 06/09/17 0310 06/09/17 0310 Laboratory Results Laboratory Tests Test 06/09/17 00:00 06/09/17 03:10 Urine Color YELLOW Urine Turbidity HAZY Urine pH 8.0 Urine Specific [place]ard 1.016 Urine Protein 100 mg/dL Urine Glucose (UA) NEG mg/dL Urine Ketones NEG mg/dL Urine Occult Blood MOD Urine Nitrite NEG Urine Bilirubin NEG Urine Urobilinogen LESS THAN 2.0 MG/DL Urine Leukocyte Esterase NEG Urine RBC /hpf Urine WBC 5 /hpf Urine Squamous Epithelial Cells <1 /hpf Urine Mucus FEW /lpf Microscopic Urinalysis Comment CULT NOT INDICATED White Blood Count 5.9 TH/MM3 Red Blood Count 2.85 MIL/MM3 Hemoglobin 8.4 GM/DL Hematocrit 24.4 % Mean Corpuscular Volume 85.7 FL Mean Corpuscular Hemoglobin 29.5 PG Mean Corpuscular Hemoglobin Concent 34.5 % Red Cell Distribution Width 18.3 % Platelet Count 78 TH/MM3 Mean Platelet Volume 8.7 FL Neutrophils (%) (Auto) 80.5 % Lymphocytes (%) (Auto) 8.3 % Monocytes (%) (Auto) 9.4 % Eosinophils (%) (Auto) 0.6 % Basophils (%) (Auto) 1.2 % Neutrophils # (Auto) 4.8 TH/MM3 Lymphocytes # (Auto) 0.5 TH/MM3 Monocytes # (Auto) 0.6 TH/MM3 Eosinophils # (Auto) 0.0 TH/MM3 Basophils # (Auto) 0.1 TH/MM3 CBC Comment AUTO DIFF Differential Total Cells Counted 100 Neutrophils % (Manual) 70 % Band Neutrophils % 17 % Lymphocytes % 6 % Monocytes % 7 % Neutrophils # (Manual) 5.1 TH/MM3 Differential Comment FINAL DIFF MANUAL Toxic Granulation 1+ Platelet Estimate LOW Platelet Morphology Comment NORMAL Blood Urea Nitrogen 10 MG/DL Creatinine 0.48 MG/DL Random Glucose 137 MG/DL Calcium Level 8.4 MG/DL Sodium Level 137 MEQ/L Potassium Level 3.8 MEQ/L Chloride Level 102 MEQ/L Carbon Dioxide Level 26.3 MEQ/L Anion Gap 9 MEQ/L Estimat Glomerular Filtration Rate 173 ML/MIN Culture Results Microbiology Date/Time Source Procedure Growth Status 06/08/17 18:35 Blood Peripheral Aerobic Blood Culture - Preliminary NO GROWTH IN 1 DAY Resulted 06/08/17 18:35 Blood Peripheral Anaerobic Blood Culture - Preliminary NO GROWTH IN 1 DAY Resulted 06/08/17 18:00 Blood Peripheral Aerobic Blood Culture - Preliminary NO GROWTH IN 1 DAY Resulted 06/08/17 18:00 Blood Peripheral Anaerobic Blood Culture - Preliminary NO GROWTH IN 1 DAY Resulted 06/06/17 16:10 Nasal Washing Influenza Types A,B Antigen (PATRICIA) - Final NEGATIVE FOR FLU A AND B ANTIGEN.... Complete 06/06/17 15:15 Sputum Expectorated Sputum Gram Stain - Final Complete 06/06/17 15:15 Sputum Expectorated Sputum Sputum Culture - Final HEAVY GROWTH NORMAL RESPIRATORY GABRIEL Complete 06/09/17 00:00 Urine Clean Catch Urine Culture Pending Received Administered Medications Medications (Trade) Dose Ordered Sig/Mikael Route PRN Reason Start Time Stop Time Status Last Admin Dose Admin Sodium Chloride (NS Flush) 2 ml UNSCH PRN IV FLUSH FLUSH AFTER USING IV ACCESS 06/06/17 11:30 06/09/17 03:07 Sodium Chloride (NS Flush) 2 ml BID IV FLUSH 06/06/17 21:00 06/09/17 07:58 Acetaminophen (Tylenol) 650 mg Q4H PRN PO TEMP > 100.4 06/06/17 11:30 06/08/17 15:34 Senna/Docusate Sodium (Evelia-Colace) 1 tab BID PO 06/06/17 21:00 06/09/17 07:54 Allopurinol (Zyloprim) 300 mg DAILY PO 06/07/17 09:00 06/09/17 07:59 Levothyroxine Sodium (Synthroid) 50 mcg DAILY@0600 PO 06/07/17 06:00 06/09/17 06:29 Metoprolol Tartrate (Lopressor) 25 mg BID PO 06/06/17 21:00 06/09/17 07:54 Pantoprazole Sodium (Protonix) 40 mg DAILY PO 06/07/17 09:00 06/09/17 07:54 Polyethylene Glycol (Miralax) 17 gm DAILY PO 06/07/17 09:00 06/09/17 07:54 Morphine Sulfate (Oramorph Sr) 15 mg Q12H PO 06/06/17 15:00 06/09/17 03:05 Vancomycin HCl 1250 mg/Sodium Chloride 262.5 ml @ 262.5 mls/ hr Q12H IV 06/07/17 00:00 06/09/17 00:36 Morphine Sulfate (Msir) 15 mg Q3H PRN PO pain 3-10 06/07/17 09:00 06/09/17 11:27 Sodium Chloride 1,000 ml @ 42 mls/hr [id number] IV 06/07/17 11:00 06/08/17 23:00 Piperacillin Sod/ Tazobactam Sod 100 ml @ 200 mls/hr Q6H IV 06/09/17 10:00 06/09/17 11:27 Objective Remarks GENERAL: Pleasant male, sitting up in chair next to bed. appears well and in nad. . SKIN: Warm and dry. HEAD: Normocephalic. EYES: No injection or drainage. NECK: Supple, trachea midline. CARDIOVASCULAR: Regular rate and rhythm RESPIRATORY: Breath sounds equal bilaterally. No accessory muscle use. GASTROINTESTINAL: Abdomen soft, non-tender, nondistended. EXTREMITIES: No cyanosis NEUROLOGICAL: awake and alert, normal speech. Assessment/Plan Problem List: (1) Neutropenic fever ICD Codes: D70.9 - Neutropenia, unspecified; R50.81 - Fever presenting with conditions classified elsewhere Status: Acute Plan: --BC, 06/08: show no growth x 1 day --BC show no growth 2 days --on Zosyn + Vanco --CXR shows bilateral pleural effusions and bilateral lower airspace consolidation. (2) NHL (non-Hodgkin's lymphoma) ICD Codes: C85.90 - Non-Hodgkin lymphoma, unspecified, unspecified site Status: Chronic Plan: --s/p RCHOP in clinic --follows with Dr. Ha. Assessment 71y/o male with newly diagnosed diffuse large B-cell lymphoma admitted with neutropenic fever. h/o Hypertension. Lymphoma. Pleural effusion. Chronic pain. Plan 1. resume Zosyn 2. if patient spikes another fever today will consult infectious disease. 3. monitor CBC Attending Statement The exam, history, and the medical decision-making described in the above note were completed with the assistance of the mid-level provider. I reviewed and agree with the findings presented. I attest that I had a [id number] encounter with the patient on the same day, and personally performed and documented my assessment and findings in the medical record. 71 yoM with DLBCL admitted with neutropenic fever. WBC counts have improved. Spiking fever last night to 101. Will resume Zosyn. Will follow cultres. Restaging CT while inpatient. Problem Qualifiers (1) NHL (non-Hodgkin's lymphoma): Nimco Benson Jun 09, 2017 12:44 Flakita Ha MD Jun 10, 2017 07:25
[2017-06-09] MEDS ORDERED: DIATRIZOATE MEGLUM/DIATRIZOATE SOD 9 ML CUP PO ONE (14:15)
[2017-06-09] MEDS: SODIUM CHLOR 0.9% 1000 ML INJ 1,000 ML IV SCH (21:09)
--- NOTE | 2017-06-09 22:03 | HHI.PR ---
Subjective Remarks Reported feeling feverish, documented 1000.2 heart rate 106 Has some cough Objective Vitals Vital Signs Date Time Temp Pulse Resp B/P (MAP) Pulse Ox O2 Delivery O2 Flow Rate FiO2 06/09/17 19:43 99.1 101 18 136/58 (84) 94 06/09/17 17:27 95 21 06/09/17 16:00 99.2 101 18 124/64 (84) 95 06/09/17 12:00 98.0 84 18 130/65 (86) 93 06/09/17 11:30 94 06/09/17 08:00 100.0 105 16 90 06/09/17 06:35 98.3 06/09/17 03:08 98.5 06/09/17 03:08 97.8 104 16 131/55 (80) 94 06/09/17 00:00 18 06/08/17 23:56 99.7 106 18 146/68 (94) 92 06/08/17 23:55 100.2 I/O 06/08/17 06/08/17 06/08/17 06/09/17 06/09/17 06/09/17 07:00 15:00 23:00 07:00 15:00 23:00 Intake Total 1685 ml 1800 ml 720 ml Output Total 950 ml 400 ml 1200 ml 600 ml 100 ml Balance 735 ml -400 ml 600 ml 120 ml -100 ml Intake Oral 240 ml 1800 ml 720 ml IV Total 575 ml Packed Cells 800 ml Blood Product IV Normal Saline Flush 70 ml Output Urine Total 950 ml 400 ml 1200 ml 600 ml 100 ml # Bowel Movements 0 1 Result Diagram: 06/09/1730906/09/17 031 Objective Remarks GEN: Thin, cachectic appearing male. No acute distress. cv: s1 s2 , no m LUNGS: Decreased breath sounds on the right base. No wheezes, rales, rhonchi. GI: Soft, nontender, nondistended. No palpable masses. Bowel sounds WNL. EXT: No edema or cyanosis, pedal pulses appreciated NEURO/PSYCH: Awake alert oriented x3. Appropriate insight and judgment. A/P Problem List: (1) Pleural effusion ICD Code: J90 - Pleural effusion, not elsewhere classified Status: Acute (2) NHL (non-Hodgkin's lymphoma) ICD Code: C85.90 - Non-Hodgkin lymphoma, unspecified, unspecified site Status: Chronic (3) Hypertension ICD Code: I10 - Essential (primary) hypertension Status: Acute (4) Anemia ICD Code: D64.9 - Anemia, unspecified Status: Acute (5) Fever ICD Code: R50.9 - Fever, unspecified Status: Acute (6) Neutropenic fever ICD Code: D70.9 - Neutropenia, unspecified; R50.81 - Fever presenting with conditions classified elsewhere Status: Acute Assessment and Plan 06/08: Continued to have fever max 101.7, hemoglobin improved from 6.9-8.1, continue vancomycin and monitor blood culture, appreciate oncology input, Repeat CBC BMP in a.m., monitor temperature, blood pressure 2/20, and unresolved fever 100.2, with tachycardia, chest x-ray showing bilateral pleural effusion with consolidation, started on Zosyn and Vanco broad- spectrum, consider ID consult A/p: This is a 71-year-old male diagnosed with non-Hodgkin's lymphoma in February 2017 presenting with fever. Non-Hodgkin's lymphoma, pleural effusion, consider pneumonia -chest x-ray personally reviewed showed bilateral pleural effusion right greater than left, similar to prior chest x-rays but with increasing parenchymal infiltrate on the right base compared to chest x-ray on May 18, 2017. With fever and leukocytosis, start vancomycin and Zosyn. Check sputum culture. Negative for flu, will not start Tamiflu at this time, consult hematology, follow-up blood culture results. DuoNeb's as needed Pancytopenia-previous hemoglobin is 9.1, now at 8.4, previously platelet count is 200, now at 67. Check differential count for leukopenia of 2.2. Check LDH, haptoglobin, consult hematology/oncology. Urinalysis unremarkable. Monitor CBC. Mild hyponatremia-improved, 135, could be secondary to dehydration specially with hypochloremia, ORAL rehydration for now, hold Lasix for now (taking for edema) Hypertension- restart metoprolol, hydralazine as needed. Hypothyroidism-continue Synthroid History of gout-continue allopurinol DVT prophylaxis: With thrombocytopenia and anemia, relative contraindication for blood thinners. Start SCDs Discharge Planning Not ready for discharge, patient still running fever Problem Qualifiers (1) NHL (non-Hodgkin's lymphoma): (2) Fever: Qualified Codes: R50.9 - Fever, unspecified Erik Govea MD Jun 09, 2017 22:03
[2017-06-09] MEDS ORDERED: IOHEXOL 350 MG/ML 10 ML VIAL (for RAD DIAG) IVCONTRAST ONE (22:17)
--- NOTE | 2017-06-09 23:36 | RADRPT ---
EXAM DATE/TIME: 06/09/2017 21:29 [facility] COMPARISON: CT ABDOMEN & PELVIS W CONTRAST, May 18, 2017, 15:33. INDICATIONS : Evaluate for metastatic disease. Known splenomegaly with abnormal low attenuation areas and low atten uation lesions in the liver which were nonspecific.. IV CONTRAST: 100 cc Omnipaque 350 (iohexol) IV ; Cumulative dose for multiple exams. ORAL CONTRAST: No oral contrast ingested. RADIATION DOSE: 11.32 CTDIvol (mGy) ; Combined studies - Thorax/Abdomen/Pelvis MEDICAL HISTORY : Cardiovascular disease. Hypertension. Lymphoma. SURGICAL HISTORY : Kidney stents. ENCOUNTER: Initial ACUITY: 1 day PAIN SCALE: 0/10 LOCATION: Abdomen. TECHNIQUE: Volumetric scanning of the abdomen and pelvis was performed. Using automated exposure control and ad justment of the mA and/or kV according to patient size, radiation dose was kept as low as reasonably achievable to obtain optimal diagnostic quality images. DICOM format image data is available electro nically for review and comparison. FINDINGS: LOWER LUNGS: There are bilateral pleural effusions again noted left greater than right with dense consolidation in the right lower lobe. Right fluid collection appears at least partially loculated. LIVER: Liver remains enlarged with multiple scattered small low density lesions which do not appear signific antly changed in the 3 week.. There is no dilation of the biliary tree. No calcified gallstones. SPLEEN: Spleen remains prominent with ill-defined low-attenuation areas centrally and low-attenuation masslik e area again noted along the anterior spleen which is not significantly changed. PANCREAS: Within normal limits. KIDNEYS: Normal in size and shape. Bilateral ureteral stent catheters remain in place and there are small bila teral renal calculi. There is a left renal cyst extending off the upper pole. There is mild hydroneph rosis again noted bilaterally. ADRENAL GLANDS: Within normal limits. VASCULAR: There is no aortic aneurysm. BOWEL/MESENTERY: No oral contrast was given limiting sensitivity. Anasarca and mild ascitic fluid is again noted. Ther e are multiple loops of nondilated small bowel again noted with several small air-fluid levels. Gas a nd stool is noted in the colon with air-fluid levels as well. There is no free air. ABDOMINAL WALL: Within normal limits. RETROPERITONEUM: Abnormal soft tissue density is again noted in the retroperitoneum which is poorly defined. This does not appear significantly changed. BLADDER: Bilateral ureteral stent catheters are present. There is apparent mild bladder wall thickening. REPRODUCTIVE: Within normal limits. INGUINAL: There is no lymphadenopathy or hernia. MUSCULOSKELETAL: Status post right hip arthroplasty with streak artifact. The osteopenia and degenerative changes are noted. There are subtle patchy sclerotic areas in the vertebral bodies concern for metastatic disease . Anasarca is again noted. CONCLUSION: 1. Moderate-sized bilateral pleural effusions are again noted. This appears partially loculated on th e right. There is dense consolidation in the right lower lobe. 2. Mild splenomegaly again noted with abnormal low attenuation areas again noted which are not signif icantly changed and remain nonspecific. 3. Mild hepatomegaly again noted with scattered small low attenuation lesions which are not significa nt changed and remain nonspecific. 4. Bilateral ureteral stent catheters again noted with tiny renal calculi. Mild hydronephrosis is aga in noted. 5. Anasarca and ascites is noted. 6. Apparent mild retroperitoneal adenopathy without significant change. 7. Faint sclerotic regions in the vertebral column with concern for metastatic disease. 8. Nonspecific bowel gas pattern again noted. Thuan Bustamante MD on June 09, 2017 at 23:27 Board Certified Radiologist. This report was verified electronically.
--- NOTE | 2017-06-09 23:41 | RADRPT ---
EXAM DATE/TIME: 06/09/2017 21:29 [facility] COMPARISON: CHEST SINGLE AP, June 08, 2017, 17:20. INDICATIONS : Evaluate for metastatic disease. IV CONTRAST: 100 cc Omnipaque 350 (iohexol) IV ; Cumulative dose for multiple exams. RADIATION DOSE: 11.32 CTDIvol (mGy) ; Combined studies - Thorax/Abdomen/Pelvis MEDICAL HISTORY : Hypertension. Lymphoma. Cardiovascular disease SURGICAL HISTORY : Infusaport. ENCOUNTER: Initial ACUITY: 1 day PAIN SCALE: 0/10 LOCATION: chest TECHNIQUE: Volumetric scanning of the chest was performed. Using automated exposure control and adjustment of t he mA and/or kV according to patient size, radiation dose was kept as low as reasonably achievable to obtain optimal diagnostic quality images. DICOM format image data is available electronically for review and comparison. Follow-up recommendations for detected pulmonary nodules are based at a minimum on nodule size and pa tient risk factors according to Fleischner Society Guidelines. FINDINGS: LUNGS: There are areas of consolidation both posterior lower lobes. There are no distinct masses or nodules. There is mild underlying emphysema. PLEURA: Bilateral pleural effusions again noted left greater than right. The right effusion extends to the kira ng apex. Portion of the left effusion appears partially loculated. MEDIASTINUM: The heart and great vessels demonstrate no acute abnormality. There is no mediastinal or hilar lymph adenopathy. Coronary artery calcifications are present. AXILLAE: Within normal limits. No lymphadenopathy. SKELETAL: There is subtle patchy areas of sclerosis in the vertebral column a concern for possible metastatic d isease. There are patchy areas of sclerosis involving the sternum as well. There are no lytic lesions . MISCELLANEOUS: The visualized upper abdominal organs demonstrate no acute abnormality. CONCLUSION: 1. Bilateral pleural effusions left greater than right with partially loculated right component. 2. There is a consolidation both posterior lower lobes. 3. Several patchy areas of sclerosis in the vertebral column and sternum of concern for metastatic di sease. Thuan Bustamante MD on June 09, 2017 at 23:35 Board Certified Radiologist. This report was verified electronically.
[2017-06-10] VITALS (8 sets, daily range): BP systolic 118–141; BP diastolic 56–76; PULSE 88–102; RESP 18; TEMP 98–99.4; O2SAT 94–98
[2017-06-10] MEDS: VANCOMYCIN INJ 1,500 MG in SODIUM CHLORID 0.9% 500 ML INJ 500 ML IV SCH ×2 (00:21→11:23)
[2017-06-10] MEDS: MORPHINE SULFATE 15 MG TAB PO PRN ×6 (00:30→19:14)
[2017-06-10] MEDS: MORPHINE SULFATE 15 MG CONTROLLED RELEASE TAB PO SCH ×2 (03:55→16:00)
[2017-06-10] MEDS: PIPERACIL-TAZO 4.5 GM PREMIX 100 ML IV SCH ×3 (03:56→15:59)
[2017-06-10] MEDS: LEVOTHYROXINE SODIUM 50 MCG TAB PO SCH (05:04)
[2017-06-10 05:17] LABS: AUTOMATED NEUTROPHIL # 4.7 TH/MM3 (1.8-7.7); BASOPHIL % 0.6 % (0.0-2.0); EOSINOPHIL % 0.5 % (0.0-4.0); HEMATOCRIT 22.3 % (39.0-51.0); HEMOGLOBIN 7.6 GM/DL (13.0-17.0); LYMPH % 6.5 % (9.0-44.0); LYMPHOCYTE # 0.4 TH/MM3 (1.0-4.8); MEAN CELL VOLUME 86.1 FL (80.0-100.0); MEAN CORPUSCULAR HEMOGLOBIN 29.3 PG (27.0-34.0); MEAN PLATELET VOLUME 8.7 FL (7.0-11.0); MONO % 8.4 % (0.0-8.0); MONOCYTE # 0.5 TH/MM3 (0-0.9); PLATELET COUNT 90 TH/MM3 (150-450); RED BLOOD COUNT 2.59 MIL/MM3 (4.50-5.90); RED CELL DISTRIBUTION WIDTH 18.9 % (11.6-17.2); WHITE BLOOD COUNT 5.7 TH/MM3 (4.0-11.0)
[2017-06-10] MEDS: METOPROLOL TARTRATE 25 MG TAB PO SCH ×2 (07:58→19:48)
[2017-06-10] MEDS: SODIUM CHLORIDE 0.9% FLUSH 10 ML FLUSH IV FLUSH SCH (07:58)
[2017-06-10] MEDS: DOCUSATE SODIUM 50 MG/SENNA 8.6 MG TAB PO SCH ×2 (07:58→19:48)
[2017-06-10] MEDS: PANTOPRAZOLE SOD 40 MG DELAYED RELEASE TAB PO SCH (07:59)
[2017-06-10] MEDS: POLYETHYLENE GLYCOL 17 GM PKG PO SCH (07:59)
[2017-06-10] MEDS: ALLOPURINOL 300 MG TAB PO SCH (07:59)
[2017-06-10 08:38] LABS: BANDS 24 % (0-6); LYMPHOCYTES 2 % (9-44); MONOCYTES 5 % (0-8); NEUTROPHIL # MANUAL DIFF 5.2 TH/MM3 (1.8-7.7); POLYS (SEG NEUTROPHILS) 68 % (16-70); TOXIC GRANULATION 2+ (NORMAL)
[2017-06-10 08:39] LABS: DOHLE BODIES PRESENT (NONE SEEN); OVALOCYTES 1+ (NORMAL)
[2017-06-10] MEDS ORDERED: SODIUM CHLOR 0.9% 250 ML INJ 250 ML IV ONE (13:45)
[2017-06-10] MEDS ORDERED: diphenhydrAMINE HCL 25 MG CAP PO PRN (14:00)
[2017-06-10] MEDS ORDERED: ACETAMINOPHEN 325 MG TAB PO PRN (14:00)
[2017-06-10] MEDS ORDERED: AUGM875T3 PO (14:09)
[2017-06-10] MEDS ORDERED: AZIT500T2 PO (14:09)
[2017-06-10] MEDS ORDERED: LACTTAB8 PO (14:09)
--- NOTE | 2017-06-10 14:13 | HHI.DS ---
Discharge Summary Admission Date Jun 06, 2017 at 10:58 Discharge Date: Jun 10, 2017 Admitting Diagnosis (1) Pleural effusion ICD Code: J90 - Pleural effusion, not elsewhere classified Diagnosis: Principal Status: Acute (2) NHL (non-Hodgkin's lymphoma) ICD Code: C85.90 - Non-Hodgkin lymphoma, unspecified, unspecified site Diagnosis: Principal Status: Chronic (3) Hypertension ICD Code: I10 - Essential (primary) hypertension Diagnosis: Principal Status: Acute (4) Anemia ICD Code: D64.9 - Anemia, unspecified Diagnosis: Principal Status: Acute (5) Fever ICD Code: R50.9 - Fever, unspecified Diagnosis: Principal Status: Acute (6) Neutropenic fever ICD Code: D70.9 - Neutropenia, unspecified; R50.81 - Fever presenting with conditions classified elsewhere Diagnosis: Principal Status: Acute Procedures none Brief History - From Admission This is a 71-year-old male with history of non-Hodgkin's lymphoma undergoing chemotherapy under Dr. Ha (Becky) presenting with fever of 101. He started chemotherapy 04/04/2017. In April, he was hospitalized at [facility] for which she was treated for an infection, readmitted at [facility] late April for neutropenic fever complicated by anemia. Patient was discharged May 21. Patient then went for his 3rd cycle of chemotherapy R-CHOP 05/28/17 and 4th cycle scheduled 06/15/17. Since his chemotherapy, patient has been stable without any clinical complaints until 2 days ago when he started having mild coughing, productive with pale yellow sputum not associated with SOB or chest pain. He Also started having right low back pain radiating to the right hip yesterday. No sick contacts. noticed that his blood pressure is elevated than usual with SBP to 158, HR 122, and fever 101 hence patient was brought to the hospital. Patient denies any nausea, vomiting, chest pain, shortness of breath, headache, diarrhea or any urinary symptoms. Patient took his metoprolol today. CBC/BMP: 06/10/17 0412 06/09/17 0310 Significant Findings Laboratory Tests Test 06/08/17 05:55 06/09/17 00:00 06/09/17 03:10 06/09/17 13:50 Red Blood Count 2.78 MIL/MM3 (4.50-5.90) 2.85 MIL/MM3 (4.50-5.90) Hemoglobin 8.1 GM/DL (13.0-17.0) 8.4 GM/DL (13.0-17.0) Hematocrit 23.7 % (39.0-51.0) 24.4 % (39.0-51.0) Red Cell Distribution Width 17.4 % (11.6-17.2) 18.3 % (11.6-17.2) Platelet Count 57 TH/MM3 (150-450) 78 TH/MM3 (150-450) Band Neutrophils % 17 % (0-6) 17 % (0-6) Monocytes % 9 % (0-8) Toxic Granulation 2+ (NORMAL) 1+ (NORMAL) Platelet Estimate LOW (NORMAL) LOW (NORMAL) Ovalocytes 1+ (NORMAL) Creatinine 0.44 MG/DL (0.60-1.30) 0.48 MG/DL (0.60-1.30) Random Glucose 122 MG/DL (74-106) 137 MG/DL (74-106) Calcium Level 8.1 MG/DL (8.5-10.1) 8.4 MG/DL (8.5-10.1) Potassium Level 3.4 MEQ/L (3.5-5.1) Urine Turbidity HAZY (CLEAR) Urine Protein 100 mg/dL (NEG-TRACE) Urine Occult Blood MOD (NEG) Urine Mucus FEW /lpf (OCC) Neutrophils (%) (Auto) 80.5 % (16.0-70.0) Lymphocytes (%) (Auto) 8.3 % (9.0-44.0) Monocytes (%) (Auto) 9.4 % (0.0-8.0) Lymphocytes # (Auto) 0.5 TH/MM3 (1.0-4.8) Lymphocytes % 6 % (9-44) Test 06/10/17 04:12 Red Blood Count 2.59 MIL/MM3 (4.50-5.90) Hemoglobin 7.6 GM/DL (13.0-17.0) Hematocrit 22.3 % (39.0-51.0) Red Cell Distribution Width 18.9 % (11.6-17.2) Platelet Count 90 TH/MM3 (150-450) Neutrophils (%) (Auto) 84.0 % (16.0-70.0) Lymphocytes (%) (Auto) 6.5 % (9.0-44.0) Monocytes (%) (Auto) 8.4 % (0.0-8.0) Lymphocytes # (Auto) 0.4 TH/MM3 (1.0-4.8) Band Neutrophils % 24 % (0-6) Lymphocytes % 2 % (9-44) Toxic Granulation 2+ (NORMAL) Dohle Bodies PRESENT (NONE SEEN) Ovalocytes 1+ (NORMAL) PE at Discharge GEN: Thin, cachectic appearing male. No acute distress. cv: s1 s2 , no m LUNGS: Decreased breath sounds on the right base. No wheezes, rales, rhonchi. GI: Soft, nontender, nondistended. No palpable masses. Bowel sounds WNL. EXT: No edema or cyanosis, pedal pulses appreciated NEURO/PSYCH: Awake alert oriented x3. Appropriate insight and judgment. Hospital Course Mr. Hawthorne is a 71-year-old male. He was admitted secondary to neutropenic fever. He has lymphoma at baseline and has been on chemotherapy for this. Pneumonia was suspected and he has been treated with Zosyn and vancomycin to cover for this. Sepsis is resolved. The patient has improved through time. His white blood cell count has normalized and his platelet count is gradually increasing. Anemia has been present and today he has a slight downward trend from 8.4 to 7.6. 1 unit of packed red blood cells is ordered for transfusion and after this is completed patient is medically stable for discharge to home. Pt Condition on Discharge: Stable Discharge Disposition: Discharge Home Discharge Time: <= 30 minutes Discharge Instructions DIET: Follow Instructions for: As Tolerated, No Restrictions Activities you can perform: Regular-No Restrictions Follow up Referrals: Oncology/Hematology - 2 Weeks PCP Follow-up - 2 Weeks New Medications: Amoxicillin-Clavulanate (Augmentin) 875-125 Mg Tab 1 TAB PO BID for Infection, #20 TAB 0 Refills Azithromycin (Azithromycin) 500 Mg Tab 500 MG PO DAILY for Infection, #5 TAB 0 Refills Lactobacillus Acidophilus (Lactobacillus Acidophilus) 1 Billion Cell Tab 1 TAB PO TIDAC for Nutritional Supplement, #30 TAB 0 Refills Continued Medications: Albuterol (Albuterol) 2 Mg Tab 2.5 MG PO TID for Asthma Management, #90 TAB 0 Refills Allopurinol (Allopurinol) 300 Mg Tab 300 MG PO DAILY for Gout, #30 TAB 0 Refills Docusate Sodium (Colace) 100 Mg Capsule Furosemide (Lasix) 20 Mg Tab 20 MG PO BID, #60 TAB 0 Refills Hydralazine HCl (Hydralazine HCl) 25 Mg Tablet 25 MG PO TID for Blood Pressure Management, #90 TAB 0 Refills Levothyroxine (Levothyroxine) 50 Mcg Tab 50 MCG PO DAILY for Thyroid, #30 TAB 0 Refills Metoprolol Tartrate (Metoprolol Tartrate) 25 Mg Tab 25 MG PO BID, #60 TAB 0 Refills Morphine Sulfate ER 12 HR (Morphabond ER 12 HR) 15 Mg Tab 15 MG PO Q12H, TAB 0 Refills Pantoprazole (Protonix) 40 Mg Tab 40 MG PO DAILY for Reflux, #30 TAB 0 Refills Polyethylene Glycol 3350 Powder (Miralax Powder) 17 Gm Powd 17 GM PO DAILY for Constipation, #1 CAN 0 Refills Mix and dissolve one measuring cap-ful (17 grams) in water or juice. Potassium Chloride ER (Potassium Chloride ER) 10 Meq Cap 10 MEQ PO BID for Electrolyte Replacement, #60 CAP 0 Refills Danilo Thomason MD Jun 10, 2017 14:13
[2017-06-10] MEDS ORDERED: MORP-43 PO (14:51)
--- NOTE | 2017-06-10 18:49 | PD.ONC.PN ---
Subjective Subjective Remarks Resting comfortably in bedside chair in no distress. Afebrile. Objective Data Date Time Temp Pulse Resp B/P (MAP) Pulse Ox O2 Delivery O2 Flow Rate FiO2 06/10/17 17:00 99.3 88 18 141/66 94 06/10/17 15:58 99.4 97 136/69 (91) 96 06/10/17 11:28 95 Room Air 06/10/17 11:21 99.1 93 18 126/65 (85) 95 06/10/17 08:07 94 Room Air 06/10/17 07:52 98.5 102 18 141/76 (97) 94 06/10/17 04:02 98.3 88 18 118/57 (77) 95 06/10/17 00:33 98.3 98 18 130/56 (80) 96 06/09/17 20:00 Room Air 06/09/17 19:43 99.1 101 18 136/58 (84) 94 06/10/17 06/10/17 06/10/17 07:00 15:00 23:00 Intake Total 480 ml 240 ml 2800 ml Output Total 1075 ml 225 ml 300 ml Balance -595 ml 15 ml 2500 ml Result Diagram: 06/10/17 0412 06/09/17 0310 Laboratory Results Laboratory Tests Test 06/10/17 04:12 White Blood Count 5.7 TH/MM3 Red Blood Count 2.59 MIL/MM3 Hemoglobin 7.6 GM/DL Hematocrit 22.3 % Mean Corpuscular Volume 86.1 FL Mean Corpuscular Hemoglobin 29.3 PG Mean Corpuscular Hemoglobin Concent 34.0 % Red Cell Distribution Width 18.9 % Platelet Count 90 TH/MM3 Mean Platelet Volume 8.7 FL Neutrophils (%) (Auto) 84.0 % Lymphocytes (%) (Auto) 6.5 % Monocytes (%) (Auto) 8.4 % Eosinophils (%) (Auto) 0.5 % Basophils (%) (Auto) 0.6 % Neutrophils # (Auto) 4.7 TH/MM3 Lymphocytes # (Auto) 0.4 TH/MM3 Monocytes # (Auto) 0.5 TH/MM3 Eosinophils # (Auto) 0.0 TH/MM3 Basophils # (Auto) 0.0 TH/MM3 CBC Comment AUTO DIFF Differential Total Cells Counted 100 Neutrophils % (Manual) 68 % Band Neutrophils % 24 % Lymphocytes % 2 % Monocytes % 5 % Eosinophils % 1 % Neutrophils # (Manual) 5.2 TH/MM3 Differential Comment FINAL DIFF MANUAL Toxic Granulation 2+ Dohle Bodies PRESENT Platelet Estimate NORMAL Platelet Morphology Comment NORMAL Ovalocytes 1+ Culture Results Microbiology Date/Time Source Procedure Growth Status 06/08/17 18:35 Blood Peripheral Aerobic Blood Culture - Preliminary NO GROWTH IN 2 DAYS Resulted 06/08/17 18:35 Blood Peripheral Anaerobic Blood Culture - Preliminary NO GROWTH IN 2 DAYS Resulted 06/08/17 18:00 Blood Peripheral Aerobic Blood Culture - Preliminary NO GROWTH IN 2 DAYS Resulted 06/08/17 18:00 Blood Peripheral Anaerobic Blood Culture - Preliminary NO GROWTH IN 2 DAYS Resulted 06/09/17 00:00 Urine Clean Catch Urine Culture - Preliminary NO GROWTH IN 24 HOURS. Resulted Administered Medications Medications (Trade) Dose Ordered Sig/Mikael Route PRN Reason Start Time Stop Time Status Last Admin Dose Admin Sodium Chloride (NS Flush) 2 ml UNSCH PRN IV FLUSH FLUSH AFTER USING IV ACCESS 06/06/17 11:30 06/09/17 03:07 Sodium Chloride (NS Flush) 2 ml BID IV FLUSH 06/06/17 21:00 06/10/17 07:58 Acetaminophen (Tylenol) 650 mg Q4H PRN PO TEMP > 100.4 06/06/17 11:30 06/08/17 15:34 Senna/Docusate Sodium (Evelia-Colace) 1 tab BID PO 06/06/17 21:00 06/10/17 07:58 Allopurinol (Zyloprim) 300 mg DAILY PO 06/07/17 09:00 06/10/17 07:59 Levothyroxine Sodium (Synthroid) 50 mcg DAILY@0600 PO 06/07/17 06:00 06/10/17 05:04 Metoprolol Tartrate (Lopressor) 25 mg BID PO 06/06/17 21:00 06/10/17 07:58 Pantoprazole Sodium (Protonix) 40 mg DAILY PO 06/07/17 09:00 06/10/17 07:59 Polyethylene Glycol (Miralax) 17 gm DAILY PO 06/07/17 09:00 06/09/17 07:54 Morphine Sulfate (Oramorph Sr) 15 mg Q12H PO 06/06/17 15:00 06/10/17 16:00 Morphine Sulfate (Msir) 15 mg Q3H PRN PO pain 3-10 06/07/17 09:00 06/10/17 14:31 Sodium Chloride 1,000 ml @ 42 mls/hr [id number] IV 06/07/17 11:00 06/09/17 21:09 Piperacillin Sod/ Tazobactam Sod 100 ml @ 200 mls/hr Q6H IV 06/09/17 10:00 06/10/17 15:59 Sodium Chloride 250 ml @ 15 mls/hr ONCE ONCE IV 06/10/17 13:45 06/11/17 06:24 06/10/17 16:45 Acetaminophen (Tylenol) 650 mg Q4H PRN PO SEE LABEL COMMENTS 06/10/17 14:00 06/10/17 16:00 Diphenhydramine HCl (Benadryl) 25 mg Q4H PRN PO SEE LABEL COMMENTS 06/10/17 14:00 06/10/17 16:00 Objective Remarks GENERAL: Well-nourished, well-developed patient. SKIN: Warm and dry. HEAD: Normocephalic. EYES: No scleral icterus. No injection or drainage. NECK: Supple, trachea midline. No JVD or lymphadenopathy. LYMPHATIC: No adenopathy. CARDIOVASCULAR: Regular rate and rhythm without murmurs. RESPIRATORY: Breath sounds equal bilaterally. No accessory muscle use. GASTROINTESTINAL: Abdomen soft, non-tender, nondistended. EXTREMITIES: No cyanosis, or edema. MUSCULOSKELETAL: Adequate muscle tone. NEUROLOGICAL: No obvious focal deficit. Awake, alert, and oriented x3. PSYCHIATRIC: Appropriate mood and affect; insight and judgment normal. Assessment/Plan Problem List: (1) Neutropenic fever ICD Codes: D70.9 - Neutropenia, unspecified; R50.81 - Fever presenting with conditions classified elsewhere Status: Acute Plan: --BC, 06/08: show no growth x 1 day --BC show no growth 2 days --on Zosyn + Vanco --CXR shows bilateral pleural effusions and bilateral lower airspace consolidation. (2) NHL (non-Hodgkin's lymphoma) ICD Codes: C85.90 - Non-Hodgkin lymphoma, unspecified, unspecified site Status: Chronic Plan: --s/p RCHOP in clinic --follows with Dr. Ha. Assessment 71y/o male with newly diagnosed diffuse large B-cell lymphoma admitted with neutropenic fever. h/o Hypertension. Lymphoma. Pleural effusion. Chronic pain. Plan 1. Stage IV DLBCL: due next week for fourth cycle of RCHOP 2. Neutropenic fever: CBC/WBC improved. Afebrile for greater than 24 hours. No growth on cultures. Will plan to deescalate antibiotics and follow fever trend. . Problem Qualifiers (1) NHL (non-Hodgkin's lymphoma): Flakita Ha MD Jun 10, 2017 18:49
[2017-06-11] MEDS ORDERED: PHARMACY ORDERED LAB ONE (11:45)
== END 2017-06-10 19:59 | disposition home or self-care (01) | DRG 808 ==
LOC: NEPC 08:15 → NEDA 10:58 → HCIN 19:30
PROVIDERS: ADMIT Hospitalist; ATTEND Hospitalist
PROC: 30233N1 Transfusion of Nonautologous Red Blood Cells into Peripheral Vein, Percutaneous Approach (ICD-10-PCS; principal; 2017-06-07)
DX: D70.9 Neutropenia, unspecified (principal); J18.9 Pneumonia, unspecified organism; A41.9 Sepsis, unspecified organism; J90 Pleural effusion, not elsewhere classified; R64 Cachexia; C83.30 Diffuse large B-cell lymphoma, unspecified site; E87.1 Hypo-osmolality and hyponatremia; E87.8 Other disorders of electrolyte and fluid balance, not elsewhere classified; D69.6 Thrombocytopenia, unspecified; I10 Essential (primary) hypertension; R50.81 Fever presenting with conditions classified elsewhere; E03.9 Hypothyroidism, unspecified; K21.9 Gastro-esophageal reflux disease without esophagitis; N28.9 Disorder of kidney and ureter, unspecified; G62.9 Polyneuropathy, unspecified; E86.0 Dehydration; D63.0 Anemia in neoplastic disease; M10.9 Gout, unspecified; Z68.20 Body mass index [BMI] 20.0-20.9, adult; Z80.0 Family history of malignant neoplasm of digestive organs; Z87.891 Personal history of nicotine dependence; Z96.641 Presence of right artificial hip joint
CPT/HCPCS: 36430; 71045; 71260; 74177; 80048; 80053; 80202; 81001; 83010; 83605; 83615; 85007; 85027; 86850; 86900; 86901; 86920; 87040; 87070; 87086; 87205; 87804; 96361; 96374; 96375; J0692; J1170; J1642; J1940; J2543; J3370; J7030; J7040; J7050; P9040; Q9963; Q9967

== ENCOUNTER → 2017-06-17 | Outpatient (CLI) | payer OTHER ==
[~2017-06-17] MED LIST changes: +AUGM875T3 PO; +AZIT500T2 PO; +HYDR-3799 PO; -HYDR-3801 PO; +LACTTAB8 PO; -LEVA750T9 PO; +METO25TA3 PO
--- NOTE | 2017-06-29 10:17 | RSPPFT ---
DATE OF PROCEDURE: 06/09/17 COMMENTS: Spirometry demonstrates an FEV1 of 2.1 at 59% of predicted, FVC of 2.8 at 62%, FEF 25-75 is 46%. Post-bronchodilator study demonstrated no significant change. Lung volumes demonstrated a reduced TLC suggesting restrictive disease. Diffusion capacity is severely reduced. Flow volume loops suggest a restrictive pattern. IMPRESSION: 1. Moderate restrictive disease. 2. Additional mild to moderate obstructive disease. 3. No significant change following use of bronchodilator. 4. Severe loss in diffusion capacity.
== END ==
LOC: PHRSP 09:33
DX: J44.9 Chronic obstructive pulmonary disease, unspecified (principal)
CPT/HCPCS: 94060; 94726; 94729

== ENCOUNTER 2017-07-25 00:19 | Inpatient (IN) | payer OTHER, MEDICARE ==
[~2017-07-25] VITALS: Ht 182.9 cm; Wt 59.7 kg
[2017-07-25] VITALS (10 sets, daily range): BP systolic 110–174; BP diastolic 53–77; PULSE 91–109; RESP 14–18; TEMP 97.2–98.4; O2SAT 91–100
[2017-07-25 00:36] LABS: BILIRUBIN, URINE NEG (NEG); BLOOD, URINE LARGE (NEG); GLUCOSE,URINE NEG (NEG); KETONE, URINE NEG (NEG); NITRITE,URINE NEG (NEG); PH, URINE 7.5 (5.0-8.5); URINE LEUKOCYTE ESTERASE TRACE (NEG)
[2017-07-25 00:40] LABS: URINE COLOR BROWN (YELLW/STRAW)
[2017-07-25 00:41] LABS: RBC, URINE INNUM /hpf (0-3); SQUAMOUS EPITHELIAL CELL URINE 0-5 /hpf (0-5)
[2017-07-25] MEDS ORDERED: MSIR15 PO (00:48)
[2017-07-25] MEDS ORDERED: ALBU.5I NEB (00:48)
[2017-07-25] MEDS ORDERED: DOCU100C15 PO (00:48)
[2017-07-25] MEDS ORDERED: LEVO75TA3 PO (00:48)
[2017-07-25] MEDS ORDERED: SODIUM CHLOR 0.9% 1000 ML INJ 1,000 ML IV SCH (01:07)
[2017-07-25] MEDS ORDERED: ONDANSETRON HCL 4 MG/2 ML VIAL IVP ONE (01:15)
[2017-07-25] MEDS ORDERED: SODIUM CHLORIDE 0.9% FLUSH 10 ML FLUSH IV FLUSH PRN (01:15)
[2017-07-25] MEDS ORDERED: HYDROmorphone HCL PF 2 MG/ML VIAL IV PUSH ONE (01:15)
--- NOTE | 2017-07-25 01:16 | PD ---
HPI Chief Complaint: Abdominal Pain Time Seen by Provider: 01:07 Travel History International Travel<30 days: No Contact w/Intl Traveler<30days: No Traveled to known affect area: No History of Present Illness HPI 71-year-old male presents to the emergency department for complaint of abdominal pain and abdominal distention with decreased flatus and bowel movement since 10 AM today. Patient said no fever or chills but has had bilious emesis and no melena or hematochezia. Patient is currently under the care oncology service, Dr. Ha, for stage IV-AE diffuse large B-cell lymphoma and is scheduled to undergo his last round of chemotherapy, R-CHOP, on and 6 days. Patient has reportedly been tolerating chemotherapy well. Patient denies prior history of abdominal distention. Patient has had previous herniorrhaphy. Patient denies other surgery. Patient is not undergoing any radiation therapy or surgery related to his diagnosis of lymphoma. Patient was diagnosed with lymphoma February 2017. Patient rates his pain 5/10 intensity. Patient was recently seen by his oncologist and also has history of renal stent as part of his chemotherapy protocol and was seen by his urologist Dr. Rothman in the yesterday and started on a new medication. Patient took a one-time dose but has not taken any further dosing of the medicine. [facility] Past Medical History Narrative Medical Hypertension, hypothyroidism, gouty arthritis, lymphoma, chemotherapy, Port-A- Cath, bilateral inguinal herniorrhaphy, tobacco use; nursing notes reviewed Asthma: No Heart Rhythm Problems: No Cancer: Yes (Non-Hodgkins Lymphoma 2016) Cardiovascular Problems: Yes High Cholesterol: No Chemotherapy: Yes Chest Pain: No Congestive Heart Failure: No COPD: No Diabetes: No Diminished Hearing: No Endocrine: Yes GERD: Yes Gout: Yes Genitourinary: Yes (Kidney stent placed March 2017) Hypertension: Yes Immune Disorder: No Implanted Vascular Access Dvce: Yes (PORTACATH) Kidney Stones: No Musculoskeletal: No Neurologic: No Psychiatric: No Reproductive: No Respiratory: Yes Renal Failure: No Sickle Cell Disease: No Sleep Apnea: No Thyroid Disease: Yes (Hypothyroidism) Influenza Vaccination: Yes Past Surgical History Abdominal Surgery: Yes (Bilateral inguinal hernia repair) Cardiac Surgery: No Ear Surgery: No Endocrine Surgery: No Eye Surgery: No Genitourinary Surgery: Yes (KIDNEY STENT) Gynecologic Surgery: No Insulin Pump: Yes (R hip replacement) Oral Surgery: No Thoracic Surgery: No Other Surgery: Yes Social History Alcohol Use: No Tobacco Use: Yes (15 PACK YEARS) Substance Use: No Allergies-Medications (Allergen,Severity, Reaction): Coded Allergies: itraconazole (Verified Allergy, Unknown, 07/25/17) tea tree (Verified Allergy, Unknown, 07/25/17) Reported Meds & Prescriptions Reported Meds & Active Scripts Active Morphabond ER 12 HR (Morphine Sulfate) 15 Mg Tab 15 Mg PO Q12H Reported Poly-Iron 150 (Polysaccharide Iron Complex) 150 Mg Iron Cap 150 Mg PO Q12HR Morphine IR (Morphine Sulfate) 15 Mg Tab 15 Mg PO Q4H PRN Levothyroxine (Levothyroxine Sodium) 75 Mcg Tab 75 Mcg PO DAILY Docusate Sodium 100 Mg Cap 100 Mg PO BID Albuterol Neb (Albuterol Sulfate) 2.5 Mg/0.5 Ml Neb 2.5 Mg NEB Q4HR NEB PRN Note: The Albuterol Sulfate Inhalation Solution is concentrated and must be diluted. Read complete instructions carefully before using. Metoprolol Tartrate 25 Mg Tab 25 Mg PO BID Miralax Powder (Polyethylene Glycol 3350 Powder) 17 Gm Powd 17 Gm PO DAILY Mix and dissolve one measuring cap-ful (17 grams) in water or juice. Protonix (Pantoprazole Sodium) 40 Mg Tab 40 Mg PO DAILY Allopurinol 300 Mg Tab 300 Mg PO DAILY Review of Systems Except as stated in HPI: all other systems reviewed are Neg Physical Exam Narrative GENERAL: Well-developed thin male in no apparent distress SKIN: Warm and dry. HEAD: Normocephalic. EYES: No scleral icterus. No injection or drainage. NECK: Supple, trachea midline. No JVD or lymphadenopathy. CARDIOVASCULAR: Regular rate and rhythm without murmurs, gallops, or rubs. RESPIRATORY: Breath sounds equal bilaterally. No accessory muscle use. GASTROINTESTINAL: Abdomen soft, diffusely tender to palpation, nondistended. MUSCULOSKELETAL: No cyanosis, or edema. BACK: Nontender without obvious deformity. No CVA tenderness. Data Data Last Documented VS Vital Signs Date Time Temp Pulse Resp B/P (MAP) Pulse Ox O2 Delivery O2 Flow Rate FiO2 07/25/17 03:14 96 16 131/59 (83) 100 Nasal Cannula 2.00 07/25/17 00:25 97.8 Orders Orders Urinalysis - C+S If Indicated (07/25/17 00:28) Complete Blood Count With Diff (07/25/17 01:07) Comprehensive Metabolic Panel (07/25/17 01:07) Lipase (07/25/17 01:07) Lactic Acid (07/25/17 01:07) Prothrombin Time / Inr (Pt) (07/25/17 01:07) Act Partial Throm Time (Ptt) (07/25/17 01:07) Ct Abd/Pel W Iv Contrast(Rout) (07/25/17 01:07) Iv Access Insert/Monitor (07/25/17 01:07) Ecg Monitoring (07/25/17 01:07) Oximetry (07/25/17 01:07) Ondansetron Inj (Zofran Inj) (07/25/17 01:15) Sodium Chlor 0.9% 1000 Ml Inj (Ns 1000 M (07/25/17 01:07) Sodium Chloride 0.9% Flush (Ns Flush) (07/25/17 01:15) Chest, Single Ap (07/25/17 01:07) Blood Culture (07/25/17 01:07) Hydromorphone Pf Inj (Dilaudid Pf Inj) (07/25/17 01:15) Iohexol 350 Inj (Omnipaque 350 Inj) (07/25/17 02:24) Piperacil-Tazo 4.5 Gm Premix (Zosyn 4.5 (07/25/17 02:45) Labs Laboratory Tests Test 07/25/17 00:30 07/25/17 01:10 Urine Color BROWN Urine Turbidity CLOUDY Urine pH 7.5 Urine Specific [place] 1.020 Urine Protein 100 mg/dL Urine Glucose (UA) NEG mg/dL Urine Ketones NEG mg/dL Urine Occult Blood LARGE Urine Nitrite NEG Urine Bilirubin NEG Urine Urobilinogen 0.2 MG/DL Urine Leukocyte Esterase TRACE Urine RBC INNUM /hpf Urine WBC 6-8 /hpf Urine Squamous Epithelial Cells 0-5 /hpf Urine Bacteria NONE /hpf Microscopic Urinalysis Comment CULT NOT INDICATED White Blood Count 8.5 TH/MM3 Red Blood Count 3.35 MIL/MM3 Hemoglobin 8.5 GM/DL Hematocrit 27.7 % Mean Corpuscular Volume 82.8 FL Mean Corpuscular Hemoglobin 25.5 PG Mean Corpuscular Hemoglobin Concent 30.8 % Red Cell Distribution Width 21.0 % Platelet Count 174 TH/MM3 Mean Platelet Volume 8.1 FL Neutrophils (%) (Auto) 88.9 % Lymphocytes (%) (Auto) 4.0 % Monocytes (%) (Auto) 6.6 % Eosinophils (%) (Auto) 0.2 % Basophils (%) (Auto) 0.3 % Neutrophils # (Auto) 7.6 TH/MM3 Lymphocytes # (Auto) 0.3 TH/MM3 Monocytes # (Auto) 0.6 TH/MM3 Eosinophils # (Auto) 0.0 TH/MM3 Basophils # (Auto) 0.0 TH/MM3 CBC Comment AUTO DIFF Differential Comment AUTO DIFF CONFIRMED Platelet Estimate NORMAL Platelet Morphology Comment NORMAL Tear Drop Cells 1+ Ovalocytes 1+ Prothrombin Time 11.7 SEC Prothromb Time International Ratio 1.2 RATIO Activated Partial Thromboplast Time 32.1 SEC Blood Urea Nitrogen 10 MG/DL Creatinine 0.50 MG/DL Random Glucose 150 MG/DL Total Protein 6.5 GM/DL Albumin 2.6 GM/DL Calcium Level 9.3 MG/DL Alkaline Phosphatase 99 U/L Aspartate Amino Transf (AST/SGOT) 12 U/L Alanine Aminotransferase (ALT/SGPT) 10 U/L Total Bilirubin 0.4 MG/DL Sodium Level 133 MEQ/L Potassium Level 3.7 MEQ/L Chloride Level 94 MEQ/L Carbon Dioxide Level 30.3 MEQ/L Anion Gap 9 MEQ/L Estimat Glomerular Filtration Rate 165 ML/MIN Lactic Acid Level 1.0 mmol/L Lipase 35 U/L MDM Medical Decision Making Medical Screen Exam Complete: Yes Emergency Medical Condition: Yes Medical Record Reviewed: Yes Interpretation(s) Lactic acid: 1.0, not elevated CBC & BMP Diagram 07/25/17 01:10 Total Protein 6.5, Albumin 2.6 L, Calcium Level 9.3, Alkaline Phosphatase 99, Aspartate Amino Transf (AST/SGOT) 12 L, Alanine Aminotransferase (ALT/SGPT) 10 L , Total Bilirubin 0.4 Vital Signs Date Time Temp Pulse Resp B/P (MAP) Pulse Ox O2 Delivery O2 Flow Rate FiO2 07/25/17 01:30 91 18 126/61 (82) 91 Nasal Cannula 07/25/17 00:25 97.8 109 18 137/65 (89) 98 CT abd/pel: CONCLUSION: 1. New moderate distention of the proximal to mid small bowel with possible transition point in the left lower quadrant. Findings are suspicious for early small bowel obstruction. Small amount of free fluid . No free air. 2. Bilateral pleural effusions again seen with decrease in size. Apparent loculation of right pleural effusion. 3. Double-J ureteral stent is again seen bilaterally. Mild prominence of the proximal renal collecting systems unchanged. Punctate bilateral renal calculi. 4. Hepatosplenomegaly unchanged. Likely varices in the splenic hilum. Ranjit Patricia MD on July 25, 2017 at 2:54 Board Certified Radiologist. This report was verified electronically. Differential Diagnosis Abdominal pain, bowel obstruction, ileus, peritonitis, diverticulitis, sepsis Narrative Course IV access obtained specimens collected and sent for resulting After blood cultures and lactic acid level obtained patient presumptively administered Zosyn 4.5 g IV piggyback for possible peritonitis; CT abdomen pelvis ordered CBC with automated differential total white cell count was found to be in normal range patient does have anemia hemoglobin 8.5 which appears near his baseline Lactic acid is found to be in normal range at 1.0 Chemistries remarkable for mild abnormalities; CT abdomen pelvis performed which identifies early small bowel obstruction trace free fluid no free air prior history of ascites and bilateral right greater than left pleural effusions which have been noted distally. Patient will be admitted for early small bowel obstruction and bowel rest to the medicine service. Physician Communication Physician Communication call placed to [facility] service Diagnosis Primary Impression: SBO (small bowel obstruction) Additional Impressions: Abdominal pain Anemia Pleural effusion NHL (non-Hodgkin's lymphoma) Karey Fink MD Jul 25, 2017 01:16
[2017-07-25 01:30] LABS: AUTOMATED NEUTROPHIL # 7.6 TH/MM3 (1.8-7.7); BASOPHIL % 0.3 % (0.0-2.0); EOSINOPHIL % 0.2 % (0.0-4.0); HEMATOCRIT 27.7 % (39.0-51.0); HEMOGLOBIN 8.5 GM/DL (13.0-17.0); LYMPHOCYTE # 0.3 TH/MM3 (1.0-4.8); MEAN CELL VOLUME 82.8 FL (80.0-100.0); MEAN CORPUSCULAR HEMOGLOBIN 25.5 PG (27.0-34.0); MEAN CORPUSCULAR HGB CONC 30.8 % (32.0-36.0); MEAN PLATELET VOLUME 8.1 FL (7.0-11.0); MONO % 6.6 % (0.0-8.0); MONOCYTE # 0.6 TH/MM3 (0-0.9); NEUT % 88.9 % (16.0-70.0); PLATELET COUNT 174 TH/MM3 (150-450); RED BLOOD COUNT 3.35 MIL/MM3 (4.50-5.90); WHITE BLOOD COUNT 8.5 TH/MM3 (4.0-11.0)
[2017-07-25] MEDS ORDERED: NU-IRON PO (01:30)
[2017-07-25 01:38] LABS: CHLORIDE 94 MEQ/L (98-107); SODIUM (NA) 133 MEQ/L (136-145)
[2017-07-25 01:41] LABS: ALBUMIN 2.6 GM/DL (3.4-5.0); BICARBONATE 30.3 MEQ/L (21.0-32.0); CALCIUM 9.3 MG/DL (8.5-10.1)
[2017-07-25 01:42] LABS: BLOOD UREA NITROGEN 10 MG/DL (7-18); GLUCOSE,RANDOM 150 MG/DL (74-106); INTERNATIONAL NORMALIZED RATIO 1.2 RATIO; PROTHROMBIN TIME - PATIENT 11.7 SEC (9.8-11.6)
[2017-07-25 01:44] LABS: ALT (GPT) 10 U/L (12-78); AST (GOT) 12 U/L (15-37); GLOMERULAR FILTRATION RATE 165 ML/MIN (>89)
[2017-07-25 01:46] LABS: TOTAL BILIRUBIN ADULT 0.4 MG/DL (0.2-1.0); TOTAL PROTEIN 6.5 GM/DL (6.4-8.2)
[2017-07-25 01:47] LABS: ALKALINE PHOSPHATASE 99 U/L (45-117)
[2017-07-25 01:58] LABS: OVALOCYTES 1+ (NORMAL); TEARDROP RBCS 1+ (NORMAL)
--- NOTE | 2017-07-25 01:58 | RADRPT ---
EXAM DATE/TIME: 07/25/2017 01:19 [facility] COMPARISON: CHEST SINGLE AP, June 08, 2017, 17:20. INDICATIONS : Chest and abdominal pain. MEDICAL HISTORY : Cardiovascular disease. Hypertension. Lymphoma. SURGICAL HISTORY : Kidney stents. ENCOUNTER: Initial ACUITY: 1 day PAIN SCORE: 6/10 LOCATION: Bilateral lower chest FINDINGS: Upright AP view of the chest was performed. Left-sided [id number] remains in place. Patchy right g reater than left lower lung opacity again seen with similar appearance to the prior study of 8. Small bilateral pleural effusions right greater than left also similar to the prior study. No evid ence of pneumothorax. Curvilinear metallic density is seen centrally at the level of the lower medias tinum and upper abdomen. This is consistent with a foreign body. Given its distribution, it is likely outside patient. CONCLUSION: 1. Patchy right greater than left lung base opacity again seen along with small right greater than le ft pleural effusions. Findings similar to the prior study of May 2017. 2. Curvilinear metallic density at the level of the lower mediastinum and upper abdomen. May be exter nal to the patient. Ranjit Patricia MD on July 25, 2017 at 1:53 Board Certified Radiologist. This report was verified electronically.
[2017-07-25] MEDS ORDERED: IOHEXOL 350 MG/ML 10 ML VIAL (for RAD DIAG) IVCONTRAST ONE (02:24)
[2017-07-25] MEDS ORDERED: PIPERACIL-TAZO 4.5 GM PREMIX 100 ML IV ONE (02:45)
--- NOTE | 2017-07-25 03:15 | RADRPT ---
EXAM DATE/TIME: 07/25/2017 02:11 [facility] COMPARISON: CT ABDOMEN & PELVIS W CONTRAST, May 18, 2017, 15:33. CT ABDOMEN & PELVIS W CONTRAST, May, 21:29. INDICATIONS : Abdominal distention with nausea and vomiting. IV CONTRAST: 95 cc Omnipaque 350 (iohexol) IV ORAL CONTRAST: No oral contrast ingested. RADIATION DOSE: 7.88 CTDIvol (mGy) MEDICAL HISTORY : Hypothyroidism. Hypertension. Non Hodgkins Lymphoma with chemotherapy. SURGICAL HISTORY : Total knee replacement, right. Inguinal hernia repair.Renal stent. ENCOUNTER: Initial ACUITY: 1 day PAIN SCALE: 5/10 LOCATION: pelvis abdomen TECHNIQUE: Volumetric scanning of the abdomen and pelvis was performed. Using automated exposure control and ad justment of the mA and/or kV according to patient size, radiation dose was kept as low as reasonably achievable to obtain optimal diagnostic quality images. DICOM format image data is available electro nically for review and comparison. FINDINGS: LOWER LUNGS: Right greater the left inferior lower lobe consolidation versus atelectasis is again seen at the depe ndent portions of lungs. Similar appearance to the prior study of 06/09/2017. Bilateral pleural effusi ons with rounded peripheral enhancement on the right suggesting loculated right-sided effusion. Effus ions are decreased in size when compared to 06/09/2017. LIVER: Several scattered subcentimeter hypodensities in the liver are unchanged. Gallbladder within normal l imits. SPLEEN: Spleen is again enlarged with no significant interval change. Wedge-shaped hypodensity in the anterio r aspect of the spleen and lateral central spleen unchanged. PANCREAS: 3.2 x 3.2 cm masslike area of mild hyperdensity in the pancreatic seaman/splenic hilum. This area is unchanged in size and shape when compared to the prior study and likely represents combination of nor mal pancreatic tail and varices. Pancreas otherwise within normal limits. KIDNEYS: Bilateral double-J ureteral stents in place. Mild prominence of the proximal renal collecting systems bilaterally similar to prior studies. Punctate nonobstructing bilateral lower pole renal calculi not ed. ADRENAL GLANDS: Within normal limits. VASCULAR: Diffuse arterial calcification. Abdominal aorta diameter within normal limits. BOWEL/MESENTERY: Multiple distended loops of proximal to mid small bowel with multiple air-fluid levels. Small bowel m easures up to 3.7 cm in diameter. This is a change when compared to prior study. Distal small bowel i s decompressed. There is a possible transition point in the left lower quadrant. Prominent amount of stool in the ascending colon. Small amount of free fluid in the pelvis. No evidence of free air. ABDOMINAL WALL: Within normal limits. RETROPERITONEUM: Unchanged with multiple mildly prominent lymph nodes. BLADDER: No wall thickening or mass. REPRODUCTIVE: Within normal limits. INGUINAL: There is no lymphadenopathy or hernia. MUSCULOSKELETAL: Right total hip prosthesis. Degenerative findings lower lumbar spine facet joints. CONCLUSION: 1. New moderate distention of the proximal to mid small bowel with possible transition point in the l eft lower quadrant. Findings are suspicious for early small bowel obstruction. Small amount of free f luid . No free air. 2. Bilateral pleural effusions again seen with decrease in size. Apparent loculation of right pleural effusion. 3. Double-J ureteral stent is again seen bilaterally. Mild prominence of the proximal renal collectin g systems unchanged. Punctate bilateral renal calculi. 4. Hepatosplenomegaly unchanged. Likely varices in the splenic hilum. Ranjit Patricia MD on July 25, 2017 at 2:54 Board Certified Radiologist. This report was verified electronically.
[2017-07-25] MEDS ORDERED: DIATRIZOATE MEGLUM/DIATRIZOATE SOD 120 ML BTL (for RAD DIAG) NG ONE (03:51)
[2017-07-25] MEDS ORDERED: MAGNESIUM HYDROXIDE SUSP 30 ML CUP PO PRN (04:00)
[2017-07-25] MEDS ORDERED: BISACODYL 10 MG SUPP RECTAL PRN (04:00)
[2017-07-25] MEDS ORDERED: MORPHINE SULFATE 2 MG/ML SYRINGE IV PUSH PRN (04:00)
[2017-07-25] MEDS ORDERED: RESP: ALBUTEROL CONC 2.5 MG/0.5 ML NEB NEB PRN (04:00)
[2017-07-25] MEDS ORDERED: LACTULOSE SYRUP 20 GM/30 ML CUP PO PRN (04:00)
[2017-07-25] MEDS ORDERED: ONDANSETRON HCL 4 MG/2 ML VIAL IVP PRN (04:00)
[2017-07-25] MEDS: SODIUM CHLOR 0.9% 1000 ML INJ 1,000 ML IV SCH ×3 (05:19→23:50)
[2017-07-25] MEDS: MORPHINE SULFATE 2 MG/ML SYRINGE IV PUSH PRN ×2 (05:19→21:51)
[2017-07-25] MEDS ORDERED: DOCUSATE SODIUM 50 MG/SENNA 8.6 MG TAB PO SCH (09:00)
[2017-07-25] MEDS: SODIUM CHLORIDE 0.9% FLUSH 10 ML FLUSH IV FLUSH SCH ×2 (09:50→20:22)
[2017-07-25] MEDS ORDERED: PROCHLORPERAZINE INJ 10 MG/2 ML VIAL IV PUSH ONE (10:00)
[2017-07-25] MEDS ORDERED: KETOROLAC TROMETHAMINE 30 MG/ML (IVP) VIAL IV PUSH ONE (10:45)
[2017-07-25] MEDS ORDERED: LORazepam 2 MG/ML VIAL IV PUSH ONE (10:45)
[2017-07-25] MEDS ORDERED: ENALAPRILAT 1.25 MG/ML VIAL IV PRN (11:45)
--- NOTE | 2017-07-25 11:57 | HHI.HP ---
[facility] Service [facility] Primary Care Physician Sancho Mackenzie MD Admission Diagnosis early/partial SBO; Lymphoma; h/o B pleural effusions Diagnoses: Chief Complaint: Abdominal pain Travel History International Travel<30 Days: No Contact w/Intl Traveler <30 Da: No Traveled to Known Affected Are: No History of Present Illness This patient is a 71-year-old gentleman with a history of lymphoma currently under therapy with the oncology team. Patient recently had #5 of 6 scheduled chemo doses and started having some abdominal discomfort post medication. He had some nausea and vomiting and continued to have increased abdominal pain over a 12 hour period. He called his oncologist who advised him to continue to observe this and the patient then started projectile vomiting. He then came to the emergency room with increased distention of his belly and green bilious nonbloody emesis. Patient was found to have acute abdominal partial small bowel obstruction with possible transition point in the left lower quadrant. Patient also has pleural effusions with some evidence of loculation and he has been admitted to the hospital for further evaluation of the same. Pain is improved with IV morphine and the nausea is improved with bowel rest and Compazine. Review of Systems Constitutional: COMPLAINS OF: Fatigue, Weight loss, Change in appetite Endocrine: DENIES: Heat/cold intolerance, Polydipsia, Polyuria, Polyphagia Eyes: DENIES: Blurred vision, Diplopia, Eye inflammation, Eye pain, Vision loss , Photosensitivity, Double Vision Ears, nose, mouth, throat: DENIES: Tinnitus, Hearing loss, Vertigo, Nasal discharge, Oral lesions, Throat pain, Hoarseness, Ear Pain, Running Nose, Epistaxis, Sinus Pain, Toothache, Odynophagia Respiratory: DENIES: Apneas, Cough, Snoring, Wheezing, Hemoptysis, Sputum production, Shortness of breath Cardiovascular: DENIES: Chest pain, Palpitations, Syncope, Dyspnea on Exertion , PND, Lower Extremity Edema, Orthopnea, Claudication Gastrointestinal: COMPLAINS OF: Abdominal pain, Constipation, Nausea, Vomiting , DENIES: Black stools, Bloody stools, Diarrhea, Difficulty Swallowing, Anorexia Genitourinary: DENIES: Sexual dysfunction, Urinary frequency, Urinary incontinence, Urgency, Hematuria, Dysuria, Nocturia, Penile Discharge, Testicular Pain, Testicular Swelling Musculoskeletal: DENIES: Joint pain, Muscle aches, Stiffness, Joint Swelling, Back pain, Neck pain Integumentary: DENIES: Abnormal pigmentation, Nail changes, Pruritus, Rash Hematologic/lymphatic: DENIES: Bruising, Lymphadenopathy Immunologic/allergic: DENIES: Eczema, Urticaria Neurologic: DENIES: Abnormal gait, Headache, Localized weakness, Paresthesias, Seizures, Speech Problems, Tremor, Poor Balance Psychiatric: DENIES: Anxiety, Confusion, Mood changes, Depression, Hallucinations, Agitation, Suicidal Ideation, Homicidal Ideation, Delusions Except as stated in HPI: all other systems reviewed are Neg Past Family Social History Past Medical History Non-Hodgkin's lymphoma currently in chemotherapy Iron deficiency anemia Hypothyroidism Chronic constipation Dyspepsia Past Surgical History Renal stent placement preventatively for chemotherapy Port placement Bilateral inguinal hernia repair Right hip replacement Reported Medications Reviewed in the EMR, allopurinol is prescribed preventive for tumor lysis syndrome and patient takes albuterol as needed without a history of pulmonary disease although he has a [id number] tobacco history Allergies: Coded Allergies: itraconazole (Verified Allergy, Unknown, 07/25/17) tea tree (Verified Allergy, Unknown, 07/25/17) Active Ordered Medications Reviewed in the EMR Family History Mother from some sort of cancer, father from heart attack Social History Lives with his No current tobacco, previous [id number]-[id number] history No alcohol no recent travel Physical Exam Vital Signs Vital Signs Date Time Temp Pulse Resp B/P (MAP) Pulse Ox O2 Delivery O2 Flow Rate FiO2 07/25/17 08:00 98.3 99 14 174/77 (109) 96 07/25/17 05:00 100 Nasal Cannula 2.00 07/25/17 05:00 97.2 94 16 136/63 (87) 95 07/25/17 04:40 98.4 98 16 126/56 (79) 100 Nasal Cannula 2.00 07/25/17 03:14 96 16 131/59 (83) 100 Nasal Cannula 2.00 07/25/17 01:30 91 18 126/61 (82) 91 Nasal Cannula 07/25/17 00:25 97.8 109 18 137/65 (89) 98 Physical Exam GENERAL: This is a pale, ill appearing male complaining of 7/10 abd pain SKIN: No rashes, ecchymoses or lesions. Cool and dry. HEAD: Atraumatic. Normocephalic. No temporal or scalp tenderness. EYES: Pupils equal round and reactive. Extraocular motions intact. No scleral icterus. No injection or drainage. ENT: Nose without bleeding, purulent drainage or septal hematoma. Throat without erythema, tonsillar hypertrophy or exudate. Uvula midline. Airway patent. NECK: Trachea midline. No JVD or lymphadenopathy. Supple, nontender, no meningeal signs. CARDIOVASCULAR: Regular rate and rhythm without murmurs, gallops, or rubs. RESPIRATORY: Clear to auscultation. Breath sounds equal bilaterally. No wheezes , rales, or rhonchi. GASTROINTESTINAL: Abdomen soft, tender, distended. No hepato-splenomegaly, or palpable masses. No guarding. MUSCULOSKELETAL: Extremities without clubbing, cyanosis, or edema. No joint tenderness, effusion, or edema noted. No calf tenderness. Negative Homans sign bilaterally. NEUROLOGICAL: Awake and alert. Cranial nerves II through XII intact. Motor and sensory grossly within normal limits. Five out of 5 muscle strength in all muscle groups. Normal speech. Laboratory Laboratory Tests Test 07/25/17 00:30 07/25/17 01:10 Urine Color BROWN Urine Turbidity CLOUDY Urine pH 7.5 Urine Specific [place] 1.020 Urine Protein 100 Urine Glucose (UA) NEG Urine Ketones NEG Urine Occult Blood LARGE Urine Nitrite NEG Urine Bilirubin NEG Urine Urobilinogen 0.2 Urine Leukocyte Esterase TRACE Urine RBC INNUM Urine WBC 6-8 Urine Squamous Epithelial Cells 0-5 Urine Bacteria NONE Microscopic Urinalysis Comment CULT NOT INDICATED White Blood Count 8.5 Red Blood Count 3.35 Hemoglobin 8.5 Hematocrit 27.7 Mean Corpuscular Volume 82.8 Mean Corpuscular Hemoglobin 25.5 Mean Corpuscular Hemoglobin Concent 30.8 Red Cell Distribution Width 21.0 Platelet Count 174 Mean Platelet Volume 8.1 Neutrophils (%) (Auto) 88.9 Lymphocytes (%) (Auto) 4.0 Monocytes (%) (Auto) 6.6 Eosinophils (%) (Auto) 0.2 Basophils (%) (Auto) 0.3 Neutrophils # (Auto) 7.6 Lymphocytes # (Auto) 0.3 Monocytes # (Auto) 0.6 Eosinophils # (Auto) 0.0 Basophils # (Auto) 0.0 CBC Comment AUTO DIFF Differential Comment AUTO DIFF CONFIRMED Platelet Estimate NORMAL Platelet Morphology Comment NORMAL Tear Drop Cells 1+ Ovalocytes 1+ Prothrombin Time 11.7 Prothromb Time International Ratio 1.2 Activated Partial Thromboplast Time 32.1 Blood Urea Nitrogen 10 Creatinine 0.50 Random Glucose 150 Total Protein 6.5 Albumin 2.6 Calcium Level 9.3 Alkaline Phosphatase 99 Aspartate Amino Transf (AST/SGOT) 12 Alanine Aminotransferase (ALT/SGPT) 10 Total Bilirubin 0.4 Sodium Level 133 Potassium Level 3.7 Chloride Level 94 Carbon Dioxide Level 30.3 Anion Gap 9 Estimat Glomerular Filtration Rate 165 Lactic Acid Level 1.0 Lipase 35 Date/Time Source Procedure Growth Status 07/25/17 01:20 Blood Peripheral Aerobic Blood Culture Pending Received 07/25/17 01:20 Blood Peripheral Anaerobic Blood Culture Pending Received Result Diagram: 07/25/1710907/25/17109 Imaging Last Impressions Chest X-Ray 07/25/17106 Signed Impressions: Service Date/Time: Tuesday, July 25, 2017 01:19 - CONCLUSION: 1. Patchy right greater than left lung base opacity again seen along with small right greater than left pleural effusions. Findings similar to the prior study of May 2017. 2. Curvilinear metallic density at the level of the lower mediastinum and upper abdomen. May be external to the patient. Ranjit Patricia MD Abdomen/Pelvis CT 07/25/17106 Signed Impressions: Service Date/Time: Tuesday, July 25, 2017 02:11 - CONCLUSION: 1. New moderate distention of the proximal to mid small bowel with possible transition point in the left lower quadrant. Findings are suspicious for early small bowel obstruction. Small amount of free fluid . No free air. 2. Bilateral pleural effusions again seen with decrease in size. Apparent loculation of right pleural effusion. 3. Double-J ureteral stent is again seen bilaterally. Mild prominence of the proximal renal collecting systems unchanged. Punctate bilateral renal calculi. 4. Hepatosplenomegaly unchanged. Likely varices in the splenic hilum. MD Mariana Meier VTE Risk Assessment Caprini VTE Risk Assessment: Mod/High Risk (score >= 2) Caprini Risk Assessment Model Point Value = 1 Point Value = 2 Point Value = 3 Point Value = 5 Age 41-60 Minor surgery BMI > 25 kg/m2 Swollen legs Varicose veins or History of unexplained or recurrent spontaneous Oral contraceptives or hormone replacement Sepsis (< 1 month) Serious lung disease, including pneumonia (< 1 month) Abnormal pulmonary function Acute myocardial infarction Congestive heart failure (< 1 month) History of inflammatory bowel disease Medical patient at bed rest Age 61-74 Arthroscopic surgery Major open surgery (> 45 min) Laparoscopic surgery (> 45 min) Malignancy Confined to bed (> 72 hours) Immobilizing plaster cast Central venous access Age >= 75 History of VTE Family history of VTE Factor V Leiden Prothrombin [id number] Lupus anticoagulant Anticardiolipin antibodies Elevated serum homocysteine Heparin-induced thrombocytopenia Other congenital or acquired thrombophilia Stroke (< 1 month) Elective arthroplasty Hip, pelvis, or leg fracture Acute spinal cord injury (< 1 month) Prophylaxis Regimen Total Risk Factor Score Risk Level Prophylaxis Regimen 0-1 Low Early ambulation 2 Moderate Order ONE of the following: *Sequential Compression Device (SCD) *Heparin 5000 units SQ BID 3-4 Higher Order ONE of the following medications: *Heparin 5000 units SQ TID *Enoxaparin/Lovenox 40 mg SQ daily (WT < 150 kg, CrCl > 30 mL/min) *Enoxaparin/Lovenox 30 mg SQ daily (WT < 150 kg, CrCl > 10-29 mL/min) *Enoxaparin/Lovenox 30 mg SQ BID (WT < 150 kg, CrCl > 30 mL/min) AND/OR *Sequential Compression Device (SCD) 5 or more Highest Order ONE of the following medications: *Heparin 5000 units SQ TID (Preferred with Epidurals) *Enoxaparin/Lovenox 40 mg SQ daily (WT < 150 kg, CrCl > 30 mL/min) *Enoxaparin/Lovenox 30 mg SQ daily (WT < 150 kg, CrCl > 10-29 mL/min) *Enoxaparin/Lovenox 30 mg SQ BID (WT < 150 kg, CrCl > 30 mL/min) AND *Sequential Compression Device (SCD) Assessment and Plan Problem List: (1) NHL (non-Hodgkin's lymphoma) ICD Code: C85.90 - Non-Hodgkin lymphoma, unspecified, unspecified site Status: Chronic Plan: Currently in chemotherapy with the oncology team at [facility] Continue outpatient follow-up (2) Anemia ICD Code: D64.9 - Anemia, unspecified Status: Acute (3) SBO (small bowel obstruction) ICD Code: K56.609 - Unspecified intestinal obstruction, unspecified as to partial versus complete obstruction Status: Acute Plan: Probably multifactorial due to recent chemotherapy, chronic constipation and general weakness Continue with bowel rest, NG tube for decompression Antiemetics for nausea vomiting General surgery eval N.p.o. with IV hydration and IV narcotics for pain (4) Hypertension ICD Code: I10 - Essential (primary) hypertension Status: Acute Plan: Vasotec as needed IV while n.p.o. (5) Pleural effusion ICD Code: J90 - Pleural effusion, not elsewhere classified Status: Acute Plan: Evidence of loculation We will follow-up with pulmonary team Oxygen as needed IV Zosyn empiric Physician Certification 2 Midnight Certification Type: Admission for Inpatient Services Order for Inpatient Services The services are ordered in accordance with Medicare regulations or non- Medicare payer requirements, as applicable. In the case of services not specified as inpatient-only, they are appropriately provided as inpatient services in accordance with the 2-midnight benchmark. Estimated LOS (days): 3 3 days is the estimated time the patient will need to remain in the hospital, assuming treatment plan goals are met and no additional complications. Post-Hospital Plan: Home Cat Hart MD Jul 25, 2017 11:57
--- NOTE | 2017-07-25 13:09 | PD.CONS ---
HPI Service General Surgery Consult Requested By Dr. Hart Reason for Consult SBO Primary Care Physician Sancho Mackenzie MD History of Present Illness 71 yo M with recent history of stage IV large B cell lymphoma having undergone multiple episodes of chemotherapy now with abdominal pain, nausea, vomiting since yesterday. He reportedly had lost weight prior to his diagnosis but now has been steadily gaining about 0.5-1 lb per week. He had been eating well and having normal but firm bowel movts. In ED WBC normal with increased neutrophil %, and hgb of 8.5. CT a/p shows possible early SBO. I reviewed the images and he has very high stool burden in the colon. Per radiology report, the retroperitoneal adenopathy is mild and stable. PSH including bilateral inguinal hernia repair. According to most recent clinic note from Dr. Ha , he has had some decrease in the volume of disease as well as improvement in his functional status since initiation of chemotherapy. Review of Systems Constitutional: COMPLAINS OF: Weight gain, DENIES: Fever, Chills Eyes: DENIES: Eye inflammation, Eye pain Ears, nose, mouth, throat: DENIES: Nasal discharge, Oral lesions Cardiovascular: DENIES: Chest pain, Palpitations Gastrointestinal: COMPLAINS OF: Abdominal pain, Nausea, Vomiting Musculoskeletal: DENIES: Back pain, Neck pain Integumentary: DENIES: Pruritus, Rash Hematologic/lymphatic: COMPLAINS OF: Lymphadenopathy Neurologic: DENIES: Seizures Past Family Social History Past Medical History Stage IV large B cell lymphoma Iron deficiency anemia Hypothyroidism Past Surgical History Bilateral inguinal hernia repairs Reported Medications Reported Meds & Active Scripts Active Morphabond ER 12 HR (Morphine Sulfate) 15 Mg Tab 15 Mg PO Q12H Reported Poly-Iron 150 (Polysaccharide Iron Complex) 150 Mg Iron Cap 150 Mg PO Q12HR Morphine IR (Morphine Sulfate) 15 Mg Tab 15 Mg PO Q4H PRN Levothyroxine (Levothyroxine Sodium) 75 Mcg Tab 75 Mcg PO DAILY Docusate Sodium 100 Mg Cap 100 Mg PO BID Albuterol Neb (Albuterol Sulfate) 2.5 Mg/0.5 Ml Neb 2.5 Mg NEB Q4HR NEB PRN Note: The Albuterol Sulfate Inhalation Solution is concentrated and must be diluted. Read complete instructions carefully before using. Metoprolol Tartrate 25 Mg Tab 25 Mg PO BID Miralax Powder (Polyethylene Glycol 3350 Powder) 17 Gm Powd 17 Gm PO DAILY Mix and dissolve one measuring cap-ful (17 grams) in water or juice. Protonix (Pantoprazole Sodium) 40 Mg Tab 40 Mg PO DAILY Allopurinol 300 Mg Tab 300 Mg PO DAILY Allergies: Coded Allergies: itraconazole (Verified Allergy, Unknown, 07/25/17) tea tree (Verified Allergy, Unknown, 07/25/17) Active Ordered Medications Current Medications Medications (Trade) Dose Ordered Sig/Mikael Route Start Time Stop Time Status Last Admin Sodium Chloride 1,000 ml @ 100 mls/hr Q10H IV 07/25/17 03:50 07/25/17 05:19 (NS Flush) 2 ml UNSCH PRN IV FLUSH 07/25/17 04:00 (NS Flush) 2 ml BID IV FLUSH 07/25/17 09:00 07/25/17 09:50 (Zofran Inj) 4 mg Q6H PRN IVP 07/25/17 04:00 07/25/17 05:19 (Morphine Inj) 1 mg Q3H PRN IV PUSH 07/25/17 04:00 (Morphine Inj) 2 mg Q3H PRN IV PUSH 07/25/17 04:00 07/25/17 05:19 (Milk Of Magnesia Liq) 30 ml Q12H PRN PO 07/25/17 04:00 (Senokot) 17.2 mg Q12H PRN PO 07/25/17 04:00 (Albuterol Concentrated Neb) 2.5 mg Q4HR NEB PRN NEB 07/25/17 04:00 (Vasotec Inj) 1.25 mg Q8H PRN IV 07/25/17 11:45 Piperacillin Sod/ Tazobactam Sod 100 ml @ 200 mls/hr Q8H IV 07/25/17 13:00 Family History Noncontributory Social History His is present with him. No current alcohol tobacco or drug use. Physical Exam Vital Signs Vital Signs Date Time Temp Pulse Resp B/P (MAP) Pulse Ox O2 Delivery O2 Flow Rate FiO2 07/25/17 08:00 98.3 99 14 174/77 (109) 96 07/25/17 05:00 100 Nasal Cannula 2.00 07/25/17 05:00 97.2 94 16 136/63 (87) 95 07/25/17 04:40 98.4 98 16 126/56 (79) 100 Nasal Cannula 2.00 07/25/17 03:14 96 16 131/59 (83) 100 Nasal Cannula 2.00 07/25/17 01:30 91 18 126/61 (82) 91 Nasal Cannula 07/25/17 00:25 97.8 109 18 137/65 (89) 98 Physical Exam GENERAL: Thin and frail appearing. Very sleepy as he recently had Ativan. HEAD: Atraumatic. Temporal wasting and sunken eyes. EYES: Pupils equal round and reactive to light bilaterally. No scleral icterus. ENT: Moist oral mucosa. NG tube in place and clamped. CHEST: Nonlabored breathing. No respiratory distress. CARDIOVASCULAR: Regular rate and rhythm. ABDOMEN: Mild distention. Moderate right sided tenderness otherwise soft and nontender. There is no rebound or guarding. EXTREMITIES: Thin, no cyanosis or edema. SKIN: Warm, dry, nonjaundiced. Pale. Laboratory Laboratory Tests Test 07/25/17 00:30 07/25/17 01:10 Urine Color BROWN Urine Turbidity CLOUDY Urine pH 7.5 Urine Specific [place] 1.020 Urine Protein 100 Urine Glucose (UA) NEG Urine Ketones NEG Urine Occult Blood LARGE Urine Nitrite NEG Urine Bilirubin NEG Urine Urobilinogen 0.2 Urine Leukocyte Esterase TRACE Urine RBC INNUM Urine WBC 6-8 Urine Squamous Epithelial Cells 0-5 Urine Bacteria NONE Microscopic Urinalysis Comment CULT NOT INDICATED White Blood Count 8.5 Red Blood Count 3.35 Hemoglobin 8.5 Hematocrit 27.7 Mean Corpuscular Volume 82.8 Mean Corpuscular Hemoglobin 25.5 Mean Corpuscular Hemoglobin Concent 30.8 Red Cell Distribution Width 21.0 Platelet Count 174 Mean Platelet Volume 8.1 Neutrophils (%) (Auto) 88.9 Lymphocytes (%) (Auto) 4.0 Monocytes (%) (Auto) 6.6 Eosinophils (%) (Auto) 0.2 Basophils (%) (Auto) 0.3 Neutrophils # (Auto) 7.6 Lymphocytes # (Auto) 0.3 Monocytes # (Auto) 0.6 Eosinophils # (Auto) 0.0 Basophils # (Auto) 0.0 CBC Comment AUTO DIFF Differential Comment AUTO DIFF CONFIRMED Platelet Estimate NORMAL Platelet Morphology Comment NORMAL Tear Drop Cells 1+ Ovalocytes 1+ Prothrombin Time 11.7 Prothromb Time International Ratio 1.2 Activated Partial Thromboplast Time 32.1 Blood Urea Nitrogen 10 Creatinine 0.50 Random Glucose 150 Total Protein 6.5 Albumin 2.6 Calcium Level 9.3 Alkaline Phosphatase 99 Aspartate Amino Transf (AST/SGOT) 12 Alanine Aminotransferase (ALT/SGPT) 10 Total Bilirubin 0.4 Sodium Level 133 Potassium Level 3.7 Chloride Level 94 Carbon Dioxide Level 30.3 Anion Gap 9 Estimat Glomerular Filtration Rate 165 Lactic Acid Level 1.0 Lipase 35 Date/Time Source Procedure Growth Status 07/25/17 01:20 Blood Peripheral Aerobic Blood Culture Pending Received 07/25/17 01:20 Blood Peripheral Anaerobic Blood Culture Pending Received Result Diagram: 07/25/1710907/25/17109 Imaging Last Impressions Chest X-Ray 07/25/17106 Signed Impressions: Service Date/Time: Tuesday, July 25, 2017 01:19 - CONCLUSION: 1. Patchy right greater than left lung base opacity again seen along with small right greater than left pleural effusions. Findings similar to the prior study of May 2017. 2. Curvilinear metallic density at the level of the lower mediastinum and upper abdomen. May be external to the patient. Ranjit Patricia MD Abdomen/Pelvis CT 07/25/17106 Signed Impressions: Service Date/Time: Tuesday, July 25, 2017 02:11 - CONCLUSION: 1. New moderate distention of the proximal to mid small bowel with possible transition point in the left lower quadrant. Findings are suspicious for early small bowel obstruction. Small amount of free fluid . No free air. 2. Bilateral pleural effusions again seen with decrease in size. Apparent loculation of right pleural effusion. 3. Double-J ureteral stent is again seen bilaterally. Mild prominence of the proximal renal collecting systems unchanged. Punctate bilateral renal calculi. 4. Hepatosplenomegaly unchanged. Likely varices in the splenic hilum. Ranjit Patricia MD Assessment and Plan Assessment and Plan 71-year-old male currently undergoing chemotherapy for stage IV large B cell lymphoma under care of Dr. Ha. Now with nausea and vomiting and apparent small bowel obstruction. Also large stool burden in the colon. NG tube has been placed. We will give fleets enema and small bowel follow-through has been ordered. If no improvement in the next few days will consider surgical intervention although he is quite frail with stage IV lymphoma currently on chemotherapy and this would need to be discussed in detail with the patient and oncology. Je Julien MD Jul 25, 2017 13:09
[2017-07-25] MEDS ORDERED: SOD PHOSPHATE/SOD BIPHOSPHATE (ADULT) ENEMA 133ML RECTAL ONE (14:00)
--- NOTE | 2017-07-25 14:46 | RADRPT ---
EXAM DATE/TIME: 07/25/2017 13:38 [facility] COMPARISON: CHEST SINGLE AP, July 25, 2017, 1:19. INDICATIONS : Naso-gastric tube placement. MEDICAL HISTORY : Lymphoma. SURGICAL HISTORY : None. ENCOUNTER: Subsequent ACUITY: 1 day PAIN SCORE: Non-responsive. LOCATION: Left lower chest FINDINGS: A single view of the chest demonstrates the presence of a nasogastric tube. The tube extends to the a ntrum of the stomach. Dilated loops of small bowel are noted. CONCLUSION: Satisfactory position of nasogastric tube within the stomach. Arvind Thacker MD on July 25, 2017 at 14:43 Board Certified Radiologist. This report was verified electronically.
[2017-07-25] MEDS: PIPERACIL-TAZO 4.5 GM PREMIX 100 ML IV SCH ×2 (15:10→21:47)
--- NOTE | 2017-07-25 20:51 | MB ---
cc: Syed Hernández MD, Arjun D MD DATE: 07/25/2017 REQUESTING PHYSICIAN: Dr. Cat Hart. REASON FOR CONSULTATION: Pleural effusion. HISTORY OF PRESENT ILLNESS: Mr. Hawthorne is a pleasant 71-year-old male with history of advanced stage large B-cell lymphoma, stage IV. He has received 5/6 cycles of R-CHOP chemotherapy. The patient came to the hospital with abdominal pain for about 24 hours. Denies any fever or chills. Has cough with minimal sputum production. No shortness of breath. The patient was evaluated in the hospital. He had a CT scan of the abdomen done which shows moderate distention of the proximal small to mid bowel, possible transition point in the lower quadrant. He has bilateral pleural effusion. His CBC showed WBC count 8.5, hemoglobin 8.5, hematocrit 27.7, MCV 82, platelet count 174. Sodium 133, potassium 3.7, chloride 94, CO2 of 30, BUN 10, creatinine 0.50. INR is 1.20. PAST MEDICAL HISTORY: Significant for a history of large B-cell lymphoma stage IV, status post 5 cycles of chemotherapy, history of pleural effusion status post multiple thoracenteses, anemia, dyspepsia, port placement, bilateral inguinal hernia surgery and right hip replacement, history of renal stent. MEDICATIONS: He is currently taking Zosyn IV, enalapril p.r.n., morphine for pain, albuterol nebulizer treatment. ALLERGIES: ALLERGIC TO ITRACONAZOLE AND TEA TREE. SOCIAL HISTORY: He has remote history of smoking, which he quit about 15 years ago. No alcohol abuse. 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 FAMILY HISTORY: He is . No children. REVIEW OF SYSTEMS: He has lost about 40 pounds of weight which he recently started gaining back after he was started on chemotherapy. No DVT or pulmonary embolism, no seizure or epilepsy. PHYSICAL EXAMINATION: GENERAL: Pleasant, elderly male not in acute distress. VITAL SIGNS: Blood pressure 110/53, heart rate 92, respirations 15, temperature 97.2. HEENT: Pupils are equal and reactive to light. Oral mucosa and nasal mucosa normal. NECK: Supple. JVP not raised. CHEST: Equal bilaterally, no rhonchi and decreased breath sounds at the bases. CARDIOVASCULAR: S1, S2 normal. ABDOMEN: Mild tenderness. EXTREMITIES: No edema. IMPRESSION: 1. Small bilateral pleural effusion. He had recent thoracentesis done. 2. Small bowel obstruction. 3. Large B-cell lymphoma. 4. Hypertension. PLAN: I discussed with the patient and his his effusion is small. We will monitor it. He already had thoracentesis done in the past. Next time it will be only therapeutic thoracentesis if needed. He is on NG tube suction. Surgery is following. Monitor electrolytes. Further treatment will depend on the course in the hospital. Thank you, Dr. Cat Hart, for this consultation. MD ANALY Parnell//amy , 05:41 PM , 08:31 PM
--- NOTE | 2017-07-25 22:32 | MB ---
cc: Margie Jacobs MD, Ruby Anne E MD Davis,Cat Ha,Flakita Pedro MD DATE: 07/25/2017 REFERRING PHYSICIAN: Dr. Cat Hart. CHIEF COMPLAINT: Dr. Hart requests a consultation for Mr. Hawthorne with diffuse large B cell lymphoma complicated by small bowel obstruction. HISTORY OF PRESENT ILLNESS: Mr. Hawthorne is a 71-year-old man with advanced stage diffuse large B cell lymphoma, receiving rituximab CHOP chemotherapy under the care of Dr. Ha. His last chemotherapy was approximately 2 weeks ago pending his sixth and last cycle next week. He was in his usual state. He describes being more fatigued on the morning of his presentation. He noticed some mild tenderness in the right upper quadrant. He went and took a rest. The tenderness became more prominent. He was not vomiting or having any fevers. He denies taking a lot of nausea medication. He was having a bowel movement every day. He discussed his symptoms with Dr. Ha who recommended conservative management. Unfortunately, his symptoms progressed. He woke up with nausea and vomiting several hours later. That prompted him to come into the emergency room for evaluation. He was seen by Dr. Fink. Imaging study, CT abdomen and pelvis, showed new moderate distention of the proximal to mid small bowel with possible transition point in the left lower quadrant. There are bilateral pleural effusions that have decreased in size. His stents are seen. His hepatomegaly is unchanged. There seems to be a lot of stool as noted by general surgery. An NG tube was placed. He has had several enemas and he has had some bowel movements. He feels that he is passing gas. He was managed conservatively. He is feeling better. Hematology/oncology is consulted for his diffuse large B cell lymphoma. By imaging, his lymphoma appears to be stable. He has been feeling well with his treatment. He is no longer neutropenic. He is anemic but appears to be stable. His platelet count has recovered. He is hyponatremic on the day of the consultation. Again, he had no fevers, chills or night sweats. He was feeling well, except for fatigue when he presented that day. The rest of his review of system is negative. PAST MEDICAL HISTORY: Hypertension, diffuse large B cell lymphoma pleural effusion, chemotherapy-induced anemia, chronic pain, small-bowel obstruction. PAST SURGICAL HISTORY: Hernia repair, hip replacement surgery, stent placement, colonoscopy. FAMILY HISTORY: Mother at age 64 of colon cancer. Father at age 78 of heart disease. SOCIAL HISTORY: He is , lives with his . He quit smoking 15 years ago with a 13-hrca-jlta smoking history. He denies any current alcohol or illicit drug use. ALLERGIES: ITRACONAZOLE AND TEA TREE. MEDICATIONS: 1. Piperacillin/tazobactam. 2. Vasotec p.r.n. 3. Zofran p.r.n. 4. Morphine p.r.n. 5. IV fluid normal saline. PHYSICAL EXAMINATION: VITAL SIGNS: Temperature 98.2, heart rate 96, respiratory rate 18, blood pressure 138/68, saturation 96%. GENERAL: Mr. Hawhtorne is a slender elderly man with pallor. HEENT: His pupils are round, reactive to light and accommodation. NG tube in the left nostril. LUNGS: Clear. CARDIOVASCULAR: Reveals a normal rate and rhythm. ABDOMEN: Soft. Diffuse tenderness still present. Subjectively, less distended. LOWER EXTREMITIES: No edema. STEPHANY hose are in place. NEUROLOGIC: Nonfocal. LABORATORY DATA: As described above. ASSESSMENT AND PLAN: Mr. Hawthorne is a 71-year-old man with diffuse large B cell lymphoma, germinal center type non-double hit. He is receiving R-CHOP chemotherapy with a good response. He was to complete his treatment. He still had some residual adenopathy and pleural effusion. He appears to be doing well from oncology standpoint pending restaging evaluation after his last cycle of chemotherapy. His treatment for his lymphoma is complicated by a small-bowel obstruction, which is being treated conservatively. We defer to any surgical intervention. Clinically, he is improving with conservative management. No specific therapy is required for the chemotherapy-induced anemia. We will transfuse for symptoms and any hemoglobin less than 7. His platelet count and white blood cell count are normal. I anticipate his discharge and defer to Dr. Ha the timing of his last cycle of chemotherapy. He will need to recover from the above event. Mr. Hawthorne's questions were answered to his satisfaction. MargieMD ALLEN Ramos//amy , 07:22 PM , 09:01 PM MTDNathan
[2017-07-26] VITALS (14 sets, daily range): BP systolic 132–153; BP diastolic 57–85; PULSE 88–106; RESP 18–20; TEMP 96.5–99.1; O2SAT 92–97
[2017-07-26] MEDS: MORPHINE SULFATE 2 MG/ML SYRINGE IV PUSH PRN ×5 (02:00→16:28)
--- NOTE | 2017-07-26 04:20 | RADRPT ---
EXAM DATE/TIME: 07/26/2017 03:51 [facility] COMPARISON: No previous studies available for comparison. INDICATIONS : Obstruction MEDICAL HISTORY : Hypothyroidism. Hypertension. Non Hodgkins Lymphoma with chemotherapy. SURGICAL HISTORY : Total knee replacement, right. Inguinal hernia repair.Renal stent. ENCOUNTER: Initial ACUITY: 2 days PAIN SCORE: 2/10 LOCATION: Left abdomen FINDINGS: Single AP supine view the abdomen. Bilateral double-J ureteral stents. Nasogastric tube in place with the tip in the distal stomach. Scattered gas and stool in nondilated colon. Distended loops of small bowel in the midabdomen measuring up to 4.8 cm in diameter. Right total hip prosthesis. Moderate ost eoarthritic findings of the left hip. Surgical clips in the right lower quadrant of the abdomen. CONCLUSION: Nonspecific bowel gas pattern. Distended air filled loops of mid small bowel. Scattered gas and stool in the colon. Ranjit Patricia MD on July 26, 2017 at 4:16 Board Certified Radiologist. This report was verified electronically.
[2017-07-26] MEDS: PIPERACIL-TAZO 4.5 GM PREMIX 100 ML IV SCH (05:41)
[2017-07-26 07:51] LABS: AUTOMATED NEUTROPHIL # 5.1 TH/MM3 (1.8-7.7); BASOPHIL % 0.4 % (0.0-2.0); EOSINOPHIL % 0.4 % (0.0-4.0); LYMPH % 7.3 % (9.0-44.0); LYMPHOCYTE # 0.4 TH/MM3 (1.0-4.8); MEAN CELL VOLUME 82.7 FL (80.0-100.0); MEAN CORPUSCULAR HEMOGLOBIN 27.7 PG (27.0-34.0); MEAN CORPUSCULAR HGB CONC 33.5 % (32.0-36.0); MEAN PLATELET VOLUME 7.1 FL (7.0-11.0); MONO % 8.4 % (0.0-8.0); MONOCYTE # 0.5 TH/MM3 (0-0.9); NEUT % 83.5 % (16.0-70.0); PLATELET COUNT 114 TH/MM3 (150-450); RED BLOOD COUNT 2.51 MIL/MM3 (4.50-5.90); RED CELL DISTRIBUTION WIDTH 19.9 % (11.6-17.2)
[2017-07-26 08:16] LABS: HEMATOCRIT 20.7 % (39.0-51.0); HEMOGLOBIN 6.9 GM/DL (13.0-17.0)
[2017-07-26] MEDS ORDERED: diphenhydrAMINE HCL 25 MG CAP PO PRN (08:30)
[2017-07-26] MEDS ORDERED: SODIUM CHLOR 0.9% 250 ML INJ 250 ML IV ONE (08:30)
[2017-07-26] MEDS ORDERED: FUROSEMIDE 20 MG/2 ML VIAL IV PUSH ONE ×2 (08:30→23:45)
[2017-07-26] MEDS ORDERED: ACETAMINOPHEN 325 MG TAB PO PRN (08:30)
[2017-07-26 08:41] LABS: ALBUMIN 2.3 GM/DL (3.4-5.0); ALKALINE PHOSPHATASE 79 U/L (45-117); ALT (GPT) 10 U/L (12-78); AST (GOT) 11 U/L (15-37); BICARBONATE 28.7 MEQ/L (21.0-32.0); BLOOD UREA NITROGEN 8 MG/DL (7-18); CALCIUM 7.9 MG/DL (8.5-10.1); CHLORIDE 105 MEQ/L (98-107); CREATININE 0.49 MG/DL (0.60-1.30); GLOMERULAR FILTRATION RATE 169 ML/MIN (>89); GLUCOSE,RANDOM 108 MG/DL (74-106); SODIUM (NA) 142 MEQ/L (136-145); TOTAL BILIRUBIN ADULT 0.5 MG/DL (0.2-1.0); TOTAL PROTEIN 5.6 GM/DL (6.4-8.2)
[2017-07-26] MEDS: SODIUM CHLOR 0.9% 1000 ML INJ 1,000 ML IV SCH (08:57)
[2017-07-26] MEDS: SODIUM CHLORIDE 0.9% FLUSH 10 ML FLUSH IV FLUSH SCH ×2 (09:00→21:00)
[2017-07-26 09:34] LABS: OVALOCYTES 1+ (NORMAL); TEARDROP RBCS 1+ (NORMAL)
--- NOTE | 2017-07-26 09:41 | HHI.PR ---
Subjective Remarks Patient states he is feeling much better compared to yesterday. He would like to advance his diet. He had a large bowel movement earlier this morning. No nausea or vomiting at this time. NG tube still in place. He still has right lower abdominal pain however he states that he is is chronic for him. He rates it a 1-2 out of 10. Objective Vitals Vital Signs Date Time Temp Pulse Resp B/P (MAP) Pulse Ox O2 Delivery O2 Flow Rate FiO2 07/26/17 04:00 98.9 90 18 138/78 (98) 93 07/26/17 01:06 99.1 103 18 146/85 (105) 92 07/25/17 21:23 97.8 92 16 135/62 (86) 96 07/25/17 16:00 98.2 96 18 138/68 (91) 96 07/25/17 15:05 92 07/25/17 12:00 97.2 92 14 110/53 (72) 96 07/25/17 11:49 18 I/O 07/25/17 07/25/17 07/25/17 07/26/17 07/26/17 07/26/17 07:00 15:00 23:00 07:00 15:00 23:00 Intake Total 1100 ml Output Total 250 ml 900 ml 800 ml Balance 850 ml -900 ml -800 ml Intake IV Total 1100 ml Output Urine Total 250 ml 800 ml Gastric Drainage Total 900 ml # Voids 3 4 1 # Bowel Movements 2 Result Diagram: 07/26/17 0735 07/26/17 0735 Imaging Last Impressions Abdomen X-Ray 07/26/17 0600 Signed Impressions: Service Date/Time: Wednesday, July 26, 2017 03:51 - CONCLUSION: Nonspecific bowel gas pattern. Distended air filled loops of mid small bowel. Scattered gas and stool in the colon. Ranjit Patricia MD Chest X-Ray 07/25/17 0107 Signed Impressions: Service Date/Time: Tuesday, July 25, 2017 01:19 - CONCLUSION: 1. Patchy right greater than left lung base opacity again seen along with small right greater than left pleural effusions. Findings similar to the prior study of May 2017. 2. Curvilinear metallic density at the level of the lower mediastinum and upper abdomen. May be external to the patient. Ranjit Patricia MD Abdomen/Pelvis CT 07/25/17 0107 Signed Impressions: Service Date/Time: Tuesday, July 25, 2017 02:11 - CONCLUSION: 1. New moderate distention of the proximal to mid small bowel with possible transition point in the left lower quadrant. Findings are suspicious for early small bowel obstruction. Small amount of free fluid . No free air. 2. Bilateral pleural effusions again seen with decrease in size. Apparent loculation of right pleural effusion. 3. Double-J ureteral stent is again seen bilaterally. Mild prominence of the proximal renal collecting systems unchanged. Punctate bilateral renal calculi. 4. Hepatosplenomegaly unchanged. Likely varices in the splenic hilum. Ranjit Patricia MD Objective Remarks GENERAL: This is a pale, ill appearing male, NG tube in place CARDIOVASCULAR: Regular rate and rhythm without murmurs RESPIRATORY: Clear to auscultation. Breath sounds equal bilaterally. No wheezes GASTROINTESTINAL: Abdomen soft, soft, minimally tender in the right lower quadrant with no guarding. MUSCULOSKELETAL: Extremities without edema. Moves extremities with no difficulty. NEUROLOGICAL: Awake and alert.Normal speech. A/P Problem List: (1) NHL (non-Hodgkin's lymphoma) ICD Code: C85.90 - Non-Hodgkin lymphoma, unspecified, unspecified site Status: Chronic (2) Anemia ICD Code: D64.9 - Anemia, unspecified Status: Acute (3) SBO (small bowel obstruction) ICD Code: K56.609 - Unspecified intestinal obstruction, unspecified as to partial versus complete obstruction Status: Acute (4) Hypertension ICD Code: I10 - Essential (primary) hypertension Status: Acute (5) Pleural effusion ICD Code: J90 - Pleural effusion, not elsewhere classified Status: Acute Assessment and Plan (1) NHL (non-Hodgkin's lymphoma) ICurrently in chemotherapy with the oncology team at [facility] Continue outpatient follow-up Dr. Jacobs, oncologist, did evaluate the patient. At this time, she does not recommend further intervention. Patient to follow-up with Dr. Briscoe She did recommend transfusing if hemoglobin less than 7. (2) Anemia Acute Most likely from chemotherapy-induced anemia Hemoglobin dropped to 6.9 this morning. Will transfuse 2 units of PRBC. Repeat H&H posttransfusion. (3) SBO (small bowel obstruction) Probably multifactorial due to recent chemotherapy, chronic constipation and general weakness Continue with bowel rest, NG tube for decompression Patient did have a large bowel movement this morning. Antiemetics for nausea vomiting General surgery following. Dr. Julien ordered fleets enema and small bowel follow -through N.p.o. with IV hydration and IV narcotics for pain (4) Hypertension Vasotec as needed IV while n.p.o. (5) Pleural effusion Pulmonary team evaluate the patient. Patient has a history of thoracentesis in the past. Monitor for now. Patient was started on IV Zosyn empirically due to opacity noted on x-ray however per report findings are similar to the prior study in May 2017. Patient is asymptomatic. At this time I will DC the IV Zosyn. Oxygen as needed Discharge Planning Follow-up on hemoglobin levels. Awaiting further recommendations from general surgery. Continue to monitor clinically. Nadya Farris MD Jul 26, 2017 09:41
[2017-07-26] MEDS ORDERED: POTASSIUM CHLORIDE IV SCH (10:00)
[2017-07-26] MEDS ORDERED: NACL 0.9% IV SCH (10:00)
[2017-07-26] MEDS ORDERED: DEXT 5% IV SCH (10:00)
--- NOTE | 2017-07-26 12:13 | HHI.PR ---
Subjective Subjective Notes Had two BMs after enema. No flatus since then. Will be getting one unit PRBCs this am. He has no complaints except sinus pressure and requests ice chips. Objective Vitals/I&O Vital Signs Date Time Temp Pulse Resp B/P (MAP) Pulse Ox O2 Delivery O2 Flow Rate FiO2 07/26/17 08:00 96.8 96 18 136/64 (88) 94 07/25/17 05:00 Nasal Cannula 2.00 Labs Laboratory Tests Test 07/26/17 07:35 White Blood Count 6.0 Red Blood Count 2.51 Hemoglobin 6.9 Hematocrit 20.7 Mean Corpuscular Volume 82.7 Mean Corpuscular Hemoglobin 27.7 Mean Corpuscular Hemoglobin Concent 33.5 Red Cell Distribution Width 19.9 Platelet Count 114 Mean Platelet Volume 7.1 Neutrophils (%) (Auto) 83.5 Lymphocytes (%) (Auto) 7.3 Monocytes (%) (Auto) 8.4 Eosinophils (%) (Auto) 0.4 Basophils (%) (Auto) 0.4 Neutrophils # (Auto) 5.1 Lymphocytes # (Auto) 0.4 Monocytes # (Auto) 0.5 Eosinophils # (Auto) 0.0 Basophils # (Auto) 0.0 CBC Comment AUTO DIFF Differential Comment AUTO DIFF CONFIRMED Tear Drop Cells 1+ Ovalocytes 1+ Blood Urea Nitrogen 8 Creatinine 0.49 Random Glucose 108 Total Protein 5.6 Albumin 2.3 Calcium Level 7.9 Alkaline Phosphatase 79 Aspartate Amino Transf (AST/SGOT) 11 Alanine Aminotransferase (ALT/SGPT) 10 Total Bilirubin 0.5 Sodium Level 142 Potassium Level 3.0 Chloride Level 105 Carbon Dioxide Level 28.7 Anion Gap 8 Estimat Glomerular Filtration Rate 169 Date/Time Source Procedure Growth Status 07/25/17 01:20 Blood Peripheral Aerobic Blood Culture - Preliminary NO GROWTH IN 1 DAY Resulted 07/25/17 01:20 Blood Peripheral Anaerobic Blood Culture - Preliminary NO GROWTH IN 1 DAY Resulted Radiology Last Impressions Chest X-Ray 07/25/17 0107 Signed Impressions: Service Date/Time: Tuesday, July 25, 2017 01:19 - CONCLUSION: 1. Patchy right greater than left lung base opacity again seen along with small right greater than left pleural effusions. Findings similar to the prior study of May 2017. 2. Curvilinear metallic density at the level of the lower mediastinum and upper abdomen. May be external to the patient. Ranjit Patricia MD Abdomen/Pelvis CT 07/25/17 0107 Signed Impressions: Service Date/Time: Tuesday, July 25, 2017 02:11 - CONCLUSION: 1. New moderate distention of the proximal to mid small bowel with possible transition point in the left lower quadrant. Findings are suspicious for early small bowel obstruction. Small amount of free fluid . No free air. 2. Bilateral pleural effusions again seen with decrease in size. Apparent loculation of right pleural effusion. 3. Double-J ureteral stent is again seen bilaterally. Mild prominence of the proximal renal collecting systems unchanged. Punctate bilateral renal calculi. 4. Hepatosplenomegaly unchanged. Likely varices in the splenic hilum. Ranjit Patricia MD Narrative Exam NAD Abd: soft, mild distention, NG with bilious output- 900cc overnight but minimal since this am A/P Assessment and Plan 71 yo M with stage IV non hodgkins lymphoma with SBO and constipation + BM after enema. SBFT to be done today. Await return of bowel function. If does not improve consider operative intervention. Je Julien MD Jul 26, 2017 12:13
[2017-07-26] MEDS ORDERED: ACETAMINOPHEN 1000 MG/100 ML 100 ML IV ONE (13:15)
[2017-07-26] MEDS ORDERED: diphenhydrAMINE HCL 50 MG/ML VIAL IV PUSH ONE (13:15)
--- NOTE | 2017-07-26 19:38 | HHI.PR ---
Subjective Remarks 71 YOWM with B Cell lymphoma, Pl eff,SBO Mild nausea on clamping NGT No SOB Objective Vital Signs Vital Signs Date Time Temp Pulse Resp B/P (MAP) Pulse Ox O2 Delivery O2 Flow Rate FiO2 07/26/17 19:06 97.0 99 20 138/63 96 07/26/17 17:59 96.5 97 18 137/60 95 07/26/17 17:35 95 18 146/74 94 07/26/17 17:12 96.7 99 20 132/57 95 07/26/17 16:53 97.1 99 18 137/65 95 07/26/17 16:38 97.4 98 20 147/64 95 07/26/17 16:33 18 07/26/17 16:00 98.0 88 18 140/70 (93) 95 07/26/17 15:40 18 07/26/17 15:00 106 07/26/17 12:00 98.2 93 18 146/67 (93) 95 07/26/17 08:07 97 07/26/17 08:00 96.8 96 18 136/64 (88) 94 07/26/17 04:00 98.9 90 18 138/78 (98) 93 07/26/17 01:06 99.1 103 18 146/85 (105) 92 07/25/17 21:23 97.8 92 16 135/62 (86) 96 I/O 07/25/17 07/25/17 07/25/17 07/26/17 07/26/17 07/26/17 07:00 15:00 23:00 07:00 15:00 23:00 Intake Total 1100 ml 500 ml Output Total 250 ml 900 ml 800 ml 900 ml 900 ml Balance 850 ml -900 ml -800 ml -900 ml -400 ml Intake IV Total 1100 ml 100 ml Packed Cells 400 ml Output Urine Total 250 ml 800 ml Gastric Drainage Total 900 ml 900 ml 900 ml # Voids 3 4 1 # Bowel Movements 2 Result Diagram: 07/26/1735 07/26/17 0735 Objective Remarks GENERAL: MBMN Wm,NAD SKIN: Warm and dry. HEAD: Normocephalic. EYES: No scleral icterus. No injection or drainage. NECK: Supple, trachea midline. No JVD or lymphadenopathy. CARDIOVASCULAR: Regular rate and rhythm without murmurs, gallops, or rubs. RESPIRATORY: Breath sounds equal bilaterally. No accessory muscle use. GASTROINTESTINAL: Abdomen soft, non-tender, nondistended. MUSCULOSKELETAL: No cyanosis, or edema. BACK: Nontender without obvious deformity. No CVA tenderness. A/P Assessment and Plan IMPRESSION: 1. Small bilateral pleural effusion. He had recent thoracentesis done. 2. Small bowel obstruction. 3. Large B-cell lymphoma. 4. Hypertension. PLAN: NGT to suction Aerosol nebs No need for TC Stable on RA Emily Klein in AM Syed Hernández MD Jul 26, 2017 19:38
[2017-07-26] MEDS: MORPHINE SULFATE 4 MG/ML INJ IV PUSH PRN ×2 (19:50→23:45)
[2017-07-26] MEDS ORDERED: LORA-392 PO (19:56)
[2017-07-26] MEDS ORDERED: LORazepam 2 MG/ML VIAL IV PUSH ONE (22:45)
[2017-07-27] VITALS (10 sets, daily range): BP systolic 128–158; BP diastolic 60–78; PULSE 81–102; RESP 14–22; TEMP 96–97.7; O2SAT 94–97
[2017-07-27] MEDS: MORPHINE SULFATE 4 MG/ML INJ IV PUSH PRN ×7 (02:44→22:33)
[2017-07-27 07:05] LABS: BASOPHIL % 0.2 % (0.0-2.0); EOSINOPHIL % 0.2 % (0.0-4.0); HEMATOCRIT 31.6 % (39.0-51.0); HEMOGLOBIN 10.2 GM/DL (13.0-17.0); LYMPH % 5.9 % (9.0-44.0); LYMPHOCYTE # 0.5 TH/MM3 (1.0-4.8); MEAN CELL VOLUME 82.6 FL (80.0-100.0); MEAN CORPUSCULAR HEMOGLOBIN 26.5 PG (27.0-34.0); MEAN CORPUSCULAR HGB CONC 32.2 % (32.0-36.0); MONOCYTE # 0.7 TH/MM3 (0-0.9); NEUT % 85.7 % (16.0-70.0); PLATELET COUNT 159 TH/MM3 (150-450); RED BLOOD COUNT 3.83 MIL/MM3 (4.50-5.90); RED CELL DISTRIBUTION WIDTH 18.2 % (11.6-17.2); WHITE BLOOD COUNT 8.2 TH/MM3 (4.0-11.0)
[2017-07-27 07:23] LABS: BICARBONATE 31.1 MEQ/L (21.0-32.0); CALCIUM 9.2 MG/DL (8.5-10.1); CREATININE 0.65 MG/DL (0.60-1.30)
[2017-07-27] MEDS ORDERED: POTASSIUM CHLORIDE 10 MEQ CONTROLLED RELEASE TAB PO ONE (07:45)
[2017-07-27] MEDS: SODIUM CHLORIDE 0.9% FLUSH 10 ML FLUSH IV FLUSH SCH ×3 (09:00→22:42)
--- NOTE | 2017-07-27 10:50 | RADRPT ---
EXAM DATE/TIME: 07/26/2017 10:48 [facility] COMPARISON: CT ABDOMEN & PELVIS W CONTRAST, July 25, 2017, 2:11. INDICATIONS : obstruction FLUORO TIME: 0 minutes IMAGE COUNT: 5 CONTRAST: [facility] IMAGING TIME(S): 15 min, 2 hrs, 4 hrs MEDICAL HISTORY : Hypothyroidism. Hypertension. Non Hodgkins Lymphoma with chemotherapy. SURGICAL HISTORY : Total knee replacement, right. Inguinal hernia repair.Renal stent. ENCOUNTER: Subsequent ACUITY: 2 days PAIN SCORE: 8/10 LOCATION: Bilateral abdomen FINDINGS: Initial tinner automatic film demonstrates air-filled mildly dilated loops of jejunum. A nasogastric tube has it s tip in good position in the distal stomach. Bilateral internal ureteral stents are noted in good po sitions. Degenerative changes and scoliosis of the thoracolumbar spine are noted. Gastrografin was instilled through the nasogastric tube. Again there is mild dilatation of the jejunu m. The 4 hour delayed films demonstrate Gastrografin in the jejunum and ileum but no contrast within the colon. The findings suggest partial small bowel obstruction or ileus. Clinical correlation is rec ommended. CONCLUSION: Mild dilatation of small bowel loops with delayed transit time suggestive of partial small bowel obst ruction or ileus. Clinical correlation is recommended. Young To MD on July 27, 2017 at 10:43 Board Certified Radiologist. This report was verified electronically.
[2017-07-27] MEDS: POTASSIUM CHLOR 20 MEQ PREMIX 100 ML IV SCH ×3 (11:11→14:00)
[2017-07-27] MEDS: SODIUM CHLOR 0.9% 1000 ML INJ 1,000 ML IV SCH ×2 (11:11→22:35)
--- NOTE | 2017-07-27 11:28 | HHI.PR ---
Subjective Remarks Patient feeling somewhat better today. No nausea or vomiting. He did experience some pain when the turn of the suction and he had some distention again. No flatus or BM so far today. Objective Vitals Vital Signs Date Time Temp Pulse Resp B/P (MAP) Pulse Ox O2 Delivery O2 Flow Rate FiO2 07/27/17 09:30 96.3 81 16 131/74 (93) 94 07/27/17 04:00 97.4 100 20 148/68 (94) 97 07/27/17 01:30 97.6 101 14 147/67 95 07/27/17 00:25 97.6 102 14 158/73 94 07/27/17 00:00 96.8 99 22 128/60 (82) 97 07/26/17 20:00 99.1 99 18 153/69 (97) 97 07/26/17 19:06 97.0 99 20 138/63 96 07/26/17 17:59 96.5 97 18 137/60 95 07/26/17 17:35 95 18 146/74 94 07/26/17 17:12 96.7 99 20 132/57 95 07/26/17 16:53 97.1 99 18 137/65 95 07/26/17 16:38 97.4 98 20 147/64 95 07/26/17 16:33 18 07/26/17 16:00 98.0 88 18 140/70 (93) 95 07/26/17 15:40 18 07/26/17 15:00 106 07/26/17 12:00 98.2 93 18 146/67 (93) 95 I/O 07/26/17 07/26/17 07/26/17 07/27/17 07/27/17 07/27/17 07:00 15:00 23:00 07:00 15:00 23:00 Intake Total 590 ml 590 ml 1000 ml Output Total 800 ml 900 ml 900 ml Balance -800 ml -900 ml -310 ml 590 ml 1000 ml Intake Oral 90 ml 90 ml IV Total 100 ml 1000 ml Packed Cells 400 ml 400 ml Blood Product IV Normal Saline Flush 100 ml Output Urine Total 800 ml Gastric Drainage Total 900 ml 900 ml # Voids 1 3 3 # Bowel Movements 2 Result Diagram: 07/27/17 0607/27/17599 Imaging Last Impressions Small Bowel X-Ray 07/26/17599 Signed Impressions: Service Date/Time: Wednesday, July 26, 2017 10:48 - CONCLUSION: Mild dilatation of small bowel loops with delayed transit time suggestive of partial small bowel obstruction or ileus. Clinical correlation is recommended. Young To MD Abdomen X-Ray 07/26/17599 Signed Impressions: Service Date/Time: Wednesday, July 26, 2017 03:51 - CONCLUSION: Nonspecific bowel gas pattern. Distended air filled loops of mid small bowel. Scattered gas and stool in the colon. Ranjit Patricia MD Chest X-Ray 07/25/17106 Signed Impressions: Service Date/Time: Tuesday, July 25, 2017 01:19 - CONCLUSION: 1. Patchy right greater than left lung base opacity again seen along with small right greater than left pleural effusions. Findings similar to the prior study of May 2017. 2. Curvilinear metallic density at the level of the lower mediastinum and upper abdomen. May be external to the patient. Ranjit Patricia MD Abdomen/Pelvis CT 07/25/17106 Signed Impressions: Service Date/Time: Tuesday, July 25, 2017 02:11 - CONCLUSION: 1. New moderate distention of the proximal to mid small bowel with possible transition point in the left lower quadrant. Findings are suspicious for early small bowel obstruction. Small amount of free fluid . No free air. 2. Bilateral pleural effusions again seen with decrease in size. Apparent loculation of right pleural effusion. 3. Double-J ureteral stent is again seen bilaterally. Mild prominence of the proximal renal collecting systems unchanged. Punctate bilateral renal calculi. 4. Hepatosplenomegaly unchanged. Likely varices in the splenic hilum. Ranjit Patricia MD Objective Remarks GENERAL: This is a pale, ill appearing male, NG tube in place CARDIOVASCULAR: Regular rate and rhythm without murmurs RESPIRATORY: Clear to auscultation. Breath sounds equal bilaterally. No wheezes GASTROINTESTINAL: Abdomen soft, soft, minimally tender in the left lower quadrant with no guarding. MUSCULOSKELETAL: Extremities without edema. Moves extremities with no difficulty. NEUROLOGICAL: Awake and alert.Normal speech. A/P Problem List: (1) NHL (non-Hodgkin's lymphoma) ICD Code: C85.90 - Non-Hodgkin lymphoma, unspecified, unspecified site Status: Chronic (2) Anemia ICD Code: D64.9 - Anemia, unspecified Status: Acute (3) SBO (small bowel obstruction) ICD Code: K56.609 - Unspecified intestinal obstruction, unspecified as to partial versus complete obstruction Status: Acute (4) Hypertension ICD Code: I10 - Essential (primary) hypertension Status: Acute (5) Pleural effusion ICD Code: J90 - Pleural effusion, not elsewhere classified Status: Acute Assessment and Plan (1) NHL (non-Hodgkin's lymphoma) ICurrently in chemotherapy with the oncology team at [facility] Continue outpatient follow-up Dr. Jacobs, oncologist, did evaluate the patient. At this time, she does not recommend further intervention. Patient to follow-up with Dr. Briscoe She did recommend transfusing if hemoglobin less than 7. (2) Anemia Acute Most likely from chemotherapy-induced anemia s/p 2 units of PRBC. Hemoglobin 10.2 today Repeat H&H in a.m. (3) SBO (small bowel obstruction) Probably multifactorial due to recent chemotherapy, chronic constipation and general weakness Continue with bowel rest, NG tube for decompression Patient did have a large bowel movement this morning. Antiemetics for nausea vomiting General surgery following. Dr. Julien ordered fleets enema and small bowel follow -through which shows partial bowel obstruction. N.p.o. with IV hydration and IV narcotics for pain (4) Hypertension Vasotec as needed IV while n.p.o. (5) Pleural effusion Pulmonary team evaluate the patient. Patient has a history of thoracentesis in the past. Monitor for now. Patient was started on IV Zosyn empirically due to opacity noted on x-ray however per report findings are similar to the prior study in May 2017. Patient is asymptomatic. off IV Zosyn. Oxygen as needed Discharge Planning Follow-up on hemoglobin levels. Awaiting further recommendations from general surgery. Continue to monitor clinically. Encourage ambulation Nadya Farris MD Jul 27, 2017 11:28
--- NOTE | 2017-07-27 12:00 | RADRPT ---
EXAM DATE/TIME: 07/27/2017 07:51 [facility] COMPARISON: CT ABDOMEN & PELVIS W CONTRAST, July 25, 2017, 2:11. EXTERNAL COMPARISON : [facility], US ABDOMEN COMPLETE, March 09, 2017 INDICATIONS : Hematuria. MEDICAL HISTORY : Hypertension. Gastroesophageal reflux disease. Hypothyroidism. Non-Hodgkin's lymphoma. chemotherapy . SURGICAL HISTORY : Bilateral renal stents. Bilatearl inguinal hernia repair. Right hip replacement. ENCOUNTER: Subsequent ACUITY: 2 days PAIN SCORE: 4/10 LOCATION: Bilateral flank MEASUREMENTS: RIGHT KIDNEY: 12.6 x 6.2 x 6.2 cm LEFT KIDNEY: 13.0 x 5.3 x 5.0 cm FINDINGS: The kidneys demonstrates increased echogenicity of the cortex compatible with medical renal disease. No hydronephrosis or mass lesions are identified. Bilateral renal stents are present there is mild ri ght hydronephrosis. There are bilateral nonobstructing renal stones the largest measuring 5 mm in the lower pole on the left. There is echogenic debris within the dependent portion the gallbladder likel y reflecting clot. CONCLUSION: 1. Echogenic kidneys bilaterally compatible with medical renal disease. 2. Bilateral renal stents with stable mild right hydronephrosis 3. Nonobstructing bilateral renal stones. Joey Sarabia MD on July 27, 2017 at 11:46 Board Certified Radiologist. This report was verified electronically.
--- NOTE | 2017-07-27 12:46 | MB ---
cc: JaspreetNikoMin W DO DATE: 07/27/2017 HISTORY OF PRESENT ILLNESS: Mr. Hawthorne is a pleasant 71-year-old male with a history of lymphoma who was admitted with abdominal discomfort and a possible small-bowel obstruction. Workup for this is currently in progress. In March of this past year, he underwent cystoscopy, bilateral ureteral stent placement as part of protocol per oncology for his history of lymphoma. This was placed at the [facility]. He denies having any hematuria up to this point, but yesterday developed some gross hematuria. CT scan was performed on 07/25/2017 which showed double ureteral stents seen bilaterally with mild prominence of the renal collecting systems bilaterally, which is unchanged. He also underwent a renal ultrasound which showed echogenic kidneys bilaterally compatible with medical renal disease. Bilateral renal stents are noted with stable mild right hydronephrosis, nonobstructing bilateral renal stones were also present. PAST MEDICAL HISTORY: Recently diagnosed non-Hodgkin's lymphoma currently on chemotherapy, anemia, hypothyroidism, constipation, dyspepsia. PAST SURGICAL HISTORY: He had bilateral double-J stent placed and a port placement, bilateral inguinal hernia repairs and right hip replacement. ALLERGIES: Please refer to the chart. MEDICATIONS: Please refer to the chart. FAMILY HISTORY: Father with history of coronary artery disease. SOCIAL HISTORY: Denies tobacco at present, but smoked in the past. Denies alcohol. REVIEW OF SYSTEMS: Denies chest pain, shortness of breath. Does note some gross hematuria the last day. Denies flank pain. Denies frequency. Denies dysuria. Denies gait disturbances. Does note abdominal pain. Denies headache. Remaining review of systems reviewed and were negative. PHYSICAL EXAMINATION: VITAL SIGNS: Today temperature is 96.3, heart rate 81, respiratory rate 16, 131/74, respiratory rate 16 with a pulse oximetry of 94. GENERAL: He is a thin 71-year-old male in no acute distress. HEENT: Normocephalic, atraumatic. Pupils equal, round, regular, reactive to light. Extraocular movements intact. NG tube is in the nose. NECK: Supple. HEART: Regular rate and rhythm. LUNGS: Clear. ABDOMEN: Soft. Some tenderness in the left lower quadrant was noted with no guarding. GENITOURINARY: Normal phallus. Testes are descended. EXTREMITIES: Show no cyanosis, clubbing, or edema. NEUROLOGIC: Cranial nerves 2-12 are intact. LABORATORY DATA: White count 8.2, hemoglobin 10.2, hematocrit 31.6, platelet count of 159. Sodium 144, potassium 2.8, chloride 105, CO2 31.1, BUN 11, creatinine 0.65, glucose of 153. PT 11.7, INR 1.2, PTT is 32.1. IMAGING STUDIES: Again, imaging studies showing bilateral ureteral stents in place with mild right hydronephrosis on the ultrasound. Patient with medical renal disease. No other abnormalities were noted. ASSESSMENT AND PLAN: This is a 71-year-old male with an episode of gross hematuria with bilateral ureteral stents in place. Hematuria most likely from the stents being in position. Would recommend continuing with IV fluids and encourage p.o. water intake. His hematuria should clear. No evidence of obstruction identified on the ultrasound or other malignancy identified. Would have him followup with his urologist to have his stent removed once chemotherapy has resolved. I do not believe that the anemia is secondary to his new onset gross hematuria. It is most likely due to his ongoing chemotherapy. I thank you for the consult and allowing me to participate in the care of this patient. DO MALLORY Mitchell , 12:20 PM , 12:45 PM
--- NOTE | 2017-07-27 15:24 | HHI.PR ---
Subjective Subjective Notes No flatus or BM. Continues to have bilious ngt output. Requesting that we consider TPN. Objective Vitals/I&O Vital Signs Date Time Temp Pulse Resp B/P (MAP) Pulse Ox O2 Delivery O2 Flow Rate FiO2 07/27/17 12:00 96.0 87 18 142/78 (99) 95 07/25/17 05:00 Nasal Cannula 2.00 Labs Laboratory Tests Test 07/27/17 06:00 White Blood Count 8.2 Red Blood Count 3.83 Hemoglobin 10.2 Hematocrit 31.6 Mean Corpuscular Volume 82.6 Mean Corpuscular Hemoglobin 26.5 Mean Corpuscular Hemoglobin Concent 32.2 Red Cell Distribution Width 18.2 Platelet Count 159 Mean Platelet Volume 8.0 Neutrophils (%) (Auto) 85.7 Lymphocytes (%) (Auto) 5.9 Monocytes (%) (Auto) 8.0 Eosinophils (%) (Auto) 0.2 Basophils (%) (Auto) 0.2 Neutrophils # (Auto) 7.0 Lymphocytes # (Auto) 0.5 Monocytes # (Auto) 0.7 Eosinophils # (Auto) 0.0 Basophils # (Auto) 0.0 CBC Comment DIFF FINAL Differential Comment Blood Urea Nitrogen 11 Creatinine 0.65 Random Glucose 153 Calcium Level 9.2 Sodium Level 144 Potassium Level 2.8 Chloride Level 105 Carbon Dioxide Level 31.1 Anion Gap 8 Estimat Glomerular Filtration Rate 122 Date/Time Source Procedure Growth Status 07/25/17 01:20 Blood Peripheral Aerobic Blood Culture - Preliminary NO GROWTH IN 2 DAYS Resulted 07/25/17 01:20 Blood Peripheral Anaerobic Blood Culture - Preliminary NO GROWTH IN 2 DAYS Resulted Radiology Last Impressions Chest X-Ray 07/25/17 0107 Signed Impressions: Service Date/Time: Tuesday, July 25, 2017 01:19 - CONCLUSION: 1. Patchy right greater than left lung base opacity again seen along with small right greater than left pleural effusions. Findings similar to the prior study of May 2017. 2. Curvilinear metallic density at the level of the lower mediastinum and upper abdomen. May be external to the patient. Ranjit Patricia MD Abdomen/Pelvis CT 07/25/17 0107 Signed Impressions: Service Date/Time: Tuesday, July 25, 2017 02:11 - CONCLUSION: 1. New moderate distention of the proximal to mid small bowel with possible transition point in the left lower quadrant. Findings are suspicious for early small bowel obstruction. Small amount of free fluid . No free air. 2. Bilateral pleural effusions again seen with decrease in size. Apparent loculation of right pleural effusion. 3. Double-J ureteral stent is again seen bilaterally. Mild prominence of the proximal renal collecting systems unchanged. Punctate bilateral renal calculi. 4. Hepatosplenomegaly unchanged. Likely varices in the splenic hilum. Ranjit Patricia MD Narrative Exam NAD Abd: soft, mild distention, mild left sided ttp, NGT 1800cc output/24h (had gg contrast yesterday as well) A/P Assessment and Plan 71 yo M with stage IV non hodgkins lymphoma with SBO and constipation Has not had return of bowel function. SBFT did not progress to colon. Will check KUB. If no contrast in colon he may need to proceed with operative intervention, which needs to be done at [facility]. Consider TPN- not sure if it can be through port or if he would need PICC line. [facility] Je Julien MD Jul 27, 2017 15:24
--- NOTE | 2017-07-27 15:56 | RADRPT ---
EXAM DATE/TIME: 07/27/2017 15:23 [facility] COMPARISON: SMALL BOWEL SERIES W/GASTROGRAFIN, July 26, 2017, 10:48. ABDOMEN KUB ONLY, July 26, 2017, 3:51. INDICATIONS : Evaluate for obstruction. MEDICAL HISTORY : Hypertension. Hypothyroidism. Non Hodgkins Lymphoma with chemotherapy. SURGICAL HISTORY : Inguinal hernia repair. Renal stent. Hip replacement, Right. ENCOUNTER: Subsequent ACUITY: 3 days PAIN SCORE: 2/10 LOCATION: abdomen, all quadrants. FINDINGS: Several loops of jejunum remain air filled and minimally dilated suggestive of partial small bowel ob struction or ileus. Very dilute contrast is likely within the expected region of the distal ileum and cecum. Bilateral internal ureteral stents are stable. Right hip replacement is unchanged. Degenerati ve changes throughout the lumbar and lower thoracic spine are stable. Degenerative changes involving the left hip joint are stable. CONCLUSION: Persistent air-filled minimally dilated loops of jejunum suggestive of partial small bowel obstructio n or ileus. Young To MD on July 27, 2017 at 15:51 Board Certified Radiologist. This report was verified electronically.
--- NOTE | 2017-07-27 18:09 | PD.ONC.PN ---
Subjective Subjective Remarks Resting in bed. NG tube in place. Objective Data Date Time Temp Pulse Resp B/P (MAP) Pulse Ox O2 Delivery O2 Flow Rate FiO2 07/27/17 16:00 96.2 91 16 142/77 (98) 95 07/27/17 12:00 96.0 87 18 142/78 (99) 95 07/27/17 09:30 96.3 81 16 131/74 (93) 94 07/27/17 07:01 94 07/27/17 04:00 97.4 100 20 148/68 (94) 97 07/27/17 01:30 97.6 101 14 147/67 95 07/27/17 00:25 97.6 102 14 158/73 94 07/27/17 00:00 96.8 99 22 128/60 (82) 97 07/26/17 20:00 99.1 99 18 153/69 (97) 97 07/26/17 19:06 97.0 99 20 138/63 96 07/27/17 07/27/17 07/27/17 07:00 15:00 23:00 Intake Total 590 ml 1560 ml 100 ml Balance 590 ml 1560 ml 100 ml Result Diagram: 07/27/17 0600 07/27/17 0600 Laboratory Results Laboratory Tests Test 07/27/17 06:00 White Blood Count 8.2 TH/MM3 Red Blood Count 3.83 MIL/MM3 Hemoglobin 10.2 GM/DL Hematocrit 31.6 % Mean Corpuscular Volume 82.6 FL Mean Corpuscular Hemoglobin 26.5 PG Mean Corpuscular Hemoglobin Concent 32.2 % Red Cell Distribution Width 18.2 % Platelet Count 159 TH/MM3 Mean Platelet Volume 8.0 FL Neutrophils (%) (Auto) 85.7 % Lymphocytes (%) (Auto) 5.9 % Monocytes (%) (Auto) 8.0 % Eosinophils (%) (Auto) 0.2 % Basophils (%) (Auto) 0.2 % Neutrophils # (Auto) 7.0 TH/MM3 Lymphocytes # (Auto) 0.5 TH/MM3 Monocytes # (Auto) 0.7 TH/MM3 Eosinophils # (Auto) 0.0 TH/MM3 Basophils # (Auto) 0.0 TH/MM3 CBC Comment DIFF FINAL Differential Comment Blood Urea Nitrogen 11 MG/DL Creatinine 0.65 MG/DL Random Glucose 153 MG/DL Calcium Level 9.2 MG/DL Sodium Level 144 MEQ/L Potassium Level 2.8 MEQ/L Chloride Level 105 MEQ/L Carbon Dioxide Level 31.1 MEQ/L Anion Gap 8 MEQ/L Estimat Glomerular Filtration Rate 122 ML/MIN Culture Results Microbiology Date/Time Source Procedure Growth Status 07/25/17 01:20 Blood Peripheral Aerobic Blood Culture - Preliminary NO GROWTH IN 2 DAYS Resulted 07/25/17 01:20 Blood Peripheral Anaerobic Blood Culture - Preliminary NO GROWTH IN 2 DAYS Resulted 07/25/17 01:10 Blood Peripheral Aerobic Blood Culture - Preliminary NO GROWTH IN 2 DAYS Resulted 07/25/17 01:10 Blood Peripheral Anaerobic Blood Culture - Preliminary NO GROWTH IN 2 DAYS Resulted Imaging Studies Last 24 hours Impressions Renal Ultrasound 07/27/17 0000 Signed Impressions: Service Date/Time: Thursday, July 27, 2017 07:51 - CONCLUSION: 1. Echogenic kidneys bilaterally compatible with medical renal disease. 2. Bilateral renal stents with stable mild right hydronephrosis 3. Nonobstructing bilateral renal stones. Joey Sarabia MD Abdomen X-Ray 07/27/17 0000 Signed Impressions: Service Date/Time: Thursday, July 27, 2017 15:23 - CONCLUSION: Persistent air-filled minimally dilated loops of jejunum suggestive of partial small bowel obstruction or ileus. Young To MD Administered Medications Medications (Trade) Dose Ordered Sig/Mikael Route PRN Reason Start Time Stop Time Status Last Admin Dose Admin Sodium Chloride (NS Flush) 2 ml BID IV FLUSH 07/25/17 09:00 07/25/17 09:50 Ondansetron HCl (Zofran Inj) 4 mg Q6H PRN IVP NAUSEA OR VOMITING 07/25/17 04:00 07/25/17 05:19 Morphine Sulfate (Morphine Inj) 3 mg Q3H PRN IV PUSH Pain 6-10 07/26/17 19:15 07/27/17 15:48 Sodium Chloride 1,000 ml @ 100 mls/hr Q10H IV 07/27/17 09:45 07/27/17 11:11 Objective Remarks GENERAL: thin, chronically ill appearing man in no distress SKIN: Warm and dry. HEAD: Normocephalic. EYES: No scleral icterus. No injection or drainage. NECK: Supple, trachea midline. No JVD or lymphadenopathy. LYMPHATIC: No adenopathy. CARDIOVASCULAR: Regular rate and rhythm without murmurs. RESPIRATORY: Breath sounds equal bilaterally. No accessory muscle use. GASTROINTESTINAL: Abdomen soft, non-tender, nondistended. EXTREMITIES: No cyanosis, or edema. NEUROLOGICAL: No obvious focal deficit. Awake, alert, and oriented x3. PSYCHIATRIC: Appropriate mood and affect; insight and judgment normal. Assessment/Plan Assessment 1. Ileus/SBO: did not respond to conservative management. Followed by surgery plan for surgical interventions. 2. NHL, DLBCL: s/p 5 cycles of therapy with RCHOP with response of disease. Flakita Ha MD Jul 27, 2017 18:09
[2017-07-27] MEDS ORDERED: RESP: ALBUTEROL 1.25 MG/3 ML NEB (PRN) NEB (19:30)
[2017-07-27] MEDS ORDERED: LORazepam 2 MG/ML VIAL IV PUSH ONE (23:30)
[2017-07-28] VITALS: BP 149/72; PULSE 95; RESP 20; TEMP 98.2; O2SAT 96
[2017-07-28 04:37] LABS: HEMATOCRIT 29.9 % (39.0-51.0); HEMOGLOBIN 9.9 GM/DL (13.0-17.0)
[2017-07-28 04:59] LABS: BICARBONATE 26.1 MEQ/L (21.0-32.0); CREATININE 0.55 MG/DL (0.60-1.30)
[2017-07-28] MEDS: MORPHINE SULFATE 4 MG/ML INJ IV PUSH PRN ×4 (06:19→20:46)
[2017-07-28] MEDS: SODIUM CHLOR 0.9% 1000 ML INJ 1,000 ML IV SCH ×2 (06:22→15:45)
[2017-07-28] MEDS: SODIUM CHLORIDE 0.9% FLUSH 10 ML FLUSH IV FLUSH SCH ×2 (07:54→20:50)
[2017-07-28 08:00] VITALS: BP 108/67; PULSE 77; RESP 18; TEMP 98.1; O2SAT 93
--- NOTE | 2017-07-28 08:12 | HHI.PR ---
Subjective Subjective Notes No complaints. No flatus or bm. Objective Vitals/I&O Vital Signs Date Time Temp Pulse Resp B/P (MAP) Pulse Ox O2 Delivery O2 Flow Rate FiO2 07/28/17 00:00 98.2 95 20 149/72 (97) 96 07/25/17 05:00 Nasal Cannula 2.00 Labs Laboratory Tests Test 07/28/17 02:52 Hemoglobin 9.9 Hematocrit 29.9 Blood Urea Nitrogen 14 Creatinine 0.55 Random Glucose 95 Calcium Level 9.0 Sodium Level 148 Potassium Level 3.1 Chloride Level 113 Carbon Dioxide Level 26.1 Anion Gap 9 Estimat Glomerular Filtration Rate 148 Date/Time Source Procedure Growth Status 07/25/17 01:20 Blood Peripheral Aerobic Blood Culture - Preliminary NO GROWTH IN 2 DAYS Resulted 07/25/17 01:20 Blood Peripheral Anaerobic Blood Culture - Preliminary NO GROWTH IN 2 DAYS Resulted Radiology Last Impressions Chest X-Ray 07/25/17106 Signed Impressions: Service Date/Time: Tuesday, July 25, 2017 01:19 - CONCLUSION: 1. Patchy right greater than left lung base opacity again seen along with small right greater than left pleural effusions. Findings similar to the prior study of May 2017. 2. Curvilinear metallic density at the level of the lower mediastinum and upper abdomen. May be external to the patient. Ranjit Patricia MD Abdomen/Pelvis CT 07/25/17106 Signed Impressions: Service Date/Time: Tuesday, July 25, 2017 02:11 - CONCLUSION: 1. New moderate distention of the proximal to mid small bowel with possible transition point in the left lower quadrant. Findings are suspicious for early small bowel obstruction. Small amount of free fluid . No free air. 2. Bilateral pleural effusions again seen with decrease in size. Apparent loculation of right pleural effusion. 3. Double-J ureteral stent is again seen bilaterally. Mild prominence of the proximal renal collecting systems unchanged. Punctate bilateral renal calculi. 4. Hepatosplenomegaly unchanged. Likely varices in the splenic hilum. Ranjit Patricia MD Narrative Exam NAD Abd: soft, mild distention, mild left sided ttp, NGT 1300cc output/24h A/P Assessment and Plan 71 yo M with stage IV non hodgkins lymphoma with SBO and constipation No improvement. Proceed to OR today for dx lap, possible open and possible bowel resection. Will address cause of obstruction. He understands chemotherapy will be delayed somewhat to allow for healing. Will start TPN after PICC line placed as he is malnourished and extremely concerned about nutrition. Je Julien MD Jul 28, 2017 08:11
--- NOTE | 2017-07-28 08:27 | MB ---
cc: Donna James MD DATE: 07/27/2017 REASON FOR CONSULTATION: Pleural effusions and respiratory insufficiency. HISTORY OF PRESENT ILLNESS: This is a 71-year-old man with a past history for B-cell lymphoma, stage IV, has received five of six cycles of R-CHOP chemotherapy. The patient had developed abdominal pains with bloating and nausea and thus came to the hospital. A CT of the abdomen showed distention of the proximal and mid small bowel. He is also noted to have bilateral pleural effusions. He was admitted and NG tube was inserted with suctioning and he was then evaluated by the surgeon and now being scheduled for laparoscopy. The patient's NG tube is draining dark fluid. His abdominal distention is improved and he denies any chest pains or abdominal pains or nausea, vomiting. He is noted to be more anemic with a hemoglobin down to 8.5. PAST MEDICAL HISTORY: As mentioned above, B-cell lymphoma and history of pleural effusions with thoracentesis and history of chemotherapy, bilateral inguinal hernia surgery, right hip replacement and history of renal stents. HABITS: The patient does not smoke. He was a prior smoker for about 15 years, does not drink alcohol. ALLERGIES: ITRACONAZOLE. FAMILY HISTORY: Noncontributory. REVIEW OF SYSTEMS: The patient has abdominal bloating, nausea and epigastric distress. No vomiting or aspiration. No fevers, chills or night sweats. He has no leg swelling and denies urinary symptoms and he has some anxiety. PHYSICAL EXAMINATION: GENERAL: This is an elderly white male who is alert, pale and mildly tachypneic. There is an NG tube in place in the nose. VITAL SIGNS: Blood pressure 110/60, pulse is 100, respirations are 24, temperature 98.2. HEENT: Head is normocephalic. Pupils are reactive. Sclerae were clear. Throat is clear. He has no inflammation. NECK: Supple, no bruits or thyroid enlargement. LUNGS: Equal movements with distant breath sounds and occasional basilar crackles. HEART: Sounds regular S1, S2. No murmur. ABDOMEN: Soft, with mild epigastric tenderness. Bowel sounds are active. No organomegaly. EXTREMITIES: No lesions or edema. Reflexes are 1+, with no gross motor deficits. Cranial nerves are grossly intact. SKIN: No lesions. IMPRESSION: 1. Small-bowel obstruction with ileus. 2. History of large B-cell lymphoma, status post chemotherapy. 3. Hypertension. 4. Bilateral pleural effusions, resolving. PLAN: The patient will be transferred to [facility] for further surgical evaluation and laparoscopy. We will wait until the acute abdomen resolves and following that an ultrasound examination of the chest will be done to evaluate the effusions. Oxygen supplementation placed at 2 liters nasal cannula p.r.n. and nebulized albuterol solution added q.i.d. p.r.n. Followup chest x-ray to be done and abdominal x-ray. Incentive spirometry added every 2 hours. I will follow the case with you, Dr. Cait Turcios. Thank you for this consultation. V. Fiorella James MD VJD/DEJUAN , 10:15 PM , 10:44 PM
[2017-07-28] MEDS: SODIUM CHLORIDE 0.9% FLUSH 10 ML FLUSH IV FLUSH PRN ×2 (09:16→17:39)
[2017-07-28] MEDS ORDERED: CHLORHEXIDINE GLUCONATE 2 % 1 PACK (2 CLOTHS) TOPICAL PRN (11:15)
[2017-07-28] MEDS ORDERED: LACTATED RINGER'S 1000 ML IV PRN (11:15)
[2017-07-28] MEDS ORDERED: INSULIN HUMAN REGULAR 1,000 UNITS/10 ML VIAL SQ PRN (11:15)
[2017-07-28] MEDS ORDERED: METOPROLOL TARTRATE 25 MG TAB PO PRN (11:15)
[2017-07-28] MEDS ORDERED: SODIUM CHLORID 0.9% 500 ML IV PRN (11:15)
[2017-07-28] MEDS ORDERED: POVIDONE IODINE 5% (ANTISEPSIS KIT) 4 APPLICATIONS EACH NARE PRN (11:15)
--- NOTE | 2017-07-28 11:33 | RADRPT ---
EXAM DATE/TIME: 07/28/2017 10:38 [facility] COMPARISON: ABDOMEN KUB ONLY, July 27, 2017, 15:23. INDICATIONS : Evaluate for obstruction. Constipation. Bowel movement this morning. MEDICAL HISTORY : Hypertension. Gastroesophageal reflux disease. Hypothyroidism. Non-Hodgkin's lymphoma. chemotherapy. SURGICAL HISTORY : Bilateral renal stents. Bilateral inguinal hernia repair. Right hip replacement. ENCOUNTER: Initial ACUITY: 3 days PAIN SCORE: 4/10 LOCATION: Abdomen. FINDINGS: Contrast is noted within the nondistended colon on today's examination. Air-filled minimally dilated loops of small bowel are still present. The findings suggest partial small bowel obstruction or ileus . Bilateral internal ureteral stents are again noted. Degenerative changes are noted involving the kira mbar spine and left hip. Right hip replacement is noted CONCLUSION: Contrast is noted within the nondistended colon on today's examination. Air-filled minimally dilated loops of small bowel are still present suggesting partial small bowel obstruction or ileus. Young To MD on July 28, 2017 at 11:29 Board Certified Radiologist. This report was verified electronically.
[2017-07-28 12:00] VITALS: BP 166/72; PULSE 89; RESP 16; TEMP 97.5; O2SAT 96
[2017-07-28] MEDS ORDERED: PHENYLEPH/NS 1000 MCG/10 ML SYR IV ONE (12:00)
[2017-07-28] MEDS ORDERED: NEOSTIGMINE 5 MG/5 ML SYRINGE IV PUSH ONE (12:00)
[2017-07-28] MEDS ORDERED: DEXAMETHASONE SOD PHOS 4 MG/ML VIAL IV ONE (12:00)
[2017-07-28] MEDS ORDERED: SUCCINYLCHOLINE CHLORIDE 200 MG/10 ML VIAL IV ONE (12:00)
[2017-07-28] MEDS ORDERED: ROCURONIUM INJ 50 MG/5 ML SYRINGE IV PUSH ONE (12:00)
[2017-07-28] MEDS ORDERED: LIDOCAINE HCL 1% PF 5 ML SYRINGE OTHER ONE (12:00)
[2017-07-28] MEDS ORDERED: PROPOFOL 200 MG/20 ML AMP IV ONE (12:00)
[2017-07-28] MEDS ORDERED: GLYCOPYRROLATE 1 MG/5 ML SYRINGE IV PUSH ONE (12:00)
[2017-07-28] MEDS ORDERED: ONDANSETRON HCL 4 MG/2 ML VIAL IV ONE (12:00)
[2017-07-28] MEDS ORDERED: BUPIVACAINE/EPINEPHRINE 0.25% 50 ML VIAL ONE (12:10)
[2017-07-28] MEDS ORDERED: ceFAZolin INJ 1,000 MG VIAL ONE (13:14)
--- NOTE | 2017-07-28 15:35 | PD.OP ---
cc: Je Julien MD Operative Report Date of Surgery: Jul 28, 2017 Preoperative Diagnosis: (1) NHL (non-Hodgkin's lymphoma) (2) SBO (small bowel obstruction) Postoperative Diagnosis: (1) NHL (non-Hodgkin's lymphoma) (2) SBO (small bowel obstruction) Procedure: Laparoscopic lysis of adhesions greater than 1 hour Anesthesia: DARIA Surgeon: Je Julien Public Interviewer(s): Staff Operation and Findings: EBL: 10cc Operative findings: Extensive adhesions throughout the entire abdomen. After extensive meticulous adhesio lysis a transition point between dilated and decompressed small bowel was identified and resolved. Procedure in detail: The patient was taken to the operating room placed in supine position. General endotracheal anesthesia was induced and the abdomen was prepped and draped in usual sterile fashion. Surgical timeout was performed to verify correct patient procedure and site. Local anesthetic was injected in skin and subcutaneous tissue in the right midabdomen and a 5 mm incision made. The abdomen was entered using the Optiview trocar under direct lap scopic visualization. There was no complication with entry. The abdomen was insufflated to 15 mmHg with CO2 gas which the patient tolerated well. Another 5 mm port was placed in the right lower abdomen and the right upper abdomen. There was immediately noted to be extensive adhesive disease with the majority of the omentum and quite a bit of small bowel adherent to the abdominal wall. The adhesions were primarily filmy and the omentum was able to be taken down sharply without much difficulty. The patient was placed in Trendelenburg position and attention turned to the bowel obstruction. Basically all of the omentum and small intestine was adherent to adjacent structures with filmy adhesions. I progressed through extensive adhesio lysis for about an hour and a half freeing the omentum and much of the small bowel with attention to an area in the left upper abdomen with dilated small bowel loops. There are some dense adhesions down in the mesentery which was sharply divided. Was able to run the bowel proximally was dilated and down into the decompressed bowel. This area of transition had been relieved during the lysis of adhesions. There were still adhesions especially in the distal small bowel as well as the large bowel. However, as this was not the cause of obstruction and the adhesions were extensive, I did not elect to lyse all the adhesions. At this point allowed the abdomen to decompress and remove the trochars. The skin was closed with a subcuticular 4-0 Monocryl and Dermabond. The patient tolerated procedure well was explained taken to PACU in stable condition. Je Julien MD Jul 28, 2017 15:35
[2017-07-28] MEDS ORDERED: DO NOT ADM ANY ANTICOAGULANT DRUGS PRN (15:46)
[2017-07-28] MEDS ORDERED: *ONDANSETRON 4 MG VIAL PERIprocedural Use ONLY ONE (15:52)
[2017-07-28 16:00] VITALS: BP 131/58; PULSE 57; RESP 16; TEMP 97.2; O2SAT 93
--- NOTE | 2017-07-28 17:41 | HHI.PR ---
Subjective Remarks The patient was resting comfortably in bed. He tolerated the procedure well. He was eating ice cubes and said they were all he needs right now. He denied any pain. His family was at the bedside and their questions were answered. Discussed with nursing. Objective Vitals Vital Signs Date Time Temp Pulse Resp B/P (MAP) Pulse Ox O2 Delivery O2 Flow Rate FiO2 07/28/17 16:30 97.8 86 15 109/53 (71) 94 Room Air 07/28/17 16:15 90 15 114/57 (76) 94 Room Air 07/28/17 16:00 99 15 133/62 (85) 100 Nasal Cannula 3 07/28/17 15:46 98.0 103 15 166/72 (103) 100 Simple Mask 6 07/28/17 00:00 98.2 95 20 149/72 (97) 96 07/27/17 21:15 97.7 89 20 146/68 (94) 95 07/27/17 20:00 97.2 91 18 140/75 (96) 95 I/O 07/27/17 07/27/17 07/27/17 07/28/17 07/28/17 07/28/17 07:00 15:00 23:00 07:00 15:00 23:00 Intake Total 590 ml 1560 ml 100 ml 1000 ml 900 ml Output Total 800 ml 675 ml 10 ml Balance 590 ml 1560 ml -700 ml 325 ml 890 ml Intake Oral 90 ml 360 ml 0 ml IV Total 1200 ml 100 ml 1000 ml 900 ml Packed Cells 400 ml Blood Product IV Normal Saline Flush 100 ml Output Urine Total 175 ml 0 ml Gastric Drainage Total 800 ml 500 ml Estimated Blood Loss 10 ml # Voids 3 2 2 1 # Bowel Movements 0 Result Diagram: 07/28/17 0252 07/28/17 0252 Imaging Last Impressions Abdomen X-Ray 07/28/17 0000 Signed Impressions: Service Date/Time: Friday, July 28, 2017 10:38 - CONCLUSION: Contrast is noted within the nondistended colon on today's examination. Air-filled minimally dilated loops of small bowel are still present suggesting partial small bowel obstruction or ileus. Young To MD Renal Ultrasound 07/27/17 0000 Signed Impressions: Service Date/Time: Thursday, July 27, 2017 07:51 - CONCLUSION: 1. Echogenic kidneys bilaterally compatible with medical renal disease. 2. Bilateral renal stents with stable mild right hydronephrosis 3. Nonobstructing bilateral renal stones. Joey Sarabia MD Small Bowel X-Ray 07/26/17 0600 Signed Impressions: Service Date/Time: Wednesday, July 26, 2017 10:48 - CONCLUSION: Mild dilatation of small bowel loops with delayed transit time suggestive of partial small bowel obstruction or ileus. Clinical correlation is recommended. Young To MD Chest X-Ray 07/25/17106 Signed Impressions: Service Date/Time: Tuesday, July 25, 2017 01:19 - CONCLUSION: 1. Patchy right greater than left lung base opacity again seen along with small right greater than left pleural effusions. Findings similar to the prior study of May 2017. 2. Curvilinear metallic density at the level of the lower mediastinum and upper abdomen. May be external to the patient. Ranjit Patricia MD Abdomen/Pelvis CT 07/25/17106 Signed Impressions: Service Date/Time: Tuesday, July 25, 2017 02:11 - CONCLUSION: 1. New moderate distention of the proximal to mid small bowel with possible transition point in the left lower quadrant. Findings are suspicious for early small bowel obstruction. Small amount of free fluid . No free air. 2. Bilateral pleural effusions again seen with decrease in size. Apparent loculation of right pleural effusion. 3. Double-J ureteral stent is again seen bilaterally. Mild prominence of the proximal renal collecting systems unchanged. Punctate bilateral renal calculi. 4. Hepatosplenomegaly unchanged. Likely varices in the splenic hilum. Ranjit Patricia MD Objective Remarks GENERAL: Resting comfortably in bed. HEENT: NC, AT. NGT in place. CARDIOVASCULAR: Regular rate and rhythm without murmurs RESPIRATORY: Clear to auscultation. Breath sounds equal bilaterally. No wheezes GASTROINTESTINAL: Abdomen bandaged. MUSCULOSKELETAL: Extremities without edema. Moves extremities with no difficulty. NEUROLOGICAL: Awake and alert.Normal speech. PSYCH: Mood and affect appropriate. Procedures Lysis of adhesions Medications and IVs Current Medications Medications (Trade) Dose Ordered Sig/Mikael Route Start Time Stop Time Status Last Admin (NS Flush) 2 ml UNSCH PRN IV FLUSH 07/25/17 04:00 07/28/17 09:16 (NS Flush) 2 ml BID IV FLUSH 07/25/17 09:00 07/27/17 22:42 (Zofran Inj) 4 mg Q6H PRN IVP 07/25/17 04:00 07/25/17 05:19 (Morphine Inj) 1 mg Q3H PRN IV PUSH 07/25/17 04:00 (Milk Of Magnesia Liq) 30 ml Q12H PRN PO 07/25/17 04:00 (Senokot) 17.2 mg Q12H PRN PO 07/25/17 04:00 (Vasotec Inj) 1.25 mg Q8H PRN IV 07/25/17 11:45 (Morphine Inj) 3 mg Q3H PRN IV PUSH 07/26/17 19:15 07/28/17 09:15 (Chloraseptic Susanne) 1 lozenge UNSCH PRN BUCCAL 07/27/17 16:00 (Albuterol Neb) 1.25 mg Q4HR NEB PRN NEB 07/27/17 19:30 Multivitamins 10 ml/Folic Acid 1 mg/Amino Acids/ Electrolytes/ Dextrose 1,010.2 ml @ 42 mls/hr Q24H IV-CENTRAL 07/28/17 20:00 Fat Emulsion Intravenous 250 ml @ 31.25 mls/ hr Q24H IV-CENTRAL 07/28/17 20:00 Lactated Ringer's 1,000 ml @ 30 mls/hr Q24H PRN IV 07/28/17 11:15 07/31/17 11:14 07/28/17 12:47 Sodium Chloride 500 ml @ 30 mls/hr [id number] PRN IV 07/28/17 11:15 07/31/17 11:14 (Lopressor) 25 mg BALL HOLDER PRN PO 07/28/17 11:15 07/31/17 11:14 (Betadine 5% Antisepsis Kit) 1 applic BALL HOLDER PRN EACH NARE 07/28/17 11:15 07/31/17 11:14 (Chlorhexidine 2% Cloth) 3 pack BALL HOLDER PRN TOPICAL 07/28/17 11:15 07/31/17 11:14 (NovoLIN R INJ) See Protocol Table ... BALL HOLDER PRN SQ 07/28/17 11:15 07/31/17 11:14 Miscellaneous Information ALL NURSING DEPARTME... UNSCH PRN .XX 07/28/17 15:46 07/29/17 15:45 Potassium Chloride 30 meq/ Dextrose 1,015 ml @ 75 mls/hr [id number] IV 07/28/17 17:30 UNV A/P Problem List: (1) NHL (non-Hodgkin's lymphoma) ICD Code: C85.90 - Non-Hodgkin lymphoma, unspecified, unspecified site Status: Chronic (2) Anemia ICD Code: D64.9 - Anemia, unspecified Status: Acute (3) SBO (small bowel obstruction) ICD Code: K56.609 - Unspecified intestinal obstruction, unspecified as to partial versus complete obstruction Status: Acute (4) Hypertension ICD Code: I10 - Essential (primary) hypertension Status: Acute (5) Pleural effusion ICD Code: J90 - Pleural effusion, not elsewhere classified Status: Acute Assessment and Plan NHL (non-Hodgkin's lymphoma) Currently on chemotherapy with the oncology team at [facility] - Continue outpatient follow-up Dr. Jacobs, oncologist, did evaluate the patient. At this time, she does not recommend further intervention. Patient to follow-up with Dr. Briscoe. - recommend transfusing if hemoglobin less than 7. Anemia Acute. Most likely from chemotherapy-induced anemia. S/p 2 units of PRBC. -Follow CBC. SBO (small bowel obstruction) Probably multifactorial due to recent chemotherapy, chronic constipation and general weakness. Has a history of hernia repair in the past. General surgery appreciated. Status post lysis of adhesions 07/28/2017. - Continue with bowel rest, NG tube for decompression. - Antiemetics and pain control as needed. - IVFs. Hypertension Relatively well-controlled. - Vasotec as needed IV while n.p.o. Pleural effusion Pulmonary consult appreciated. Patient has a history of thoracentesis in the past. - Oxygen as needed. Hypernatremia/ hypokalemia S/t NPO status. - D5W with KCl. - follow BMP. PPx: Thuan Montoya DO Jul 28, 2017 17:41
[2017-07-28] MEDS ORDERED: TEMAZEPAM 15 MG CAP PO PRN (17:45)
--- NOTE | 2017-07-28 18:10 | PD.ONC.PN ---
Subjective Subjective Remarks Late note entry, patient seen at bedside this morning. present. He reports that he is overall doing well. NG tube to suction. Ice chips only. Objective Data Date Time Temp Pulse Resp B/P (MAP) Pulse Ox O2 Delivery O2 Flow Rate FiO2 07/28/17 16:30 97.8 86 15 109/53 (71) 94 Room Air 07/28/17 16:15 90 15 114/57 (76) 94 Room Air 07/28/17 16:00 99 15 133/62 (85) 100 Nasal Cannula 3 07/28/17 16:00 97.2 57 16 131/58 (82) 93 07/28/17 15:46 98.0 103 15 166/72 (103) 100 Simple Mask 6 07/28/17 12:00 97.5 89 16 166/72 (103) 96 07/28/17 08:00 98.1 77 18 108/67 (81) 93 07/28/17 00:00 98.2 95 20 149/72 (97) 96 07/27/17 21:15 97.7 89 20 146/68 (94) 95 07/27/17 20:00 97.2 91 18 140/75 (96) 95 07/28/17 07/28/17 07/28/17 07:00 15:00 23:00 Intake Total 1000 ml 900 ml Output Total 675 ml 10 ml Balance 325 ml 890 ml Result Diagram: 07/28/17 0252 07/28/17 0252 Laboratory Results Laboratory Tests Test 07/28/17 02:52 Hemoglobin 9.9 GM/DL Hematocrit 29.9 % Blood Urea Nitrogen 14 MG/DL Creatinine 0.55 MG/DL Random Glucose 95 MG/DL Calcium Level 9.0 MG/DL Sodium Level 148 MEQ/L Potassium Level 3.1 MEQ/L Chloride Level 113 MEQ/L Carbon Dioxide Level 26.1 MEQ/L Anion Gap 9 MEQ/L Estimat Glomerular Filtration Rate 148 ML/MIN Imaging Studies Last 24 hours Impressions Abdomen X-Ray 07/28/17 0000 Signed Impressions: Service Date/Time: Friday, July 28, 2017 10:38 - CONCLUSION: Contrast is noted within the nondistended colon on today's examination. Air-filled minimally dilated loops of small bowel are still present suggesting partial small bowel obstruction or ileus. Young To MD Administered Medications Medications (Trade) Dose Ordered Sig/Mikael Route PRN Reason Start Time Stop Time Status Last Admin Dose Admin Sodium Chloride (NS Flush) 2 ml UNSCH PRN IV FLUSH FLUSH AFTER USING IV ACCESS 07/25/17 04:00 07/28/17 17:39 Sodium Chloride (NS Flush) 2 ml BID IV FLUSH 07/25/17 09:00 07/27/17 22:42 Ondansetron HCl (Zofran Inj) 4 mg Q6H PRN IVP NAUSEA OR VOMITING 07/25/17 04:00 07/25/17 05:19 Morphine Sulfate (Morphine Inj) 3 mg Q3H PRN IV PUSH Pain 6-10 07/26/17 19:15 07/28/17 17:39 Lactated Ringer's 1,000 ml @ 30 mls/hr Q24H PRN IV SEE LABEL COMMENTS 07/28/17 11:15 07/31/17 11:14 07/28/17 12:47 Objective Remarks GENERAL: thin, chronically ill appearing man in no distress SKIN: Warm and dry. HEAD: Normocephalic. EYES: No scleral icterus. No injection or drainage. RESPIRATORY:No accessory muscle use. EXTREMITIES: No edema. MUSCULOSKELETAL: Adequate muscle tone. NEUROLOGICAL: No obvious focal deficit. Awake, alert, and oriented x3. PSYCHIATRIC: Appropriate mood and affect; insight and judgment normal. Assessment/Plan Assessment 1. Ileus/SBO: did not respond to conservative management. Plan for surgery this afternoon. 2. NHL, DLBCL: s/p 5 cycles of therapy with RCHOP with response of disease. Due for sixth and final round of chemotherapy on 07/30/2017. Will place this on hold until patient recovers bowel function and heals from surgery. 3. Malnutrition: plan for TPN through PICC line. Flakita Ha MD Jul 28, 2017 18:10
--- NOTE | 2017-07-28 19:37 | HHI.PR ---
Subjective Remarks Went for Laprascopic lysis of adhesions . and now has a NG with suction . Has hematuria. On IV Fluids . Objective Vital Signs Date Time Temp Pulse Resp B/P (MAP) Pulse Ox O2 Delivery O2 Flow Rate FiO2 07/28/17 16:30 97.8 86 15 109/53 (71) 94 Room Air 07/28/17 16:15 90 15 114/57 (76) 94 Room Air 07/28/17 16:00 99 15 133/62 (85) 100 Nasal Cannula 3 07/28/17 16:00 97.2 57 16 131/58 (82) 93 07/28/17 15:46 98.0 103 15 166/72 (103) 100 Simple Mask 6 07/28/17 12:00 97.5 89 16 166/72 (103) 96 07/28/17 08:00 98.1 77 18 108/67 (81) 93 07/28/17 00:00 98.2 95 20 149/72 (97) 96 07/27/17 21:15 97.7 89 20 146/68 (94) 95 07/27/17 20:00 97.2 91 18 140/75 (96) 95 I/O 07/27/17 07/27/17 07/27/17 07/28/17 07/28/17 07/28/17 07:00 15:00 23:00 07:00 15:00 23:00 Intake Total 590 ml 1560 ml 100 ml 1000 ml 1200 ml 900 ml Output Total 800 ml 675 ml 360 ml Balance 590 ml 1560 ml -700 ml 325 ml 1200 ml 540 ml Intake Oral 90 ml 360 ml 0 ml IV Total 1200 ml 100 ml 1000 ml 1200 ml 900 ml Packed Cells 400 ml Blood Product IV Normal Saline Flush 100 ml Output Urine Total 175 ml 0 ml Gastric Drainage Total 800 ml 500 ml 350 ml Estimated Blood Loss 10 ml # Voids 3 2 2 1 # Bowel Movements 0 Result Diagram: 07/28/172 07/28/17 0252 Objective Remarks GENERAL: This is an elderly white male who is alert, pale and not dyspneic. There is an NG tube in place in the nose. HEENT: Head is normocephalic. Pupils are reactive. Sclerae were clear. Throat is clear. NECK: Supple, no bruits or thyroid enlargement. LUNGS: Equal movements with distant breath sounds and occasional basilar crackles. HEART: Sounds regular S1, S2. No murmur. ABDOMEN: Soft, with mild epigastric tenderness. Bowel sounds are faint. No organomegaly. EXTREMITIES: No lesions or edema. Reflexes are 1+, with no gross motor deficits. Cranial nerves are grossly intact. SKIN: No lesions. Assessment and Plan Assessment and Plan IMPRESSION: 1. Small-bowel obstruction with ileus. 2. History of large B-cell lymphoma, status post chemotherapy. 3. Hypertension. 4. Bilateral pleural effusions, resolving. 5. S/P Exploratory Lap Plan : 1. O2 2 L prn 2. Nebs tid with duoneb prn 3. IS at bedside q3h 4. Chest XRay ,CBC,BMP 5. Continue IV Hydration and possible TPN . Donna James MD Jul 28, 2017 19:37
[2017-07-28 20:00] VITALS: BP 133/61; PULSE 84; RESP 20; TEMP 97.5; O2SAT 95
[2017-07-28] MEDS ORDERED: CLINIMIX E 4.25/25 1000 mL- </= 42 mls/hr IV-CENTRAL SCH ×3 (20:00)
[2017-07-28] MEDS ORDERED: FAT EMULSION 20% INJ 250 ML (Daily over 8 hours) IV-CENTRAL SCH (20:00)
[2017-07-28] MEDS: BENZOCAINE 6 MG/MENTHOL 10 MG LOZENGE BUCCAL PRN (20:45)
[2017-07-28] MEDS: POTASSIUM CHLORIDE INJ 30 MEQ in DEXTROSE 5% IN WATE 1000ML INJ 1,000 ML IV SCH ×2 (20:50)
[2017-07-28 21:33] VITALS: O2SAT 100
[2017-07-29] VITALS (7 sets, daily range): BP systolic 127–147; BP diastolic 59–65; PULSE 75–85; RESP 15–18; TEMP 97.6–98.2; O2SAT 94–97
[2017-07-29] MEDS: MORPHINE SULFATE 4 MG/ML INJ IV PUSH PRN ×8 (00:09→20:58)
[2017-07-29] MEDS: LORazepam 1 MG TAB PO PRN (01:08)
[2017-07-29] MEDS: BENZOCAINE 6 MG/MENTHOL 10 MG LOZENGE BUCCAL PRN (04:29)
--- NOTE | 2017-07-29 07:07 | RADRPT ---
EXAM DATE/TIME: 07/29/2017 06:23 [facility] COMPARISON: No previous studies available for comparison. INDICATIONS : Infiltrate. MEDICAL HISTORY : Hypertension. Gastroesophageal reflux disease. Hypothyroidism. Non-Hodgkin's lymphoma. chemothera py. SURGICAL HISTORY : Bilateral renal stents. Bilatearl inguinal hernia repair. Right hip replacement. ENCOUNTER: Initial ACUITY: 4 - 6 days PAIN SCORE: 0/10 LOCATION: Bilateral chest FINDINGS: Her atelectatic changes seen at the bases with patchy basilar airspace disease suspected. There is merida bcutaneous emphysema bilaterally, enteric tube coiled in the stomach and a left-sided portacatheter w ith tip overlying the SVC. I do not see a definite pneumothorax. Osseous structures are intact. CONCLUSION: Subcutaneous emphysema and bilateral atelectatic and airspace disease changes again noted. Davon Nichols MD on July 29, 2017 at 7:04 Board Certified Radiologist. This report was verified electronically.
[2017-07-29] MEDS: SODIUM CHLORIDE 0.9% FLUSH 10 ML FLUSH IV FLUSH SCH ×2 (07:43→20:49)
--- NOTE | 2017-07-29 08:31 | HHI.PR ---
Subjective Subjective Notes Abdomen feels better today. Less NGT output. No flatus yet. Objective Vitals/I&O Vital Signs Date Time Temp Pulse Resp B/P (MAP) Pulse Ox O2 Delivery O2 Flow Rate FiO2 07/29/17 04:00 97.6 85 18 147/65 (92) 96 07/28/17 21:33 21 07/28/17 16:30 Room Air 07/28/17 16:00 3 Labs Date/Time Source Procedure Growth Status 07/25/17 01:20 Blood Peripheral Aerobic Blood Culture - Preliminary NO GROWTH IN 3 DAYS Resulted 07/25/17 01:20 Blood Peripheral Anaerobic Blood Culture - Preliminary NO GROWTH IN 3 DAYS Resulted Radiology Last Impressions Chest X-Ray 07/25/17106 Signed Impressions: Service Date/Time: Tuesday, July 25, 2017 01:19 - CONCLUSION: 1. Patchy right greater than left lung base opacity again seen along with small right greater than left pleural effusions. Findings similar to the prior study of May 2017. 2. Curvilinear metallic density at the level of the lower mediastinum and upper abdomen. May be external to the patient. Ranjit Patricia MD Abdomen/Pelvis CT 07/25/17106 Signed Impressions: Service Date/Time: Tuesday, July 25, 2017 02:11 - CONCLUSION: 1. New moderate distention of the proximal to mid small bowel with possible transition point in the left lower quadrant. Findings are suspicious for early small bowel obstruction. Small amount of free fluid . No free air. 2. Bilateral pleural effusions again seen with decrease in size. Apparent loculation of right pleural effusion. 3. Double-J ureteral stent is again seen bilaterally. Mild prominence of the proximal renal collecting systems unchanged. Punctate bilateral renal calculi. 4. Hepatosplenomegaly unchanged. Likely varices in the splenic hilum. Ranjit Patricia MD Narrative Exam NAD Abd: soft, minimal distention, inc c/d/i. NG 350cc output overnight. A/P Assessment and Plan 71 yo M with stage IV non hodgkins lymphoma with SBO and constipation, POD 1 s/ p lap extensive lysis of adhesions for SBO Stable post op. Clamp NG and if low residuals remove and start clears. Je Julien MD Jul 29, 2017 08:30
--- NOTE | 2017-07-29 10:27 | PD.ONC.PN ---
Subjective Subjective Remarks Afebrile overnight. Patient remains NPO. states pain is currently controlled. reports he is passing gas. Objective Data Date Time Temp Pulse Resp B/P (MAP) Pulse Ox O2 Delivery O2 Flow Rate FiO2 07/29/17 08:29 94 21 07/29/17 08:00 98.0 81 16 127/63 (84) 95 07/29/17 04:00 97.6 85 18 147/65 (92) 96 07/29/17 00:00 97.8 81 18 137/62 (87) 97 07/28/17 21:33 100 21 07/28/17 20:00 97.5 84 20 133/61 (85) 95 07/28/17 16:30 97.8 86 15 109/53 (71) 94 Room Air 07/28/17 16:15 90 15 114/57 (76) 94 Room Air 07/28/17 16:00 99 15 133/62 (85) 100 Nasal Cannula 3 07/28/17 16:00 97.2 57 16 131/58 (82) 93 07/28/17 15:46 98.0 103 15 166/72 (103) 100 Simple Mask 6 07/28/17 12:00 97.5 89 16 166/72 (103) 96 07/29/17 07/29/17 07/29/17 07:00 15:00 23:00 Intake Total 0 ml Balance 0 ml Result Diagram: 07/28/172 07/28/17 0252 Imaging Studies Last 24 hours Impressions Chest X-Ray 07/29/17 0600 Signed Impressions: Service Date/Time: Saturday, July 29, 2017 06:23 - CONCLUSION: Subcutaneous emphysema and bilateral atelectatic and airspace disease changes again noted. Davon Nichols MD Administered Medications Medications (Trade) Dose Ordered Sig/Mikael Route PRN Reason Start Time Stop Time Status Last Admin Dose Admin Sodium Chloride (NS Flush) 2 ml UNSCH PRN IV FLUSH FLUSH AFTER USING IV ACCESS 07/25/17 04:00 07/28/17 17:39 Sodium Chloride (NS Flush) 2 ml BID IV FLUSH 07/25/17 09:00 07/29/17 07:43 Ondansetron HCl (Zofran Inj) 4 mg Q6H PRN IVP NAUSEA OR VOMITING 07/25/17 04:00 07/25/17 05:19 Morphine Sulfate (Morphine Inj) 3 mg Q3H PRN IV PUSH Pain 6-10 07/26/17 19:15 07/29/17 07:42 Benzocaine/Menthol (Chloraseptic Susanne) 1 lozenge UNSCH PRN BUCCAL SORE THROAT 07/27/17 16:00 07/28/17 20:45 Lactated Ringer's 1,000 ml @ 30 mls/hr Q24H PRN IV SEE LABEL COMMENTS 07/28/17 11:15 07/31/17 11:14 07/28/17 12:47 Potassium Chloride 30 meq/ Dextrose 1,015 ml @ 75 mls/hr [id number] IV 07/28/17 20:00 07/28/17 20:50 Lorazepam (Ativan) 0.5 mg HS PRN PO sleep 07/29/17 00:30 07/29/17 01:08 Objective Remarks GENERAL: Pleasant thin male, lying in bed resting. SKIN: Warm and dry. HEAD: Normocephalic. EYES: No injection or drainage. NECK: Supple, trachea midline. CARDIOVASCULAR: Regular rate and rhythm RESPIRATORY: Breath sounds equal bilaterally. No accessory muscle use. GASTROINTESTINAL: Abdomen soft, mildly tender around incision sites. +BS EXTREMITIES: No cyanosis NEUROLOGICAL: No obvious focal deficit. Assessment/Plan Assessment 71y/o male with DLBCL admitted with SBO, now s/p extensive lysis of adhesions. Plan 1. SBO: advance diet per general surgery. 2. Malnutrition: continue TPN until tolerating regular diet again 3. DLBCL: defer last cycle of chemotherapy until completely recovered from this small bowel obstruction. will have patient follow up in clinic upon discharge from hospital. Attending Statement The exam, history, and the medical decision-making described in the above note were completed with the assistance of the mid-level provider. I reviewed and agree with the findings presented. I attest that I had a [id number] encounter with the patient on the same day, and personally performed and documented my assessment and findings in the medical record. Patient is s/p surgery which found adhesions. He is s/p lysis of adhesions with improvement in symptoms. Diet advanced to clear liquids. Tolerating well. Will give final cycle of chemotherapy two weeks after surgery. Nimco Benson Jul 29, 2017 10:27 Flakita Ha MD Jul 30, 2017 07:22
--- NOTE | 2017-07-29 10:42 | HHI.PR ---
Subjective Remarks The patient had no acute complaints. He said he has not been passing gas yet but feels it might happen soon. He has not been nauseous. He denies any pain. Discussed with nursing. Objective Vitals Vital Signs Date Time Temp Pulse Resp B/P (MAP) Pulse Ox O2 Delivery O2 Flow Rate FiO2 07/29/17 08:29 94 21 07/29/17 08:00 98.0 81 16 127/63 (84) 95 07/29/17 04:00 97.6 85 18 147/65 (92) 96 07/29/17 00:00 97.8 81 18 137/62 (87) 97 07/28/17 21:33 100 21 07/28/17 20:00 97.5 84 20 133/61 (85) 95 07/28/17 16:30 97.8 86 15 109/53 (71) 94 Room Air 07/28/17 16:15 90 15 114/57 (76) 94 Room Air 07/28/17 16:00 99 15 133/62 (85) 100 Nasal Cannula 3 07/28/17 16:00 97.2 57 16 131/58 (82) 93 07/28/17 15:46 98.0 103 15 166/72 (103) 100 Simple Mask 6 07/28/17 12:00 97.5 89 16 166/72 (103) 96 I/O 07/28/17 07/28/17 07/28/17 07/29/17 07/29/17 07/29/17 07:00 15:00 23:00 07:00 15:00 23:00 Intake Total 1000 ml 1200 ml 900 ml 0 ml Output Total 675 ml 360 ml Balance 325 ml 1200 ml 540 ml 0 ml Intake Oral 0 ml 0 ml IV Total 1000 ml 1200 ml 900 ml Output Urine Total 175 ml 0 ml Gastric Drainage Total 500 ml 350 ml Estimated Blood Loss 10 ml # Voids 1 2 # Bowel Movements 0 0 Result Diagram: 07/28/17 0252 07/28/17 0252 Imaging Last Impressions Chest X-Ray 07/29/17 0600 Signed Impressions: Service Date/Time: Saturday, July 29, 2017 06:23 - CONCLUSION: Subcutaneous emphysema and bilateral atelectatic and airspace disease changes again noted. Davon Nichols MD Abdomen X-Ray 07/28/17 0000 Signed Impressions: Service Date/Time: Friday, July 28, 2017 10:38 - CONCLUSION: Contrast is noted within the nondistended colon on today's examination. Air-filled minimally dilated loops of small bowel are still present suggesting partial small bowel obstruction or ileus. Young To MD Renal Ultrasound 07/27/17 0000 Signed Impressions: Service Date/Time: Thursday, July 27, 2017 07:51 - CONCLUSION: 1. Echogenic kidneys bilaterally compatible with medical renal disease. 2. Bilateral renal stents with stable mild right hydronephrosis 3. Nonobstructing bilateral renal stones. Joey Sarabia MD Small Bowel X-Ray 07/26/17 0600 Signed Impressions: Service Date/Time: Wednesday, July 26, 2017 10:48 - CONCLUSION: Mild dilatation of small bowel loops with delayed transit time suggestive of partial small bowel obstruction or ileus. Clinical correlation is recommended. Young To MD Abdomen/Pelvis CT 07/25/17 0107 Signed Impressions: Service Date/Time: Tuesday, July 25, 2017 02:11 - CONCLUSION: 1. New moderate distention of the proximal to mid small bowel with possible transition point in the left lower quadrant. Findings are suspicious for early small bowel obstruction. Small amount of free fluid . No free air. 2. Bilateral pleural effusions again seen with decrease in size. Apparent loculation of right pleural effusion. 3. Double-J ureteral stent is again seen bilaterally. Mild prominence of the proximal renal collecting systems unchanged. Punctate bilateral renal calculi. 4. Hepatosplenomegaly unchanged. Likely varices in the splenic hilum. Ranjit Patricia MD Objective Remarks GENERAL: Resting comfortably in bed. HEENT: NC, AT. NGT in place. CARDIOVASCULAR: Regular rate and rhythm without murmurs RESPIRATORY: Clear to auscultation. Breath sounds equal bilaterally. No wheezes GASTROINTESTINAL: Abdomen bandaged. MUSCULOSKELETAL: Extremities without edema. Moves extremities with no difficulty. NEUROLOGICAL: Awake and alert.Normal speech. PSYCH: Mood and affect appropriate. Procedures Lysis of adhesions Medications and IVs Current Medications Medications (Trade) Dose Ordered Sig/Mikael Route Start Time Stop Time Status Last Admin (NS Flush) 2 ml UNSCH PRN IV FLUSH 07/25/17 04:00 07/28/17 17:39 (NS Flush) 2 ml BID IV FLUSH 07/25/17 09:00 07/29/17 07:43 (Zofran Inj) 4 mg Q6H PRN IVP 07/25/17 04:00 07/25/17 05:19 (Morphine Inj) 1 mg Q3H PRN IV PUSH 07/25/17 04:00 (Milk Of Magnesia Liq) 30 ml Q12H PRN PO 07/25/17 04:00 (Senokot) 17.2 mg Q12H PRN PO 07/25/17 04:00 (Vasotec Inj) 1.25 mg Q8H PRN IV 07/25/17 11:45 (Morphine Inj) 3 mg Q3H PRN IV PUSH 07/26/17 19:15 07/29/17 07:42 (Chloraseptic Susanne) 1 lozenge UNSCH PRN BUCCAL 07/27/17 16:00 07/28/17 20:45 (Albuterol Neb) 1.25 mg Q4HR NEB PRN NEB 07/27/17 19:30 Multivitamins 10 ml/Folic Acid 1 mg/Amino Acids/ Electrolytes/ Dextrose 1,010.2 ml @ 42 mls/hr Q24H IV-CENTRAL 07/28/17 20:00 Fat Emulsion Intravenous 250 ml @ 31.25 mls/ hr Q24H IV-CENTRAL 07/28/17 20:00 Lactated Ringer's 1,000 ml @ 30 mls/hr Q24H PRN IV 07/28/17 11:15 07/31/17 11:14 07/28/17 12:47 Sodium Chloride 500 ml @ 30 mls/hr [id number] PRN IV 07/28/17 11:15 07/31/17 11:14 (Lopressor) 25 mg ETHANOL QUALITY LEADER PRN PO 07/28/17 11:15 07/31/17 11:14 (Betadine 5% Antisepsis Kit) 1 applic ETHANOL QUALITY LEADER PRN EACH NARE 07/28/17 11:15 07/31/17 11:14 (Chlorhexidine 2% Cloth) 3 pack ETHANOL QUALITY LEADER PRN TOPICAL 07/28/17 11:15 07/31/17 11:14 (NovoLIN R INJ) See Protocol Table ... ETHANOL QUALITY LEADER PRN SQ 07/28/17 11:15 07/31/17 11:14 Miscellaneous Information ALL NURSING DEPARTME... UNSCH PRN .XX 07/28/17 15:46 07/29/17 15:45 Potassium Chloride 30 meq/ Dextrose 1,015 ml @ 75 mls/hr [id number] IV 07/28/17 20:00 07/28/17 20:50 (Ativan) 0.5 mg HS PRN PO 07/29/17 00:30 07/29/17 01:08 A/P Problem List: (1) NHL (non-Hodgkin's lymphoma) ICD Code: C85.90 - Non-Hodgkin lymphoma, unspecified, unspecified site Status: Chronic (2) Anemia ICD Code: D64.9 - Anemia, unspecified Status: Acute (3) SBO (small bowel obstruction) ICD Code: K56.609 - Unspecified intestinal obstruction, unspecified as to partial versus complete obstruction Status: Acute (4) Hypertension ICD Code: I10 - Essential (primary) hypertension Status: Acute (5) Pleural effusion ICD Code: J90 - Pleural effusion, not elsewhere classified Status: Acute Assessment and Plan NHL (non-Hodgkin's lymphoma) Currently on chemotherapy with the oncology team at [place]. Dr. Jacobs, oncologist, did evaluate the patient. At this time, she does not recommend further intervention. Patient to follow-up with Dr. Briscoe. - recommend transfusing if hemoglobin less than 7. - Follow-up with oncology. Anemia Acute. Most likely from chemotherapy-induced anemia. S/p 2 units of PRBC. - Follow CBC and transfuse as needed. SBO (small bowel obstruction) Probably multifactorial due to recent chemotherapy, chronic constipation and general weakness. Has a history of hernia repair in the past. General surgery appreciated. Status post lysis of adhesions 07/28/2017. - Continue with bowel rest, NG tube for decompression. - Advance diet per surgery. TPN if unable to. - Antiemetics and pain control as needed. - IVFs. Hypertension Relatively well-controlled. - Vasotec as needed IV while n.p.o. Pleural effusion Pulmonary consult appreciated. Patient has a history of thoracentesis in the past. - Oxygen as needed. Hypernatremia/ hypokalemia S/t NPO status. - D5W with KCl. - follow BMP. PPx: SCDs Discharge Planning Awaiting surgical clearance Thuan Adrian DO Jul 29, 2017 10:42
[2017-07-29 11:13] LABS: HEMATOCRIT 27.1 % (39.0-51.0); MEAN CELL VOLUME 83.1 FL (80.0-100.0); MEAN CORPUSCULAR HEMOGLOBIN 27.5 PG (27.0-34.0); MEAN CORPUSCULAR HGB CONC 33.1 % (32.0-36.0); MEAN PLATELET VOLUME 7.6 FL (7.0-11.0); PLATELET COUNT 100 TH/MM3 (150-450); RED BLOOD COUNT 3.26 MIL/MM3 (4.50-5.90); RED CELL DISTRIBUTION WIDTH 19.1 % (11.6-17.2); WHITE BLOOD COUNT 5.7 TH/MM3 (4.0-11.0)
[2017-07-29] MEDS: POTASSIUM CHLORIDE INJ 30 MEQ in DEXTROSE 5% IN WATE 1000ML INJ 1,000 ML IV SCH ×2 (11:24)
[2017-07-29 11:52] LABS: BICARBONATE 27.5 MEQ/L (21.0-32.0); CALCIUM 8.2 MG/DL (8.5-10.1); CREATININE 0.51 MG/DL (0.60-1.30); MAGNESIUM 1.9 MG/DL (1.5-2.5)
--- NOTE | 2017-07-29 13:12 | HHI.PR ---
Subjective Remarks Went for Laparoscopic lysis of adhesions . and now has a NG in . Has hematuria. On IV Fluids . wants to eat. Objective Vital Signs Date Time Temp Pulse Resp B/P (MAP) Pulse Ox O2 Delivery O2 Flow Rate FiO2 07/29/17 12:00 97.6 80 15 145/65 (91) 94 07/29/17 11:30 16 07/29/17 08:29 94 21 07/29/17 08:00 98.0 81 16 127/63 (84) 95 07/29/17 04:00 97.6 85 18 147/65 (92) 96 07/29/17 00:00 97.8 81 18 137/62 (87) 97 07/28/17 21:33 100 21 07/28/17 20:00 97.5 84 20 133/61 (85) 95 07/28/17 16:30 97.8 86 15 109/53 (71) 94 Room Air 07/28/17 16:15 90 15 114/57 (76) 94 Room Air 07/28/17 16:00 99 15 133/62 (85) 100 Nasal Cannula 3 07/28/17 16:00 97.2 57 16 131/58 (82) 93 07/28/17 15:46 98.0 103 15 166/72 (103) 100 Simple Mask 6 I/O 07/28/17 07/28/17 07/28/17 07/29/17 07/29/17 07/29/17 07:00 15:00 23:00 07:00 15:00 23:00 Intake Total 1000 ml 1200 ml 900 ml 0 ml 1015 ml Output Total 675 ml 360 ml Balance 325 ml 1200 ml 540 ml 0 ml 1015 ml Intake Oral 0 ml 0 ml IV Total 1000 ml 1200 ml 900 ml 1015 ml Output Urine Total 175 ml 0 ml Gastric Drainage Total 500 ml 350 ml Estimated Blood Loss 10 ml # Voids 1 2 # Bowel Movements 0 0 Result Diagram: 07/29/17 0931 07/29/17 0936 Objective Remarks GENERAL: This is an elderly white male who is alert, pale and not dyspneic. HEENT: Head is normocephalic. Pupils are reactive. Sclerae were clear. Throat is clear. NECK: Supple, no bruits or thyroid enlargement. LUNGS: Equal movements with distant breath sounds and occasional basilar crackles. HEART: Sounds regular S1, S2. No murmur. ABDOMEN: Soft, with mild tenderness. Bowel sounds are faint. No organomegaly. EXTREMITIES: No lesions or edema. Reflexes are 1+, with no gross motor deficits. SKIN: No lesions. Assessment and Plan Assessment and Plan IMPRESSION: 1. Small-bowel obstruction with ileus. 2. History of large B-cell lymphoma, status post chemotherapy. 3. Hypertension. 4. Bilateral pleural effusions, resolving. 5. S/P Exploratory Lap Plan : 1. O2 2 L prn 2. Nebs tid with duoneb prn 3. IS at bedside q3h 4. In am,CBC,BMP 5. Continue IV Hydration. 6. Po Liquids in am Donna James MD Jul 29, 2017 13:12
[2017-07-30] VITALS: BP 145/65; PULSE 77; RESP 17; TEMP 98.1; O2SAT 98
[2017-07-30] MEDS: MORPHINE SULFATE 4 MG/ML INJ IV PUSH PRN ×3 (00:03→08:21)
[2017-07-30] MEDS: POTASSIUM CHLORIDE INJ 30 MEQ in DEXTROSE 5% IN WATE 1000ML INJ 1,000 ML IV SCH ×4 (00:57→12:36)
[2017-07-30] MEDS: LORazepam 1 MG TAB PO PRN ×2 (00:59→23:26)
[2017-07-30 06:06] LABS: HEMATOCRIT 28.6 % (39.0-51.0); HEMOGLOBIN 9.3 GM/DL (13.0-17.0); MEAN CELL VOLUME 83.5 FL (80.0-100.0); MEAN CORPUSCULAR HEMOGLOBIN 27.2 PG (27.0-34.0); MEAN CORPUSCULAR HGB CONC 32.6 % (32.0-36.0); PLATELET COUNT 97 TH/MM3 (150-450); RED BLOOD COUNT 3.42 MIL/MM3 (4.50-5.90); WHITE BLOOD COUNT 5.5 TH/MM3 (4.0-11.0)
[2017-07-30 06:34] LABS: BICARBONATE 26.5 MEQ/L (21.0-32.0); CALCIUM 8.1 MG/DL (8.5-10.1); CREATININE 0.41 MG/DL (0.60-1.30); MAGNESIUM 1.7 MG/DL (1.5-2.5)
[2017-07-30 07:45] VITALS: BP 150/70; PULSE 88; RESP 16; TEMP 98.7; O2SAT 95
[2017-07-30] MEDS: SODIUM CHLORIDE 0.9% FLUSH 10 ML FLUSH IV FLUSH SCH ×2 (08:21→20:44)
--- NOTE | 2017-07-30 08:24 | HHI.PR ---
Subjective Subjective Notes Tolerating clears and had a bowel movt. Feels "great". Objective Vitals/I&O Vital Signs Date Time Temp Pulse Resp B/P (MAP) Pulse Ox O2 Delivery O2 Flow Rate FiO2 07/30/17 07:45 98.7 88 16 150/70 (96) 95 07/29/17 08:29 21 07/28/17 16:30 Room Air 07/28/17 16:00 3 Labs Laboratory Tests Test 07/29/17 09:31 07/29/17 09:36 07/30/17 04:32 White Blood Count 5.7 5.5 Red Blood Count 3.26 3.42 Hemoglobin 9.0 9.3 Hematocrit 27.1 28.6 Mean Corpuscular Volume 83.1 83.5 Mean Corpuscular Hemoglobin 27.5 27.2 Mean Corpuscular Hemoglobin Concent 33.1 32.6 Red Cell Distribution Width 19.1 19.0 Platelet Count 100 97 Mean Platelet Volume 7.6 8.0 Blood Urea Nitrogen 11 8 Creatinine 0.51 0.41 Random Glucose 113 112 Calcium Level 8.2 8.1 Magnesium Level 1.9 1.7 Sodium Level 147 141 Potassium Level 3.1 3.0 Chloride Level 112 108 Carbon Dioxide Level 27.5 26.5 Anion Gap 8 7 Estimat Glomerular Filtration Rate 161 207 Date/Time Source Procedure Growth Status 07/25/17 01:20 Blood Peripheral Aerobic Blood Culture - Preliminary NO GROWTH IN 4 DAYS Resulted 07/25/17 01:20 Blood Peripheral Anaerobic Blood Culture - Preliminary NO GROWTH IN 4 DAYS Resulted Radiology Last Impressions Chest X-Ray 07/25/17106 Signed Impressions: Service Date/Time: Tuesday, July 25, 2017 01:19 - CONCLUSION: 1. Patchy right greater than left lung base opacity again seen along with small right greater than left pleural effusions. Findings similar to the prior study of May 2017. 2. Curvilinear metallic density at the level of the lower mediastinum and upper abdomen. May be external to the patient. Ranjit Patricia MD Abdomen/Pelvis CT 07/25/17106 Signed Impressions: Service Date/Time: Tuesday, July 25, 2017 02:11 - CONCLUSION: 1. New moderate distention of the proximal to mid small bowel with possible transition point in the left lower quadrant. Findings are suspicious for early small bowel obstruction. Small amount of free fluid . No free air. 2. Bilateral pleural effusions again seen with decrease in size. Apparent loculation of right pleural effusion. 3. Double-J ureteral stent is again seen bilaterally. Mild prominence of the proximal renal collecting systems unchanged. Punctate bilateral renal calculi. 4. Hepatosplenomegaly unchanged. Likely varices in the splenic hilum. Ranjit Patricia MD Narrative Exam NAD Abd: soft, minimal distention, inc c/d/i. A/P Assessment and Plan 71 yo M with stage IV non hodgkins lymphoma with SBO and constipation, POD 2 s/ p lap extensive lysis of adhesions for SBO Stable post op. + BM. Soft diet. Restart home meds and stop IV morphine. Je Julien MD Jul 30, 2017 08:24
[2017-07-30] MEDS: METOPROLOL TARTRATE 25 MG TAB PO SCH ×2 (09:00→20:42)
[2017-07-30] MEDS: ALLOPURINOL 300 MG TAB PO SCH (09:00)
[2017-07-30] MEDS: PANTOPRAZOLE SOD 40 MG DELAYED RELEASE TAB PO SCH (11:41)
[2017-07-30] MEDS: SENNOSIDES 8.6 MG TAB PO PRN (11:41)
[2017-07-30] MEDS: MORPHINE SULFATE 15 MG CONTROLLED RELEASE TAB PO SCH ×2 (11:41→20:43)
[2017-07-30 12:00] VITALS: BP 133/63; PULSE 77; RESP 16; TEMP 97.9; O2SAT 97
--- NOTE | 2017-07-30 12:12 | PD.ONC.PN ---
Subjective Subjective Remarks Afebrile overnight. Patient states he is feeling much better. tolerating full liquid diet, starting on soft solids at lunch today. passing gas and having bowel movements. Objective Data Date Time Temp Pulse Resp B/P (MAP) Pulse Ox O2 Delivery O2 Flow Rate FiO2 07/30/17 07:45 98.7 88 16 150/70 (96) 95 07/30/17 00:00 98.1 77 17 145/65 (91) 98 07/29/17 20:00 98.2 75 17 135/59 (84) 97 07/29/17 18:10 16 07/29/17 16:00 97.6 77 16 132/62 (85) 97 07/30/17 07/30/17 07/30/17 07:00 15:00 23:00 Intake Total 1635 ml Output Total 350 ml Balance 1285 ml Result Diagram: 07/30/172 07/30/17431 Laboratory Results Laboratory Tests Test 07/30/17 04:32 White Blood Count 5.5 TH/MM3 Red Blood Count 3.42 MIL/MM3 Hemoglobin 9.3 GM/DL Hematocrit 28.6 % Mean Corpuscular Volume 83.5 FL Mean Corpuscular Hemoglobin 27.2 PG Mean Corpuscular Hemoglobin Concent 32.6 % Red Cell Distribution Width 19.0 % Platelet Count 97 TH/MM3 Mean Platelet Volume 8.0 FL Blood Urea Nitrogen 8 MG/DL Creatinine 0.41 MG/DL Random Glucose 112 MG/DL Calcium Level 8.1 MG/DL Magnesium Level 1.7 MG/DL Sodium Level 141 MEQ/L Potassium Level 3.0 MEQ/L Chloride Level 108 MEQ/L Carbon Dioxide Level 26.5 MEQ/L Anion Gap 7 MEQ/L Estimat Glomerular Filtration Rate 207 ML/MIN Administered Medications Medications (Trade) Dose Ordered Sig/Mikael Route PRN Reason Start Time Stop Time Status Last Admin Dose Admin Sodium Chloride (NS Flush) 2 ml UNSCH PRN IV FLUSH FLUSH AFTER USING IV ACCESS 07/25/17 04:00 07/28/17 17:39 Sodium Chloride (NS Flush) 2 ml BID IV FLUSH 07/25/17 09:00 07/30/17 08:21 Ondansetron HCl (Zofran Inj) 4 mg Q6H PRN IVP NAUSEA OR VOMITING 07/25/17 04:00 07/25/17 05:19 Sennosides (Senokot) 17.2 mg Q12H PRN PO Moderate constipation 07/25/17 04:00 07/30/17 11:41 Benzocaine/Menthol (Chloraseptic Susanne) 1 lozenge UNSCH PRN BUCCAL SORE THROAT 07/27/17 16:00 07/28/17 20:45 Lactated Ringer's 1,000 ml @ 30 mls/hr Q24H PRN IV SEE LABEL COMMENTS 07/28/17 11:15 07/31/17 11:14 07/28/17 12:47 Potassium Chloride 30 meq/ Dextrose 1,015 ml @ 75 mls/hr [id number] IV 07/28/17 20:00 07/30/17 00:57 Lorazepam (Ativan) 0.5 mg HS PRN PO sleep 07/29/17 00:30 07/30/17 00:59 Pantoprazole Sodium (Protonix) 40 mg DAILY PO 07/30/17 09:00 07/30/17 11:41 Morphine Sulfate (Oramorph Sr) 15 mg Q12HR PO 07/30/17 09:00 07/30/17 11:41 Objective Remarks GENERAL: Pleasant male, sitting up in bed. SKIN: Warm and dry. HEAD: Normocephalic. EYES: No injection or drainage. NECK: Supple, trachea midline. CARDIOVASCULAR: Regular rate and rhythm RESPIRATORY: Breath sounds equal bilaterally. No accessory muscle use. GASTROINTESTINAL: Abdomen soft, nontender, +BS EXTREMITIES: No cyanosis NEUROLOGICAL: No obvious focal deficit. Assessment/Plan Assessment 71y/o male with DLBCL admitted with SBO, now s/p extensive lysis of adhesions. Plan 1. continue to advance diet per GS 2. if patient continues to do well and is discharged this week, may plan for follow up next week in clinic for last cycle of chemotherapy Attending Statement The exam, history, and the medical decision-making described in the above note were completed with the assistance of the mid-level provider. I reviewed and agree with the findings presented. I attest that I had a [id number] encounter with the patient on the same day, and personally performed and documented my assessment and findings in the medical record. lysis of ahesions with improvement in bowel function. Advancing diet. Will have sixth cycle of chemtoherapy in outpatient setting after healed from surgery. Cytopenias due to chemotherapy. Nimco Benson Jul 30, 2017 12:12 Flakita Ha MD Jul 31, 2017 07:21
[2017-07-30] MEDS ORDERED: POTASSIUM CHLORIDE 25 MEQ EFFERVESCENT TAB PO ONE (12:15)
--- NOTE | 2017-07-30 12:38 | HHI.PR ---
Subjective Remarks The patient was feeling well. He said that he was tolerating his diet. He had a bowel movement this morning. He denied any pain. He said he was hopeful to resume chemotherapy for his final session in 8 days. Discussed with nursing. Objective Vitals Vital Signs Date Time Temp Pulse Resp B/P (MAP) Pulse Ox O2 Delivery O2 Flow Rate FiO2 07/30/17 07:45 98.7 88 16 150/70 (96) 95 07/30/17 00:00 98.1 77 17 145/65 (91) 98 07/29/17 20:00 98.2 75 17 135/59 (84) 97 07/29/17 18:10 16 07/29/17 16:00 97.6 77 16 132/62 (85) 97 I/O 07/29/17 07/29/17 07/29/17 07/30/17 07/30/17 07/30/17 07:00 15:00 23:00 07:00 15:00 23:00 Intake Total 0 ml 1015 ml 120 ml 1635 ml Output Total 200 ml 1000 ml 350 ml Balance 0 ml 815 ml -880 ml 1285 ml Intake Oral 0 ml 120 ml 240 ml IV Total 1015 ml 1395 ml Output Urine Total 1000 ml 350 ml Gastric Drainage Total 200 ml # Voids 2 2 # Bowel Movements 0 0 Result Diagram: 07/30/17 0432 07/30/17 0432 Imaging Last Impressions Chest X-Ray 07/29/17 0600 Signed Impressions: Service Date/Time: Saturday, July 29, 2017 06:23 - CONCLUSION: Subcutaneous emphysema and bilateral atelectatic and airspace disease changes again noted. Davon Nichols MD Abdomen X-Ray 07/28/17 0000 Signed Impressions: Service Date/Time: Friday, July 28, 2017 10:38 - CONCLUSION: Contrast is noted within the nondistended colon on today's examination. Air-filled minimally dilated loops of small bowel are still present suggesting partial small bowel obstruction or ileus. Young To MD Renal Ultrasound 07/27/17 0000 Signed Impressions: Service Date/Time: Thursday, July 27, 2017 07:51 - CONCLUSION: 1. Echogenic kidneys bilaterally compatible with medical renal disease. 2. Bilateral renal stents with stable mild right hydronephrosis 3. Nonobstructing bilateral renal stones. Joey Sarabia MD Small Bowel X-Ray 07/26/17 0600 Signed Impressions: Service Date/Time: Wednesday, July 26, 2017 10:48 - CONCLUSION: Mild dilatation of small bowel loops with delayed transit time suggestive of partial small bowel obstruction or ileus. Clinical correlation is recommended. Young To MD Abdomen/Pelvis CT 07/25/17 0107 Signed Impressions: Service Date/Time: Tuesday, July 25, 2017 02:11 - CONCLUSION: 1. New moderate distention of the proximal to mid small bowel with possible transition point in the left lower quadrant. Findings are suspicious for early small bowel obstruction. Small amount of free fluid . No free air. 2. Bilateral pleural effusions again seen with decrease in size. Apparent loculation of right pleural effusion. 3. Double-J ureteral stent is again seen bilaterally. Mild prominence of the proximal renal collecting systems unchanged. Punctate bilateral renal calculi. 4. Hepatosplenomegaly unchanged. Likely varices in the splenic hilum. Ranjit Patricia MD Objective Remarks GENERAL: Resting comfortably in bed. HEENT: NC, AT. CARDIOVASCULAR: Regular rate and rhythm without murmurs RESPIRATORY: Clear to auscultation. Breath sounds equal bilaterally. No wheezes. GASTROINTESTINAL: Mild tenderness around incisions. MUSCULOSKELETAL: Extremities without edema. Moves extremities with no difficulty. NEUROLOGICAL: Awake and alert. Normal speech. PSYCH: Mood and affect appropriate. Procedures Lysis of adhesions Medications and IVs Current Medications Medications (Trade) Dose Ordered Sig/Mikael Route Start Time Stop Time Status Last Admin (NS Flush) 2 ml UNSCH PRN IV FLUSH 07/25/17 04:00 07/28/17 17:39 (NS Flush) 2 ml BID IV FLUSH 07/25/17 09:00 07/30/17 08:21 (Zofran Inj) 4 mg Q6H PRN IVP 07/25/17 04:00 07/25/17 05:19 (Milk Of Magnesia Liq) 30 ml Q12H PRN PO 07/25/17 04:00 (Senokot) 17.2 mg Q12H PRN PO 07/25/17 04:00 07/30/17 11:41 (Vasotec Inj) 1.25 mg Q8H PRN IV 07/25/17 11:45 (Chloraseptic Susanne) 1 lozenge UNSCH PRN BUCCAL 07/27/17 16:00 07/28/17 20:45 (Albuterol Neb) 1.25 mg Q4HR NEB PRN NEB 07/27/17 19:30 Lactated Ringer's 1,000 ml @ 30 mls/hr Q24H PRN IV 07/28/17 11:15 07/31/17 11:14 07/28/17 12:47 Sodium Chloride 500 ml @ 30 mls/hr [id number] PRN IV 07/28/17 11:15 07/31/17 11:14 (Lopressor) 25 mg HUMAN [employer] PROFESSIONAL PRN PO 07/28/17 11:15 07/31/17 11:14 (Betadine 5% Antisepsis Kit) 1 applic H[employer] PROFESSIONAL PRN EACH NARE 07/28/17 11:15 07/31/17 11:14 (Chlorhexidine 2% Cloth) 3 pack HUM[employer] PROFESSIONAL PRN TOPICAL 07/28/17 11:15 07/31/17 11:14 (NovoLIN R INJ) See Protocol Table ... HUMAN [employer]OURCE PROFESSIONAL PRN SQ 07/28/17 11:15 07/31/17 11:14 Potassium Chloride 30 meq/ Dextrose 1,015 ml @ 75 mls/hr [id number] IV 07/28/17 20:00 07/30/17 00:57 (Ativan) 0.5 mg HS PRN PO 07/29/17 00:30 07/30/17 00:59 (Zyloprim) 300 mg DAILY PO 07/30/17 09:00 (Synthroid) 75 mcg DAILY@0600 PO 07/31/17 06:00 (Lopressor) 25 mg BID PO 07/30/17 09:00 (Msir) 15 mg Q4H PRN PO 07/30/17 08:30 (Protonix) 40 mg DAILY PO 07/30/17 09:00 07/30/17 11:41 (Oramorph Sr) 15 mg Q12HR PO 07/30/17 09:00 07/30/17 11:41 A/P Problem List: (1) NHL (non-Hodgkin's lymphoma) ICD Code: C85.90 - Non-Hodgkin lymphoma, unspecified, unspecified site Status: Chronic (2) Anemia ICD Code: D64.9 - Anemia, unspecified Status: Acute (3) SBO (small bowel obstruction) ICD Code: K56.609 - Unspecified intestinal obstruction, unspecified as to partial versus complete obstruction Status: Acute (4) Hypertension ICD Code: I10 - Essential (primary) hypertension Status: Acute (5) Pleural effusion ICD Code: J90 - Pleural effusion, not elsewhere classified Status: Acute Assessment and Plan NHL (non-Hodgkin's lymphoma) Currently on chemotherapy with the oncology team at [place]. - recommend transfusing if hemoglobin less than 7. - Follow-up with oncology as an outpt to resume chemotherapy. Anemia Acute. Most likely from chemotherapy-induced anemia. S/p 2 units of PRBC. - Follow CBC and transfuse as needed. SBO (small bowel obstruction) Probably multifactorial due to recent chemotherapy, chronic constipation and general weakness. Has a history of hernia repair in the past. General surgery appreciated. Status post lysis of adhesions 07/28/2017. S/p NGT. - Advance diet per surgery. Currently on soft food. - Antiemetics and pain control as needed. - IVFs. Hypertension Relatively well-controlled. - Vasotec as needed. - pain control. Pleural effusion Pulmonary consult appreciated. Patient has a history of thoracentesis in the past. - Oxygen as needed. Hypernatremia/ hypokalemia S/t NPO status. Diet has been advanced. - D5W with KCl. - follow BMP. - ADAT. PPx: SCDs Discharge Planning Awaiting surgical clearance Thuan Adrian DO Jul 30, 2017 12:38
[2017-07-30] MEDS: MORPHINE SULFATE 15 MG TAB PO PRN ×3 (13:10→22:27)
[2017-07-30 15:56] VITALS: BP 122/58; PULSE 74; RESP 16; TEMP 97.6; O2SAT 97
--- NOTE | 2017-07-30 18:43 | HHI.PR ---
Subjective Remarks Went for Laparoscopic lysis of adhesions . and now has a NG out. taking po liquids Objective Vital Signs Date Time Temp Pulse Resp B/P (MAP) Pulse Ox O2 Delivery O2 Flow Rate FiO2 07/30/17 15:56 97.6 74 16 122/58 (79) 97 07/30/17 12:00 97.9 77 16 133/63 (86) 97 07/30/17 07:45 98.7 88 16 150/70 (96) 95 07/30/17 00:00 98.1 77 17 145/65 (91) 98 07/29/17 20:00 98.2 75 17 135/59 (84) 97 I/O 07/29/17 07/29/17 07/29/17 07/30/17 07/30/17 07/30/17 07:00 15:00 23:00 07:00 15:00 23:00 Intake Total 0 ml 1015 ml 120 ml 1635 ml Output Total 200 ml 1000 ml 350 ml Balance 0 ml 815 ml -880 ml 1285 ml Intake Oral 0 ml 120 ml 240 ml IV Total 1015 ml 1395 ml Output Urine Total 1000 ml 350 ml Gastric Drainage Total 200 ml # Voids 2 2 # Bowel Movements 0 0 Result Diagram: 07/30/1743107/30/17431 Objective Remarks GENERAL: This is an elderly white male who is alert, pale and alert HEENT: Head is normocephalic. Pupils are reactive. Sclerae were clear. Throat is clear. NECK: Supple, no bruits or thyroid enlargement. LUNGS: Equal movements with distant breath sounds and occasional basilar crackles. HEART: Sounds regular S1, S2. No murmur. ABDOMEN: Soft, with no tenderness. Bowel sounds are faint. No organomegaly. EXTREMITIES: No lesions or edema. Reflexes are 1+, with no gross motor deficits. SKIN: No lesions. Assessment and Plan Assessment and Plan IMPRESSION: 1. Small-bowel obstruction with ileus. 2. History of large B-cell lymphoma, status post chemotherapy. 3. Hypertension. 4. Bilateral pleural effusions, resolving. 5. S/P Exploratory Lap Plan : 1. D/C O2 2. Nebs tid with duoneb prn 3. IS at bedside q3h 4. CBC,BMP 5. Continue IV Hydration. 6. Po Liquids and advance Donna James MD Jul 30, 2017 18:43
[2017-07-30 20:00] VITALS: BP 124/58; PULSE 80; RESP 18; TEMP 97.7; O2SAT 99
[2017-07-31] VITALS: BP 130/59; PULSE 68; RESP 18; TEMP 97.3; O2SAT 96
[2017-07-31] MEDS: POTASSIUM CHLORIDE INJ 30 MEQ in DEXTROSE 5% IN WATE 1000ML INJ 1,000 ML IV SCH ×2 (02:57)
[2017-07-31] MEDS: MORPHINE SULFATE 15 MG TAB PO PRN ×3 (03:44→12:14)
[2017-07-31] MEDS ORDERED: LEVOTHYROXINE SODIUM 75 MCG TAB PO SCH (06:00)
[2017-07-31 08:00] VITALS: BP 136/62; PULSE 83; RESP 18; TEMP 98.4; O2SAT 94
[2017-07-31] MEDS: PANTOPRAZOLE SOD 40 MG DELAYED RELEASE TAB PO SCH (08:04)
[2017-07-31] MEDS: ALLOPURINOL 300 MG TAB PO SCH (08:04)
[2017-07-31] MEDS: METOPROLOL TARTRATE 25 MG TAB PO SCH (08:04)
[2017-07-31] MEDS: MORPHINE SULFATE 15 MG CONTROLLED RELEASE TAB PO SCH (08:05)
[2017-07-31] MEDS: SODIUM CHLORIDE 0.9% FLUSH 10 ML FLUSH IV FLUSH SCH (08:05)
[2017-07-31] MEDS: SENNOSIDES 8.6 MG TAB PO PRN (08:07)
[2017-07-31 08:26] LABS: HEMATOCRIT 28.1 % (39.0-51.0); HEMOGLOBIN 9.2 GM/DL (13.0-17.0); MEAN CELL VOLUME 82.7 FL (80.0-100.0); MEAN CORPUSCULAR HEMOGLOBIN 27.1 PG (27.0-34.0); MEAN CORPUSCULAR HGB CONC 32.8 % (32.0-36.0); MEAN PLATELET VOLUME 7.8 FL (7.0-11.0); PLATELET COUNT 90 TH/MM3 (150-450); RED CELL DISTRIBUTION WIDTH 18.9 % (11.6-17.2); WHITE BLOOD COUNT 5.5 TH/MM3 (4.0-11.0)
[2017-07-31 08:41] LABS: BICARBONATE 24.8 MEQ/L (21.0-32.0); CALCIUM 8.4 MG/DL (8.5-10.1); CREATININE 0.55 MG/DL (0.60-1.30); MAGNESIUM 1.7 MG/DL (1.5-2.5)
[2017-07-31 12:00] VITALS: BP 106/52; PULSE 83; RESP 18; TEMP 97.7; O2SAT 97
--- NOTE | 2017-07-31 13:21 | HHI.PR ---
Subjective Subjective Notes He is tolerating diet and having bowel movts. No complaints. Objective Vitals/I&O Vital Signs Date Time Temp Pulse Resp B/P (MAP) Pulse Ox O2 Delivery O2 Flow Rate FiO2 07/31/17 12:00 97.7 83 18 106/52 (70) 97 07/29/17 08:29 21 07/28/17 16:30 Room Air 07/28/17 16:00 3 Labs Laboratory Tests Test 07/31/17 06:53 White Blood Count 5.5 Red Blood Count 3.40 Hemoglobin 9.2 Hematocrit 28.1 Mean Corpuscular Volume 82.7 Mean Corpuscular Hemoglobin 27.1 Mean Corpuscular Hemoglobin Concent 32.8 Red Cell Distribution Width 18.9 Platelet Count 90 Mean Platelet Volume 7.8 Blood Urea Nitrogen 7 Creatinine 0.55 Random Glucose 120 Calcium Level 8.4 Magnesium Level 1.7 Sodium Level 139 Potassium Level 3.9 Chloride Level 107 Carbon Dioxide Level 24.8 Anion Gap 7 Estimat Glomerular Filtration Rate 148 Date/Time Source Procedure Growth Status 07/25/17 01:20 Blood Peripheral Aerobic Blood Culture - Final NO GROWTH IN 5 DAYS Complete 07/25/17 01:20 Blood Peripheral Anaerobic Blood Culture - Final NO GROWTH IN 5 DAYS Complete Radiology Last Impressions Chest X-Ray 07/25/17106 Signed Impressions: Service Date/Time: Tuesday, July 25, 2017 01:19 - CONCLUSION: 1. Patchy right greater than left lung base opacity again seen along with small right greater than left pleural effusions. Findings similar to the prior study of May 2017. 2. Curvilinear metallic density at the level of the lower mediastinum and upper abdomen. May be external to the patient. Ranjit Patricia MD Abdomen/Pelvis CT 07/25/17106 Signed Impressions: Service Date/Time: Tuesday, July 25, 2017 02:11 - CONCLUSION: 1. New moderate distention of the proximal to mid small bowel with possible transition point in the left lower quadrant. Findings are suspicious for early small bowel obstruction. Small amount of free fluid . No free air. 2. Bilateral pleural effusions again seen with decrease in size. Apparent loculation of right pleural effusion. 3. Double-J ureteral stent is again seen bilaterally. Mild prominence of the proximal renal collecting systems unchanged. Punctate bilateral renal calculi. 4. Hepatosplenomegaly unchanged. Likely varices in the splenic hilum. Ranjit Patricia MD Narrative Exam NAD Abd: soft, minimal distention, inc c/d/i. A/P Assessment and Plan 71 yo M with stage IV non hodgkins lymphoma with SBO and constipation, POD 3 s/ p lap extensive lysis of adhesions for SBO Doing well. Clear for dc home. Does not need pain med rx. F/u with me in two weeks. Je Julien MD Jul 31, 2017 13:21
--- NOTE | 2017-07-31 13:37 | HHI.DCPOC ---
Discharge Care Plan Diagnosis: (1) SBO (small bowel obstruction) (2) NHL (non-Hodgkin's lymphoma) (3) Pleural effusion Goals to Promote Your Health * To prevent worsening of your condition and complications * To maintain your health at the optimal level Directions to Meet Your Goals Take your medications as prescribed Follow your dietary instruction Follow activity as directed Keep your appointments as scheduled Take your immunizations and boosters as scheduled If your symptoms worsen call your PCP, if no PCP go to Urgent Care Center or Emergency Room Smoking is Dangerous to Your Health. Avoid second hand smoke Call the 24-hour hour crisis hotline for domestic abuse at Thuan Adrian DO Jul 31, 2017 13:37
--- NOTE | 2017-07-31 13:45 | HHI.DS ---
Discharge Summary Admission Date Jul 25, 2017 at 03:52 Discharge Date: Jul 31, 2017 Admitting Diagnosis early/partial SBO; Lymphoma; h/o B pleural effusions (1) NHL (non-Hodgkin's lymphoma) ICD Code: C85.90 - Non-Hodgkin lymphoma, unspecified, unspecified site Status: Chronic (2) Anemia ICD Code: D64.9 - Anemia, unspecified Status: Acute (3) SBO (small bowel obstruction) ICD Code: K56.609 - Unspecified intestinal obstruction, unspecified as to partial versus complete obstruction Diagnosis: Principal Status: Acute (4) Hypertension ICD Code: I10 - Essential (primary) hypertension Status: Acute (5) Pleural effusion ICD Code: J90 - Pleural effusion, not elsewhere classified Status: Acute Procedures Lysis of adhesions Brief History - From Admission This patient is a 71-year-old gentleman with a history of lymphoma currently under therapy with the oncology team. Patient recently had #5 of 6 scheduled chemo doses and started having some abdominal discomfort post medication. He had some nausea and vomiting and continued to have increased abdominal pain over a 12 hour period. He called his oncologist who advised him to continue to observe this and the patient then started projectile vomiting. He then came to the emergency room with increased distention of his belly and green bilious nonbloody emesis. Patient was found to have acute abdominal partial small bowel obstruction with possible transition point in the left lower quadrant. Patient also has pleural effusions with some evidence of loculation and he has been admitted to the hospital for further evaluation of the same. Pain is improved with IV morphine and the nausea is improved with bowel rest and Compazine. CBC/BMP: 07/31/17 0653 07/31/17 0653 Significant Findings Laboratory Tests Test 07/29/17 09:31 07/29/17 09:36 07/30/17 04:32 07/31/17 06:53 Red Blood Count 3.26 MIL/MM3 (4.50-5.90) 3.42 MIL/MM3 (4.50-5.90) 3.40 MIL/MM3 (4.50-5.90) Hemoglobin 9.0 GM/DL (13.0-17.0) 9.3 GM/DL (13.0-17.0) 9.2 GM/DL (13.0-17.0) Hematocrit 27.1 % (39.0-51.0) 28.6 % (39.0-51.0) 28.1 % (39.0-51.0) Red Cell Distribution Width 19.1 % (11.6-17.2) 19.0 % (11.6-17.2) 18.9 % (11.6-17.2) Platelet Count 100 TH/MM3 (150-450) 97 TH/MM3 (150-450) 90 TH/MM3 (150-450) Creatinine 0.51 MG/DL (0.60-1.30) 0.41 MG/DL (0.60-1.30) 0.55 MG/DL (0.60-1.30) Random Glucose 113 MG/DL (74-106) 112 MG/DL (74-106) 120 MG/DL (74-106) Calcium Level 8.2 MG/DL (8.5-10.1) 8.1 MG/DL (8.5-10.1) 8.4 MG/DL (8.5-10.1) Sodium Level 147 MEQ/L (136-145) Potassium Level 3.1 MEQ/L (3.5-5.1) 3.0 MEQ/L (3.5-5.1) Chloride Level 112 MEQ/L (98-107) 108 MEQ/L (98-107) Imaging Last Impressions Chest X-Ray 07/29/17 0600 Signed Impressions: Service Date/Time: Saturday, July 29, 2017 06:23 - CONCLUSION: Subcutaneous emphysema and bilateral atelectatic and airspace disease changes again noted. Davon Nichols MD Abdomen X-Ray 07/28/17 0000 Signed Impressions: Service Date/Time: Friday, July 28, 2017 10:38 - CONCLUSION: Contrast is noted within the nondistended colon on today's examination. Air-filled minimally dilated loops of small bowel are still present suggesting partial small bowel obstruction or ileus. Young To MD Renal Ultrasound 07/27/17 0000 Signed Impressions: Service Date/Time: Thursday, July 27, 2017 07:51 - CONCLUSION: 1. Echogenic kidneys bilaterally compatible with medical renal disease. 2. Bilateral renal stents with stable mild right hydronephrosis 3. Nonobstructing bilateral renal stones. Joey Sarabia MD Small Bowel X-Ray 07/26/17 0600 Signed Impressions: Service Date/Time: Wednesday, July 26, 2017 10:48 - CONCLUSION: Mild dilatation of small bowel loops with delayed transit time suggestive of partial small bowel obstruction or ileus. Clinical correlation is recommended. Young To MD Abdomen/Pelvis CT 07/25/17 0107 Signed Impressions: Service Date/Time: Tuesday, July 25, 2017 02:11 - CONCLUSION: 1. New moderate distention of the proximal to mid small bowel with possible transition point in the left lower quadrant. Findings are suspicious for early small bowel obstruction. Small amount of free fluid . No free air. 2. Bilateral pleural effusions again seen with decrease in size. Apparent loculation of right pleural effusion. 3. Double-J ureteral stent is again seen bilaterally. Mild prominence of the proximal renal collecting systems unchanged. Punctate bilateral renal calculi. 4. Hepatosplenomegaly unchanged. Likely varices in the splenic hilum. Ranjit Patricia MD PE at Discharge GENERAL: Resting comfortably in bed. HEENT: NC, AT. CARDIOVASCULAR: Regular rate and rhythm without murmurs RESPIRATORY: Clear to auscultation. Breath sounds equal bilaterally. No wheezes. GASTROINTESTINAL: Mild tenderness around incisions. MUSCULOSKELETAL: Extremities without edema. Moves extremities with no difficulty. NEUROLOGICAL: Awake and alert. Normal speech. PSYCH: Mood and affect appropriate. Pt update on day of discharge The patient was sitting up in bed. Warm no acute complaints. He tolerated a diet. He said he was expecting to have a bowel movement later. He said his chemotherapy will be postponed only 9 days. Family at the bedside. Discussed with nursing and surgery. Hospital Course SBO (small bowel obstruction) Imaging showed: New moderate distention of the proximal to mid small bowel with possible transition point in the left lower quadrant; Findings are suspicious for early small bowel obstruction; Small amount of free fluid; No free air. General surgery was consulted. He was made NPO and placed on IVFs. Status post lysis of adhesions 07/28/2017. His NGT was removed. He received pain control and antiemetics as needed. His diet was advanced to a regular diet. He will follow up with surgery as an outpt. NHL (non-Hodgkin's lymphoma) Currently on chemotherapy with the oncology team at [facility]. Oncology was consulted. He will follow up with his oncologist as an outpt for his final chemotherapy session. Anemia S/p 2 units of PRBC. He will follow up with oncology as an outpt. Pleural effusion Imaging revealed pleural effusions. Pulmonary was consulted. Patient has a history of thoracentesis in the past. He received oxygen and nebs as needed. Oxygen was discontinued. He will follow up with pulmonology as an outpt. Hypernatremia/ hypokalemia He received D5W with KCl. His labs improved. He will have a repeat BMP in 3-5 days and will follow up with surgery. Pt Condition on Discharge: Stable Discharge Disposition: Discharge Home Discharge Time: > 30 minutes Discharge Instructions DIET: Follow Instructions for: As Tolerated, No Restrictions Activities you can perform: Regular-No Restrictions Follow up Referrals: Appointment for Follow Up Oncology - 1 Week PCP Follow-up - 1 Week PCP Follow-up Pulmonology - 2 Weeks with Donna James MD Pulmonology Surgical - 2 Weeks with Je Julien MD Surgical New Orders: BASIC METABOLIC PROF - 3-5 Days Continued Medications: Albuterol Neb (Albuterol Neb) 2.5 Mg/0.5 Ml Neb 2.5 MG NEB Q4HR NEB PRN for WHEEZING, EA Note: The Albuterol Sulfate Inhalation Solution is concentrated and must be diluted. Read complete instructions carefully before using. Allopurinol (Allopurinol) 300 Mg Tab 300 MG PO DAILY for Gout, #30 TAB 0 Refills Docusate Sodium (Docusate Sodium) 100 Mg Cap 100 MG PO BID for Prevent Constipation, #60 CAP 0 Refills Levothyroxine (Levothyroxine) 75 Mcg Tab 75 MCG PO DAILY for Thyroid, #30 TAB 0 Refills Lorazepam (Ativan) 0.5 Mg Tab 0.5 MG PO HS PRN for ANXIETY AND/OR AGITATION, TAB 0 Refills Metoprolol Tartrate (Metoprolol Tartrate) 25 Mg Tab 25 MG PO BID, #60 TAB 0 Refills Morphine IR (Morphine IR) 15 Mg Tab 15 MG PO Q4H PRN for PAIN, TAB 0 Refills Morphine Sulfate ER 12 HR (Morphabond ER 12 HR) 15 Mg Tab 15 MG PO Q12H for Pain Management, #60 TAB 0 Refills Pantoprazole (Protonix) 40 Mg Tab 40 MG PO DAILY for Reflux, #30 TAB 0 Refills Polyethylene Glycol 3350 Powder (Miralax Powder) 17 Gm Powd 17 GM PO DAILY for Constipation, #1 CAN 0 Refills Mix and dissolve one measuring cap-ful (17 grams) in water or juice. Polysaccharide Iron Complex (Poly-Iron 150) 150 Mg Iron Cap 150 MG PO Q12HR for Nutritional Supplement, #60 CAP 0 Refills Thuan Adrian DO Jul 31, 2017 13:45
--- NOTE | 2017-07-31 19:08 | PD.ONC.PN ---
Subjective Subjective Remarks Late note entry. Patient seen at bedside at 9 am. Tolerating diet well. Bowel movements, walking. Objective Data Date Time Temp Pulse Resp B/P (MAP) Pulse Ox O2 Delivery O2 Flow Rate FiO2 07/31/17 12:00 97.7 83 18 106/52 (70) 97 07/31/17 08:00 98.4 83 18 136/62 (86) 94 07/31/17 00:00 97.3 68 18 130/59 (82) 96 07/30/17 20:00 97.7 80 18 124/58 (80) 99 07/31/17 07/31/17 07/31/17 06:59 14:59 22:59 Intake Total 240 ml 505 ml Output Total 2000 ml Balance -1760 ml 505 ml Result Diagram: 07/31/17 0653 07/31/17 0653 Laboratory Results Laboratory Tests Test 07/31/17 06:53 White Blood Count 5.5 TH/MM3 Red Blood Count 3.40 MIL/MM3 Hemoglobin 9.2 GM/DL Hematocrit 28.1 % Mean Corpuscular Volume 82.7 FL Mean Corpuscular Hemoglobin 27.1 PG Mean Corpuscular Hemoglobin Concent 32.8 % Red Cell Distribution Width 18.9 % Platelet Count 90 TH/MM3 Mean Platelet Volume 7.8 FL Blood Urea Nitrogen 7 MG/DL Creatinine 0.55 MG/DL Random Glucose 120 MG/DL Calcium Level 8.4 MG/DL Magnesium Level 1.7 MG/DL Sodium Level 139 MEQ/L Potassium Level 3.9 MEQ/L Chloride Level 107 MEQ/L Carbon Dioxide Level 24.8 MEQ/L Anion Gap 7 MEQ/L Estimat Glomerular Filtration Rate 148 ML/MIN Objective Remarks GENERAL: thin, frail man in no distress. HEAD: Normocephalic. EYES: No scleral icterus. No injection or drainage. RESPIRATORY: No accessory muscle use. NEUROLOGICAL: No obvious focal deficit. Awake, alert, and oriented x3. PSYCHIATRIC: Appropriate mood and affect; insight and judgment normal. Assessment/Plan Assessment 1. DLBCL: plan for sixth and final cycle of chemotherapy in the outpatient setting, 2 weeks after surgery. Will schedule close follow up in clinic. 2. SBO: s/p lysis of adhesions. Resolved. Tolerating diet. Flakita Ha MD Jul 31, 2017 19:07
== END 2017-07-31 15:36 | disposition home or self-care (01) | DRG 336 ==
LOC: PHED 00:19 → PHEDA 03:50 → OBSVTOIN 03:52 → PH3B 04:45 → N07B 07-27 21:00
PROVIDERS: ADMIT Hospitalist; ATTEND Hospitalist
PROC: 0D9670Z Drainage of Stomach with Drainage Device, Via Natural or Artificial Opening (ICD-10-PCS; 2017-07-25)
PROC: 30233N1 Transfusion of Nonautologous Red Blood Cells into Peripheral Vein, Percutaneous Approach (ICD-10-PCS; 2017-07-26)
PROC: 0DN84ZZ Release Small Intestine, Percutaneous Endoscopic Approach (ICD-10-PCS; 2017-07-28)
PROC: 0DNU4ZZ Release Omentum, Percutaneous Endoscopic Approach (ICD-10-PCS; principal; 2017-07-28 12:58)
DX: K56.51 Intestinal adhesions [bands], with partial obstruction (principal); C83.30 Diffuse large B-cell lymphoma, unspecified site; J90 Pleural effusion, not elsewhere classified; E87.0 Hyperosmolality and hypernatremia; E46 Unspecified protein-calorie malnutrition; E87.1 Hypo-osmolality and hyponatremia; D64.81 Anemia due to antineoplastic chemotherapy; N13.2 Hydronephrosis with renal and ureteral calculous obstruction; R16.2 Hepatomegaly with splenomegaly, not elsewhere classified; Z96.641 Presence of right artificial hip joint; E03.9 Hypothyroidism, unspecified; I10 Essential (primary) hypertension; M10.9 Gout, unspecified; K21.9 Gastro-esophageal reflux disease without esophagitis; Z80.0 Family history of malignant neoplasm of digestive organs; Z82.49 Family history of ischemic heart disease and other diseases of the circulatory system; Z87.891 Personal history of nicotine dependence; K59.09 Other constipation; E87.6 Hypokalemia; T45.1X5A Adverse effect of antineoplastic and immunosuppressive drugs, initial encounter
CPT/HCPCS: 36430; 71045; 74018; 74177; 74250; 76775; 80048; 80053; 81001; 83605; 83690; 83735; 85014; 85018; 85025; 85027; 85610; 85730; 86850; 86900; 86901; 86920; 87040; 96361; 96365; 96375; J0131; J0330; J0690; J0780; J1100; J1170; J1200; J1885; J1940; J2060; J2270; J2370; J2405; J2543; J2710; J3010; J3480; J7030; J7042; J7050; J7070; J7120; P9040; Q9963; Q9967

== ENCOUNTER 2017-08-24 14:43 | Inpatient (IN) | payer OTHER, MEDICARE ==
[~2017-08-24] VITALS: Ht 182.9 cm; Wt 63.0 kg
[2017-08-24] VITALS (7 sets, daily range): BP systolic 108–142; BP diastolic 53–63; PULSE 87–144; RESP 18–26; TEMP 98.1–102.1; O2SAT 87–99
[~2017-08-24 14:43] MED LIST changes: +ALBU.5I NEB; -ALBU2TAB4 PO; -AUGM875T3 PO; -AZIT500T2 PO; -COLA100C5; +DOCU100C15 PO; -FURO1TAB62 PO; -HYDR-3799 PO; -LACTTAB8 PO; -LEVO50TA4 PO; +LEVO75TA3 PO; +LORA-392 PO; +MSIR15 PO; +NU-IRON PO; -POTA10CA PO
[2017-08-24] MEDS ORDERED: CEFEPIME INJ 2,000 MG in SODIUM CHLORIDE 0.9% INJ 100 ML IV STA (15:14)
[2017-08-24] MEDS ORDERED: VANCOMYCIN INJ 1,250 MG in SODIUM CHLOR 0.9% 250 ML INJ 250 ML IV STA (15:14)
[2017-08-24] MEDS ORDERED: SODIUM CHLOR 0.9% 1000 ML INJ 100 ML IV ONE (15:14)
[2017-08-24] MEDS ORDERED: SODIUM CHLOR 0.9% 1000 ML INJ 1,000 ML IV ONE ×2 (15:14)
[2017-08-24] MEDS ORDERED: ACETAMINOPHEN 325 MG TAB PO ONE (15:15)
[2017-08-24] MEDS ORDERED: oxyCODONE/ACETAMINOPHEN 10 MG/325 MG TAB PO ONE (15:45)
--- NOTE | 2017-08-24 16:03 | PD ---
HPI Chief Complaint: Respiratory Symptoms Time Seen by Provider: 15:04 Travel History International Travel<30 days: No Contact w/Intl Traveler<30days: No Traveled to known affect area: No History of Present Illness HPI The patient 71 years old and arrives to the ER with complaint of dyspnea. He has a history of lymphoma. He is receiving chemotherapy and received his sixth round of chemotherapy about 12 days prior. He notes chronic shortness of breath which is very mild however he has had dyspnea on exertion worse than normal for the past hour and a half. He denies chest pain. He reports positive fever. No chills or diaphoresis. He reports a mild cough. He also reports urinary frequency. He is planning to see Dr. Bhatia of urology with a plan to exchange bilateral renal ureteral stents on the , 7 days from now. He does report generalized body pain and reports he is due for his daily morphine, 15 mg immediate release dose PFSH Past Medical History Asthma: No Heart Rhythm Problems: No Cancer: Yes (Non-Hodgkins Lymphoma 2016) Cardiovascular Problems: Yes High Cholesterol: No Chemotherapy: Yes Chest Pain: No Congestive Heart Failure: No COPD: No Diabetes: No Diminished Hearing: No Endocrine: Yes GERD: Yes Gout: Yes Genitourinary: Yes (Kidney stent placed March 2017) Hypertension: Yes Immune Disorder: No Implanted Vascular Access Dvce: Yes (PORTACATH) Kidney Stones: No Musculoskeletal: No Neurologic: No Psychiatric: No Reproductive: No Respiratory: Yes Renal Failure: No Sickle Cell Disease: No Sleep Apnea: No Thyroid Disease: Yes (Hypothyroidism) ?: Not Past Surgical History Abdominal Surgery: Yes (Bilateral inguinal hernia repair) Cardiac Surgery: No Ear Surgery: No Endocrine Surgery: No Eye Surgery: No Genitourinary Surgery: Yes (KIDNEY STENT) Gynecologic Surgery: No Insulin Pump: Yes (R hip replacement) Oral Surgery: No Thoracic Surgery: No Other Surgery: Yes Social History Alcohol Use: No Tobacco Use: Yes (15 PACK YEARS) Substance Use: No Allergies-Medications (Allergen,Severity, Reaction): Coded Allergies: itraconazole (Verified Allergy, Unknown, 08/24/17) tea tree (Verified Allergy, Unknown, 08/24/17) Reported Meds & Prescriptions Reported Meds & Active Scripts Active Morphabond ER 12 HR (Morphine Sulfate) 15 Mg Tab 15 Mg PO Q12H Reported Ativan (Lorazepam) 0.5 Mg Tab 0.5 Mg PO HS PRN Poly-Iron 150 (Polysaccharide Iron Complex) 150 Mg Iron Cap 150 Mg PO Q12HR Morphine IR (Morphine Sulfate) 15 Mg Tab 15 Mg PO Q4H PRN Levothyroxine (Levothyroxine Sodium) 75 Mcg Tab 75 Mcg PO DAILY Docusate Sodium 100 Mg Cap 100 Mg PO BID Albuterol Neb (Albuterol Sulfate) 2.5 Mg/0.5 Ml Neb 2.5 Mg NEB Q4HR NEB PRN Note: The Albuterol Sulfate Inhalation Solution is concentrated and must be diluted. Read complete instructions carefully before using. Metoprolol Tartrate 25 Mg Tab 25 Mg PO BID Miralax Powder (Polyethylene Glycol 3350 Powder) 17 Gm Powd 17 Gm PO DAILY Mix and dissolve one measuring cap-ful (17 grams) in water or juice. Protonix (Pantoprazole Sodium) 40 Mg Tab 40 Mg PO DAILY Allopurinol 300 Mg Tab 300 Mg PO DAILY Review of Systems Except as stated in HPI: all other systems reviewed are Neg General / Constitutional: Positive: Fever Physical Exam Narrative GENERAL: 71-year-old male well-nourished well-developed Vital Signs Date Time Temp Pulse Resp B/P (MAP) Pulse Ox O2 Delivery O2 Flow Rate FiO2 08/24/17 14:55 102.1 144 26 142/63 (89) 87 SKIN: Warm and dry. HEAD: Atraumatic. Normocephalic. EYES: Pupils equal and round. No scleral icterus. No injection or drainage. ENT: No nasal bleeding or discharge. Mucous membranes pink and moist. NECK: Trachea midline. No JVD. CARDIOVASCULAR: Tachycardia. Regular rhythm. Left anterior chest wall chemo port. RESPIRATORY: No significant tachypnea on my exam. mild conversational dyspnea present. lungs are clear GASTROINTESTINAL: Abdomen soft, non-tender, nondistended. Hepatic and splenic margins not palpable. MUSCULOSKELETAL: Extremities without clubbing, cyanosis, or edema. No obvious deformities. NEUROLOGICAL: Awake and alert. No obvious cranial nerve deficits. Motor grossly within normal limits. Five out of 5 muscle strength in the arms and legs. Normal speech. PSYCHIATRIC: Appropriate mood and affect; insight and judgment normal. Data Data Last Documented VS Vital Signs Date Time Temp Pulse Resp B/P (MAP) Pulse Ox O2 Delivery O2 Flow Rate FiO2 08/24/17 17:54 100 20 113/53 (73) 99 Nasal Cannula 3.00 08/24/17 14:55 102.1 Orders Orders Sepsis Workup Initiated (08/24/17 ) Electrocardiogram (08/24/17 15:15) Complete Blood Count With Diff (08/24/17 15:15) Comprehensive Metabolic Panel (08/24/17 15:15) Prothrombin Time / Inr (Pt) (08/24/17 15:15) Act Partial Throm Time (Ptt) (08/24/17 15:15) Lactic Acid Sepsis Protocol (08/24/17 15:15) Magnesium (Mg) (08/24/17 15:15) Lipase (08/24/17 15:15) Ckmb (Isoenzyme) Profile (08/24/17 15:15) Troponin I (08/24/17 15:15) Urinalysis - C+S If Indicated (08/24/17 15:15) Blood Culture (08/24/17 15:15) Chest, Single Ap (08/24/17 15:15) Blood Glucose (08/24/17 15:15) Ecg Monitoring (08/24/17 15:15) Iv Access Insert/Monitor (08/24/17 15:15) Oximetry (08/24/17 15:15) Oxygen Administration (08/24/17 15:15) Vancomycin Inj (Vancomycin Inj) (08/24/17 15:14) Cefepime Inj (Maxipime Inj) (08/24/17 15:14) Sodium Chlor 0.9% 1000 Ml Inj (Ns 1000 M (08/24/17 15:14) Sodium Chlor 0.9% 1000 Ml Inj (Ns 1000 M (08/24/17 15:14) Sodium Chlor 0.9% 1000 Ml Inj (Ns 1000 M (08/24/17 15:14) Ct Pulmonary Angiogram (08/24/17 15:14) Acetaminophen (Tylenol) (08/24/17 15:15) Oxycodone-Acetamin 10-325 Mg (Percocet 1 (08/24/17 15:45) Hydromorphone Pf Inj (Dilaudid Pf Inj) (08/24/17 17:15) Iohexol 350 Inj (Omnipaque 350 Inj) (08/24/17 17:21) Urine Culture (08/24/17 16:40) B-Type Natriuretic Peptide (08/24/17 17:44) Admit Order (Ed Use Only) (08/24/17 ) Environmental Epidemiologist / Telemetry BRIANNA.Q8H (08/24/17 17:58) Vital Signs (Adult) Q4H (08/24/17 17:58) Activity Bed Rest (08/24/17 17:58) Activity Oob With Assistance (08/24/17 17:58) Labs Laboratory Tests Test 08/24/17 15:40 08/24/17 16:40 White Blood Count 11.4 TH/MM3 Red Blood Count 3.24 MIL/MM3 Hemoglobin 8.8 GM/DL Hematocrit 26.5 % Mean Corpuscular Volume 81.9 FL Mean Corpuscular Hemoglobin 27.2 PG Mean Corpuscular Hemoglobin Concent 33.2 % Red Cell Distribution Width 20.2 % Platelet Count 69 TH/MM3 Mean Platelet Volume 9.0 FL Neutrophils (%) (Auto) 93.8 % Lymphocytes (%) (Auto) 1.0 % Monocytes (%) (Auto) 4.7 % Eosinophils (%) (Auto) 0.2 % Basophils (%) (Auto) 0.3 % Neutrophils # (Auto) 10.6 TH/MM3 Lymphocytes # (Auto) 0.1 TH/MM3 Monocytes # (Auto) 0.5 TH/MM3 Eosinophils # (Auto) 0.0 TH/MM3 Basophils # (Auto) 0.0 TH/MM3 CBC Comment AUTO DIFF Differential Total Cells Counted 100 Neutrophils % (Manual) 82 % Band Neutrophils % 13 % Lymphocytes % 2 % Monocytes % 2 % Neutrophils # (Manual) 10.9 TH/MM3 Metamyelocytes 1 % Differential Comment FINAL DIFF MANUAL Toxic Granulation 1+ Platelet Estimate LOW Platelet Morphology Comment NORMAL Tear Drop Cells 1+ Ovalocytes 1+ Prothrombin Time 12.1 SEC Prothromb Time International Ratio 1.2 RATIO Activated Partial Thromboplast Time 59.8 SEC Blood Urea Nitrogen 15 MG/DL Creatinine 0.70 MG/DL Random Glucose 147 MG/DL Total Protein 6.0 GM/DL Albumin 2.9 GM/DL Calcium Level 8.2 MG/DL Magnesium Level 1.6 MG/DL Alkaline Phosphatase 107 U/L Aspartate Amino Transf (AST/SGOT) 11 U/L Alanine Aminotransferase (ALT/SGPT) 14 U/L Total Bilirubin 0.4 MG/DL Sodium Level 135 MEQ/L Potassium Level 3.9 MEQ/L Chloride Level 97 MEQ/L Carbon Dioxide Level 26.7 MEQ/L Anion Gap 11 MEQ/L Estimat Glomerular Filtration Rate 112 ML/MIN Lactic Acid Level 1.9 mmol/L Total Creatine Kinase 29 U/L Troponin I 0.14 NG/ML Lipase 27 U/L Urine Color YELLOW Urine Turbidity HAZY Urine pH 8.0 Urine Specific [place] 1.016 Urine Protein 100 mg/dL Urine Glucose (UA) NEG mg/dL Urine Ketones TRACE mg/dL Urine Occult Blood LARGE Urine Nitrite NEG Urine Bilirubin NEG Urine Urobilinogen LESS THAN 2.0 MG/DL Urine Leukocyte Esterase TRACE Urine RBC /hpf Urine WBC 11 /hpf Microscopic Urinalysis Comment CATH-CULTURE IND MDM Medical Decision Making Medical Screen Exam Complete: Yes Emergency Medical Condition: Yes Medical Record Reviewed: Yes Differential Diagnosis Sepsis, UTI, pneumonia, PE Narrative Course Blood cultures drawn. Cefepime Vanco started. 10 mg Percocet given. 1 mg Dilaudid given. CBC & BMP Diagram 08/24/17 15:40 Total Protein 6.0 L, Albumin 2.9 L, Calcium Level 8.2 L, Magnesium Level 1.6, Alkaline Phosphatase 107, Aspartate Amino Transf (AST/SGOT) 11 L, Alanine Aminotransferase (ALT/SGPT) 14, Total Bilirubin 0.4 Neutrophils are 82% Pain neutrophils 13% Troponin is 0.14 Urinalysis shows UTI Last Impressions Chest X-Ray 08/24/17 1515 Signed Impressions: Service Date/Time: Thursday, August 24, 2017 15:28 - CONCLUSION: Bibasilar air space disease Stan Suero MD CT Angiography 08/24/17 1514 Signed Impressions: Service Date/Time: Thursday, August 24, 2017 17:09 - CONCLUSION: No evidence of pulmonary embolism. Bilateral infiltrates and effusions. Malik Farmer MD Patient has significant pneumonia. Urinalysis reveals UTI The patient has been started on cefepime Vanco. Admission for ongoing antibiotics. Discussed with Dr. Thomason. Critical Care Narrative Aggregate critical care time was 35 minutes. Time to perform other separately billable procedures was not included in the critical care time. My time did not include minutes spent treating any other patients simultaneously or on activities that did not directly contribute to the patient's treatment. The services I provided to this patient were to treat and/or prevent clinically significant deterioration that could result in: Cardiopulmonary arrest I provided critical care services requiring my management, as noted below: Chart data review, documentation time, medication orders and management, vital sign assessments/reviewing monitor data, ordering and reviewing lab tests, ordering and interpreting/reviewing x-rays and diagnostic studies, care of the patient and discussion of the patient with the admitting physicians. Diagnosis Primary Impression: Sepsis due to pneumonia Additional Impressions: UTI (urinary tract infection) Qualified Codes: N30.01 - Acute cystitis with hematuria Elevated troponin Admitting Information Admitting Physician Requests: Danilo Avila MD August 24, 2017 16:03
--- NOTE | 2017-08-24 16:29 | RADRPT ---
EXAM DATE/TIME: 08/24/2017 15:28 [facility] COMPARISON: CHEST SINGLE AP, July 29, 2017, 6:23. INDICATIONS : Fever. MEDICAL HISTORY : Hypertension. Gastroesophageal reflux disease. Hypothyroidism. Non-Hodgkin's lymphoma. chemotherapy. SURGICAL HISTORY : Port placement. Bilateral renal stents. Bilateral inguinal hernia repair. Right hip replacement. ENCOUNTER: Initial ACUITY: 1 day PAIN SCORE: 0/10 LOCATION: Bilateral chest FINDINGS: A single view of the chest demonstrates bibasilar airspace disease. This may be slightly worse when c ompared to the prior heart size is prominent. Left subclavian Abkzhe-i-Rmxh catheter with the tip pro jecting over the central venous system. The patient emphysematous changes particularly around the lef t chest have basically resolved. CONCLUSION: Bibasilar air space disease Stan Suero MD on August 24, 2017 at 16:26 Board Certified Radiologist. This report was verified electronically.
[2017-08-24 16:34] LABS: AUTOMATED NEUTROPHIL # 10.6 TH/MM3 (1.8-7.7); BASOPHIL % 0.3 % (0.0-2.0); EOSINOPHIL % 0.2 % (0.0-4.0); HEMATOCRIT 26.5 % (39.0-51.0); HEMOGLOBIN 8.8 GM/DL (13.0-17.0); LYMPHOCYTE # 0.1 TH/MM3 (1.0-4.8); MEAN CELL VOLUME 81.9 FL (80.0-100.0); MEAN CORPUSCULAR HEMOGLOBIN 27.2 PG (27.0-34.0); MEAN CORPUSCULAR HGB CONC 33.2 % (32.0-36.0); MONO % 4.7 % (0.0-8.0); MONOCYTE # 0.5 TH/MM3 (0-0.9); NEUT % 93.8 % (16.0-70.0); PLATELET COUNT 69 TH/MM3 (150-450); RED BLOOD COUNT 3.24 MIL/MM3 (4.50-5.90); RED CELL DISTRIBUTION WIDTH 20.2 % (11.6-17.2); WHITE BLOOD COUNT 11.4 TH/MM3 (4.0-11.0)
[2017-08-24 16:45] LABS: INTERNATIONAL NORMALIZED RATIO 1.2 RATIO; PROTHROMBIN TIME - PATIENT 12.1 SEC (9.8-11.6)
[2017-08-24 16:47] LABS: ALBUMIN 2.9 GM/DL (3.4-5.0); ALT (GPT) 14 U/L (12-78); AST (GOT) 11 U/L (15-37); BICARBONATE 26.7 MEQ/L (21.0-32.0); BLOOD UREA NITROGEN 15 MG/DL (7-18); CALCIUM 8.2 MG/DL (8.5-10.1); CHLORIDE 97 MEQ/L (98-107); GLOMERULAR FILTRATION RATE 112 ML/MIN (>89); GLUCOSE,RANDOM 147 MG/DL (74-106); MAGNESIUM 1.6 MG/DL (1.5-2.5); SODIUM (NA) 135 MEQ/L (136-145)
[2017-08-24 16:52] LABS: ALKALINE PHOSPHATASE 107 U/L (45-117); TOTAL BILIRUBIN ADULT 0.4 MG/DL (0.2-1.0); TROPONIN I 0.14 NG/ML (0.02-0.05)
[2017-08-24 17:04] LABS: BANDS 13 % (0-6); LYMPHOCYTES 2 % (9-44); METAMYELOCYTES 1 % (0-1); MONOCYTES 2 % (0-8); NEUTROPHIL # MANUAL DIFF 10.9 TH/MM3 (1.8-7.7); POLYS (SEG NEUTROPHILS) 82 % (16-70)
[2017-08-24 17:05] LABS: OVALOCYTES 1+ (NORMAL); TEARDROP RBCS 1+ (NORMAL); TOXIC GRANULATION 1+ (NORMAL)
[2017-08-24] MEDS ORDERED: HYDROmorphone HCL PF 2 MG/ML VIAL IV PUSH ONE (17:15)
[2017-08-24 17:21] LABS: BILIRUBIN, URINE NEG (NEG); BLOOD, URINE LARGE (NEG); GLUCOSE,URINE NEG (NEG); KETONE, URINE TRACE mg/dL (NEG); NITRITE,URINE NEG (NEG); URINE COLOR YELLOW (YELLW/STRAW); URINE LEUKOCYTE ESTERASE TRACE (NEG)
[2017-08-24] MEDS ORDERED: IOHEXOL 350 MG/ML 10 ML VIAL (for RAD DIAG) IVCONTRAST ONE (17:21)
--- NOTE | 2017-08-24 17:30 | RADRPT ---
EXAM DATE/TIME: 08/24/2017 17:09 [facility] COMPARISON: CHEST SINGLE AP, August 24, 2017, 15:28. INDICATIONS : Shortness of breath, fever IV CONTRAST: 73 cc Omnipaque 350 (iohexol) IV RADIATION DOSE: 13.24 CTDIvol (mGy) MEDICAL HISTORY : Hypothyroidism. Hypertension. Non Hodgkins lymphoma SURGICAL HISTORY : None. ENCOUNTER: Initial ACUITY: 1 day PAIN SCALE: 2/10 LOCATION: Bilateral chest TECHNIQUE: Volumetric scanning of the chest was performed using a pulmonary embolism protocol MIP images were re constructed. Using automated exposure control and adjustment of the mA and/or kV according to patien t size, radiation dose was kept as low as reasonably achievable to obtain optimal diagnostic quality images. DICOM format image data is available electronically for review and comparison. Follow-up recommendations for detected pulmonary nodules are based at a minimum on nodule size and pa tient risk factors according to Fleischner Society Guidelines. FINDINGS: PULMONARY ARTERIES: No filling defects are seen in the pulmonary arteries through the segmental level. LUNGS: Bilateral perihilar and lower lung zone alveolar infiltrates. PLEURAE: Moderate bilateral pleural effusions, potentially partially loculated on the right MEDIASTINUM: There is good visualization of the great vessels of the middle mediastinum. No evidence of mediastin al or hilar adenopathy/mass. MUSCULOSKELETAL: Within normal limits for patient age. MISCELLANEOUS: Suspect adenopathy in the upper abdomen CONCLUSION: No evidence of pulmonary embolism. Bilateral infiltrates and effusions. Malik Farmer MD on August 24, 2017 at 17:23 Board Certified Radiologist. This report was verified electronically.
[2017-08-24] MEDS ORDERED: MAGNESIUM HYDROXIDE SUSP 30 ML CUP PO PRN (18:00)
[2017-08-24] MEDS ORDERED: ONDANSETRON HCL 4 MG/2 ML VIAL IVP PRN (18:00)
[2017-08-24] MEDS ORDERED: oxyCODONE/ACETAMINOPHEN 5 MG/325 MG TAB PO PRN (18:00)
[2017-08-24] MEDS ORDERED: oxyCODONE/ACETAMINOPHEN 10 MG/325 MG TAB PO PRN (18:00)
[2017-08-24] MEDS ORDERED: SODIUM CHLORIDE 0.9% FLUSH 10 ML FLUSH IV FLUSH PRN (18:00)
[2017-08-24] MEDS ORDERED: Vancomycin Consult Pharmacy 1 EA OTHER SCH (18:00)
[2017-08-24] MEDS: SODIUM CHLOR 0.9% 1000 ML INJ 1,000 ML IV SCH (18:00)
[2017-08-24] MEDS ORDERED: NALOXONE HCL 0.4 MG/ML AMP IV PUSH PRN (18:00)
[2017-08-24] MEDS ORDERED: RESP: ALBUTEROL CONC 2.5 MG/0.5 ML NEB NEB PRN (18:30)
[2017-08-24] MEDS ORDERED: MORPHINE SULFATE 15 MG PO SCH (18:30)
[2017-08-24] MEDS ORDERED: ENOXAPARIN SODIUM 40 MG/0.4 ML SYRINGE SQ SCH (20:00)
[2017-08-24] MEDS: AZITHROMYCIN INJ 500 MG in SODIUM CHLOR 0.9% 250 ML INJ 250 ML IV SCH (20:12)
[2017-08-24] MEDS: DOCUSATE SODIUM 100 MG CAP PO SCH (21:00)
[2017-08-24] MEDS: SODIUM CHLORIDE 0.9% FLUSH 10 ML FLUSH IV FLUSH SCH (21:00)
[2017-08-24] MEDS: DOCUSATE SODIUM 50 MG/SENNA 8.6 MG TAB PO SCH (22:18)
[2017-08-24] MEDS: METOPROLOL TARTRATE 25 MG TAB PO SCH (22:18)
[2017-08-24] MEDS: LACTOBACILLUS ACIDOPHILUS TAB PO SCH (22:19)
[2017-08-24] MEDS: MORPHINE SULFATE 15 MG CONTROLLED RELEASE TAB PO SCH (22:19)
[2017-08-24] MEDS: POLYSACCHARIDE IRON COMPLEX 150 MG CAP PO SCH (22:20)
--- NOTE | 2017-08-24 22:48 | HHI.HP ---
[facility] Primary Care Physician Sancho Mackenzie MD Admission Diagnosis Sepsis (PNA Bilateral, UTI) Diagnoses: Travel History International Travel<30 Days: No Contact w/Intl Traveler <30 Da: No Traveled to Known Affected Are: No History of Present Illness 71-year-old male with a history of diffuse large B-cell lymphoma, follows with oncology here, most recent chemotherapy 12 days ago. Patient presents with a 3 day history of dysuria, as well as fever today up to 102. . Denies any chest pain or shortness of breath. Denies nausea or vomiting. Denies flank pain. Review of Systems Except as stated in HPI: all other systems reviewed are Neg Past Family Social History Past Medical History Hypertension Lymphoma Past Surgical History Hernia repair Hip replacement Stent placement Colonoscopy 2014 Reported Medications Reported Meds & Active Scripts Active Morphabond ER 12 HR (Morphine Sulfate) 15 Mg Tab 15 Mg PO Q12H Reported Ativan (Lorazepam) 0.5 Mg Tab 0.5 Mg PO HS PRN Poly-Iron 150 (Polysaccharide Iron Complex) 150 Mg Iron Cap 150 Mg PO Q12HR Morphine IR (Morphine Sulfate) 15 Mg Tab 15 Mg PO Q4H PRN Levothyroxine (Levothyroxine Sodium) 75 Mcg Tab 75 Mcg PO DAILY Docusate Sodium 100 Mg Cap 100 Mg PO BID Albuterol Neb (Albuterol Sulfate) 2.5 Mg/0.5 Ml Neb 2.5 Mg NEB Q4HR NEB PRN Note: The Albuterol Sulfate Inhalation Solution is concentrated and must be diluted. Read complete instructions carefully before using. Metoprolol Tartrate 25 Mg Tab 25 Mg PO BID Miralax Powder (Polyethylene Glycol 3350 Powder) 17 Gm Powd 17 Gm PO DAILY Mix and dissolve one measuring cap-ful (17 grams) in water or juice. Protonix (Pantoprazole Sodium) 40 Mg Tab 40 Mg PO DAILY Allopurinol 300 Mg Tab 300 Mg PO DAILY Allergies: Coded Allergies: itraconazole (Verified Allergy, Unknown, 08/24/17) tea tree (Verified Allergy, Unknown, 08/24/17) Family History Family medical history reviewed with the patient and found to be currently noncontributory Social History Non-smoker. Nondrinker. Denies illicit drug. Physical Exam Vital Signs Vital Signs Date Time Temp Pulse Resp B/P (MAP) Pulse Ox O2 Delivery O2 Flow Rate FiO2 08/24/17 22:24 98.1 98 20 115/58 (77) 08/24/17 19:30 96 08/24/17 19:20 98.5 92 18 108/53 (71) 96 Room Air 08/24/17 19:14 18 08/24/17 19:14 18 08/24/17 17:54 100 20 113/53 (73) 99 Nasal Cannula 3.00 08/24/17 17:30 18 08/24/17 16:30 98 Room Air 08/24/17 16:30 96 Room Air 08/24/17 14:55 102.1 144 26 142/63 (89) 87 Physical Exam GENERAL: This is a well-nourished, well-developed patient, in no apparent distress. Alert and oriented 3. SKIN: No rashes, ecchymoses or lesions. Cool and dry. HEAD: Atraumatic. Normocephalic. No temporal or scalp tenderness. EYES: Pupils equal round and reactive. Extraocular motions intact. No scleral icterus. No injection or drainage. ENT: Nose without bleeding, purulent drainage or septal hematoma. Throat without erythema, tonsillar hypertrophy or exudate. Uvula midline. Airway patent. NECK: Trachea midline. No JVD or lymphadenopathy. Supple, nontender, no meningeal signs. CARDIOVASCULAR: Regular rate and rhythm without murmurs, gallops, or rubs. RESPIRATORY: Clear to auscultation. Breath sounds equal bilaterally. No wheezes , rales, or rhonchi. GASTROINTESTINAL: Abdomen soft, non-tender, nondistended. No hepato-splenomegaly , or palpable masses. No guarding. MUSCULOSKELETAL: Extremities without clubbing, cyanosis, or edema. No joint tenderness, effusion, or edema noted. No calf tenderness. Negative Homans sign bilaterally. NEUROLOGICAL: Awake and alert. Cranial nerves II through XII intact. Motor and sensory grossly within normal limits. Five out of 5 muscle strength in all muscle groups. Normal speech. Laboratory Laboratory Tests Test 08/24/17 15:40 08/24/17 16:40 White Blood Count 11.4 Red Blood Count 3.24 Hemoglobin 8.8 Hematocrit 26.5 Mean Corpuscular Volume 81.9 Mean Corpuscular Hemoglobin 27.2 Mean Corpuscular Hemoglobin Concent 33.2 Red Cell Distribution Width 20.2 Platelet Count 69 Mean Platelet Volume 9.0 Neutrophils (%) (Auto) 93.8 Lymphocytes (%) (Auto) 1.0 Monocytes (%) (Auto) 4.7 Eosinophils (%) (Auto) 0.2 Basophils (%) (Auto) 0.3 Neutrophils # (Auto) 10.6 Lymphocytes # (Auto) 0.1 Monocytes # (Auto) 0.5 Eosinophils # (Auto) 0.0 Basophils # (Auto) 0.0 CBC Comment AUTO DIFF Differential Total Cells Counted 100 Neutrophils % (Manual) 82 Band Neutrophils % 13 Lymphocytes % 2 Monocytes % 2 Neutrophils # (Manual) 10.9 Metamyelocytes 1 Differential Comment FINAL DIFF MANUAL Toxic Granulation 1+ Platelet Estimate LOW Platelet Morphology Comment NORMAL Tear Drop Cells 1+ Ovalocytes 1+ Prothrombin Time 12.1 Prothromb Time International Ratio 1.2 Activated Partial Thromboplast Time 59.8 Blood Urea Nitrogen 15 Creatinine 0.70 Random Glucose 147 Total Protein 6.0 Albumin 2.9 Calcium Level 8.2 Magnesium Level 1.6 Alkaline Phosphatase 107 Aspartate Amino Transf (AST/SGOT) 11 Alanine Aminotransferase (ALT/SGPT) 14 Total Bilirubin 0.4 Sodium Level 135 Potassium Level 3.9 Chloride Level 97 Carbon Dioxide Level 26.7 Anion Gap 11 Estimat Glomerular Filtration Rate 112 Lactic Acid Level 1.9 Total Creatine Kinase 29 Troponin I 0.14 B-Type Natriuretic Peptide 54 Lipase 27 Urine Color YELLOW Urine Turbidity HAZY Urine pH 8.0 Urine Specific [place] 1.016 Urine Protein 100 Urine Glucose (UA) NEG Urine Ketones TRACE Urine Occult Blood LARGE Urine Nitrite NEG Urine Bilirubin NEG Urine Urobilinogen LESS THAN 2.0 Urine Leukocyte Esterase TRACE Urine RBC Urine WBC 11 Microscopic Urinalysis Comment CATH-CULTURE IND Date/Time Source Procedure Growth Status 08/24/17 15:50 Blood Peripheral Aerobic Blood Culture Pending Received 08/24/17 15:50 Blood Peripheral Anaerobic Blood Culture Pending Received 08/24/17 16:40 Urine Catheterized Urine Urine Culture Pending Received Result Diagram: 08/24/17 1540 08/24/17 1540 Imaging Last Impressions Chest X-Ray 08/24/17 1515 Signed Impressions: Service Date/Time: Thursday, August 24, 2017 15:28 - CONCLUSION: Bibasilar air space disease Stan Suero MD CT Angiography 08/24/17 1514 Signed Impressions: Service Date/Time: Thursday, August 24, 2017 17:09 - CONCLUSION: No evidence of pulmonary embolism. Bilateral infiltrates and effusions. Malik Farmer MD [place] VTE Risk Assessment Caprini VTE Risk Assessment: Mod/High Risk (score >= 2) Caprini Risk Assessment Model Point Value = 1 Point Value = 2 Point Value = 3 Point Value = 5 Age 41-60 Minor surgery BMI > 25 kg/m2 Swollen legs Varicose veins or History of unexplained or recurrent spontaneous Oral contraceptives or hormone replacement Sepsis (< 1 month) Serious lung disease, including pneumonia (< 1 month) Abnormal pulmonary function Acute myocardial infarction Congestive heart failure (< 1 month) History of inflammatory bowel disease Medical patient at bed rest Age 61-74 Arthroscopic surgery Major open surgery (> 45 min) Laparoscopic surgery (> 45 min) Malignancy Confined to bed (> 72 hours) Immobilizing plaster cast Central venous access Age >= 75 History of VTE Family history of VTE Factor V Leiden Prothrombin 44390C Lupus anticoagulant Anticardiolipin antibodies Elevated serum homocysteine Heparin-induced thrombocytopenia Other congenital or acquired thrombophilia Stroke (< 1 month) Elective arthroplasty Hip, pelvis, or leg fracture Acute spinal cord injury (< 1 month) Prophylaxis Regimen Total Risk Factor Score Risk Level Prophylaxis Regimen 0-1 Low Early ambulation 2 Moderate Order ONE of the following: *Sequential Compression Device (SCD) *Heparin 5000 units SQ BID 3-4 Higher Order ONE of the following medications: *Heparin 5000 units SQ TID *Enoxaparin/Lovenox 40 mg SQ daily (WT < 150 kg, CrCl > 30 mL/min) *Enoxaparin/Lovenox 30 mg SQ daily (WT < 150 kg, CrCl > 10-29 mL/min) *Enoxaparin/Lovenox 30 mg SQ BID (WT < 150 kg, CrCl > 30 mL/min) AND/OR *Sequential Compression Device (SCD) 5 or more Highest Order ONE of the following medications: *Heparin 5000 units SQ TID (Preferred with Epidurals) *Enoxaparin/Lovenox 40 mg SQ daily (WT < 150 kg, CrCl > 30 mL/min) *Enoxaparin/Lovenox 30 mg SQ daily (WT < 150 kg, CrCl > 10-29 mL/min) *Enoxaparin/Lovenox 30 mg SQ BID (WT < 150 kg, CrCl > 30 mL/min) AND *Sequential Compression Device (SCD) Assessment and Plan Assessment and Plan //Sepsis in immunocompromised patient. //Suspected bacterial pneumonia 13% band neutrophils. Tachycardia in the 90s on admission = Bilateral infiltrates and effusions, suspected pneumonia = Broad-spectrum antibiotics, follow-up cultures. Close monitoring. //Suspected UTI //Dysuria //History of bilateral ureteral stenting 3 months ago -Urinalysis with 11 white blood cells = Consult urology //Troponin elevation to 0.14. Patient denies any chest pain. This is probably demand ischemia secondary to sepsis. Will trend EKGs and troponins. //Non-Hodgkin's lymphoma. = Most recent chemotherapy 12 days ago Will consult patient's primary oncologist. //Thrombocytopenia. Platelets 69. No signs of bleeding. Continue to monitor. //Prophylaxis. SCDs. Hold off on anticoagulation secondary to thrombus cytopenia. Oncology to follow tomorrow. Discussed Condition With Patient, nurse, ED physician. Physician Certification 2 Midnight Certification Type: Admission for Inpatient Services Order for Inpatient Services The services are ordered in accordance with Medicare regulations or non- Medicare payer requirements, as applicable. In the case of services not specified as inpatient-only, they are appropriately provided as inpatient services in accordance with the 2-midnight benchmark. Estimated LOS (days): 3 days is the estimated time the patient will need to remain in the hospital, assuming treatment plan goals are met and no additional complications. Post-Hospital Plan: Home Dick Shine MD August 24, 2017 22:48
[2017-08-25] VITALS (8 sets, daily range): BP systolic 114–142; BP diastolic 54–64; PULSE 83–128; RESP 16–18; TEMP 97.6–98.3; O2SAT 92–95
[2017-08-25] MEDS: CEFEPIME INJ 2,000 MG in SODIUM CHLORIDE 0.9% INJ 100 ML IV SCH ×4 (00:30→23:08)
[2017-08-25] MEDS: MORPHINE SULFATE 15 MG TAB PO PRN ×6 (01:02→23:08)
[2017-08-25] MEDS: LORazepam 0.5 MG TAB PO PRN ×2 (02:42→22:11)
[2017-08-25] MEDS ORDERED: VANCOMYCIN INJ 1,000 MG in SODIUM CHLOR 0.9% 250 ML INJ 250 ML IV SCH (03:00)
[2017-08-25] MEDS: SODIUM CHLOR 0.9% 1000 ML INJ 1,000 ML IV SCH ×3 (03:15→17:47)
[2017-08-25 05:31] LABS: AUTOMATED NEUTROPHIL # 5.5 TH/MM3 (1.8-7.7); BASOPHIL % 0.2 % (0.0-2.0); EOSINOPHIL % 0.4 % (0.0-4.0); HEMATOCRIT 22.2 % (39.0-51.0); HEMOGLOBIN 7.3 GM/DL (13.0-17.0); LYMPH % 5.9 % (9.0-44.0); LYMPHOCYTE # 0.4 TH/MM3 (1.0-4.8); MEAN CORPUSCULAR HEMOGLOBIN 27.2 PG (27.0-34.0); MEAN CORPUSCULAR HGB CONC 32.8 % (32.0-36.0); MEAN PLATELET VOLUME 8.5 FL (7.0-11.0); MONO % 6.4 % (0.0-8.0); MONOCYTE # 0.4 TH/MM3 (0-0.9); NEUT % 87.1 % (16.0-70.0); PLATELET COUNT 46 TH/MM3 (150-450); RED BLOOD COUNT 2.67 MIL/MM3 (4.50-5.90); RED CELL DISTRIBUTION WIDTH 20.8 % (11.6-17.2); WHITE BLOOD COUNT 6.4 TH/MM3 (4.0-11.0)
[2017-08-25] MEDS: VANCOMYCIN INJ 1,250 MG in SODIUM CHLOR 0.9% 250 ML INJ 250 ML IV SCH ×2 (05:51→16:39)
[2017-08-25] MEDS: LEVOTHYROXINE SODIUM 75 MCG TAB PO SCH (05:51)
[2017-08-25 06:04] LABS: ALBUMIN 2.3 GM/DL (3.4-5.0); ALKALINE PHOSPHATASE 85 U/L (45-117); ALT (GPT) 10 U/L (12-78); AST (GOT) 7 U/L (15-37); BICARBONATE 25.6 MEQ/L (21.0-32.0); BLOOD UREA NITROGEN 10 MG/DL (7-18); CALCIUM 8.4 MG/DL (8.5-10.1); CHLORIDE 106 MEQ/L (98-107); CREATININE 0.49 MG/DL (0.60-1.30); GLOMERULAR FILTRATION RATE 169 ML/MIN (>89); GLUCOSE,RANDOM 120 MG/DL (74-106); SODIUM (NA) 140 MEQ/L (136-145); TOTAL BILIRUBIN ADULT 0.4 MG/DL (0.2-1.0); TOTAL PROTEIN 5.1 GM/DL (6.4-8.2)
[2017-08-25 08:46] LABS: BANDS 9 % (0-6); LYMPHOCYTES 4 % (9-44); METAMYELOCYTES 3 % (0-1); MONOCYTES 5 % (0-8); NEUTROPHIL # MANUAL DIFF 5.8 TH/MM3 (1.8-7.7); OVALOCYTES 1+ (NORMAL); POLYS (SEG NEUTROPHILS) 78 % (16-70); PROMYELOCYTES 1 % (0-0)
[2017-08-25] MEDS: DOCUSATE SODIUM 50 MG/SENNA 8.6 MG TAB PO SCH (08:51)
[2017-08-25] MEDS: DOCUSATE SODIUM 100 MG CAP PO SCH ×2 (08:51→21:10)
[2017-08-25] MEDS: LACTOBACILLUS ACIDOPHILUS TAB PO SCH ×3 (08:51→16:38)
[2017-08-25] MEDS: POLYETHYLENE GLYCOL 17 GM PKG PO SCH (08:51)
[2017-08-25] MEDS: MORPHINE SULFATE 15 MG CONTROLLED RELEASE TAB PO SCH ×2 (08:53→21:11)
[2017-08-25] MEDS: PANTOPRAZOLE SOD 40 MG DELAYED RELEASE TAB PO SCH (08:54)
[2017-08-25] MEDS: METOPROLOL TARTRATE 25 MG TAB PO SCH ×2 (08:54→21:10)
[2017-08-25] MEDS: POLYSACCHARIDE IRON COMPLEX 150 MG CAP PO SCH ×2 (08:54→21:11)
[2017-08-25] MEDS: SODIUM CHLORIDE 0.9% FLUSH 10 ML FLUSH IV FLUSH SCH ×2 (09:02→21:12)
--- NOTE | 2017-08-25 10:59 | EKG ---
Date Performed: 08/25/2017 Time Performed: 00:01:13 PTAGE: 71 years EKG: Sinus rhythm NORMAL ECG PREVIOUS TRACING : 08/24/2017 15.19 DOCTOR: Eligio Tran Interpretating Date/Time 08/25/2017 10:57:52
--- NOTE | 2017-08-25 11:38 | EKG ---
Date Performed: 08/24/2017 Time Performed: 15:19:46 PTAGE: 71 years EKG: SINUS TACHYCARDIA WITH SHORT TN INTERVAL ABNORMAL RHYTHM ECG PREVIOUS TRACING : 05/18/2017 11.10 DOCTOR: Eligio Tran Interpretating Date/Time 08/25/2017 11:35:07
[2017-08-25] MEDS: ALLOPURINOL 300 MG TAB PO SCH (12:10)
--- NOTE | 2017-08-25 14:50 | PD.CONS ---
[facility] Service Urology Consult Requested By Dr. Thomason Reason for Consult History bilateral ureteral stent placement Primary Care Physician Sancho Mackenzie MD Diagnosis: History of Present Illness 71-year-old gentleman with history diffuse large B-cell lymphoma with resultant bilateral ureteral obstruction who status post bilateral ureteral stent placement by Dr. Bhatia who presents now complaining of fever and dysuria. Patient had similar symptoms in the past that responded well to antibiotic management with Cipro. Patient reports that he recently completed his chemotherapy regimen and has had a favorable response. He is scheduled to possibly have both of the ureteral stents removed next Thursday by Dr. Bhatia. Patient denies flank pain or materia. He was started on intravenous antibiotics and is now afebrile with a decreasing white blood cell count now measuring 6.4. Review of Systems Constitutional: COMPLAINS OF: Fever (Now resolved) Cardiovascular: DENIES: Chest pain Gastrointestinal: DENIES: Abdominal pain Genitourinary: COMPLAINS OF: Dysuria, DENIES: Hematuria Musculoskeletal: DENIES: Back pain Except as stated in HPI: all other systems reviewed are Neg Past Family Social History Past Medical History B-cell lymphoma with bilateral ureteral obstruction Hypertension Past Surgical History Status post recent bilateral ureteral stent placement Status post hip replacement Status post hernia repair Reported Medications Refer to EMR Allergies: Coded Allergies: itraconazole (Verified Allergy, Unknown, 08/24/17) tea tree (Verified Allergy, Unknown, 08/24/17) Active Ordered Medications Refer to EMR Family History Reviewed and noncontributory Social History Denies tobacco, alcohol or intravenous drug abuse Physical Exam Vital Signs Date Time Temp Pulse Resp B/P (MAP) Pulse Ox O2 Delivery O2 Flow Rate FiO2 08/25/17 12:10 97.9 85 18 114/54 (74) 93 08/25/17 07:53 128 08/25/17 07:37 98.1 106 18 142/63 (89) 92 08/25/17 04:20 98.3 100 18 130/60 (83) 94 08/25/17 02:02 18 08/25/17 00:00 98.1 90 16 116/54 (74) 95 08/24/17 23:19 20 08/24/17 23:15 87 08/24/17 22:24 98.1 98 20 115/58 (77) 08/24/17 19:30 96 08/24/17 19:20 98.5 92 18 108/53 (71) 96 Room Air 08/24/17 19:14 18 08/24/17 19:14 18 08/24/17 17:54 100 20 113/53 (73) 99 Nasal Cannula 3.00 08/24/17 17:30 18 08/24/17 16:30 98 Room Air 08/24/17 16:30 96 Room Air 08/24/17 14:55 102.1 144 26 142/63 (89) 87 Physical Exam GENERAL: This is a well-nourished, well-developed patient, in no apparent distress. SKIN: No rashes, ecchymoses or lesions. Cool and dry. HEAD: Atraumatic. Normocephalic. No temporal or scalp tenderness. EYES: Pupils equal round and reactive. Extraocular motions intact. No scleral icterus. No injection or drainage. ENT: Nose without bleeding, purulent drainage or septal hematoma. Throat without erythema, tonsillar hypertrophy or exudate. Uvula midline. Airway patent. NECK: Trachea midline. No JVD or lymphadenopathy. Supple, nontender, no meningeal signs. GASTROINTESTINAL: Abdomen soft, non-tender, nondistended. No hepato-splenomegaly , or palpable masses. No guarding. GENITOURINARY: No CVA tenderness, bladder not distended MUSCULOSKELETAL: Extremities without clubbing, cyanosis, or edema. No joint tenderness, effusion, or edema noted. No calf tenderness. Negative Homans sign bilaterally. NEUROLOGICAL: Awake and alert. Cranial nerves II through XII intact. Motor and sensory grossly within normal limits. Five out of 5 muscle strength in all muscle groups. Normal speech. Lab results reviewed: Yes Laboratory Tests Test 08/24/17 15:40 08/24/17 16:40 08/24/17 23:30 08/25/17 02:36 White Blood Count 11.4 Red Blood Count 3.24 Hemoglobin 8.8 Hematocrit 26.5 Mean Corpuscular Volume 81.9 Mean Corpuscular Hemoglobin 27.2 Mean Corpuscular Hemoglobin Concent 33.2 Red Cell Distribution Width 20.2 Platelet Count 69 Mean Platelet Volume 9.0 Neutrophils (%) (Auto) 93.8 Lymphocytes (%) (Auto) 1.0 Monocytes (%) (Auto) 4.7 Eosinophils (%) (Auto) 0.2 Basophils (%) (Auto) 0.3 Neutrophils # (Auto) 10.6 Lymphocytes # (Auto) 0.1 Monocytes # (Auto) 0.5 Eosinophils # (Auto) 0.0 Basophils # (Auto) 0.0 CBC Comment AUTO DIFF Differential Total Cells Counted 100 Neutrophils % (Manual) 82 Band Neutrophils % 13 Lymphocytes % 2 Monocytes % 2 Neutrophils # (Manual) 10.9 Metamyelocytes 1 Differential Comment FINAL DIFF MANUAL Toxic Granulation 1+ Platelet Estimate LOW Platelet Morphology Comment NORMAL Tear Drop Cells 1+ Ovalocytes 1+ Prothrombin Time 12.1 Prothromb Time International Ratio 1.2 Activated Partial Thromboplast Time 59.8 Blood Urea Nitrogen 15 Creatinine 0.70 Random Glucose 147 Total Protein 6.0 Albumin 2.9 Calcium Level 8.2 Magnesium Level 1.6 Alkaline Phosphatase 107 Aspartate Amino Transf (AST/SGOT) 11 Alanine Aminotransferase (ALT/SGPT) 14 Total Bilirubin 0.4 Sodium Level 135 Potassium Level 3.9 Chloride Level 97 Carbon Dioxide Level 26.7 Anion Gap 11 Estimat Glomerular Filtration Rate 112 Lactic Acid Level 1.9 Total Creatine Kinase 29 Troponin I 0.14 0.11 0.09 B-Type Natriuretic Peptide 54 Lipase 27 Urine Color YELLOW Urine Turbidity HAZY Urine pH 8.0 Urine Specific [place] 1.016 Urine Protein 100 Urine Glucose (UA) NEG Urine Ketones TRACE Urine Occult Blood LARGE Urine Nitrite NEG Urine Bilirubin NEG Urine Urobilinogen LESS THAN 2.0 Urine Leukocyte Esterase TRACE Urine RBC Urine WBC 11 Microscopic Urinalysis Comment CATH-CULTURE IND Test 08/25/17 05:07 White Blood Count 6.4 Red Blood Count 2.67 Hemoglobin 7.3 Hematocrit 22.2 Mean Corpuscular Volume 83.0 Mean Corpuscular Hemoglobin 27.2 Mean Corpuscular Hemoglobin Concent 32.8 Red Cell Distribution Width 20.8 Platelet Count 46 Mean Platelet Volume 8.5 Neutrophils (%) (Auto) 87.1 Lymphocytes (%) (Auto) 5.9 Monocytes (%) (Auto) 6.4 Eosinophils (%) (Auto) 0.4 Basophils (%) (Auto) 0.2 Neutrophils # (Auto) 5.5 Lymphocytes # (Auto) 0.4 Monocytes # (Auto) 0.4 Eosinophils # (Auto) 0.0 Basophils # (Auto) 0.0 CBC Comment AUTO DIFF Differential Total Cells Counted 100 Neutrophils % (Manual) 78 Band Neutrophils % 9 Lymphocytes % 4 Monocytes % 5 Neutrophils # (Manual) 5.8 Metamyelocytes 3 Promyelocytes 1 Differential Comment FINAL DIFF MANUAL Platelet Estimate LOW Platelet Morphology Comment NORMAL Ovalocytes 1+ Blood Urea Nitrogen 10 Creatinine 0.49 Random Glucose 120 Total Protein 5.1 Albumin 2.3 Calcium Level 8.4 Alkaline Phosphatase 85 Aspartate Amino Transf (AST/SGOT) 7 Alanine Aminotransferase (ALT/SGPT) 10 Total Bilirubin 0.4 Sodium Level 140 Potassium Level 3.7 Chloride Level 106 Carbon Dioxide Level 25.6 Anion Gap 8 Estimat Glomerular Filtration Rate 169 Date/Time Source Procedure Growth Status 08/24/17 15:50 Blood Peripheral Aerobic Blood Culture - Preliminary NO GROWTH IN 1 DAY Resulted 08/24/17 15:50 Blood Peripheral Anaerobic Blood Culture - Preliminary NO GROWTH IN 1 DAY Resulted 08/24/17 16:40 Urine Catheterized Urine Urine Culture - Preliminary NO GROWTH IN 24 HOURS. Resulted Result Diagram: 08/25/17 0507 08/25/17 0507 Imaging Last Impressions Chest X-Ray 08/24/17 1515 Signed Impressions: Service Date/Time: Thursday, August 24, 2017 15:28 - CONCLUSION: Bibasilar air space disease Stan Suero MD CT Angiography 08/24/17 1514 Signed Impressions: Service Date/Time: Thursday, August 24, 2017 17:09 - CONCLUSION: No evidence of pulmonary embolism. Bilateral infiltrates and effusions. Malik Farmer MD Assessment and Plan Assessment and Plan Urologic impression: 1. History bilateral ureteral obstruction related to lymphoma status post stent placement 2. Lower urinary tract symptoms possibly related to a urinary tract infection Recommendations: 1. Agree with present antibiotic therapy 2. Follow-up on urine culture 3. Renal ultrasound to evaluate the upper tracts 4. If ultrasound negative, then patient should follow-up with Dr. Bhatia next week as scheduled Ervin Hilario MD August 25, 2017 14:50
--- NOTE | 2017-08-25 15:16 | HHI.PR ---
Subjective Remarks Follow-up sepsis/community acquired bacterial pneumonia/UTI August 25, 2017-patient seen and examined, afebrile and denies any chest pain or shortness of breath. No acute event overnight. Patient reported a history of renal stent placement. Reports improvement of pelvic pressure and denies any significant dysuria. Objective Vitals Vital Signs Date Time Temp Pulse Resp B/P (MAP) Pulse Ox O2 Delivery O2 Flow Rate FiO2 08/25/17 12:10 97.9 85 18 114/54 (74) 93 08/25/17 07:53 128 08/25/17 07:37 98.1 106 18 142/63 (89) 92 08/25/17 04:20 98.3 100 18 130/60 (83) 94 08/25/17 02:02 18 08/25/17 00:00 98.1 90 16 116/54 (74) 95 08/24/17 23:19 20 08/24/17 23:15 87 08/24/17 22:24 98.1 98 20 115/58 (77) 08/24/17 19:30 96 08/24/17 19:20 98.5 92 18 108/53 (71) 96 Room Air 08/24/17 19:14 18 08/24/17 19:14 18 08/24/17 17:54 100 20 113/53 (73) 99 Nasal Cannula 3.00 08/24/17 17:30 18 08/24/17 16:30 98 Room Air 08/24/17 16:30 96 Room Air I/O 08/24/17 08/24/17 08/24/17 08/25/17 08/25/17 08/25/17 07:00 15:00 23:00 07:00 15:00 23:00 Intake Total 3350 ml Output Total 1350 ml Balance 3350 ml -1350 ml Intake IV Total 3350 ml Output Urine Total 1350 ml Result Diagram: 08/25/17 0507 08/25/17 0507 Imaging Last Impressions Chest X-Ray 08/24/17 1515 Signed Impressions: Service Date/Time: Thursday, August 24, 2017 15:28 - CONCLUSION: Bibasilar air space disease Stan Suero MD CT Angiography 08/24/17 9922 Signed Impressions: Service Date/Time: Thursday, August 24, 2017 17:09 - CONCLUSION: No evidence of pulmonary embolism. Bilateral infiltrates and effusions. Malik Farmer MD Objective Remarks GENERAL: NAD SKIN: Warm and dry. HEAD: Normocephalic. EYES: No scleral icterus. No injection or drainage. NECK: Supple, trachea midline. No JVD or lymphadenopathy. CARDIOVASCULAR: Regular rate and rhythm without murmurs, gallops, or rubs. RESPIRATORY: Breath sounds decrease bilaterally. No accessory muscle use. GASTROINTESTINAL: Abdomen soft, non-tender, nondistended. MUSCULOSKELETAL: No cyanosis, or edema. BACK: Nontender without obvious deformity. No CVA tenderness. A/P Problem List: (1) Sepsis due to pneumonia ICD Code: J18.9 - Pneumonia, unspecified organism; A41.9 - Sepsis, unspecified organism Status: Acute (2) UTI (urinary tract infection) ICD Code: N39.0 - Urinary tract infection, site not specified Status: Acute (3) Elevated troponin ICD Code: R74.8 - Abnormal levels of other serum enzymes; A41.9 - Sepsis, unspecified organism Status: Acute (4) NHL (non-Hodgkin's lymphoma) ICD Code: C85.90 - Non-Hodgkin lymphoma, unspecified, unspecified site Status: Chronic Assessment and Plan 71-year-old man with Sepsis in immunocompromised patient 2/2 community-acquired bacterial pneumonia and UTI Currently on cefepime and vancomycin Check urinary pneumococcal and Legionella antigens Monitor cultures Community acquired bacterial pneumonia Currently on cefepime and vancomycin Maintain oxygen saturation above 88%-92% Bronchodilator as needed Urinary tract infection History of bilateral ureteral stenting 3 months ago Patient with history of renal stent placement Urology was consulted Continue with above antibiotics Troponin elevation No chest pain on presentation This is probably demand ischemia secondary to sepsis. Troponin I trending down Non-Hodgkin's lymphoma. Most recent chemotherapy 12 days ago Oncology consultation pending Thrombocytopenia. Platelets 69. No signs of bleeding. Continue to monitor Normochromic normocytic anemia. Transfuse for hemoglobin less than 7 History of hypertension, hypothyroidism Continue patient's home medications Prophylaxis. SCDs. Hold off on anticoagulation secondary to thrombus cytopenia. Admits patient to inpatient Transfer to [facility] Problem Qualifiers (1) UTI (urinary tract infection): Qualified Codes: N30.01 - Acute cystitis with hematuria Eugenio Berg MD August 25, 2017 15:16
--- NOTE | 2017-08-25 16:22 | RADRPT ---
EXAM DATE/TIME: 08/25/2017 15:20 [place] COMPARISON: ABDOMEN KUB ONLY, July 28, 2017, 10:38. CT PULMONARY ANGIOGRAM, August 24, 2017, 17:09. US KIDNEY/KENNETH AL/BLADDER, July 27, 2017, 7:51. [facility], US ABDOMEN COMPLETE, March 09, 2017 INDICATIONS : Elevated labs. MEDICAL HISTORY : Hypertension. Hypothyroidism. Gastroesophageal reflux disease. Dysuria. Non-hodgkins lymphoma. SURGICAL HISTORY : Kidney stent. Right hip replacement. ENCOUNTER: Subsequent ACUITY: 1 month PAIN SCORE: 0/10 LOCATION: Bilateral flank MEASUREMENTS: RIGHT KIDNEY: 12.7 x 7.0 x 5.2 cm LEFT KIDNEY: 13.6 x 4.7 x 4.4 cm FINDINGS: RIGHT KIDNEY: Anechoic avascular cyst in the superior pole of the right kidney measuring 4.0 x 4.3 x 6.5 cm similar to previous exam. Diffusely increased cortical echogenicity with persistent mild right-sided hydrone phrosis. Redemonstration of ureteral stent. Previously noted 4 mm calculus in the inferior pole is no t well-demonstrated. LEFT KIDNEY: Diffusely increased echogenicity without hydronephrosis. Left ureteral stent is not well demonstrated and may have been removed in the interval. BLADDER: Heterogeneous dependent material in the bladder with diffuse bladder wall thickening. CONCLUSION: 1. Echogenic kidneys consistent with medical renal disease. 2. Mild persistent right-sided hydronephrosis with ureter stent in place. 3. No left-sided hydronephrosis. Left ureteral stent is not well demonstrated and may have been remov ed. 4. Heterogeneous dependent material in the bladder which may reflect blood products. 5. Diffuse bladder wall thickening. Kobe Conteh MD on August 25, 2017 at 16:12 Board Certified Radiologist. This report was verified electronically.
[2017-08-25] MEDS: AZITHROMYCIN INJ 500 MG in SODIUM CHLOR 0.9% 250 ML INJ 250 ML IV SCH (21:10)
[2017-08-26] VITALS (10 sets, daily range): BP systolic 98–149; BP diastolic 52–76; PULSE 20–100; RESP 16–20; TEMP 97.2–98.9; O2SAT 93–97
[2017-08-26] MEDS: LEVOTHYROXINE SODIUM 75 MCG TAB PO SCH (04:40)
[2017-08-26] MEDS: MORPHINE SULFATE 15 MG TAB PO PRN ×5 (04:42→22:09)
[2017-08-26] MEDS ORDERED: PHARMACY ORDERED LAB ONE (04:45)
[2017-08-26] MEDS: VANCOMYCIN INJ 1,250 MG in SODIUM CHLOR 0.9% 250 ML INJ 250 ML IV SCH ×3 (06:03→23:19)
--- NOTE | 2017-08-26 07:37 | MB ---
cc: Flakita Ha MD DATE: 08/26/2017 CHIEF COMPLAINT: 1. Fever in the setting of an immunocompromised patient. 2. Pneumonia. 3. Urinary tract infection. HISTORY OF PRESENT ILLNESS: Mr. Hawthorne is a 71-year-old gentleman with a history of diffuse large B cell lymphoma. He is status post 6 cycles of R-CHOP therapy with treatment response on interim imaging. Plans for 6 weeks after last cycle of chemo for a repeat PET scan. He presented to the emergency room on 08/24/2017 with a 3-day history of dysuria, fever up to 102 and respiratory symptoms. In the emergency room, he was found to have a white blood cell count of 11.4, hemoglobin 8.8, platelet count of 69,000 with an ANC of 10.6. Chemistry studies with a creatinine of 0.49, low total protein and low albumin. ROS as above. all others negative. IMAGING STUDIES: With bilateral infiltrates and effusions. Renal ultrasound with echogenic kidneys right-sided hydronephrosis with ureter stent in place. No left-sided hydronephrosis, diffuse bladder wall thickening. Right kidney cyst. PAST MEDICAL HISTORY: 1. Hypertension. 2. Diffuse large B cell lymphoma. PAST SURGICAL HISTORY: 1. Hernia repair. 2. Hip replacement. 3. Stent placement. 4. Colonoscopy. 5. Recent laparoscopy for adhesions. ALLERGIES: NO KNOWN DRUG ALLERGIES. FAMILY HISTORY: No family history of malignancy. SOCIAL HISTORY: Negative x 3. Good support system with his . PHYSICAL EXAMINATION: GENERAL: A well-developed, well-nourished patient in no distress. SKIN: Warm and dry. HEAD: Normocephalic, atraumatic. EYES: PERRLA, EOMI. NECK: Supple with no palpable lymphadenopathy. CARDIOVASCULAR: Regular rate and rhythm. No murmurs. RESPIRATORY: Clear to auscultation bilaterally. ABDOMEN: Soft, nontender and nondistended. Bowel sounds present. NEUROLOGIC: Grossly nonfocal. ASSESSMENT AND PLAN: 1. Diffuse large B cell lymphoma, status post 6 cycles of R-CHOP therapy with post-treatment PET scan pending. 2. Sepsis in an immunocompromised patient. He is currently being treated with broad spectrum antibiotics. We will follow cultures. 3. Dysuria with blood in urine. Urology team has been consulted. 4. Cytopenias due to chemotherapy. Inpatient oncology team will continue to follow. MD JUDIE Shankar , 07:15 AM , 07:35 AM NEO
[2017-08-26] MEDS: MORPHINE SULFATE 15 MG CONTROLLED RELEASE TAB PO SCH ×2 (08:00→21:09)
[2017-08-26] MEDS: CEFEPIME INJ 2,000 MG in SODIUM CHLORIDE 0.9% INJ 100 ML IV SCH ×2 (08:00→16:00)
[2017-08-26 08:47] LABS: AUTOMATED NEUTROPHIL # 5.7 TH/MM3 (1.8-7.7); BASOPHIL % 0.3 % (0.0-2.0); EOSINOPHIL # 0.1 TH/MM3 (0-0.4); EOSINOPHIL % 0.8 % (0.0-4.0); LYMPH % 5.6 % (9.0-44.0); LYMPHOCYTE # 0.4 TH/MM3 (1.0-4.8); MEAN CELL VOLUME 82.3 FL (80.0-100.0); MEAN CORPUSCULAR HEMOGLOBIN 27.4 PG (27.0-34.0); MEAN CORPUSCULAR HGB CONC 33.3 % (32.0-36.0); MEAN PLATELET VOLUME 8.7 FL (7.0-11.0); MONO % 6.7 % (0.0-8.0); MONOCYTE # 0.4 TH/MM3 (0-0.9); NEUT % 86.6 % (16.0-70.0); PLATELET COUNT 62 TH/MM3 (150-450); RED BLOOD COUNT 2.54 MIL/MM3 (4.50-5.90); RED CELL DISTRIBUTION WIDTH 20.6 % (11.6-17.2); WHITE BLOOD COUNT 6.6 TH/MM3 (4.0-11.0)
[2017-08-26 08:58] LABS: HEMATOCRIT 20.9 % (39.0-51.0)
[2017-08-26] MEDS: SODIUM CHLORIDE 0.9% FLUSH 10 ML FLUSH IV FLUSH SCH ×2 (09:00→21:00)
[2017-08-26] MEDS: SODIUM CHLOR 0.9% 1000 ML INJ 1,000 ML IV SCH ×2 (09:07→22:14)
[2017-08-26 09:12] LABS: BICARBONATE 25.9 MEQ/L (21.0-32.0); BLOOD UREA NITROGEN 8 MG/DL (7-18); CALCIUM 8.2 MG/DL (8.5-10.1); CHLORIDE 104 MEQ/L (98-107); CREATININE 0.46 MG/DL (0.60-1.30); GLOMERULAR FILTRATION RATE 182 ML/MIN (>89); GLUCOSE,RANDOM 160 MG/DL (74-106); SODIUM (NA) 138 MEQ/L (136-145)
[2017-08-26] MEDS ORDERED: SODIUM CHLOR 0.9% 250 ML INJ 250 ML IV ONE ×2 (09:15)
[2017-08-26] MEDS ORDERED: FUROSEMIDE 20 MG/2 ML VIAL IV PUSH ONE ×2 (09:15→22:00)
[2017-08-26] MEDS: POLYSACCHARIDE IRON COMPLEX 150 MG CAP PO SCH ×2 (09:30→21:09)
[2017-08-26] MEDS: METOPROLOL TARTRATE 25 MG TAB PO SCH ×2 (09:30→21:11)
[2017-08-26] MEDS: LACTOBACILLUS ACIDOPHILUS TAB PO SCH ×3 (09:30→18:50)
[2017-08-26] MEDS: ALLOPURINOL 300 MG TAB PO SCH (09:31)
[2017-08-26] MEDS: DOCUSATE SODIUM 100 MG CAP PO SCH ×2 (09:32→21:08)
[2017-08-26 09:40] LABS: TOXIC GRANULATION 2+ (NORMAL)
[2017-08-26 09:42] LABS: BANDS 18 % (0-6); LYMPHOCYTES 1 % (9-44); MONOCYTES 2 % (0-8); NEUTROPHIL # MANUAL DIFF 6.4 TH/MM3 (1.8-7.7); POLYS (SEG NEUTROPHILS) 79 % (16-70)
[2017-08-26 09:43] LABS: OVALOCYTES 1+ (NORMAL); TEARDROP RBCS 1+ (NORMAL)
[2017-08-26] MEDS: POLYETHYLENE GLYCOL 17 GM PKG PO SCH (09:54)
[2017-08-26] MEDS: PANTOPRAZOLE SOD 40 MG DELAYED RELEASE TAB PO SCH (09:54)
--- NOTE | 2017-08-26 11:41 | HHI.PR ---
Subjective Remarks Follow-up sepsis/community acquired bacterial pneumonia/UTI August 25, 2017-patient seen and examined, afebrile and denies any chest pain or shortness of breath. No acute event overnight. Patient reported a history of renal stent placement. Reports improvement of pelvic pressure and denies any significant dysuria. August 26, 2017-patient seen and examined, reports significant improvement of dysuria and pelvic pressure. H&H dropping however patient denies any gross blood. Currently afebrile. Renal ultrasound report noted Objective Vitals Vital Signs Date Time Temp Pulse Resp B/P (MAP) Pulse Ox O2 Delivery O2 Flow Rate FiO2 08/26/17 07:35 97.2 100 18 135/65 (88) 96 08/26/17 05:42 18 08/26/17 04:27 98.2 91 16 121/56 (77) 94 08/26/17 00:40 98.9 93 16 125/57 (79) 93 08/25/17 23:00 111 08/25/17 22:11 18 08/25/17 19:47 97.8 93 16 138/64 (88) 93 08/25/17 16:10 97.6 83 18 115/56 (75) 95 08/25/17 12:10 97.9 85 18 114/54 (74) 93 I/O 08/25/17 08/25/17 08/25/17 08/26/17 08/26/17 08/26/17 07:00 15:00 23:00 07:00 15:00 23:00 Intake Total 1140 ml Output Total 1350 ml 1100 ml Balance -1350 ml 40 ml Intake Oral 240 ml IV Total 900 ml Output Urine Total 1350 ml 1100 ml # Bowel Movements 1 Result Diagram: 08/26/17 0810 08/26/17 0810 Imaging Last Impressions Renal Ultrasound 08/25/17 0000 Signed Impressions: Service Date/Time: Friday, August 25, 2017 15:20 - CONCLUSION: 1. Echogenic kidneys consistent with medical renal disease. 2. Mild persistent right-sided hydronephrosis with ureter stent in place. 3. No left-sided hydronephrosis. Left ureteral stent is not well demonstrated and may have been removed. 4. Heterogeneous dependent material in the bladder which may reflect blood products. 5. Diffuse bladder wall thickening. Kobe Conteh MD Chest X-Ray 08/24/17 1515 Signed Impressions: Service Date/Time: Thursday, August 24, 2017 15:28 - CONCLUSION: Bibasilar air space disease Stan Suero MD CT Angiography 08/24/17 1514 Signed Impressions: Service Date/Time: Thursday, August 24, 2017 17:09 - CONCLUSION: No evidence of pulmonary embolism. Bilateral infiltrates and effusions. Malik Farmer MD Objective Remarks GENERAL: NAD SKIN: Warm and dry. HEAD: Normocephalic. EYES: No scleral icterus. No injection or drainage. NECK: Supple, trachea midline. No JVD or lymphadenopathy. CARDIOVASCULAR: Regular rate and rhythm without murmurs, gallops, or rubs. RESPIRATORY: Breath sounds decrease bilaterally. No accessory muscle use. GASTROINTESTINAL: Abdomen soft, non-tender, nondistended. MUSCULOSKELETAL: No cyanosis, or edema. BACK: Nontender without obvious deformity. No CVA tenderness. A/P Problem List: (1) Sepsis due to pneumonia ICD Code: J18.9 - Pneumonia, unspecified organism; A41.9 - Sepsis, unspecified organism Status: Resolved (2) UTI (urinary tract infection) ICD Code: N39.0 - Urinary tract infection, site not specified Status: Acute (3) Elevated troponin ICD Code: R74.8 - Abnormal levels of other serum enzymes; A41.9 - Sepsis, unspecified organism Status: Acute (4) NHL (non-Hodgkin's lymphoma) ICD Code: C85.90 - Non-Hodgkin lymphoma, unspecified, unspecified site Status: Chronic (5) Anemia due to acute blood loss ICD Code: D62 - Acute posthemorrhagic anemia Assessment and Plan 71-year-old man with Sepsis in immunocompromised patient-resolved 2/2 community-acquired bacterial pneumonia and UTI Currently on cefepime and vancomycin Monitor cultures, negative to date Community acquired bacterial pneumonia Currently on cefepime and vancomycin Maintain oxygen saturation above 88%-92% Bronchodilator as needed Urinary tract infection History of bilateral ureteral stenting 3 months ago Patient with history of renal stent placement Urology input appreciated, however awaiting for recommendation secondary to renal ultrasound finding Continue with above antibiotics Troponin elevation No chest pain on presentation This is probably demand ischemia secondary to sepsis. Troponin I trending down Non-Hodgkin's lymphoma. Most recent chemotherapy 12 days ago Oncology ff Normochromic normocytic anemia Anemia of likely acute blood loss Transfuse 1 unit packed red blood cell August 26, 2017 Monitor H&H Thrombocytopenia. Platelets 69. No signs of bleeding. Continue to monitor History of hypertension, hypothyroidism Continue patient's home medications Prophylaxis. SCDs. Hold off on anticoagulation secondary to thrombus cytopenia. Admits patient to inpatient Problem Qualifiers (1) UTI (urinary tract infection): Qualified Codes: N30.01 - Acute cystitis with hematuria Eugenio Berg MD August 26, 2017 11:41
[2017-08-26] MEDS ORDERED: LACT PO (12:17)
--- NOTE | 2017-08-26 12:18 | HHI.DCPOC ---
Discharge Care Plan Diagnosis: (1) Sepsis due to pneumonia (2) Anemia due to acute blood loss (3) NHL (non-Hodgkin's lymphoma) Your Health Problems Are: Difficulty with ADL Appetite Changes Bleeding Tendency Weight Loss Shortness of Breath Goals to Promote Your Health * To prevent worsening of your condition and complications * To maintain your health at the optimal level Directions to Meet Your Goals Take your medications as prescribed Follow your dietary instruction Follow activity as directed Keep your appointments as scheduled Take your immunizations and boosters as scheduled If your symptoms worsen call your PCP, if no PCP go to Urgent Care Center or Emergency Room Smoking is Dangerous to Your Health. Avoid second hand smoke Call the 24-hour hour crisis hotline for domestic abuse at Sanjuana Garcia August 26, 2017 12:18
--- NOTE | 2017-08-26 12:20 | HHI.FF ---
Face to Face Verification Diagnosis: (1) Sepsis due to pneumonia (2) Anemia due to acute blood loss (3) NHL (non-Hodgkin's lymphoma) Physical Therapy Order: Evaluate and Treat Occupational Therapy Order: Evaluate and Treat Home Health Nursing Order: Medical education Signs/symptoms of disease process Wound care and dressing changes Nursing assessment with vital signs I have seen patient Chao Hawthorne on 08/26/17. My clinical findings support the need for the requested home health care services because: Ltd mobility - disease progression Patient has SOB Deconditioned w/ increased weakness Limited ability to care for self I certify that my clinical findings support that this patient is homebound because: Impaired cognitive ability/safety Unsteady gait/balance Sanjuana Garcia August 26, 2017 12:20
[2017-08-26 16:43] LABS: HEMOGLOBIN A1C 5.1 % (4.3-6.0)
[2017-08-26] MEDS: AZITHROMYCIN INJ 500 MG in SODIUM CHLOR 0.9% 250 ML INJ 250 ML IV SCH (22:08)
[2017-08-26] MEDS: LORazepam 0.5 MG TAB PO PRN (23:20)
[2017-08-27] VITALS: PULSE 80
[2017-08-27] MEDS: CEFEPIME INJ 2,000 MG in SODIUM CHLORIDE 0.9% INJ 100 ML IV SCH ×2 (00:53→09:30)
[2017-08-27 04:01] VITALS: BP 116/57; PULSE 90; RESP 16; TEMP 99.7; O2SAT 96
[2017-08-27] MEDS: MORPHINE SULFATE 15 MG TAB PO PRN (05:40)
[2017-08-27] MEDS: LEVOTHYROXINE SODIUM 75 MCG TAB PO SCH (05:40)
[2017-08-27] MEDS: VANCOMYCIN INJ 1,250 MG in SODIUM CHLOR 0.9% 250 ML INJ 250 ML IV SCH (05:42)
[2017-08-27] MEDS ORDERED: PHARMACY ORDERED LAB ONE (05:45)
[2017-08-27 06:17] LABS: AUTOMATED NEUTROPHIL # 4.7 TH/MM3 (1.8-7.7); BASOPHIL % 0.3 % (0.0-2.0); EOSINOPHIL # 0.1 TH/MM3 (0-0.4); EOSINOPHIL % 1.1 % (0.0-4.0); HEMATOCRIT 24.3 % (39.0-51.0); HEMOGLOBIN 8.2 GM/DL (13.0-17.0); LYMPH % 5.4 % (9.0-44.0); LYMPHOCYTE # 0.3 TH/MM3 (1.0-4.8); MEAN CELL VOLUME 82.1 FL (80.0-100.0); MEAN CORPUSCULAR HEMOGLOBIN 27.5 PG (27.0-34.0); MEAN CORPUSCULAR HGB CONC 33.5 % (32.0-36.0); MEAN PLATELET VOLUME 8.4 FL (7.0-11.0); MONO % 7.5 % (0.0-8.0); MONOCYTE # 0.4 TH/MM3 (0-0.9); NEUT % 85.7 % (16.0-70.0); PLATELET COUNT 63 TH/MM3 (150-450); RED BLOOD COUNT 2.96 MIL/MM3 (4.50-5.90); RED CELL DISTRIBUTION WIDTH 19.1 % (11.6-17.2); WHITE BLOOD COUNT 5.5 TH/MM3 (4.0-11.0)
[2017-08-27 07:57] LABS: BANDS 13 % (0-6); LYMPHOCYTES 9 % (9-44); MONOCYTES 1 % (0-8); NEUTROPHIL # MANUAL DIFF 4.8 TH/MM3 (1.8-7.7); OVALOCYTES 1+ (NORMAL); POLYS (SEG NEUTROPHILS) 75 % (16-70); TOXIC GRANULATION 2+ (NORMAL)
[2017-08-27 07:58] VITALS: BP 134/64; PULSE 99; RESP 16; TEMP 97.6; O2SAT 98
[2017-08-27 08:00] VITALS: PULSE 82
[2017-08-27] MEDS ORDERED: CEFU1TAB18 PO (08:53)
--- NOTE | 2017-08-27 08:54 | HHI.DS ---
Discharge Summary Admission Date August 24, 2017 at 18:01 Discharge Date: August 27, 2017 Admitting Diagnosis Sepsis (PNA Bilateral, UTI) (1) Sepsis due to pneumonia ICD Code: J18.9 - Pneumonia, unspecified organism; A41.9 - Sepsis, unspecified organism Status: Resolved (2) UTI (urinary tract infection) ICD Code: N39.0 - Urinary tract infection, site not specified Status: Acute (3) Elevated troponin ICD Code: R74.8 - Abnormal levels of other serum enzymes; A41.9 - Sepsis, unspecified organism Status: Acute (4) NHL (non-Hodgkin's lymphoma) ICD Code: C85.90 - Non-Hodgkin lymphoma, unspecified, unspecified site Status: Chronic (5) Anemia due to acute blood loss ICD Code: D62 - Acute posthemorrhagic anemia Procedures None Brief History - From Admission 71-year-old male with a history of diffuse large B-cell lymphoma, follows with oncology here, most recent chemotherapy 12 days ago. Patient presents with a 3 day history of dysuria, as well as fever today up to 102. . Denies any chest pain or shortness of breath. Denies nausea or vomiting. Denies flank pain. CBC/BMP: 08/27/17 0540 08/26/17 0810 Significant Findings Laboratory Tests Test 08/24/17 15:40 08/24/17 16:40 08/24/17 23:30 08/25/17 02:36 White Blood Count 11.4 TH/MM3 (4.0-11.0) Red Blood Count 3.24 MIL/MM3 (4.50-5.90) Hemoglobin 8.8 GM/DL (13.0-17.0) Hematocrit 26.5 % (39.0-51.0) Red Cell Distribution Width 20.2 % (11.6-17.2) Platelet Count 69 TH/MM3 (150-450) Neutrophils (%) (Auto) 93.8 % (16.0-70.0) Lymphocytes (%) (Auto) 1.0 % (9.0-44.0) Neutrophils # (Auto) 10.6 TH/MM3 (1.8-7.7) Lymphocytes # (Auto) 0.1 TH/MM3 (1.0-4.8) Neutrophils % (Manual) 82 % (16-70) Band Neutrophils % 13 % (0-6) Lymphocytes % 2 % (9-44) Neutrophils # (Manual) 10.9 TH/MM3 (1.8-7.7) Toxic Granulation 1+ (NORMAL) Platelet Estimate LOW (NORMAL) Tear Drop Cells 1+ (NORMAL) Ovalocytes 1+ (NORMAL) Prothrombin Time 12.1 SEC (9.8-11.6) Activated Partial Thromboplast Time 59.8 SEC (24.3-30.1) Random Glucose 147 MG/DL (74-106) Total Protein 6.0 GM/DL (6.4-8.2) Albumin 2.9 GM/DL (3.4-5.0) Calcium Level 8.2 MG/DL (8.5-10.1) Aspartate Amino Transf (AST/SGOT) 11 U/L (15-37) Sodium Level 135 MEQ/L (136-145) Chloride Level 97 MEQ/L (98-107) Total Creatine Kinase 29 U/L (39-308) Troponin I 0.14 NG/ML (0.02-0.05) 0.11 NG/ML (0.02-0.05) 0.09 NG/ML (0.02-0.05) Lipase 27 U/L (73-393) Urine Turbidity HAZY (CLEAR) Urine Protein 100 mg/dL (NEG-TRACE) Urine Ketones TRACE mg/dL (NEG) Urine Occult Blood LARGE (NEG) Urine Leukocyte Esterase TRACE (NEG) Urine WBC 11 /hpf (0-5) Test 08/25/17 05:07 08/26/17 04:48 08/26/17 08:10 08/27/17 05:40 Red Blood Count 2.67 MIL/MM3 (4.50-5.90) 2.54 MIL/MM3 (4.50-5.90) 2.96 MIL/MM3 (4.50-5.90) Hemoglobin 7.3 GM/DL (13.0-17.0) 7.0 GM/DL (13.0-17.0) 8.2 GM/DL (13.0-17.0) Hematocrit 22.2 % (39.0-51.0) 20.9 % (39.0-51.0) 24.3 % (39.0-51.0) Red Cell Distribution Width 20.8 % (11.6-17.2) 20.6 % (11.6-17.2) 19.1 % (11.6-17.2) Platelet Count 46 TH/MM3 (150-450) 62 TH/MM3 (150-450) 63 TH/MM3 (150-450) Neutrophils (%) (Auto) 87.1 % (16.0-70.0) 86.6 % (16.0-70.0) 85.7 % (16.0-70.0) Lymphocytes (%) (Auto) 5.9 % (9.0-44.0) 5.6 % (9.0-44.0) 5.4 % (9.0-44.0) Lymphocytes # (Auto) 0.4 TH/MM3 (1.0-4.8) 0.4 TH/MM3 (1.0-4.8) 0.3 TH/MM3 (1.0-4.8) Neutrophils % (Manual) 78 % (16-70) 79 % (16-70) 75 % (16-70) Band Neutrophils % 9 % (0-6) 18 % (0-6) 13 % (0-6) Lymphocytes % 4 % (9-44) 1 % (9-44) Metamyelocytes 3 % (0-1) Promyelocytes 1 % (0-0) Platelet Estimate LOW (NORMAL) LOW (NORMAL) LOW (NORMAL) Ovalocytes 1+ (NORMAL) 1+ (NORMAL) 1+ (NORMAL) Creatinine 0.49 MG/DL (0.60-1.30) 0.46 MG/DL (0.60-1.30) Random Glucose 120 MG/DL (74-106) 160 MG/DL (74-106) Total Protein 5.1 GM/DL (6.4-8.2) Albumin 2.3 GM/DL (3.4-5.0) Calcium Level 8.4 MG/DL (8.5-10.1) 8.2 MG/DL (8.5-10.1) Aspartate Amino Transf (AST/SGOT) 7 U/L (15-37) Alanine Aminotransferase (ALT/SGPT) 10 U/L (12-78) Toxic Granulation 2+ (NORMAL) 2+ (NORMAL) Tear Drop Cells 1+ (NORMAL) Potassium Level 3.3 MEQ/L (3.5-5.1) Vancomycin Level Trough 15.7 MCG/ML (5.0-10.0) Imaging Last Impressions Renal Ultrasound 08/25/17 0000 Signed Impressions: Service Date/Time: Friday, August 25, 2017 15:20 - CONCLUSION: 1. Echogenic kidneys consistent with medical renal disease. 2. Mild persistent right-sided hydronephrosis with ureter stent in place. 3. No left-sided hydronephrosis. Left ureteral stent is not well demonstrated and may have been removed. 4. Heterogeneous dependent material in the bladder which may reflect blood products. 5. Diffuse bladder wall thickening. Kobe Conteh MD Chest X-Ray 08/24/17 1515 Signed Impressions: Service Date/Time: Thursday, August 24, 2017 15:28 - CONCLUSION: Bibasilar air space disease Stan Suero MD CT Angiography 08/24/17 1514 Signed Impressions: Service Date/Time: Thursday, August 24, 2017 17:09 - CONCLUSION: No evidence of pulmonary embolism. Bilateral infiltrates and effusions. Malik Farmer MD PE at Discharge GENERAL: NAD SKIN: Warm and dry. HEAD: Normocephalic. EYES: No scleral icterus. No injection or drainage. NECK: Supple, trachea midline. No JVD or lymphadenopathy. CARDIOVASCULAR: Regular rate and rhythm without murmurs, gallops, or rubs. RESPIRATORY: Breath sounds decrease bilaterally. No accessory muscle use. GASTROINTESTINAL: Abdomen soft, non-tender, nondistended. MUSCULOSKELETAL: No cyanosis, or edema. BACK: Nontender without obvious deformity. No CVA tenderness. Pt Condition on Discharge: Stable Discharge Disposition: Disch w/ Home Health Serv Discharge Instructions DIET: Follow Instructions for: Heart Healthy Diet Activities you can perform: Regular-No Restrictions Activities to Avoid: Driving for 24 hrs, Driving Follow up Referrals: Oncology/Hematology - 1 Week with Flakita Ha MD PCP Follow-up - 2-3 Days Urology - 3-5 Days with Gio Bhatia MD New Medications: Cefuroxime (Ceftin) 250 Mg Tab 250 MG PO BID for Infection for 5 Days, #10 TAB Lactobacillus Acidophilus (Acidophilus/l-Sporogenes) 35 Million Cell-25 Million Cell Tab 1 TAB PO TID for Nutritional Supplement, #90 TAB Continued Medications: Albuterol Neb (Albuterol Neb) 2.5 Mg/0.5 Ml Neb 2.5 MG NEB Q4HR NEB PRN for WHEEZING, EA Note: The Albuterol Sulfate Inhalation Solution is concentrated and must be diluted. Read complete instructions carefully before using. Allopurinol (Allopurinol) 300 Mg Tab 300 MG PO DAILY for Gout, #30 TAB 0 Refills Docusate Sodium (Docusate Sodium) 100 Mg Cap 100 MG PO BID for Prevent Constipation, #60 CAP 0 Refills Levothyroxine (Levothyroxine) 75 Mcg Tab 75 MCG PO DAILY for Thyroid, #30 TAB 0 Refills Lorazepam (Ativan) 0.5 Mg Tab 0.5 MG PO HS PRN for ANXIETY AND/OR AGITATION, TAB 0 Refills Metoprolol Tartrate (Metoprolol Tartrate) 25 Mg Tab 25 MG PO BID, #60 TAB 0 Refills Morphine IR (Morphine IR) 15 Mg Tab 15 MG PO Q4H PRN for PAIN, TAB 0 Refills Morphine Sulfate ER 12 HR (Morphabond ER 12 HR) 15 Mg Tab 15 MG PO Q12H for Pain Management, #60 TAB 0 Refills Pantoprazole (Protonix) 40 Mg Tab 40 MG PO DAILY for Reflux, #30 TAB 0 Refills Polyethylene Glycol 3350 Powder (Miralax Powder) 17 Gm Powd 17 GM PO DAILY for Constipation, #1 CAN 0 Refills Mix and dissolve one measuring cap-ful (17 grams) in water or juice. Polysaccharide Iron Complex (Poly-Iron 150) 150 Mg Iron Cap 150 MG PO Q12HR for Nutritional Supplement, #60 CAP 0 Refills Snajuana Garcia August 27, 2017 08:54
[2017-08-27] MEDS: SODIUM CHLORIDE 0.9% FLUSH 10 ML FLUSH IV FLUSH SCH (09:00)
[2017-08-27] MEDS: POLYETHYLENE GLYCOL 17 GM PKG PO SCH (09:30)
[2017-08-27] MEDS: MORPHINE SULFATE 15 MG CONTROLLED RELEASE TAB PO SCH (09:30)
[2017-08-27] MEDS: POLYSACCHARIDE IRON COMPLEX 150 MG CAP PO SCH (09:31)
[2017-08-27] MEDS: METOPROLOL TARTRATE 25 MG TAB PO SCH (09:31)
[2017-08-27] MEDS: ALLOPURINOL 300 MG TAB PO SCH (09:31)
[2017-08-27] MEDS: PANTOPRAZOLE SOD 40 MG DELAYED RELEASE TAB PO SCH (09:31)
[2017-08-27] MEDS: DOCUSATE SODIUM 100 MG CAP PO SCH (09:31)
[2017-08-27] MEDS: LACTOBACILLUS ACIDOPHILUS TAB PO SCH (09:31)
--- NOTE | 2017-08-27 10:57 | HHI.PR ---
Subjective Remarks Follow-up sepsis/community acquired bacterial pneumonia/UTI August 25, 2017-patient seen and examined, afebrile and denies any chest pain or shortness of breath. No acute event overnight. Patient reported a history of renal stent placement. Reports improvement of pelvic pressure and denies any significant dysuria. August 26, 2017-patient seen and examined, reports significant improvement of dysuria and pelvic pressure. H&H dropping however patient denies any gross blood. Currently afebrile. Renal ultrasound report noted August 27, 2017-patient seen in exam, patient states he feels way better. He was transfused 1 unit packed red blood cells yesterday. Denies any more pelvic pressure and dysuria Objective Vitals Vital Signs Date Time Temp Pulse Resp B/P (MAP) Pulse Ox O2 Delivery O2 Flow Rate FiO2 08/27/17 08:00 82 08/27/17 07:58 97.6 99 16 134/64 (87) 98 08/27/17 04:01 99.7 90 16 116/57 (76) 96 08/27/17 00:00 80 08/26/17 23:57 98.3 83 16 110/54 (72) 97 08/26/17 20:31 98.1 98 16 137/62 (87) 94 08/26/17 18:42 98.1 20 20 149/76 08/26/17 17:49 98.3 84 20 128/60 08/26/17 17:27 98.2 84 17 125/60 (81) 94 08/26/17 15:26 98.4 84 18 98/52 (67) 96 08/26/17 15:09 20 I/O 08/26/17 08/26/17 08/26/17 08/27/17 08/27/17 08/27/17 07:00 15:00 23:00 07:00 15:00 23:00 Intake Total 1140 ml 425 ml 480 ml Output Total 1100 ml 200 ml 790 ml Balance 40 ml 225 ml -310 ml Intake Oral 240 ml 480 ml IV Total 900 ml Packed Cells 400 ml Blood Product IV Normal Saline Flush 25 ml Output Urine Total 1100 ml 200 ml 790 ml # Voids 3 # Bowel Movements 1 Result Diagram: 08/27/17 0540 08/26/17 0810 Imaging Last Impressions Renal Ultrasound 08/25/17 0000 Signed Impressions: Service Date/Time: Friday, August 25, 2017 15:20 - CONCLUSION: 1. Echogenic kidneys consistent with medical renal disease. 2. Mild persistent right-sided hydronephrosis with ureter stent in place. 3. No left-sided hydronephrosis. Left ureteral stent is not well demonstrated and may have been removed. 4. Heterogeneous dependent material in the bladder which may reflect blood products. 5. Diffuse bladder wall thickening. Kobe Conteh MD Chest X-Ray 08/24/17 1515 Signed Impressions: Service Date/Time: Thursday, August 24, 2017 15:28 - CONCLUSION: Bibasilar air space disease Stan Suero MD CT Angiography 08/24/17 1514 Signed Impressions: Service Date/Time: Thursday, August 24, 2017 17:09 - CONCLUSION: No evidence of pulmonary embolism. Bilateral infiltrates and effusions. Malik Farmer MD Objective Remarks GENERAL: NAD SKIN: Warm and dry. HEAD: Normocephalic. EYES: No scleral icterus. No injection or drainage. NECK: Supple, trachea midline. No JVD or lymphadenopathy. CARDIOVASCULAR: Regular rate and rhythm without murmurs, gallops, or rubs. RESPIRATORY: Breath sounds decrease bilaterally. No accessory muscle use. GASTROINTESTINAL: Abdomen soft, non-tender, nondistended. MUSCULOSKELETAL: No cyanosis, or edema. BACK: Nontender without obvious deformity. No CVA tenderness. Procedures None A/P Problem List: (1) Sepsis due to pneumonia ICD Code: J18.9 - Pneumonia, unspecified organism; A41.9 - Sepsis, unspecified organism Status: Resolved (2) UTI (urinary tract infection) ICD Code: N39.0 - Urinary tract infection, site not specified Status: Acute (3) Elevated troponin ICD Code: R74.8 - Abnormal levels of other serum enzymes; A41.9 - Sepsis, unspecified organism Status: Acute (4) NHL (non-Hodgkin's lymphoma) ICD Code: C85.90 - Non-Hodgkin lymphoma, unspecified, unspecified site Status: Chronic (5) Anemia due to acute blood loss ICD Code: D62 - Acute posthemorrhagic anemia Assessment and Plan 71-year-old man with Sepsis in immunocompromised patient-resolved 2/2 community-acquired bacterial pneumonia and UTI Will discontinue cefepime and vancomycin Monitor cultures, negative to date Community acquired bacterial pneumonia Currently on cefepime and vancomycin, which we will switch to p.o. antibiotic Maintain oxygen saturation above 88%-92% Bronchodilator as needed Urinary tract infection History of bilateral ureteral stenting 3 months ago Patient with history of renal stent placement Urology input appreciated, however awaiting for recommendation secondary to renal ultrasound finding Continue with above antibiotics Troponin elevation No chest pain on presentation This is probably demand ischemia secondary to sepsis. Troponin I trending down Non-Hodgkin's lymphoma. Most recent chemotherapy 12 days ago Oncology ff Normochromic normocytic anemia Anemia of likely acute blood loss Transfused 1 unit packed red blood cell on August 26, 2017 Monitor H&H Thrombocytopenia. Platelets 69. No signs of bleeding. Continue to monitor History of hypertension, hypothyroidism Continue patient's home medications Prophylaxis. SCDs. Problem Qualifiers (1) UTI (urinary tract infection): Qualified Codes: N30.01 - Acute cystitis with hematuria Eugenio Berg MD August 27, 2017 10:57
--- NOTE | 2017-08-27 11:05 | HHI.DS ---
Discharge Summary Admission Date August 24, 2017 at 18:01 Discharge Date: August 27, 2017 Admitting Diagnosis Sepsis (PNA Bilateral, UTI) (1) Sepsis due to pneumonia ICD Code: J18.9 - Pneumonia, unspecified organism; A41.9 - Sepsis, unspecified organism Status: Resolved (2) UTI (urinary tract infection) ICD Code: N39.0 - Urinary tract infection, site not specified Status: Acute (3) Elevated troponin ICD Code: R74.8 - Abnormal levels of other serum enzymes; A41.9 - Sepsis, unspecified organism Status: Acute (4) NHL (non-Hodgkin's lymphoma) ICD Code: C85.90 - Non-Hodgkin lymphoma, unspecified, unspecified site Status: Chronic (5) Anemia due to acute blood loss ICD Code: D62 - Acute posthemorrhagic anemia Procedures None Brief History - From Admission 71-year-old male with a history of diffuse large B-cell lymphoma, follows with oncology here, most recent chemotherapy 12 days ago. Patient presents with a 3 day history of dysuria, as well as fever today up to 102. . Denies any chest pain or shortness of breath. Denies nausea or vomiting. Denies flank pain. CBC/BMP: 08/27/17 0540 08/26/17 0810 Significant Findings Laboratory Tests Test 08/24/17 15:40 08/24/17 16:40 08/24/17 23:30 08/25/17 02:36 White Blood Count 11.4 TH/MM3 (4.0-11.0) Red Blood Count 3.24 MIL/MM3 (4.50-5.90) Hemoglobin 8.8 GM/DL (13.0-17.0) Hematocrit 26.5 % (39.0-51.0) Red Cell Distribution Width 20.2 % (11.6-17.2) Platelet Count 69 TH/MM3 (150-450) Neutrophils (%) (Auto) 93.8 % (16.0-70.0) Lymphocytes (%) (Auto) 1.0 % (9.0-44.0) Neutrophils # (Auto) 10.6 TH/MM3 (1.8-7.7) Lymphocytes # (Auto) 0.1 TH/MM3 (1.0-4.8) Neutrophils % (Manual) 82 % (16-70) Band Neutrophils % 13 % (0-6) Lymphocytes % 2 % (9-44) Neutrophils # (Manual) 10.9 TH/MM3 (1.8-7.7) Toxic Granulation 1+ (NORMAL) Platelet Estimate LOW (NORMAL) Tear Drop Cells 1+ (NORMAL) Ovalocytes 1+ (NORMAL) Prothrombin Time 12.1 SEC (9.8-11.6) Activated Partial Thromboplast Time 59.8 SEC (24.3-30.1) Random Glucose 147 MG/DL (74-106) Total Protein 6.0 GM/DL (6.4-8.2) Albumin 2.9 GM/DL (3.4-5.0) Calcium Level 8.2 MG/DL (8.5-10.1) Aspartate Amino Transf (AST/SGOT) 11 U/L (15-37) Sodium Level 135 MEQ/L (136-145) Chloride Level 97 MEQ/L (98-107) Total Creatine Kinase 29 U/L (39-308) Troponin I 0.14 NG/ML (0.02-0.05) 0.11 NG/ML (0.02-0.05) 0.09 NG/ML (0.02-0.05) Lipase 27 U/L (73-393) Urine Turbidity HAZY (CLEAR) Urine Protein 100 mg/dL (NEG-TRACE) Urine Ketones TRACE mg/dL (NEG) Urine Occult Blood LARGE (NEG) Urine Leukocyte Esterase TRACE (NEG) Urine WBC 11 /hpf (0-5) Test 08/25/17 05:07 08/26/17 04:48 08/26/17 08:10 08/27/17 05:40 Red Blood Count 2.67 MIL/MM3 (4.50-5.90) 2.54 MIL/MM3 (4.50-5.90) 2.96 MIL/MM3 (4.50-5.90) Hemoglobin 7.3 GM/DL (13.0-17.0) 7.0 GM/DL (13.0-17.0) 8.2 GM/DL (13.0-17.0) Hematocrit 22.2 % (39.0-51.0) 20.9 % (39.0-51.0) 24.3 % (39.0-51.0) Red Cell Distribution Width 20.8 % (11.6-17.2) 20.6 % (11.6-17.2) 19.1 % (11.6-17.2) Platelet Count 46 TH/MM3 (150-450) 62 TH/MM3 (150-450) 63 TH/MM3 (150-450) Neutrophils (%) (Auto) 87.1 % (16.0-70.0) 86.6 % (16.0-70.0) 85.7 % (16.0-70.0) Lymphocytes (%) (Auto) 5.9 % (9.0-44.0) 5.6 % (9.0-44.0) 5.4 % (9.0-44.0) Lymphocytes # (Auto) 0.4 TH/MM3 (1.0-4.8) 0.4 TH/MM3 (1.0-4.8) 0.3 TH/MM3 (1.0-4.8) Neutrophils % (Manual) 78 % (16-70) 79 % (16-70) 75 % (16-70) Band Neutrophils % 9 % (0-6) 18 % (0-6) 13 % (0-6) Lymphocytes % 4 % (9-44) 1 % (9-44) Metamyelocytes 3 % (0-1) Promyelocytes 1 % (0-0) Platelet Estimate LOW (NORMAL) LOW (NORMAL) LOW (NORMAL) Ovalocytes 1+ (NORMAL) 1+ (NORMAL) 1+ (NORMAL) Creatinine 0.49 MG/DL (0.60-1.30) 0.46 MG/DL (0.60-1.30) Random Glucose 120 MG/DL (74-106) 160 MG/DL (74-106) Total Protein 5.1 GM/DL (6.4-8.2) Albumin 2.3 GM/DL (3.4-5.0) Calcium Level 8.4 MG/DL (8.5-10.1) 8.2 MG/DL (8.5-10.1) Aspartate Amino Transf (AST/SGOT) 7 U/L (15-37) Alanine Aminotransferase (ALT/SGPT) 10 U/L (12-78) Toxic Granulation 2+ (NORMAL) 2+ (NORMAL) Tear Drop Cells 1+ (NORMAL) Potassium Level 3.3 MEQ/L (3.5-5.1) Vancomycin Level Trough 15.7 MCG/ML (5.0-10.0) PE at Discharge GENERAL: NAD SKIN: Warm and dry. HEAD: Normocephalic. EYES: No scleral icterus. No injection or drainage. NECK: Supple, trachea midline. No JVD or lymphadenopathy. CARDIOVASCULAR: Regular rate and rhythm without murmurs, gallops, or rubs. RESPIRATORY: Breath sounds decrease bilaterally. No accessory muscle use. GASTROINTESTINAL: Abdomen soft, non-tender, nondistended. MUSCULOSKELETAL: No cyanosis, or edema. BACK: Nontender without obvious deformity. No CVA tenderness. Hospital Course While in hospital, patient was treated for: Sepsis in immunocompromised patient-resolved 2/2 community-acquired bacterial pneumonia and UTI Patient was started on IV cefepime and vancomycin with monitoring of cultures , which remained negative. Sepsis resolved Community acquired bacterial pneumonia He was treated with cefepime and vancomycin, and switched to p.o. antibiotic prior to discharge Maintain oxygen saturation above 88%-92% Bronchodilator as needed Urinary tract infection History of bilateral ureteral stenting 3 months ago Patient with history of renal stent placement Urology input appreciated. Renal ultrasound was reviewed. Patient will need follow-up outpatient with urology He Was treated with IV antibiotics, and urine culture was negative Troponin elevation No chest pain on presentation This is probably demand ischemia secondary to sepsis. Troponin I trending down Non-Hodgkin's lymphoma. Most recent chemotherapy Oncology ff Normochromic normocytic anemia Anemia of likely acute blood loss Transfused 1 unit packed red blood cell on August 26, 2017 Monitor H&H Thrombocytopenia. Platelets 69. No signs of bleeding. Continue to monitor History of hypertension, hypothyroidism He was continued on these home medications Prophylaxis. SCDs. Pt Condition on Discharge: Stable Discharge Disposition: Disch w/ Home Health Serv Discharge Time: > 30 minutes Discharge Instructions DIET: Follow Instructions for: Heart Healthy Diet Activities you can perform: Regular-No Restrictions Activities to Avoid: Driving for 24 hrs, Driving Follow up Referrals: Oncology/Hematology - 1 Week with Flakita Ha MD PCP Follow-up - 2-3 Days Urology - 3-5 Days with Gio Bhatia MD New Medications: Cefuroxime (Ceftin) 250 Mg Tab 250 MG PO BID for Infection for 5 Days, #10 TAB Lactobacillus Acidophilus (Acidophilus/l-Sporogenes) 35 Million Cell-25 Million Cell Tab 1 TAB PO TID for Nutritional Supplement, #90 TAB Continued Medications: Albuterol Neb (Albuterol Neb) 2.5 Mg/0.5 Ml Neb 2.5 MG NEB Q4HR NEB PRN for WHEEZING, EA Note: The Albuterol Sulfate Inhalation Solution is concentrated and must be diluted. Read complete instructions carefully before using. Allopurinol (Allopurinol) 300 Mg Tab 300 MG PO DAILY for Gout, #30 TAB 0 Refills Docusate Sodium (Docusate Sodium) 100 Mg Cap 100 MG PO BID for Prevent Constipation, #60 CAP 0 Refills Levothyroxine (Levothyroxine) 75 Mcg Tab 75 MCG PO DAILY for Thyroid, #30 TAB 0 Refills Lorazepam (Ativan) 0.5 Mg Tab 0.5 MG PO HS PRN for ANXIETY AND/OR AGITATION, TAB 0 Refills Metoprolol Tartrate (Metoprolol Tartrate) 25 Mg Tab 25 MG PO BID, #60 TAB 0 Refills Morphine IR (Morphine IR) 15 Mg Tab 15 MG PO Q4H PRN for PAIN, TAB 0 Refills Morphine Sulfate ER 12 HR (Morphabond ER 12 HR) 15 Mg Tab 15 MG PO Q12H for Pain Management, #60 TAB 0 Refills Pantoprazole (Protonix) 40 Mg Tab 40 MG PO DAILY for Reflux, #30 TAB 0 Refills Polyethylene Glycol 3350 Powder (Miralax Powder) 17 Gm Powd 17 GM PO DAILY for Constipation, #1 CAN 0 Refills Mix and dissolve one measuring cap-ful (17 grams) in water or juice. Polysaccharide Iron Complex (Poly-Iron 150) 150 Mg Iron Cap 150 MG PO Q12HR for Nutritional Supplement, #60 CAP 0 Refills Eugenio Berg MD August 27, 2017 11:05
[2017-08-27 11:31] VITALS: RESP 20
--- NOTE | 2017-08-28 00:40 | PD.ONC.PN ---
Subjective Subjective Remarks Patinet seen at bedside prior to hospital discharge. Resting comfortably in bed. Afebrile Cultures with no growth to date. Objective Data Date Time Temp Pulse Resp B/P (MAP) Pulse Ox O2 Delivery O2 Flow Rate FiO2 08/27/17 11:31 20 08/27/17 08:00 82 08/27/17 07:58 97.6 99 16 134/64 (87) 98 08/27/17 04:01 99.7 90 16 116/57 (76) 96 Result Diagram: 08/27/17 0540 08/26/17 0810 Laboratory Results Laboratory Tests Test 08/27/17 05:40 White Blood Count 5.5 TH/MM3 Red Blood Count 2.96 MIL/MM3 Hemoglobin 8.2 GM/DL Hematocrit 24.3 % Mean Corpuscular Volume 82.1 FL Mean Corpuscular Hemoglobin 27.5 PG Mean Corpuscular Hemoglobin Concent 33.5 % Red Cell Distribution Width 19.1 % Platelet Count 63 TH/MM3 Mean Platelet Volume 8.4 FL Neutrophils (%) (Auto) 85.7 % Lymphocytes (%) (Auto) 5.4 % Monocytes (%) (Auto) 7.5 % Eosinophils (%) (Auto) 1.1 % Basophils (%) (Auto) 0.3 % Neutrophils # (Auto) 4.7 TH/MM3 Lymphocytes # (Auto) 0.3 TH/MM3 Monocytes # (Auto) 0.4 TH/MM3 Eosinophils # (Auto) 0.1 TH/MM3 Basophils # (Auto) 0.0 TH/MM3 CBC Comment AUTO DIFF Differential Total Cells Counted 100 Neutrophils % (Manual) 75 % Band Neutrophils % 13 % Lymphocytes % 9 % Monocytes % 1 % Eosinophils % 2 % Neutrophils # (Manual) 4.8 TH/MM3 Differential Comment FINAL DIFF MANUAL Toxic Granulation 2+ Platelet Estimate LOW Platelet Morphology Comment NORMAL Ovalocytes 1+ Vancomycin Level Trough 15.7 MCG/ML Objective Remarks GENERAL: Well-nourished, well-developed patient. SKIN: Warm and dry. HEAD: Normocephalic. EYES: No scleral icterus. No injection or drainage. RESPIRATORY: No accessory muscle use. NEUROLOGICAL: Awake, alert, and oriented x3. PSYCHIATRIC: Appropriate mood and affect; insight and judgment normal. Assessment/Plan Assessment 1. DLBCL, GCB subtype treatment with 6 cycles of RCHOP. 2. Fever: resolved, cultures with no growth. He will be discharged home with close follow up in clinic. Flakita Ha MD August 28, 2017 00:40
[2017-08-29] MEDS ORDERED: PHARMACY ORDERED LAB ONE (05:45)
== END 2017-08-27 13:16 | disposition home or self-care (01) | DRG 871 ==
LOC: NEPC 14:43 → NEDA 18:01 → NEPGCP 22:12
PROVIDERS: ADMIT Hospitalist; ATTEND Hospitalist
PROC: 30243N1 Transfusion of Nonautologous Red Blood Cells into Central Vein, Percutaneous Approach (ICD-10-PCS; principal; 2017-08-26)
DX: A41.9 Sepsis, unspecified organism (principal); J15.9 Unspecified bacterial pneumonia; C83.30 Diffuse large B-cell lymphoma, unspecified site; D62 Acute posthemorrhagic anemia; N39.0 Urinary tract infection, site not specified; Z68.1 Body mass index [BMI] 19.9 or less, adult; D69.6 Thrombocytopenia, unspecified; T45.1X5A Adverse effect of antineoplastic and immunosuppressive drugs, initial encounter; R74.8 Abnormal levels of other serum enzymes; R63.4 Abnormal weight loss; I10 Essential (primary) hypertension; E03.9 Hypothyroidism, unspecified; Z72.0 Tobacco use; Z96.649 Presence of unspecified artificial hip joint
CPT/HCPCS: 36430; 71045; 71275; 76775; 80048; 80053; 80202; 81001; 82550; 83036; 83605; 83690; 83735; 83880; 84484; 85007; 85027; 85610; 85730; 86850; 86900; 86901; 86920; 87040; 87086; 93005; 96365; 96367; 96375; J0456; J0692; J1170; J1642; J1650; J1940; J3370; J7030; J7050; P9040; Q9967

== ENCOUNTER 2017-09-28 09:06 | Day surgery (SDC) | payer OTHER ==
[~2017-09-28] VITALS: Ht 182.9 cm; Wt 65.9 kg
[~2017-09-28 09:06] MED LIST changes: +CEFU1TAB18 PO; +LACT PO
[2017-09-28] MEDS ORDERED: LIDOCAINE HCL 1% 10 ML VIAL SQ ONE (09:07)
[2017-09-28 09:30] VITALS: BP 127/74; PULSE 71; RESP 18; TEMP 98.6; O2SAT 95
[2017-09-28] MEDS ORDERED: MULT-65 PO (09:37)
[2017-09-28] MEDS ORDERED: OMEGCAP PO (09:37)
[2017-09-28 09:54] LABS: AUTOMATED NEUTROPHIL # 1.5 TH/MM3 (1.8-7.7); BASOPHIL # 0.1 TH/MM3 (0-0.2); EOSINOPHIL # 0.1 TH/MM3 (0-0.4); EOSINOPHIL % 3.6 % (0.0-4.0); HEMATOCRIT 34.6 % (39.0-51.0); HEMOGLOBIN 11.4 GM/DL (13.0-17.0); LYMPH % 26.1 % (9.0-44.0); LYMPHOCYTE # 0.8 TH/MM3 (1.0-4.8); MEAN CELL VOLUME 82.6 FL (80.0-100.0); MEAN CORPUSCULAR HEMOGLOBIN 27.1 PG (27.0-34.0); MEAN CORPUSCULAR HGB CONC 32.9 % (32.0-36.0); MEAN PLATELET VOLUME 7.3 FL (7.0-11.0); MONO % 19.2 % (0.0-8.0); MONOCYTE # 0.6 TH/MM3 (0-0.9); NEUT % 49.1 % (16.0-70.0); PLATELET COUNT 91 TH/MM3 (150-450); RED BLOOD COUNT 4.19 MIL/MM3 (4.50-5.90); WHITE BLOOD COUNT 3.1 TH/MM3 (4.0-11.0)
[2017-09-28] MEDS ORDERED: SODIUM CHLOR 0.9% 1000 ML IV SCH (10:00)
[2017-09-28] MEDS ORDERED: MIDAZOLAM HCL 2 MG/2 ML VIAL ONE ×2 (10:44→11:10)
[2017-09-28 10:57] LABS: OVALOCYTES 1+ (NORMAL)
[2017-09-28 11:35] VITALS: BP 102/57; PULSE 73; RESP 16; TEMP 98.3; O2SAT 90
[2017-09-28 11:50] VITALS: BP 108/63; PULSE 70; RESP 18; O2SAT 97
[2017-09-28 12:20] VITALS: BP 118/67; PULSE 70; RESP 18; O2SAT 92
[2017-09-28 12:50] VITALS: BP 122/69; PULSE 74; RESP 18; O2SAT 97
[2017-09-28 13:20] VITALS: BP 120/63; PULSE 68; RESP 18; O2SAT 97
--- NOTE | 2017-09-29 08:26 | RADRPT ---
EXAM DATE: 09/28/2017 11:40 AM EDT AGE/SEX: 71 years / Male INDICATIONS: Bone marrow biopsy. CLINICAL DATA: This is the patient's initial encounter. Patient reports that signs and symptoms have been present for 1 day and indicates a pain score of 0/10. MEDICAL/SURGICAL HISTORY: Lymphoma. Hypertension. None. COMPARISON: No prior exams available for comparison. SEDATION TIME (min): 30 BIOPSY SITE: Right iliac bone MEDICATION(S): 6mg midazolam (Versed) IV 300mcg fentanyl (Sublimaze) IV DEVICE(S): 11 gauge Bone marrow biopsy needle 2 passes . . PROCEDURE: CT guided . pelvic biopsy Prior to the procedure informed consent was obtained. Any appropriate prior imaging studies were rev iewed. Using automated exposure control and adjustment of the mA and/or kV according to patient size , radiation dose was kept as low as reasonably achievable to obtain optimal diagnostic quality images . DICOM format image data is available electronically for review and comparison. The site was prepped in a sterile fashion. Full sterile technique was used, including cap, mask, aurora rile gloves and gown and a large sterile sheet. Hand hygiene and 2% chlorhexidine and/or betadine/al cohol prep was utilized per protocol for cutaneous antisepsis. The skin and subcutaneous tissues wer e infiltrated with local anesthetic solution. With CT guidance the previously identified target was localized. Biopsy was performed using the presc ribed needle as above. Following biopsy marrow aspiration was performed with repeat puncture. Adequa te hemostasis was obtained with compression at the puncture site. Follow-up CT scan reveals no hemorrhage. Conscious sedation was performed with the prescribed dosages and duration as above in the presence of an independent trained radiology nurse to assist in the monitoring of the patient. EKG and oximetry remained stable throughout the procedure. The patient tolerated the procedure well and there were no complications. The patient was sent to Radiology Outpatient Unit in stable condition. CONCLUSION: 1. Uncomplicated CT guided bone marrow aspirate. 2. Uncomplicated CT guided bone marrow biopsy. Electronically signed by: Young To MD 09/29/2017 8:24 AM EDT
== END 2017-09-28 13:35 | disposition home or self-care (01) ==
LOC: HRAD 09:06 → HRIP 09:12 → HRAD 13:35
PROVIDERS: ATTEND Internal Medicine
DX: C83.30 Diffuse large B-cell lymphoma, unspecified site (principal); D61.818 Other pancytopenia; I10 Essential (primary) hypertension; Z87.891 Personal history of nicotine dependence
CPT/HCPCS: 38222; 77012; 85025; 85097; 88184; 88185; 88237; 88264; 88280; 88305; 88311; 88313; 88341; 88342; 99152; 99153; C1830; J2250; J3010; J7030

== ENCOUNTER 2017-10-21 12:46 | Inpatient (IN) ==
[2017-10-21] MEDS ORDERED: Morphine Sulfate Inj 8 MG/ML Vial IV.PUSH ONE (14:54)
[2017-10-21] MEDS ORDERED: Sod Chloride 0.9% Inj 1,000 ML IV.SIG ONE (14:54)
--- NOTE | 2017-10-21 14:58 | ED ---
HPI General Chief complaint: Abdominal Pain Stated complaint: abd pain Time Seen by Provider: 10/21/17 14:36 History of Present Illness HPI narrative: Patient is a 71-year-old male with history of lymphoma and PET and bone scan in September was negative presents emergency department for evaluation of queasiness nausea with green emesis since yesterday. Patient states feels very similar to when he had an obstruction last, endorses some mild generalized aching alanan pain. Apparently he has adhesions from radiation and chemotherapy. His had lysis of adhesions and hernia repairs in his abdomen is only abdominal surgeries. Denies any chest pain shortness of breath fevers diarrhea nausea vomiting blood in stool or emesis. Patient tried morphine without relief. Onset (ago): day(s) Location: abdomen Radiation: non-radiation Severity: moderate Relieving factors: none Exacerbating factors: none Associated symptoms: nausea/vomiting Related Data Home Medications Medication Instructions Recorded Confirmed albuterol sulfate 2.5 mg INHALATION QID PRN 10/21/17 10/21/17 docusate sodium [Colace] 100 mg PO BID 10/21/17 10/21/17 ibuprofen [Advil] 600 mg PO Q6HR PRN 10/21/17 10/21/17 levothyroxine 75 mcg PO DAILY 10/21/17 10/21/17 lorazepam [Ativan] 0.5 mg PO Q8HR PRN 10/21/17 10/21/17 methotrexate 10/21/17 metoprolol tartrate 25 mg PO BID 10/21/17 10/21/17 morphine 15 mg PO Q6H PRN 10/21/17 10/21/17 pantoprazole [Protonix] 40 mg PO DAILY 10/21/17 10/21/17 polyethylene glycol 3350 [Miralax] 17 g PO HS 10/21/17 10/21/17 polysaccharide iron complex 150 mg PO BID 10/21/17 10/21/17 [Poly-Iron] Allergies Allergy/AdvReac Type Severity Reaction Status Date / Time itraconazole Allergy Unknown Rash Verified 10/21/17 14:39 tea tree Allergy Unknown Anaphylaxis Verified 10/21/17 14:39 SPORINOX Allergy Severe ELLIOTT 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 Review of Systems Except as stated in HPI: all other systems reviewed are negative [facility] Medical History Medical History Lymphoma (Acute) Surgical History Surgical History Status post chemotherapy (Acute) Status post laparoscopic surgery (Acute) Family History Family History Father CAD (coronary artery disease) Mother Bowel cancer Social History Social History Second Hand Smoke Exposure: No Smoking Status: Never smoker How Often Do You Have a Drink Containing Alcohol: Never Recent Travel in [facility] within the Last 8 Weeks: No Recent Out of Country Travel within the Last 8 Weeks: No Exam Narrative Exam Narrative: GENERAL: Well-developed well-nourished no obvious distress peer SKIN: Focused skin assessment warm/dry. HEAD: Atraumatic. Normocephalic. EYES: Pupils equal and round. No scleral icterus. No injection or drainage. ENT: No nasal bleeding or discharge. Mucous membranes pink and moist. NECK: Trachea midline. No JVD. CARDIOVASCULAR: Regular rate and rhythm. No murmur appreciated. RESPIRATORY: No accessory muscle use. Clear to auscultation. Breath sounds equal bilaterally. GASTROINTESTINAL: Abdomen soft, mildly distended abdomen, well-healed surgical scars, no rebound no percussive tenderness, minimally tender throughout all 4 quadrants. Normal to hyperactive bowel sounds.. Hepatic and splenic margins not palpable. MUSCULOSKELETAL: No obvious deformities. No clubbing. No cyanosis. No edema. NEUROLOGICAL: Awake and alert. No obvious cranial nerve deficits. Motor grossly within normal limits. Normal speech. PSYCHIATRIC: Appropriate mood and affect; insight and judgment normal. Course Initial Documented Vital Signs Temperature 97.5 F L 10/21/17 12:49 Pulse Rate 86 10/21/17 12:49 Respiratory Rate 10/21/17 12:49 Blood Pressure 135/66 10/21/17 12:49 Pulse Oximetry 98 10/21/17 12:49 Last Documented Vital Signs Temperature 98.8 F 10/21/17 20:00 Pulse Rate 91 H 10/21/17 20:00 Respiratory Rate 10/21/17 21:50 Blood Pressure 129/64 10/21/17 20:00 Pulse Oximetry 97 10/21/17 20:00 Sign Out Sign Out Data: Patient Sign Out occurred on 10/21/17 at 17:09. Patient's care was discussed, and care was transferred from Young Atwood MD to Santosh Dias. Sign Out Comment: Discussed with Dr. Dias to follow the CAT scan and disposition the patient appropriately Last updated by Young Atwood MD at 10/21/17 17:08 Post-Handoff Eval: Patient was seen by ED physician and signed out to me. Review of CT scan, pelvis show partial small bowel obstruction. Patient will be admitted to medical service with general surgeon consultation. Medical Decision Making MDM Narrative Medical decision making narrative: Patient room to the emergency department, abdomen largely benign on palpation except there is distention and is resonant to percussion. Given his history of small bowel obstruction I think this needs exclusion. Pain medicine was given, CT abdomen is ordered. Patient will be discussed with Dr. Dias at 1700 sign out to follow-up CAT scan and disposition the patient properly peer Differential Diagnosis Differential Diagnosis: Diverticulitis, diverticulosis, acute abdomen unlikely, bowel obstruction. Lab Data Result diagrams: 10/21/17 16:00 10/21/17 16:00 Lab Results 10/21/17 10/21/17 10/21/17 Range/Units 16:00 16:00 16:00 WBC 8.3 (4.0-11.0) th/mm3 RBC 4.65 (4.50-5.90) mil/mm3 Hgb 12.8 L (13.0-17.0) gm/dL Hct 39.1 (39.0-51.0) % MCV 84.0 (80.0-100.0) fL MCH 27.6 (27.0-34.0) pg MCHC 32.8 (32.0-36.0) % RDW 18.4 H (11.6-17.2) % Plt Count 75 L (150-450) th/mm3 MPV 8.0 (7.0-11.0) fL Prelim Diff (Auto) Slide review pending Neut % (Auto) 87.2 H (16.0-70.0) % Lymph % (Auto) 4.5 L (9.0-44.0) % [place] % (Auto) 7.6 (0.0-8.0) % Eos % (Auto) 0.3 (0.0-4.0) % Baso % (Auto) 0.4 (0.0-2.0) % Neut # (Auto) 7.3 (1.8-7.7) th/mm3 Lymph # (Auto) 0.4 L (1.0-4.8) th/mm3 [place] # (Auto) 0.6 (0.0-0.9) th/mm3 Eos # (Auto) 0.0 (0.0-0.4) th/mm3 Baso # (Auto) 0.0 (0.0-0.2) th/mm3 WBC Differential . Diff Scan Auto diff confirmed Differential Comment . Platelet Estimate Low L (Normal) Platelet Morphology Normal (Normal) Ovalocytes 1+ H (None) PT 10.7 (9.8-11.6) sec INR 1.1 Ratio Sodium 138 (136-145) meq/L Potassium 4.1 (3.5-5.1) meq/L Chloride 100 (98-107) meq/L Carbon Dioxide 28.2 (21.0-32.0) meq/L Anion Gap 10 (5-15) meq/L BUN 16 (7-18) mg/dL Creatinine 0.56 L (0.60-1.30) mg/dL Estimated GFR Greater than 89 (>89) mL/min Random Glucose 136 H (74-106) mg/dL Calcium 9.3 (8.5-10.1) mg/dL Total Bilirubin 0.5 (0.2-1.0) mg/dL AST 16 (15-37) U/L ALT 20 (12-78) U/L Alkaline Phosphatase 98 (45-117) U/L Total Protein 7.0 (6.4-8.2) g/dL Albumin 3.9 (3.4-5.0) g/dL Lipase 36 L (73-393) U/L Urine Color (Yellw/Straw) Urine Clarity (Clear) Urine pH (5.0-8.5) Ur Specific [place] (1.002-1.035) Urine Protein (Neg-Trace) mg/dL Urine Glucose (UA) (Negative) mg/dL Urine Ketones (Negative) mg/dL Urine Occult Blood (Negative) Urine Nitrate (Negative) Urine Bilirubin (Negative) Urine Urobilinogen (Less than 2) mg/dL Ur Leukocyte Esterase (Negative) Urine RBC (0-3) /hpf Urine WBC (0-5) /hpf Urine Mucus (Occasional) /lpf Micro UA Comment Urine Culture Comments 10/21/17 Range/Units 18:35 WBC (4.0-11.0) th/mm3 RBC (4.50-5.90) mil/mm3 Hgb (13.0-17.0) gm/dL Hct (39.0-51.0) % MCV (80.0-100.0) fL MCH (27.0-34.0) pg MCHC (32.0-36.0) % RDW (11.6-17.2) % Plt Count (150-450) th/mm3 MPV (7.0-11.0) fL Prelim Diff (Auto) Neut % (Auto) (16.0-70.0) % Lymph % (Auto) (9.0-44.0) % [place] % (Auto) (0.0-8.0) % Eos % (Auto) (0.0-4.0) % Baso % (Auto) (0.0-2.0) % Neut # (Auto) (1.8-7.7) th/mm3 Lymph # (Auto) (1.0-4.8) th/mm3 [place] # (Auto) (0.0-0.9) th/mm3 Eos # (Auto) (0.0-0.4) th/mm3 Baso # (Auto) (0.0-0.2) th/mm3 WBC Differential Diff Scan Differential Comment Platelet Estimate (Normal) Platelet Morphology (Normal) Ovalocytes (None) PT (9.8-11.6) sec INR Ratio Sodium (136-145) meq/L Potassium (3.5-5.1) meq/L Chloride (98-107) meq/L Carbon Dioxide (21.0-32.0) meq/L Anion Gap (5-15) meq/L BUN (7-18) mg/dL Creatinine (0.60-1.30) mg/dL Estimated GFR (>89) mL/min Random Glucose (74-106) mg/dL Calcium (8.5-10.1) mg/dL Total Bilirubin (0.2-1.0) mg/dL AST (15-37) U/L ALT (12-78) U/L Alkaline Phosphatase (45-117) U/L Total Protein (6.4-8.2) g/dL Albumin (3.4-5.0) g/dL Lipase (73-393) U/L Urine Color Yellow (Yellw/Straw) Urine Clarity Hazy H (Clear) Urine pH 6.0 (5.0-8.5) Ur Specific [place] 1.039 H (1.002-1.035) Urine Protein 30 H (Neg-Trace) mg/dL Urine Glucose (UA) Negative (Negative) mg/dL Urine Ketones Negative (Negative) mg/dL Urine Occult Blood Negative (Negative) Urine Nitrate Negative (Negative) Urine Bilirubin Negative (Negative) Urine Urobilinogen 2.0 H (Less than 2) mg/dL Ur Leukocyte Esterase Negative (Negative) Urine RBC 1 (0-3) /hpf Urine WBC 1 (0-5) /hpf Urine Mucus Few H (Occasional) /lpf Micro UA Comment Culture not ind Urine Culture Comments Culture not ind Imaging Data Radiologist's impression: ITS Impressions Abdomen X-Ray 10/21/17 14:54 CONCLUSION: Mild gaseous distention of bowel as above. No free air identified. Abdomen/Pelvis CT 10/21/17 14:54 CONCLUSION: 1. Dilatation of proximal and mid small bowel with distal decompression characteristic of at least a partial small bowel obstruction. 2. Mild constipation with colonic diverticula without evidence for diverticulitis. 3. Loculated rim-enhancing bilateral pleural effusions slightly decreased in size from July. 4. Stable splenomegaly. 5. Removal of bilateral ureteral stents with persistent mild bilateral hydronephrosis and nonobstructing tiny renal calculi. Discharge Plan Discharge Disposition Patient Disposition: 30 Still Patient Physicians Team ED Provider: Santosh Dias Primary Care Provider: Sancho Mackenzie Attending Provider: Marika Devi Other Providers: Solomon Carbajal ; Je Julien Richard Status ED Status: Discharged
--- NOTE | 2017-10-21 15:23 | XR ---
EXAM DATE: 10/21/2017 3:17 PM EDT AGE/SEX: 71 years / Male INDICATIONS: Abdominal pain. CLINICAL DATA: This is the patient's initial encounter. Patient reports that signs and symptoms have been present for 1 day and indicates a pain score of 0/10. MEDICAL/SURGICAL HISTORY: Hypertension. Gastroesophageal reflux disease. Hypothyroidism. Non-Ho dgkin's lymphoma. chemotherapy. . Bilateral renal stents. Bilateral inguinal hernia repair. Right h ip replacement. COMPARISON: [facility] [place], ABDOMEN KUB ONLY, 07/28/2017. . FINDINGS: There is mild gaseous distention of small bowel with several air-fluid levels. Differential diagnosis includes ileus or early obstruction. No free air. No acute bony abnormality. CONCLUSION: Mild gaseous distention of bowel as above. No free air identified. Electronically signed by: Tavon Jenkins MD 10/21/2017 3:21 PM EDT
[2017-10-21 16:42] LABS: INR 1.1 Ratio; Prothrombin Time 10.7 sec (9.8-11.6)
[2017-10-21 16:43] LABS: Baso % (Auto) 0.4 % (0.0-2.0); Eos % (Auto) 0.3 % (0.0-4.0); Hematocrit 39.1 % (39.0-51.0); Hemoglobin 12.8 gm/dL (13.0-17.0); Lymph # (Auto) 0.4 th/mm3 (1.0-4.8); Lymph % (Auto) 4.5 % (9.0-44.0); Mean Corpuscular HGB Conc 32.8 % (32.0-36.0); Mean Corpuscular Hemoglobin 27.6 pg (27.0-34.0); Mono # (Auto) 0.6 th/mm3 (0.0-0.9); Mono % (Auto) 7.6 % (0.0-8.0); Neut # (Auto) 7.3 th/mm3 (1.8-7.7); Neut % (Auto) 87.2 % (16.0-70.0); Platelet Count 75 th/mm3 (150-450); Red Blood Count 4.65 mil/mm3 (4.50-5.90); Red Cell Distribution Width 18.4 % (11.6-17.2); White Blood Count 8.3 th/mm3 (4.0-11.0)
[2017-10-21 17:11] LABS: Alanine Aminotransferase 20 U/L (12-78); Albumin 3.9 g/dL (3.4-5.0); Anion Gap 10 meq/L (5-15); Aspartate Aminotransferase 16 U/L (15-37); Blood Urea Nitrogen 16 mg/dL (7-18); Calcium 9.3 mg/dL (8.5-10.1); Carbon Dioxide 28.2 meq/L (21.0-32.0); Chloride 100 meq/L (98-107); Glomerular Filtration Rate Greater Than 89 mL/min (>89); Glucose,Random 136 mg/dL (74-106); Lipase 36 U/L (73-393); Potassium 4.1 meq/L (3.5-5.1); Sodium 138 meq/L (136-145)
[2017-10-21 17:14] LABS: Alkaline Phosphatase 98 U/L (45-117)
[2017-10-21 17:36] LABS: Ovalocytes 1+; Platelet Morphology Normal (Normal)
[2017-10-21] MEDS ORDERED: HYDROmorphone PF Inj 2 MG/ML Vial IV.PUSH ONE (18:38)
[2017-10-21] MEDS ORDERED: Acetaminophen 325 MG Tablet PO PRN (19:07)
[2017-10-21] MEDS ORDERED: Enoxaparin Inj 30 MG/0.3 ML Syringe SQ SCH (19:15)
[2017-10-21 19:44] LABS: Bilirubin,Urine Negative (Negative); Clarity,Urine Hazy (Clear); Color,Urine Yellow (Yellw/Straw); Glucose,Urine (UA) Negative (Negative); Leukocyte Esterase,Urine Negative (Negative); Mucus,Urine Few /lpf (Occasional); Nitrite,Urine Negative (Negative); Specific Gravity,Urine 1.039 (1.002-1.035)
[2017-10-21] MEDS: Sod Chloride 0.9% Inj 1,000 ML IV.CONT SCH (20:44)
[2017-10-21] MEDS: Morphine Inj 4 MG/ML Vial IV.PUSH PRN (21:26)
--- NOTE | 2017-10-21 23:35 | P.HPIM ---
History of Present Illness Primary Care Physician: Sancho Mackenzie Chief Complaint: abdominal pain History of Present Illness: 71-year-old male with a history of lymphoma reportedly status post chemotherapy , reportedly in remission (now on prophylactic methotrexate with most recent intrathecal dose this past Thursday) presents with a 1 day history of constant dull periUmbilical abdominal pain radiating across his abdomen, as well as decreased appetite over the past day, nausea with bilious emesis. Patient denies any fevers, chills, chest pain, shortness of breath, dysuria. Most recent bowel movement was yesterday. Patient reports feeling fine prior to this , had been intentionally gaining weight, 20 pounds over the past several months. Patient follows with [facility]. He did have recent laparoscopic abdominal surgery with lysis of adhesions in July. - Inpatient Certification If this patient has been admitted as an Inpatient: I certify that the inpatient services were ordered in accordance with Medicare regulations governing the order. This includes certification that hospital inpatient services are reasonable and necessary and in the case of services not specified as inpatient-only under 42 CFR 419.22(n), that they are appropriately provided as inpatient services in accordance to with the 2-midnight benchmark under 43 CFR 412.3(e) Review of Systems All other systems reviewed negative except as stated in HPI PMFSH - History History Provided By: Patient - Medical History Medical History: Medical History (Last Updated 10/21/17 @ 22:12 by Etienne Solomon) Lymphoma - Surgical History Surgical History: Surgical History (Last Updated 10/21/17 @ 16:01 by Aparna Bey) Status post chemotherapy Status post laparoscopic surgery - Family History Family History: Family History (Last Updated 10/21/17 @ 22:36 by Dick Shine MD) Father CAD (coronary artery disease) Mother Bowel cancer - Tobacco History Second Hand Smoke Exposure: No Tobacco Use In Past 30 Days: No Smoking Status: Never smoker - Alcohol History How Often Do You Have a Drink Containing Alcohol: Never - Travel History Recent Travel in the [place] Within the Last 8 Weeks: No Recent Travel Out of the Country Within the Last 8 Weeks: No - Immunization History Tetanus Immunization: Unsure Medications and Allergies Active Medications: Active Medications Acetaminophen (Tylenol) 650 mg PO Q4H PRN PRN Reason: Temp > 100.4 Albuterol (Duoneb Neb (Prn)) 1 ampul NEB Q4HR NEB PRN PRN Reason: sob/wheezing Enoxaparin Sodium (Lovenox Inj) 30 mg SQ Q24H ABBY Last Admin: 10/21/17 20:41 Dose: 30 mg Fentanyl (Duragesic 25 Mcg Patch.72hr) 1 patch T-DERMAL ONCE ONE Stop: 10/21/17 23:30 Sodium Chloride (Ns Inj) 1,000 mls @ 100 mls/hr IV.CONT .Q10H ABBY Last Admin: 10/21/17 20:44 Dose: 100 mls/hr Levothyroxine Sodium (Synthroid) 75 mcg PO DAILY ABBY Lorazepam (Ativan) 0.5 mg PO Q8HR PRN PRN Reason: Anxiety Metoclopramide HCl (Reglan Inj) 5 mg IV.PUSH Q6HR PRN; Protocol PRN Reason: NAUSEA OR VOMITING Last Admin: 10/21/17 21:30 Dose: 5 mg Metoprolol Tartrate (Lopressor) 25 mg PO BID ABBY Morphine Sulfate (Msir) 15 mg PO Q6H PRN PRN Reason: Pain Morphine Sulfate (Morphine Inj) 2 mg IV.PUSH Q4H PRN PRN Reason: breakthrough pain/cant PO Last Admin: 10/21/17 21:26 Dose: 2 mg Pantoprazole Sodium (Protonix) 40 mg PO DAILY [facility] Sodium Chloride (Ns Flush) 2 ml IV.FLUSH PRN PRN PRN Reason: FLUSH AFTER USING IV ACCESS Allergies Allergy/AdvReac Type Severity Reaction Status Date / Time itraconazole Allergy Unknown Rash Verified 10/21/17 14:39 tea tree Allergy Unknown Anaphylaxis Verified 10/21/17 14:39 SPORINOX Allergy Severe ELLIOTT 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 Home Medications Medication Instructions Recorded Confirmed Type albuterol sulfate 2.5 mg INHALATION QID PRN 10/21/17 10/21/17 History docusate sodium [Colace] 100 mg PO BID 10/21/17 10/21/17 History ibuprofen [Advil] 600 mg PO Q6HR PRN 10/21/17 10/21/17 History levothyroxine 75 mcg PO DAILY 10/21/17 10/21/17 History lorazepam [Ativan] 0.5 mg PO Q8HR PRN 10/21/17 10/21/17 History methotrexate 10/21/17 History metoprolol tartrate 25 mg PO BID 10/21/17 10/21/17 History morphine 15 mg PO Q6H PRN 10/21/17 10/21/17 History pantoprazole [Protonix] 40 mg PO DAILY 10/21/17 10/21/17 History polyethylene glycol 3350 [Miralax] 17 g PO HS 10/21/17 10/21/17 History polysaccharide iron complex 150 mg PO BID 10/21/17 10/21/17 History [Poly-Iron] Exam Vital signs: Vital Signs 10/21/17 12:49 10/21/17 15:55 10/21/17 16:05 Temperature 97.5 F L Pulse Rate 86 86 Respiratory Rate 18 17 Blood Pressure 135/66 163/75 H Pulse Oximetry 98 100 100 10/21/17 16:27 10/21/17 19:58 10/21/17 20:00 Temperature 98.8 F 98.8 F Pulse Rate 85 91 H Respiratory Rate 18 18 Blood Pressure 143/72 H 129/64 129/64 Pulse Oximetry 96 97 10/21/17 20:28 10/21/17 21:50 Temperature Pulse Rate Respiratory Rate 18 18 Blood Pressure Pulse Oximetry Intake & Output 10/21/17 10/21/17 10/22/17 06:59 18:59 06:59 Weight 68.039 kg Narrative: GENERAL: Patient sitting up in bed. Appears uncomfortable. Alert and oriented 3. SKIN: Warm and dry. HEAD: Atraumatic. Normocephalic. EYES: Pupils equal and round. No scleral icterus. No injection or drainage. ENT: No nasal bleeding or discharge. Mucous membranes pink and moist. NECK: Trachea midline. No JVD. CARDIOVASCULAR: Regular rate and rhythm. RESPIRATORY: No accessory muscle use. Clear to auscultation. Breath sounds equal bilaterally. GASTROINTESTINAL: Abdomen soft, hyperresonant. Nontender. Hepatic and splenic margins not palpable. MUSCULOSKELETAL: Extremities without clubbing, cyanosis, or edema. No obvious deformities. NEUROLOGICAL: Awake and alert. No obvious cranial nerve deficits. Motor grossly within normal limits. Five out of 5 muscle strength in the arms and legs. Normal speech. PSYCHIATRIC: Appropriate mood and affect; insight and judgment normal. Results - Labs CBC & Chem 7: 10/21/17 16:00 10/21/17 16:00 Labs: Short CBC 10/21/17 Range/Units 16:00 WBC 8.3 (4.0-11.0) th/mm3 Hgb 12.8 L (13.0-17.0) gm/dL Hct 39.1 (39.0-51.0) % Plt Count 75 L (150-450) th/mm3 BMP 10/21/17 16:00 Sodium 138 Potassium 4.1 Chloride 100 Carbon Dioxide 28.2 BUN 16 Creatinine 0.56 L Calcium 9.3 Liver Function 10/21/17 Range/Units 16:00 Total Bilirubin 0.5 (0.2-1.0) mg/dL AST 16 (15-37) U/L ALT 20 (12-78) U/L Alkaline Phosphatase 98 (45-117) U/L Albumin 3.9 (3.4-5.0) g/dL Urine 10/21/17 Range/Units 18:35 Urine Color Yellow (Yellw/Straw) Urine Clarity Hazy H (Clear) Urine pH 6.0 (5.0-8.5) Ur Specific [place] 1.039 H (1.002-1.035) Urine Protein 30 H (Neg-Trace) mg/dL Urine Glucose (UA) Negative (Negative) mg/dL - Imaging Impressions Abdomen X-Ray 10/21/17 14:54 CONCLUSION: Mild gaseous distention of bowel as above. No free air identified. Abdomen/Pelvis CT 10/21/17 14:54 CONCLUSION: 1. Dilatation of proximal and mid small bowel with distal decompression characteristic of at least a partial small bowel obstruction. 2. Mild constipation with colonic diverticula without evidence for diverticulitis. 3. Loculated rim-enhancing bilateral pleural effusions slightly decreased in size from July. 4. Stable splenomegaly. 5. Removal of bilateral ureteral stents with persistent mild bilateral hydronephrosis and nonobstructing tiny renal calculi. Caprini VTE Risk Assessment Caprini VTE Risk Assessment: Moderate/High Risk (score >= 2) Caprini Risk Assessment Model: Point Value = 1 Point Value = 2 Point Value = 3 Point Value = 5 Age 41-60 Minor surgery BMI > 25 kg/m2 Swollen legs Varicose veins or History of unexplained or recurrent spontaneous Oral contraceptives or hormone replacement Sepsis (< 1 month) Serious lung disease, including pneumonia (< 1 month) Abnormal pulmonary function Acute myocardial infarction Congestive heart failure (< 1 month) History of inflammatory bowel disease Medical patient at bed rest Age 61-74 Arthroscopic surgery Major open surgery (> 45 min) Laparoscopic surgery (> 45 min) Malignancy Confined to bed (> 72 hours) Immobilizing plaster cast Central venous access Age >= 75 History of VTE Family history of VTE Factor V Leiden Prothrombin [id number] Lupus anticoagulant Anticardiolipin antibodies Elevated serum homocysteine Heparin-induced thrombocytopenia Other congenital or acquired thrombophilia Stroke (< 1 month) Elective arthroplasty Hip, pelvis, or leg fracture Acute spinal cord injury (< 1 month) Prophylaxis Regimen: Total Risk Factor Score Risk Level Prophylaxis Regimen 0-1 Low Early ambulation 2 Moderate Order ONE of the following: *Sequential Compression Device (SCD) *Heparin 5000 units SQ BID 3-4 Higher Order ONE of the following medications: *Heparin 5000 units SQ TID *Enoxaparin/Lovenox 40 mg SQ daily (WT < 150 kg, CrCl > 30 mL/min) *Enoxaparin/Lovenox 30 mg SQ daily (WT < 150 kg, CrCl > 10-29 mL/min) *Enoxaparin/Lovenox 30 mg SQ BID (WT < 150 kg, CrCl > 30 mL/min) AND/OR *Sequential Compression Device (SCD) 5 or more Highest Order ONE of the following medications: *Heparin 5000 units SQ TID (Preferred with Epidurals) *Enoxaparin/Lovenox 40 mg SQ daily (WT < 150 kg, CrCl > 30 mL/min) *Enoxaparin/Lovenox 30 mg SQ daily (WT < 150 kg, CrCl > 10-29 mL/min) *Enoxaparin/Lovenox 30 mg SQ BID (WT < 150 kg, CrCl > 30 mL/min) AND *Sequential Compression Device (SCD) Assessment and Plan - Plan //Abdominal pain //Partial SBO = CT abdomen personally reviewed with market distention of small bowel. Will order NG tube to low intermittent wall suction. IV maintenance fluids. We will add fentanyl patch for basal control per consult to surgery pending. Follow-up recommendations. //Lymphoma = With most recent intrathecal methotrexate this past Thursday. Hold off on methotrexate for now. Consult medical oncology. //Hypertension. Blood pressure acceptable. Continue home metoprolol //Hypothyroidism. Chronic continue home medications. //GERD. Continue IV Protonix. //Thrombocytopenia. Platelets 75. Hematology will be following. No signs of bleeding. Continue to monitor. //urinary retention Patient also with extremely dilated bladder on CT, and will Place [place]. This is likely secondary to narcotics. Discussed Condition With: Patient, nurse, ED physician, at bedside
[2017-10-22] MEDS: Pantoprazole Inj 40 MG Vial IV.PUSH SCH ×2 (00:37→11:33)
[2017-10-22] MEDS: Morphine Inj 4 MG/ML Vial IV.PUSH PRN ×5 (01:44→19:55)
--- NOTE | 2017-10-22 02:37 | XR ---
EXAM DATE: 10/22/2017 2:32 AM EDT AGE/SEX: 71 years / Male INDICATIONS: NG tube placement CLINICAL DATA: This is the patient's initial encounter. Patient reports that signs and symptoms have been present for 1 day and indicates a pain score of 0/10. MEDICAL/SURGICAL HISTORY: . Lymphoma. Chemotherapy Inguinal hernia repair. None. COMPARISON: [facility] – [place], CHEST SINGLE AP, 08/24/2017. . FINDINGS: Gastric tube tip and side-port project within the stomach. Left [id number] catheter tip projects o violet the distal superior vena cava. There are patchy areas of infiltrate in the right lower lung, impr marbella from August 2017. The left lung is clear. Both hemidiaphragms are well delineated. The heart is nor mal size. CONCLUSION: 1. Gastric tube in good position. 2. Patchy nonconsolidative infiltrates right lower lung. Electronically signed by: Jaspreet Hubbard MD 10/22/2017 2:35 AM EDT
[2017-10-22] MEDS: Metoprolol Tartrate 25 MG Tablet PO SCH ×4 (03:34→20:02)
[2017-10-22 05:20] LABS: Anion Gap 11 meq/L (5-15); Baso % (Auto) 0.6 % (0.0-2.0); Blood Urea Nitrogen 13 mg/dL (7-18); Calcium 9.4 mg/dL (8.5-10.1); Carbon Dioxide 26.2 meq/L (21.0-32.0); Chloride 104 meq/L (98-107); Eos # (Auto) 0.1 th/mm3 (0.0-0.4); Glomerular Filtration Rate Greater Than 89 mL/min (>89); Glucose,Random 111 mg/dL (74-106); Hematocrit 34.7 % (39.0-51.0); Hemoglobin 11.5 gm/dL (13.0-17.0); Lymph # (Auto) 0.7 th/mm3 (1.0-4.8); Lymph % (Auto) 10.6 % (9.0-44.0); Mean Corpuscular Hemoglobin 27.5 pg (27.0-34.0); Mean Corpuscular Volume 83.4 fL (80.0-100.0); Mean Platelet Volume 7.8 fL (7.0-11.0); Mono # (Auto) 0.7 th/mm3 (0.0-0.9); Mono % (Auto) 11.7 % (0.0-8.0); Neut # (Auto) 4.8 th/mm3 (1.8-7.7); Neut % (Auto) 76.1 % (16.0-70.0); Platelet Count 73 th/mm3 (150-450); Potassium 4.2 meq/L (3.5-5.1); Red Blood Count 4.17 mil/mm3 (4.50-5.90); Red Cell Distribution Width 18.3 % (11.6-17.2); Sodium 141 meq/L (136-145); White Blood Count 6.3 th/mm3 (4.0-11.0)
[2017-10-22] MEDS: Sod Chloride 0.9% Inj 1,000 ML IV.CONT SCH (05:41)
[2017-10-22 07:33] LABS: Ovalocytes 1+; Platelet Morphology Normal (Normal)
--- NOTE | 2017-10-22 08:13 | P.CONGS ---
[facility] Gen Surgery Consult Note Consult date: 10/22/17 Reason for consult: abdominal pain Narrative: Mr. Hawthorne is a 71-year-old male well known to me after laparoscopic extensive lysis of adhesions for small bowel obstruction in July. He has a history of lymphoma having recently finished chemotherapy treatment. He reports that PET/ CT and bone marrow biopsy have been clear of disease. He is on maintenance intrathecal methotrexate under care of Dr. Ha. His nutrition has been good and he has gained about 20 pounds in the last few months. About 36 hours ago he began having bloating and dull abdominal pain. He tried Gas-X and went to sleep for the night. When he awoke the next morning he had similar symptoms to his previous small bowel obstruction including bloating, diffuse abdominal pain, and vomiting. He was evaluated in the emergency department. CBC shows normal white blood count with left shift and CT scan of the abdomen and pelvis concerning for small bowel obstruction. Review of Systems All other systems reviewed negative except as stated in [facility] PMF - History History Provided By: Patient - Medical History Medical History: Medical History (Last Updated 10/22/17 @ 08:10 by Je Julien MD) Hypothyroid Lymphoma - Surgical History Surgical History: Surgical History (Last Reviewed 10/22/17 @ 08:09 by Je Julien MD) Status post chemotherapy Status post laparoscopic surgery - Family History Family History: Family History (Last Updated 10/21/17 @ 22:36 by Dick Shine MD) Father CAD (coronary artery disease) Mother Bowel cancer - Tobacco History Second Hand Smoke Exposure: No Tobacco Use In Past 30 Days: No Smoking Status: Never smoker - Alcohol History How Often Do You Have a Drink Containing Alcohol: Never - Travel History Recent Travel in the [place] Within the Last 8 Weeks: No Recent Travel Out of the Country Within the Last 8 Weeks: No - Immunization History Tetanus Immunization: Unsure Medications and Allergies Active Medications: Active Medications Acetaminophen (Tylenol) 650 mg PO Q4H PRN PRN Reason: Temp > 100.4 Albuterol (Duoneb Neb (Prn)) 1 ampul NEB Q4HR NEB PRN PRN Reason: sob/wheezing Enoxaparin Sodium (Lovenox Inj) 30 mg SQ Q24H [facility] [place] Last Admin: 10/21/17 20:41 Dose: 30 mg Sodium Chloride (Ns Inj) 1,000 mls @ 100 mls/hr IV.CONT .Q10H [facility] [place] Last Admin: 10/22/17 05:41 Dose: 100 mls/hr Levothyroxine Sodium (Synthroid) 75 mcg PO DAILY [facility] [place] Lorazepam (Ativan) 0.5 mg PO Q8HR PRN PRN Reason: Anxiety Lorazepam (Ativan Inj) 1 mg IV.PUSH UNSCH X1 PRN PRN Reason: NG-TUBE PLACEMENT Stop: 10/22/17 10:00 Last Admin: 10/22/17 00:36 Dose: 1 mg Metoclopramide HCl (Reglan Inj) 5 mg IV.PUSH Q6HR PRN; Protocol PRN Reason: NAUSEA OR VOMITING Last Admin: 10/21/17 21:30 Dose: 5 mg Metoprolol Tartrate (Lopressor) 25 mg PO BID [facility] [place] Last Admin: 10/22/17 03:34 Dose: Not Given Morphine Sulfate (Msir) 15 mg PO Q6H PRN PRN Reason: Pain Morphine Sulfate (Morphine Inj) 2 mg IV.PUSH Q4H PRN PRN Reason: breakthrough pain/cant PO Last Admin: 10/22/17 05:33 Dose: 2 mg Pantoprazole Sodium (Protonix Inj) 40 mg IV.PUSH Q12H [facility] [place] Last Admin: 10/22/17 00:37 Dose: 40 mg Sodium Chloride (Ns Flush) 2 ml IV.FLUSH PRN PRN PRN Reason: FLUSH AFTER USING IV ACCESS Allergies Allergy/AdvReac Type Severity Reaction Status Date / Time itraconazole Allergy Unknown Rash Verified 10/21/17 14:39 tea tree Allergy Unknown Anaphylaxis Verified 10/21/17 14:39 SPORINOX Allergy Severe ELLIOTT 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 Home Medications Medication Instructions Recorded Confirmed Type albuterol sulfate 2.5 mg INHALATION QID PRN 10/21/17 10/21/17 History docusate sodium [Colace] 100 mg PO BID 10/21/17 10/21/17 History ibuprofen [Advil] 600 mg PO Q6HR PRN 10/21/17 10/21/17 History levothyroxine 75 mcg PO DAILY 10/21/17 10/21/17 History lorazepam [Ativan] 0.5 mg PO Q8HR PRN 10/21/17 10/21/17 History methotrexate 10/21/17 History metoprolol tartrate 25 mg PO BID 10/21/17 10/21/17 History morphine 15 mg PO Q6H PRN 10/21/17 10/21/17 History pantoprazole [Protonix] 40 mg PO DAILY 10/21/17 10/21/17 History polyethylene glycol 3350 [Miralax] 17 g PO HS 10/21/17 10/21/17 History polysaccharide iron complex 150 mg PO BID 10/21/17 10/21/17 History [Poly-Iron] Exam Vital signs: Vital Signs 10/21/17 12:49 10/21/17 15:55 10/21/17 16:05 Temperature 97.5 F L Pulse Rate 86 86 Respiratory Rate 18 17 Blood Pressure 135/66 163/75 H Pulse Oximetry 98 100 100 10/21/17 16:27 10/21/17 19:58 10/21/17 20:00 Temperature 98.8 F 98.8 F Pulse Rate 85 91 H Respiratory Rate 18 18 Blood Pressure 143/72 H 129/64 129/64 Pulse Oximetry 96 97 10/21/17 20:28 10/21/17 21:50 10/22/17 00:00 Temperature 98.3 F Pulse Rate 91 H Respiratory Rate 18 18 20 Blood Pressure 149/67 H Pulse Oximetry 95 Intake & Output 10/21/17 10/22/17 10/22/17 18:59 06:59 18:59 Intake Total 1000 / 1000 Balance 1000 / 1000 Weight 68.039 kg Intake: IV 1000 / 1000 NS Inj 1,000 ML @ 100 mls/hr IV 1000 / 1000 .CONT .Q10H [facility] [place] Rx#:[id number] Narrative: GENERAL: Awake and alert. No acute distress. Cooperative. Thin. HEAD: Normocephalic. Atraumatic. EYES: Pupils equal round and reactive to light bilaterally. No scleral icterus. ENT: Moist oral mucosa. NECK: Trachea midline. CHEST: Breathing is nonlabored. No respiratory distress. CARDIOVASCULAR: Regular rate and rhythm. ABDOMEN: Moderately distended. Mild diffuse tenderness to palpation. No rebound or guarding. No localized tenderness. Well-healed port site scars. NG tube with small amount of bilious output. EXTREMITIES: No cyanosis or edema. SKIN: Warm, dry, nonjaundiced. Results - Labs 10/22/17 04:15 10/22/17 04:15 Abnormal lab results 10/21/17 10/21/17 10/21/17 Range/Units 16:00 16:00 18:35 RBC (4.50-5.90) mil/mm3 Hgb 12.8 L (13.0-17.0) gm/dL Hct (39.0-51.0) % RDW 18.4 H (11.6-17.2) % Plt Count 75 L (150-450) th/mm3 Neut % (Auto) 87.2 H (16.0-70.0) % Lymph % (Auto) 4.5 L (9.0-44.0) % [place] % (Auto) (0.0-8.0) % Lymph # (Auto) 0.4 L (1.0-4.8) th/mm3 Platelet Estimate Low L (Normal) Ovalocytes 1+ H (None) Creatinine 0.56 L (0.60-1.30) mg/dL Random Glucose 136 H (74-106) mg/dL Lipase 36 L (73-393) U/L Urine Clarity Hazy H (Clear) Ur Specific [place] 1.039 H (1.002-1.035) Urine Protein 30 H (Neg-Trace) mg/dL Urine Urobilinogen 2.0 H (Less than 2) mg/dL Urine Mucus Few H (Occasional) /lpf 10/22/17 10/22/17 Range/Units 04:15 04:15 RBC 4.17 L (4.50-5.90) mil/mm3 Hgb 11.5 L (13.0-17.0) gm/dL Hct 34.7 L (39.0-51.0) % RDW 18.3 H (11.6-17.2) % Plt Count 73 L (150-450) th/mm3 Neut % (Auto) 76.1 H (16.0-70.0) % Lymph % (Auto) (9.0-44.0) % [place] % (Auto) 11.7 H (0.0-8.0) % Lymph # (Auto) 0.7 L (1.0-4.8) th/mm3 Platelet Estimate Low L (Normal) Ovalocytes 1+ H (None) Creatinine 0.58 L (0.60-1.30) mg/dL Random Glucose 111 H (74-106) mg/dL Lipase (73-393) U/L Urine Clarity (Clear) Ur Specific [place] (1.002-1.035) Urine Protein (Neg-Trace) mg/dL Urine Urobilinogen (Less than 2) mg/dL Urine Mucus (Occasional) /lpf Diabetes panel 10/21/17 10/22/17 Range/Units 16:00 04:15 Sodium 138 141 (136-145) meq/L Potassium 4.1 4.2 (3.5-5.1) meq/L Chloride 100 104 (98-107) meq/L Carbon Dioxide 28.2 26.2 (21.0-32.0) meq/L BUN 16 13 (7-18) mg/dL Creatinine 0.56 L 0.58 L (0.60-1.30) mg/dL Calcium 9.3 9.4 (8.5-10.1) mg/dL AST 16 (15-37) U/L ALT 20 (12-78) U/L Alkaline Phosphatase 98 (45-117) U/L Total Protein 7.0 (6.4-8.2) g/dL Albumin 3.9 (3.4-5.0) g/dL Calcium panel 10/21/17 10/22/17 Range/Units 16:00 04:15 Calcium 9.3 9.4 (8.5-10.1) mg/dL Albumin 3.9 (3.4-5.0) g/dL Pituitary panel 10/21/17 10/22/17 Range/Units 16:00 04:15 Sodium 138 141 (136-145) meq/L Potassium 4.1 4.2 (3.5-5.1) meq/L Chloride 100 104 (98-107) meq/L Carbon Dioxide 28.2 26.2 (21.0-32.0) meq/L BUN 16 13 (7-18) mg/dL Creatinine 0.56 L 0.58 L (0.60-1.30) mg/dL Calcium 9.3 9.4 (8.5-10.1) mg/dL Adrenal panel 10/21/17 10/22/17 Range/Units 16:00 04:15 Sodium 138 141 (136-145) meq/L Potassium 4.1 4.2 (3.5-5.1) meq/L Chloride 100 104 (98-107) meq/L Carbon Dioxide 28.2 26.2 (21.0-32.0) meq/L BUN 16 13 (7-18) mg/dL Creatinine 0.56 L 0.58 L (0.60-1.30) mg/dL Calcium 9.3 9.4 (8.5-10.1) mg/dL Total Bilirubin 0.5 (0.2-1.0) mg/dL AST 16 (15-37) U/L ALT 20 (12-78) U/L Alkaline Phosphatase 98 (45-117) U/L Total Protein 7.0 (6.4-8.2) g/dL Albumin 3.9 (3.4-5.0) g/dL All other labs normal. - Imaging CT scan - abdomen: report reviewed, image reviewed CT scan - pelvis: report reviewed, image reviewed Assessment and Plan - Assessment (1) Small bowel obstruction Code(s): K56.609 - Unspecified intestinal obstruction, unspecified as to partial versus complete obstruction Status: Acute - Plan Mr. Hawthorne has a small bowel obstruction. He recently in July underwent laparoscopic lysis of adhesions for the same. He had extensive diffuse adhesions throughout the abdomen and it is likely this is the cause of his recurrent obstruction. Will attempt nonoperative management. Continue NG tube to suction. Repeat abdominal films in the morning.
[2017-10-22] MEDS: Morphine Sulfate 15 MG IR Tablet PO PRN ×3 (10:00→22:40)
[2017-10-22] MEDS: Levothyroxine 75 MCG Tablet PO SCH (10:37)
--- NOTE | 2017-10-22 11:11 | P.PNIM ---
Subjective Interval history: 71-year-old male with a history of lymphoma reportedly status post chemotherapy , reportedly in remission (now on prophylactic methotrexate with most recent intrathecal dose this past Thursday) presents with a 1 day history of constant dull periUmbilical abdominal pain radiating across his abdomen, as well as decreased appetite over the past day, nausea with bilious emesis. Patient denies any fevers, chills, chest pain, shortness of breath, dysuria. Most recent bowel movement was yesterday. Patient reports feeling fine prior to this , had been intentionally gaining weight, 20 pounds over the past several months. Patient follows with [facility]. He did have recent laparoscopic abdominal surgery with lysis of adhesions in July. 10-22 PATIENT HAS NGT IN STILL HAS NO FLATUS AT ALL DW RN AND PT WANTS CHAVEZ OUT WILL DISCONTINUE IT MAY HAVE SOME DEGREE OF BPH AM LABS Physical Exam Vital signs: Vital Signs 10/21/17 12:49 10/21/17 15:55 10/21/17 16:05 Temperature 97.5 F L Pulse Rate 86 86 Respiratory Rate 18 17 Blood Pressure 135/66 163/75 H Pulse Oximetry 98 100 100 10/21/17 16:27 10/21/17 19:58 10/21/17 20:00 Temperature 98.8 F 98.8 F Pulse Rate 85 91 H Respiratory Rate 18 18 Blood Pressure 143/72 H 129/64 129/64 Pulse Oximetry 96 97 10/21/17 20:28 10/21/17 21:50 10/22/17 00:00 Temperature 98.3 F Pulse Rate 91 H Respiratory Rate 18 18 20 Blood Pressure 149/67 H Pulse Oximetry 95 10/22/17 08:00 Temperature 98.1 F Pulse Rate 89 Respiratory Rate 18 Blood Pressure 123/59 L Pulse Oximetry 96 Intake & Output 10/21/17 10/22/17 10/22/17 18:59 06:59 18:59 Intake Total 1000 / 1000 Balance 1000 / 1000 Weight 68.039 kg Intake: IV 1000 / 1000 NS Inj 1,000 ML @ 100 mls/hr IV 1000 / 1000 .CONT .Q10H [facility] Rx#:[id number] Narrative: GENERAL: Right and oriented 3 talkative and cooperative SKIN: Warm and dry. HEAD: Atraumatic. Normocephalic. EYES: Pupils equal and round. No scleral icterus. No injection or drainage. Extraocular muscles intact ENT: No nasal bleeding or discharge. Mucous membranes pink and moist. Has an NG tube to low intermittent suction in place Tongue is midline NECK: Trachea midline. No JVD. Supple CARDIOVASCULAR: Regular rate and rhythm. S1-S2 no S3 or S4 RESPIRATORY: No accessory muscle use. Clear to auscultation. Breath sounds equal bilaterally. GASTROINTESTINAL: Abdomen soft, non-tender, nondistended. Hepatic and splenic margins not palpable. Positive bowel sounds MUSCULOSKELETAL: Extremities without clubbing, cyanosis, or edema. No obvious deformities. NEUROLOGICAL: Awake and alert. No obvious cranial nerve deficits. Motor grossly within normal limits. Five out of 5 muscle strength in the arms and legs. Normal speech. PSYCHIATRIC: Appropriate mood and affect; insight and judgment normal. - Urinary Catheter Management Indwelling Urethral Catheter Cath placed during this visit: yes Reason for continuing: Acute urinary retention Insertion date: 10/22/17 Insertion time: 02:05 Results - Labs CBC & Chem 7: 10/22/17 04:15 10/22/17 04:15 Laboratory Results - last 24 hr 10/21/17 10/21/17 10/21/17 16:00 16:00 16:00 WBC 8.3 RBC 4.65 Hgb 12.8 L Hct 39.1 MCV 84.0 MCH 27.6 MCHC 32.8 RDW 18.4 H Plt Count 75 L MPV 8.0 Prelim Diff (Auto) Slide review pending Neut % (Auto) 87.2 H Lymph % (Auto) 4.5 L [place] % (Auto) 7.6 Eos % (Auto) 0.3 Baso % (Auto) 0.4 Neut # (Auto) 7.3 Lymph # (Auto) 0.4 L [place] # (Auto) 0.6 Eos # (Auto) 0.0 Baso # (Auto) 0.0 WBC Differential . Diff Scan Auto diff confirmed Differential Comment . Platelet Estimate Low L Platelet Morphology Normal Ovalocytes 1+ H PT 10.7 INR 1.1 Sodium 138 Potassium 4.1 Chloride 100 Carbon Dioxide 28.2 Anion Gap 10 BUN 16 Creatinine 0.56 L Estimated GFR Greater than 89 Random Glucose 136 H Calcium 9.3 Total Bilirubin 0.5 AST 16 ALT 20 Alkaline Phosphatase 98 Total Protein 7.0 Albumin 3.9 Lipase 36 L Urine Color Urine Clarity Urine pH Ur Specific [place] Urine Protein Urine Glucose (UA) Urine Ketones Urine Occult Blood Urine Nitrate Urine Bilirubin Urine Urobilinogen Ur Leukocyte Esterase Urine RBC Urine WBC Urine Mucus Micro UA Comment Urine Culture Comments 10/21/17 10/22/17 10/22/17 18:35 04:15 04:15 WBC 6.3 RBC 4.17 L Hgb 11.5 L Hct 34.7 L MCV 83.4 MCH 27.5 MCHC 33.0 RDW 18.3 H Plt Count 73 L MPV 7.8 Prelim Diff (Auto) Slide review pending Neut % (Auto) 76.1 H Lymph % (Auto) 10.6 [place] % (Auto) 11.7 H Eos % (Auto) 1.0 Baso % (Auto) 0.6 Neut # (Auto) 4.8 Lymph # (Auto) 0.7 L [place] # (Auto) 0.7 Eos # (Auto) 0.1 Baso # (Auto) 0.0 WBC Differential . Diff Scan Auto diff confirmed Differential Comment . Platelet Estimate Low L Platelet Morphology Normal Ovalocytes 1+ H PT INR Sodium 141 Potassium 4.2 Chloride 104 Carbon Dioxide 26.2 Anion Gap 11 BUN 13 Creatinine 0.58 L Estimated GFR Greater than 89 Random Glucose 111 H Calcium 9.4 Total Bilirubin AST ALT Alkaline Phosphatase Total Protein Albumin Lipase Urine Color Yellow Urine Clarity Hazy H Urine pH 6.0 Ur Specific [place] 1.039 H Urine Protein 30 H Urine Glucose (UA) Negative Urine Ketones Negative Urine Occult Blood Negative Urine Nitrate Negative Urine Bilirubin Negative Urine Urobilinogen 2.0 H Ur Leukocyte Esterase Negative Urine RBC 1 Urine WBC 1 Urine Mucus Few H Micro UA Comment Culture not ind Urine Culture Comments Culture not ind - Imaging Impressions Abdomen X-Ray 10/21/17 14:54 CONCLUSION: Mild gaseous distention of bowel as above. No free air identified. Abdomen/Pelvis CT 10/21/17 14:54 CONCLUSION: 1. Dilatation of proximal and mid small bowel with distal decompression characteristic of at least a partial small bowel obstruction. 2. Mild constipation with colonic diverticula without evidence for diverticulitis. 3. Loculated rim-enhancing bilateral pleural effusions slightly decreased in size from July. 4. Stable splenomegaly. 5. Removal of bilateral ureteral stents with persistent mild bilateral hydronephrosis and nonobstructing tiny renal calculi. Chest X-Ray 10/22/17 02:12 CONCLUSION: 1. Gastric tube in good position. 2. Patchy nonconsolidative infiltrates right lower lung. Assessment and Plan - Plan Abdominal pain Partial SBO = CT abdomen personally reviewed with market distention of small bowel. Will order NG tube to low intermittent wall suction. IV maintenance fluids. We will add fentanyl patch for basal control per consult to surgery pending. Follow-up recommendations. Lymphoma = With most recent intrathecal methotrexate this past Thursday. Hold off on methotrexate for now. Consult medical oncology. Hypertension. Blood pressure acceptable. Continue home metoprolol Hypothyroidism. Chronic continue home medications. GERD. Continue IV Protonix. Thrombocytopenia. Platelets 75. Hematology will be following. No signs of bleeding. Continue to monitor. urinary retention Patient also with extremely dilated bladder on CT, and will Place Chavez. This is likely secondary to narcotics. Patient wants to have his Chavez catheter taken out We will add Flomax A.m. labs Discussed with RN and patient Increase activity Code Status: Full code Discussed Condition With: RN and patient Discharge Planning: Pending return of bowel function
[2017-10-23] MEDS: Morphine Inj 4 MG/ML Vial IV.PUSH PRN ×6 (00:18→22:21)
[2017-10-23] MEDS: Pantoprazole Inj 40 MG Vial IV.PUSH SCH ×2 (00:18→12:21)
[2017-10-23] MEDS: Enoxaparin Inj 30 MG/0.3 ML Syringe SQ SCH (00:19)
[2017-10-23] MEDS: Morphine Sulfate 15 MG IR Tablet PO PRN ×3 (04:36→19:13)
[2017-10-23 07:21] LABS: Baso % (Auto) 0.4 % (0.0-2.0); Eos # (Auto) 0.1 th/mm3 (0.0-0.4); Eos % (Auto) 1.6 % (0.0-4.0); Hematocrit 32.5 % (39.0-51.0); Hemoglobin 10.8 gm/dL (13.0-17.0); Lymph # (Auto) 0.4 th/mm3 (1.0-4.8); Lymph % (Auto) 9.7 % (9.0-44.0); Mean Corpuscular HGB Conc 33.2 % (32.0-36.0); Mean Corpuscular Hemoglobin 27.9 pg (27.0-34.0); Mean Platelet Volume 7.9 fL (7.0-11.0); Mono # (Auto) 0.5 th/mm3 (0.0-0.9); Mono % (Auto) 10.8 % (0.0-8.0); Neut # (Auto) 3.4 th/mm3 (1.8-7.7); Neut % (Auto) 77.5 % (16.0-70.0); Platelet Count 51 th/mm3 (150-450); Red Blood Count 3.87 mil/mm3 (4.50-5.90); Red Cell Distribution Width 17.9 % (11.6-17.2); White Blood Count 4.4 th/mm3 (4.0-11.0)
[2017-10-23 07:43] LABS: Anion Gap 11 meq/L (5-15); Aspartate Aminotransferase 13 U/L (15-37); Blood Urea Nitrogen 8 mg/dL (7-18); Calcium 8.4 mg/dL (8.5-10.1); Carbon Dioxide 25.8 meq/L (21.0-32.0); Chloride 106 meq/L (98-107); Glomerular Filtration Rate Greater Than 89 mL/min (>89); Glucose,Random 87 mg/dL (74-106); Magnesium 1.7 mg/dL (1.5-2.5); Potassium 3.4 meq/L (3.5-5.1); Sodium 143 meq/L (136-145)
[2017-10-23 07:46] LABS: Alanine Aminotransferase 16 U/L (12-78); Alkaline Phosphatase 73 U/L (45-117); Free T4 (Free Thyroxine) 1.41 ng/dL (0.76-1.46); Phosphorus 3.3 mg/dL (2.5-4.9); Total Protein 5.5 g/dL (6.4-8.2)
[2017-10-23 08:27] LABS: Ovalocytes 1+
--- NOTE | 2017-10-23 09:43 | MB ---
cc: Flakita Ha MD DATE: 10/22/2017 DATE OF : 1945 CHIEF COMPLAINTS: 1. Abdominal pain. 2. Nausea and vomiting. 3. Partial small-bowel obstruction. 4. History of diffuse large B-cell lymphoma. HISTORY OF PRESENT ILLNESS: Mr. Hawthorne is a 71-year-old gentleman with a history of stage IV diffuse large B-cell lymphoma. He is germinal center B type [id number] lymphoma and he is status post six cycles of R-CHOP chemotherapy with no evidence of residual disease on post-treatment PET-CT scan and post-treatment bone marrow biopsy. He recently received prophylactic intrathecal methotrexate with plan to give 2 doses of intrathecal methotrexate. Prior to admission he developed mild abdominal pain and discomfort. He presented to the emergency department and x-ray of the abdomen on 10/21/2017 showed mild gaseous distention of the bowel with several air-fluid levels. Differential included ileus versus early obstruction. CT scan of the abdomen and pelvis showed improvement in right lung base consolidation, improvement in bilateral loculated effusions, no new findings in the liver, enlarged spleen, removal of bilateral ureteral stents, mild bilateral hydronephrosis, punctate nonobstructing calculi in both kidneys, stable cyst in the right upper kidney, dilation of proximal and mid-small bowel loops with distal decompression characteristic of at least a partial small-bowel obstruction, gas and feces within the colon, small amount of free fluid in the pelvis, no free air and previous right hip replacement. ASSESSMENT AND PLAN: 1. Small-bowel obstruction. Surgery Team is following. Planning for conservative management. Nasogastric tube in place. Intravenous fluids in place as well. 2. History of diffuse large B-cell lymphoma, status post 6 cycles of rituximab, cyclophosphamide, doxorubicin, vincristine and prednisone (R-CHOP) with no evidence of residual disease on post-treatment PET and bone marrow biopsy. The patient has germinal center B-cell type lymphoma with [id number]. 3. Failure to thrive. The patient had failure to thrive and cancer-related cachexia during his treatment. This has completely resolved and he has intentionally gained 20 pounds and he is being active and working out at the gym to gain muscle mass. 4. Thrombocytopenia, possibly related to known splenomegaly which has been stable, versus cancer treatment versus medication. We will continue to follow. 5. Bilateral mild hydronephrosis status post stent removal. The patient has been seen in the outpatient setting by Urology who was evaluated kidney function and he will continue to see them on a regular basis outpatient. REVIEW OF SYSTEMS: As above in the HPI. All other review of systems is negative. PAST MEDICAL HISTORY: Diffuse large B-cell lymphoma. PAST SURGICAL HISTORY: Status post laparoscopic surgery after his fifth cycle of chemotherapy for small-bowel obstruction and lysis of adhesions by Dr. Julien. FAMILY HISTORY: Father with coronary artery disease. SOCIAL HISTORY: No tobacco, alcohol or illegal drug use. Good support system with his . MEDICATIONS: Include: 1. Tylenol. 2. Albuterol. 3. Lovenox. 4. Synthroid. 5. Lorazepam. 6. Reglan. 7. Metoprolol. 8. Morphine. 9. Protonix. 10. Tamsulosin. PHYSICAL EXAMINATION: GENERAL: Well-developed, well-nourished man in no distress. HEENT: Head is normocephalic, atraumatic. CARDIOVASCULAR: Regular rhythm. No murmur. RESPIRATORY: Lungs are clear to auscultation bilaterally. ABDOMEN: Soft, nontender, nondistended. Bowel sounds present. EXTREMITIES: With no edema. NEUROLOGIC: Grossly nonfocal. PSYCHIATRIC: Appropriate mood and affect. MD JAYJAY Shankar/ION , 09:18 AM , 09:42 AM NEO
[2017-10-23] MEDS: Levothyroxine 75 MCG Tablet PO SCH (09:51)
[2017-10-23] MEDS: Metoprolol Tartrate 25 MG Tablet PO SCH ×2 (09:52→20:29)
--- NOTE | 2017-10-23 09:52 | P.PNGS ---
Subjective Interval history: Kub looks ok, ng in place, lots of stool in colon. He passed some flatus this am but otherwise feels the same. The pain comes back when meds wear off. Physical Exam Vital signs: Vital Signs 10/22/17 11:45 10/22/17 12:00 10/22/17 16:00 Temperature 97.9 F 97.5 F L Pulse Rate 79 77 Respiratory Rate 18 18 Blood Pressure 126/61 145/66 H Pulse Oximetry 97 97 96 10/22/17 19:40 10/22/17 20:00 10/23/17 00:00 Temperature 98.2 F 98.1 F Pulse Rate 81 81 Respiratory Rate 18 16 Blood Pressure 147/64 H 142/63 H Pulse Oximetry 99 98 97 10/23/17 04:00 10/23/17 08:00 Temperature 98.1 F 97.4 F L Pulse Rate 92 H 85 Respiratory Rate 18 16 Blood Pressure 138/64 131/61 Pulse Oximetry 95 95 Intake & Output 10/22/17 10/23/17 10/23/17 18:59 06:59 18:59 Output Total 100 / 100 950 / 950 Balance -100 / -100 -950 / -950 Output: Urine 950 / 950 Gastric Drainage 100 / 100 Right Nare Nasogastric Tube 100 / 100 Other: # Voids 5 Narrative: No distress NG small-mod amt bilious output Abd: mild distention, less than yesterday, mild diffuse ttp - Urinary Catheter Management Indwelling Urethral Catheter Cath placed during this visit: yes, but has since been removed by the nurse Reason for continuing: Acute urinary retention Insertion date: 10/22/17 Insertion time: 02:05 Removal date: 10/22/17 Removal time: 11:30 Assessment and Plan - Assessment (1) Small bowel obstruction Code(s): K56.609 - Unspecified intestinal obstruction, unspecified as to partial versus complete obstruction Status: Acute - Plan SBO- cont NGT to suction. Will order small bowel series in the next couple of days. If no resolution in next few days will likely require operative intervention. Dr. Nolasco covering for me over the weekend.
--- NOTE | 2017-10-23 10:09 | XR ---
EXAM DATE: 10/23/2017 8:36 AM EDT AGE/SEX: 71 years / Male INDICATIONS: Obstruction. CLINICAL DATA: This is the patient's subsequent encounter. Patient reports that signs and symptoms h ave been present for 2 days and indicates a pain score of 5/10. MEDICAL/SURGICAL HISTORY: Hypertension. Lymphoma. None. COMPARISON: [facility] [place], ABDOMEN UPRIGHT ONLY, 10/21/2017. . FINDINGS: Today's exam is compared to the prior study. There is now an NG tube in the stomach. There appears t o be a single loop of proximal small bowel which is mildly dilated. Otherwise the rest the small marco a l is nondilated. The colon is nondilated. There is stool in the colon. There are degenerative changes the lumbar spine. These findings appear to be improved compared to the prior study. CONCLUSION: There has been improvement with the bowel gas pattern compared to the prior exam. There is now an NG tube in the stomach is compressed. There is a single proximal loop of small bowel remaining which is mildly dilated. Electronically signed by: Jaylan Candelaria MD 10/23/2017 10:08 AM EDT
[2017-10-23] MEDS ORDERED: Bisacodyl 10 MG Supp RECTAL ONE ×2 (11:15→21:04)
--- NOTE | 2017-10-23 11:15 | P.PNIM ---
Subjective Interval history: Reports passing gas twice this morning. No nausea. No vomiting. Abdominal pain controlled and much better when NG tube suction is on. Physical Exam Vital signs: Vital Signs 10/22/17 11:45 10/22/17 12:00 10/22/17 16:00 Temperature 97.9 F 97.5 F L Pulse Rate 79 77 Respiratory Rate 18 18 Blood Pressure 126/61 145/66 H Pulse Oximetry 97 97 96 10/22/17 19:40 10/22/17 20:00 10/23/17 00:00 Temperature 98.2 F 98.1 F Pulse Rate 81 81 Respiratory Rate 18 16 Blood Pressure 147/64 H 142/63 H Pulse Oximetry 99 98 97 10/23/17 04:00 10/23/17 08:00 Temperature 98.1 F 97.4 F L Pulse Rate 92 H 85 Respiratory Rate 18 16 Blood Pressure 138/64 131/61 Pulse Oximetry 95 95 Intake & Output 10/22/17 10/23/17 10/23/17 18:59 06:59 18:59 Output Total 100 / 100 950 / 950 Balance -100 / -100 -950 / -950 Output: Urine 950 / 950 Gastric Drainage 100 / 100 Right Nare Nasogastric Tube 100 / 100 Other: # Voids 5 Narrative: GENERAL: This is a well-nourished, well-developed patient, in no apparent distress. CARDIOVASCULAR: Regular rate and rhythm RESPIRATORY: Clear to auscultation. Breath sounds equal bilaterally. No wheezes , rales, or rhonchi. GASTROINTESTINAL: Soft nontender, few bowel sounds. Nondistended. MUSCULOSKELETAL: Extremities without clubbing, cyanosis, or edema. NEURO: Alert & Oriented x4 to person, place, time, situation. Moves all ext x4 - Urinary Catheter Management Indwelling Urethral Catheter Cath placed during this visit: yes, but has since been removed by the nurse Reason for continuing: Acute urinary retention Insertion date: 10/22/17 Insertion time: 02:05 Removal date: 10/22/17 Removal time: 11:30 Results - Labs CBC & Chem 7: 10/23/17 06:05 10/23/17 06:05 Laboratory Results - last 24 hr 10/23/17 10/23/17 06:05 06:05 WBC 4.4 RBC 3.87 L Hgb 10.8 L Hct 32.5 L MCV 84.0 MCH 27.9 MCHC 33.2 RDW 17.9 H Plt Count 51 L D MPV 7.9 Prelim Diff (Auto) Slide review pending Neut % (Auto) 77.5 H Lymph % (Auto) 9.7 [place] % (Auto) 10.8 H Eos % (Auto) 1.6 Baso % (Auto) 0.4 Neut # (Auto) 3.4 Lymph # (Auto) 0.4 L [place] # (Auto) 0.5 Eos # (Auto) 0.1 Baso # (Auto) 0.0 WBC Differential . Diff Scan Auto diff confirmed Differential Comment . Ovalocytes 1+ H Sodium 143 Potassium 3.4 L D Chloride 106 Carbon Dioxide 25.8 Anion Gap 11 BUN 8 Creatinine 0.45 L Estimated GFR Greater than 89 Random Glucose 87 Calcium 8.4 L D Phosphorus 3.3 Magnesium 1.7 Total Bilirubin 0.5 AST 13 L ALT 16 Alkaline Phosphatase 73 Total Protein 5.5 L D Albumin 3.0 L D TSH 3.850 H Free T4 1.41 - Imaging Impressions Abdomen X-Ray 10/23/17 06:00 CONCLUSION: There has been improvement with the bowel gas pattern compared to the prior exam. There is now an NG tube in the stomach is compressed. There is a single proximal loop of small bowel remaining which is mildly dilated. Assessment and Plan - Plan Abdominal pain with partial small bowel obstruction Continue NG tube to suction. KUB reviewed. Per Dr. Julien general surgery continue bowel rest and will need a small bowel follow-through series the next few days. Continue conservative treatment and if symptoms does not improve will need to consider surgical intervention. 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 Hold off on methotrexate for now. Appreciate medical oncology, Dr. Ha. Hypertension chronic essential. Blood pressure controlled. Hypothyroidism. Chronic continue home medications. GERD. Continue IV Protonix. Thrombocytopenia due to medications and lymphoma. Platelets dropped today. Hematology will be following. No signs of bleeding. Continue to monitor. urinary retention Flomax, improved DVT prophylaxisbilateral SCDs, anticoagulation contraindicated secondary thrombocytopenia
[2017-10-23] MEDS: LORazepam 0.5 MG Tablet PO PRN ×2 (12:21→20:37)
[2017-10-23] MEDS: KCL 20 mEq/D5W/NaCl 0.45% Inj 1,000 ML IV.CONT SCH (12:22)
[2017-10-23 12:46] LABS: Hemoglobin A1c 4.8 % (4.3-6.0)
--- NOTE | 2017-10-23 19:19 | P.PNONC ---
Subjective Interval history: Resting in bed. at bedside. Reports continued abdominal pain. No flatulence. One small BM today. Objective Vital Signs/Intake & Output: Vital Signs 10/22/17 19:40 10/22/17 20:00 10/23/17 00:00 Temperature 98.2 F 98.1 F Pulse Rate 81 81 Respiratory Rate 18 16 Blood Pressure 147/64 H 142/63 H Pulse Oximetry 99 98 97 10/23/17 04:00 10/23/17 08:00 10/23/17 12:00 Temperature 98.1 F 97.4 F L 98.3 F Pulse Rate 92 H 85 82 Respiratory Rate 18 16 16 Blood Pressure 138/64 131/61 141/65 H Pulse Oximetry 95 95 95 10/23/17 16:00 Temperature 98.3 F Pulse Rate 82 Respiratory Rate 16 Blood Pressure 124/61 Pulse Oximetry 96 Intake & Output 10/23/17 10/23/17 10/24/17 06:59 18:59 06:59 Output Total 950 / 950 325 / 325 Balance -950 / -950 -325 / -325 Output: Urine 950 / 950 325 / 325 Other: Date of Last Bowel Movement 10/23/17 # Bowel Movements 1 Result Diagrams: 10/23/17 06:05 10/23/17 06:05 Laboratory Results: Laboratory Results - last 24 hr 10/23/17 10/23/17 10/23/17 06:05 06:05 06:05 WBC 4.4 RBC 3.87 L Hgb 10.8 L Hct 32.5 L MCV 84.0 MCH 27.9 MCHC 33.2 RDW 17.9 H Plt Count 51 L D MPV 7.9 Prelim Diff (Auto) Slide review pending Neut % (Auto) 77.5 H Lymph % (Auto) 9.7 [place] % (Auto) 10.8 H Eos % (Auto) 1.6 Baso % (Auto) 0.4 Neut # (Auto) 3.4 Lymph # (Auto) 0.4 L [place] # (Auto) 0.5 Eos # (Auto) 0.1 Baso # (Auto) 0.0 WBC Differential . Diff Scan Auto diff confirmed Differential Comment . Ovalocytes 1+ H Sodium 143 Potassium 3.4 L D Chloride 106 Carbon Dioxide 25.8 Anion Gap 11 BUN 8 Creatinine 0.45 L Estimated GFR Greater than 89 Random Glucose 87 Hemoglobin A1c 4.8 Calcium 8.4 L D Phosphorus 3.3 Magnesium 1.7 Total Bilirubin 0.5 AST 13 L ALT 16 Alkaline Phosphatase 73 Total Protein 5.5 L D Albumin 3.0 L D TSH 3.850 H Free T4 1.41 Imaging Studies: Impressions Abdomen X-Ray 10/23/17 06:00 CONCLUSION: There has been improvement with the bowel gas pattern compared to the prior exam. There is now an NG tube in the stomach is compressed. There is a single proximal loop of small bowel remaining which is mildly dilated. Medications: Active Medications Generic Name Dose Route Start Last Admin Trade Name Freq PRN Reason Stop Dose Admin Enoxaparin Sodium 30 mg 10/23/17 00:00 10/23/17 00:19 Lovenox Inj SQ 30 mg Q24H ABBY Administration Sodium Chloride 1,000 mls @ 100 mls/hr 10/21/17 19:15 10/22/17 05:41 Ns Inj IV.CONT 100 mls/hr .Q10H ABBY Administration Potassium Chloride/Dextrose/Sod Cl 1,000 mls @ 80 mls/hr 10/23/17 11:30 10/23 12:22 D5w/1/2ns + Kcl 20 Meq Inj IV.CONT 80 mls/hr .[id number] ABBY Administration Levothyroxine Sodium 75 mcg 10/22/17 09:00 10/23/17 09:51 Synthroid PO 75 mcg DAILY ABBY Administration Lorazepam 0.5 mg 10/21/17 18:57 10/23/17 12:21 Ativan PO 0.5 mg Q8HR PRN Administration Anxiety Metoclopramide HCl 5 mg 10/21/17 19:07 10/21/17 21:30 Reglan Inj IV.PUSH 5 mg Q6HR PRN Administration NAUSEA OR VOMITING Protocol Metoprolol Tartrate 25 mg 10/21/17 21:00 10/23/17 09:52 Lopressor PO 25 mg BID ABBY Administration Morphine Sulfate 15 mg 10/21/17 18:57 10/23/17 11:14 Msir PO 15 mg Q6H PRN Administration Pain Morphine Sulfate 2 mg 10/21/17 19:18 10/23/17 18:10 Morphine Inj IV.PUSH 2 mg Q4H PRN Administration breakthrough pain/cant PO Pantoprazole Sodium 40 mg 10/22/17 00:00 10/23/17 12:21 Protonix Inj IV.PUSH 40 mg Q12H ABBY Administration Tamsulosin HCl 0.4 mg 10/22/17 14:00 10/23/17 09:52 Flomax PO 0.4 mg DAILY ABBY Administration Objective Remarks: GENERAL: Well-nourished, well-developed patient. SKIN: Warm and dry. HEAD: Normocephalic. EYES: No scleral icterus. No injection or drainage. NECK: Supple, trachea midline. No JVD or lymphadenopathy. LYMPHATIC: No adenopathy. Respriatory: No accessory muscle use. GASTROINTESTINAL:NG tube in place EXTREMITIES: No cyanosis, or edema. NEUROLOGICAL: No obvious focal deficit. Awake, alert, and oriented x3. PSYCHIATRIC: Appropriate mood and affect; insight and judgment normal. Assessment/Plan - Plan 1. 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 Thrombocytopenia: during treatment had TCP due to chemotherapy which resolved prior to initiation of next cycle. Splenomegaly likely contributing somewhat to current TCP. Recent bone marrow biopsy from 09/28/2017 with hypercellular marrow, trilineage hematopoiesis, no evidence of lymphoma by morphologic review, chromosome report, flow. No new medications. No evidence of DIC, Low 4T score for HIT, TMA. Continue to monitor. If platelet count falls below 50K would discontinue lovenox. 3. Small bowel obstruction: conservative management. surgery team following.
[2017-10-23] MEDS ORDERED: Sod Phosphate/Sod Biphosphate (Adult) Enema 133 ML Bottle RECTAL ONE (21:05)
--- NOTE | 2017-10-23 22:39 | P.PN ---
Subjective Interval history: not seen Physical Exam Vital signs: Vital Signs 10/23/17 00:00 10/23/17 04:00 10/23/17 08:00 Temperature 98.1 F 98.1 F 97.4 F L Pulse Rate 81 92 H 85 Respiratory Rate 16 18 16 Blood Pressure 142/63 H 138/64 131/61 Pulse Oximetry 97 95 95 10/23/17 12:00 10/23/17 16:00 10/23/17 20:00 Temperature 98.3 F 98.3 F 98.0 F Pulse Rate 82 82 81 Respiratory Rate 16 16 18 Blood Pressure 141/65 H 124/61 125/71 Pulse Oximetry 95 96 96 Intake & Output 10/23/17 10/23/17 10/24/17 06:59 18:59 06:59 Output Total 950 / 950 325 / 325 Balance -950 / -950 -325 / -325 Output: Urine 950 / 950 325 / 325 Other: Date of Last Bowel Movement 10/23/17 # Bowel Movements 1 - Urinary Catheter Management Indwelling Urethral Catheter Cath placed during this visit: yes, but has since been removed by the nurse Reason for continuing: Acute urinary retention Insertion date: 10/22/17 Insertion time: 02:05 Removal date: 10/22/17 Removal time: 11:30 Results - Labs CBC & Chem 7: 10/23/17 06:05 10/23/17 06:05 Laboratory Results - last 24 hr 10/23/17 10/23/17 10/23/17 06:05 06:05 06:05 WBC 4.4 RBC 3.87 L Hgb 10.8 L Hct 32.5 L MCV 84.0 MCH 27.9 MCHC 33.2 RDW 17.9 H Plt Count 51 L D MPV 7.9 Prelim Diff (Auto) Slide review pending Neut % (Auto) 77.5 H Lymph % (Auto) 9.7 [place] % (Auto) 10.8 H Eos % (Auto) 1.6 Baso % (Auto) 0.4 Neut # (Auto) 3.4 Lymph # (Auto) 0.4 L [place] # (Auto) 0.5 Eos # (Auto) 0.1 Baso # (Auto) 0.0 WBC Differential . Diff Scan Auto diff confirmed Differential Comment . Ovalocytes 1+ H Sodium 143 Potassium 3.4 L D Chloride 106 Carbon Dioxide 25.8 Anion Gap 11 BUN 8 Creatinine 0.45 L Estimated GFR Greater than 89 Random Glucose 87 Hemoglobin A1c 4.8 Calcium 8.4 L D Phosphorus 3.3 Magnesium 1.7 Total Bilirubin 0.5 AST 13 L ALT 16 Alkaline Phosphatase 73 Total Protein 5.5 L D Albumin 3.0 L D TSH 3.850 H Free T4 1.41 - Imaging Impressions Abdomen X-Ray 10/23/17 06:00 CONCLUSION: There has been improvement with the bowel gas pattern compared to the prior exam. There is now an NG tube in the stomach is compressed. There is a single proximal loop of small bowel remaining which is mildly dilated. ITS Impressions Abdomen/Pelvis CT 10/21/17 14:54 CONCLUSION: 1. Dilatation of proximal and mid small bowel with distal decompression characteristic of at least a partial small bowel obstruction. 2. Mild constipation with colonic diverticula without evidence for diverticulitis. 3. Loculated rim-enhancing bilateral pleural effusions slightly decreased in size from July. 4. Stable splenomegaly. 5. Removal of bilateral ureteral stents with persistent mild bilateral hydronephrosis and nonobstructing tiny renal calculi. Chest X-Ray 10/22/17 02:12 CONCLUSION: 1. Gastric tube in good position. 2. Patchy nonconsolidative infiltrates right lower lung. Abdomen X-Ray 10/23/17 06:00 CONCLUSION: There has been improvement with the bowel gas pattern compared to the prior exam. There is now an NG tube in the stomach is compressed. There is a single proximal loop of small bowel remaining which is mildly dilated. - Procedures NGT insertion Assessment and Plan - Plan Abdominal pain with partial small bowel obstruction Continue NG tube to suction. KUB reviewed. Per Dr. Julien general surgery continue bowel rest and will need a small bowel follow-through series the next few days. Continue conservative treatment and if symptoms does not improve will need to consider surgical intervention. 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 Hold off on methotrexate for now. Appreciate medical oncology, Dr. Ha. Hypertension chronic essential. Blood pressure controlled. Hypothyroidism. Chronic continue home medications. GERD. Continue IV Protonix. Thrombocytopenia due to splenomegaly. Platelets dropped today. Hematology will be following. No signs of bleeding. Continue to monitor. urinary retention Flomax, improved DVT prophylaxisbilateral SCDs, dc anticoagulation if platelet ct < 50K
[2017-10-24] MEDS: Enoxaparin Inj 30 MG/0.3 ML Syringe SQ SCH (00:36)
[2017-10-24] MEDS: Pantoprazole Inj 40 MG Vial IV.PUSH SCH ×2 (00:36→12:09)
[2017-10-24] MEDS: Morphine Sulfate 15 MG IR Tablet PO PRN ×2 (01:33→08:46)
[2017-10-24] MEDS: Morphine Inj 4 MG/ML Vial IV.PUSH PRN ×5 (02:26→20:00)
[2017-10-24 08:32] LABS: Hematocrit 30.2 % (39.0-51.0); Mean Corpuscular HGB Conc 33.2 % (32.0-36.0); Mean Corpuscular Hemoglobin 27.6 pg (27.0-34.0); Mean Platelet Volume 7.6 fL (7.0-11.0); Platelet Count 46 th/mm3 (150-450); Red Blood Count 3.64 mil/mm3 (4.50-5.90); Red Cell Distribution Width 17.8 % (11.6-17.2); White Blood Count 3.7 th/mm3 (4.0-11.0)
[2017-10-24] MEDS: Metoprolol Tartrate 25 MG Tablet PO SCH ×2 (08:46→22:26)
[2017-10-24] MEDS: Levothyroxine 75 MCG Tablet PO SCH (08:46)
--- NOTE | 2017-10-24 09:01 | P.PNGS ---
Subjective Patient reports: still having pain, no flatus, no bowel movement Physical Exam Vital signs: Vital Signs 10/23/17 12:00 10/23/17 16:00 10/23/17 20:00 Temperature 98.3 F 98.3 F 98.0 F Pulse Rate 82 82 81 Respiratory Rate 16 16 18 Blood Pressure 141/65 H 124/61 125/71 Pulse Oximetry 95 96 96 10/24/17 00:00 10/24/17 00:30 Temperature 98.0 F Pulse Rate 81 Respiratory Rate 18 16 Blood Pressure 131/60 Pulse Oximetry 95 Intake & Output 10/23/17 10/24/17 10/24/17 18:59 06:59 18:59 Output Total 325 / 325 Balance -325 / -325 Weight 68 kg Output: Urine 325 / 325 Other: # Voids 2 Date of Last Bowel Movement 10/23/17 10/23/17 # Bowel Movements 1 - Constitutional no acute distress - Routine Abdominal Exam Present: soft, tenderness - Urinary Catheter Management Indwelling Urethral Catheter Cath placed during this visit: yes, but has since been removed by the nurse Reason for continuing: Acute urinary retention Insertion date: 10/22/17 Insertion time: 02:05 Removal date: 10/22/17 Removal time: 11:30 Assessment and Plan - Assessment (1) Small bowel obstruction Code(s): K56.609 - Unspecified intestinal obstruction, unspecified as to partial versus complete obstruction Status: Acute Plan: Small bowel series today NPO/NGT Ambulate
[2017-10-24 09:04] LABS: Anion Gap 10 meq/L (5-15); Blood Urea Nitrogen 6 mg/dL (7-18); Calcium 8.4 mg/dL (8.5-10.1); Chloride 106 meq/L (98-107); Glomerular Filtration Rate Greater Than 89 mL/min (>89); Glucose,Random 126 mg/dL (74-106); Potassium 3.3 meq/L (3.5-5.1); Sodium 142 meq/L (136-145)
--- NOTE | 2017-10-24 13:14 | FL ---
EXAM DATE: 10/24/2017 1:05 PM EDT AGE/SEX: 71 years / Male INDICATIONS: Lower abdominal pain, constipation. CLINICAL DATA: This is the patient's subsequent encounter. Patient reports that signs and symptoms h ave been present for 3 days and indicates a pain score of 8/10. MEDICAL/SURGICAL HISTORY: None. . Small bowel repair. COMPARISON: [facility], ABDOMEN 1V KUB, 10/23/2017. . FLUORO TIME: 0 IMAGE COUNT: 14 CONTRAST: FINDINGS: Preliminary film is unremarkable. The stomach is grossly unremarkable. Examination of the small bowel demonstrates multiple dilated small bowel loops with wall thickening. There is no evidence of mass or obstruction. No intraluminal filling defects are identified. Small bowel transit time is 120 minutes. CONCLUSION: Multiple dilated small bowel loops with wall thickening. Electronically signed by: Eugenio Truong MD 10/24/2017 1:13 PM EDT
[2017-10-24] MEDS ORDERED: Dextrose 50% in Water 50 ML Vial IV.PUSH PRN (19:02)
--- NOTE | 2017-10-24 19:08 | P.PN ---
Subjective Interval history: Follow-up SBO. Patient reports of increased pain and vomiting when NGT was clamped during SBS. At this time, vomiting has subsided but continues to have abdominal pain. He had a small bowel movement. SBS results discussed with patient. Case also discussed with general surgery. Physical Exam Vital signs: Vital Signs 10/23/17 20:00 10/24/17 00:00 10/24/17 00:30 Temperature 98.0 F 98.0 F Pulse Rate 81 81 Respiratory Rate 18 18 16 Blood Pressure 125/71 131/60 Pulse Oximetry 96 95 10/24/17 08:00 10/24/17 12:00 Temperature 98 F 97 F L Pulse Rate 69 Respiratory Rate 16 16 Blood Pressure 121/57 L 142/68 H Pulse Oximetry 96 96 Intake & Output 10/24/17 10/24/17 10/25/17 06:59 18:59 06:59 Output Total 1600 / 1600 Balance -1600 / -1600 Weight 68 kg Output: Gastric Drainage 1600 / 1600 Right Nare Nasogastric Tube 1600 / 1600 Other: # Voids 2 Date of Last Bowel Movement 10/23/17 10/24/17 Narrative: GENERAL: This is a well-nourished, well-developed patient, in distress due to pain CARDIOVASCULAR: Regular rate and rhythm RESPIRATORY: Clear to auscultation. Breath sounds equal bilaterally. No wheezes , rales, or rhonchi. GASTROINTESTINAL: Soft with generalized diffuse tenderness few bowel sounds. Nondistended. MUSCULOSKELETAL: Extremities without clubbing, cyanosis, or edema. NEURO: Alert & Oriented x4 to person, place, time, situation. Moves all ext x4 - Urinary Catheter Management Indwelling Urethral Catheter Cath placed during this visit: yes, but has since been removed by the nurse Reason for continuing: Acute urinary retention Insertion date: 10/22/17 Insertion time: 02:05 Removal date: 10/22/17 Removal time: 11:30 Results - Labs CBC & Chem 7: 10/24/17 07:39 10/24/17 07:39 Laboratory Results - last 24 hr 10/24/17 10/24/17 07:39 07:39 WBC 3.7 L RBC 3.64 L Hgb 10.0 L Hct 30.2 L MCV 83.0 MCH 27.6 MCHC 33.2 RDW 17.8 H Plt Count 46 L MPV 7.6 Sodium 142 Potassium 3.3 L Chloride 106 Carbon Dioxide 26.0 Anion Gap 10 BUN 6 L Creatinine 0.52 L Estimated GFR Greater than 89 Random Glucose 126 H Calcium 8.4 L - Imaging Impressions Small Bowel X-Ray 10/24/17 06:00 CONCLUSION: Multiple dilated small bowel loops with wall thickening. - Procedures NGT insertion Assessment and Plan - Plan Abdominal pain with partial small bowel obstruction Continue NG tube to suction. KUB and SBS reviewed. Case discussed with on- call general surgery who will review films. Continue treatment with IV hydration, GI prophylaxis and pain management with IV morphine. 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 Hold off on methotrexate for now. Appreciate medical oncology, Dr. Ha. Hypertension chronic essential. Blood pressure controlled. Hypothyroidism. Chronic continue home medications. GERD. Continue IV Protonix. Thrombocytopenia due to splenomegaly. Platelets dropped today. Hematology will be following. No signs of bleeding. Continue to monitor. urinary retention Flomax, improved DVT prophylaxisbilateral SCDs, dc anticoagulation if platelet ct < 50K
[2017-10-24] MEDS: KCL 20 mEq/D5W/NaCl 0.45% Inj 1,000 ML IV.CONT SCH (19:52)
[2017-10-24] MEDS: Potassium Chlor 10 mEq Premix 10 MEQ/100 ML PIGGYBACK IV.SIG SCH ×3 (19:52→21:45)
[2017-10-24] MEDS: Potassium Chloride Inj 20 MEQ in Sod Chloride 0.9% Inj 1,000 ML IV.CONT SCH (21:27)
[2017-10-24] MEDS: LORazepam 0.5 MG Tablet PO PRN (21:46)
[2017-10-24 21:58] LABS: Magnesium 1.6 mg/dL (1.5-2.5)
[2017-10-24 23:46] LABS: Hematocrit 32.8 % (39.0-51.0); Hemoglobin 10.9 gm/dL (13.0-17.0); Mean Corpuscular HGB Conc 33.2 % (32.0-36.0); Mean Corpuscular Hemoglobin 27.5 pg (27.0-34.0); Mean Corpuscular Volume 82.6 fL (80.0-100.0); Mean Platelet Volume 8.3 fL (7.0-11.0); Platelet Count 58 th/mm3 (150-450); Red Blood Count 3.97 mil/mm3 (4.50-5.90); Red Cell Distribution Width 17.9 % (11.6-17.2); White Blood Count 5.2 th/mm3 (4.0-11.0)
[2017-10-25] MEDS: Morphine Inj 4 MG/ML Vial IV.PUSH PRN ×6 (00:06→23:23)
[2017-10-25] MEDS: KCL 20 mEq/D5W/NaCl 0.45% Inj 1,000 ML IV.CONT SCH ×4 (08:49→23:22)
[2017-10-25] MEDS: Metoprolol Tartrate 25 MG Tablet PO SCH ×2 (08:49→20:33)
[2017-10-25] MEDS: Levothyroxine 75 MCG Tablet PO SCH (08:49)
[2017-10-25] MEDS: Potassium Chloride Inj 20 MEQ in Sod Chloride 0.9% Inj 1,000 ML IV.CONT SCH (12:06)
[2017-10-25] MEDS: Pantoprazole Inj 40 MG Vial IV.PUSH SCH ×2 (12:10)
[2017-10-25 16:14] LABS: Anion Gap 8 meq/L (5-15); Blood Urea Nitrogen 7 mg/dL (7-18); Calcium 8.5 mg/dL (8.5-10.1); Carbon Dioxide 25.7 meq/L (21.0-32.0); Chloride 106 meq/L (98-107); Glomerular Filtration Rate Greater Than 89 mL/min (>89); Glucose,Random 154 mg/dL (74-106); Magnesium 1.6 mg/dL (1.5-2.5); Potassium 3.6 meq/L (3.5-5.1); Sodium 140 meq/L (136-145)
--- NOTE | 2017-10-25 16:38 | P.PN ---
Subjective Interval history: Follow-up SBO. Today he feels much better with improved pain tolerating diet. He had formed BM this morning. Ambulating in the hallway. Physical Exam Vital signs: Vital Signs 10/25/17 00:00 10/25/17 00:10 10/25/17 01:00 Temperature 97.8 F Pulse Rate 89 Respiratory Rate 17 16 16 Blood Pressure 141/65 H Pulse Oximetry 96 10/25/17 07:00 10/25/17 08:00 10/25/17 12:00 Temperature 97.3 F L 97.8 F Pulse Rate 77 70 Respiratory Rate 18 16 16 Blood Pressure 131/60 121/57 L Pulse Oximetry 95 97 Intake & Output 10/24/17 10/25/17 10/25/17 18:59 06:59 18:59 Intake Total 200 / 200 3010 / 3010 Output Total 1600 / 1600 200 / 200 Balance -1600 / -1600 0 / 0 3010 / 3010 Weight 68 kg Intake: IV 200 / 200 3010 / 3010 D5W/1/2NS + KCL 20 mEq Inj 1, 2000 / 2000 000 ML @ 100 mls/hr IV.CONT . Q10H ABBY Rx#:[id number] KCl Inj 20 MEQ In NS Inj 1,000 1010 / 1010 ML @ 100 mls/hr IV.CONT .Q10H6M ABBY Rx#:[id number] KCl 10 mEq Premix Inj 10 meq In 200 / 200 100 ml @ 100 mls/hr IV.SIG Q1H ABBY Rx#:[id number] Oral 0 / 0 Output: Gastric Drainage 1600 / 1600 200 / 200 Right Nare Nasogastric Tube 1600 / 1600 200 / 200 Other: # Voids 2 Date of Last Bowel Movement 10/24/17 Narrative: GENERAL: This is a well-nourished, well-developed patient, in no distress CARDIOVASCULAR: Regular rate and rhythm RESPIRATORY: Clear to auscultation. Breath sounds equal bilaterally. No wheezes , rales, or rhonchi. GASTROINTESTINAL: Soft with no tenderness normoactive bowel sounds. Nondistended. MUSCULOSKELETAL: Extremities without clubbing, cyanosis, or edema. NEURO: Alert & Oriented x4 to person, place, time, situation. Moves all ext x4 - Urinary Catheter Management Indwelling Urethral Catheter Cath placed during this visit: yes, but has since been removed by the nurse Reason for continuing: Acute urinary retention Insertion date: 10/22/17 Insertion time: 02:05 Removal date: 10/22/17 Removal time: 11:30 Results - Labs CBC & Chem 7: 10/24/17 22:52 10/25/17 15:30 Laboratory Results - last 24 hr 10/24/17 10/24/17 10/24/17 07:39 21:38 22:52 WBC 5.2 RBC 3.97 L Hgb 10.9 L Hct 32.8 L MCV 82.6 MCH 27.5 MCHC 33.2 RDW 17.9 H Plt Count 58 L MPV 8.3 Sodium 142 Potassium 3.3 L Chloride 106 Carbon Dioxide 26.0 Anion Gap 10 BUN 6 L Creatinine 0.52 L Estimated GFR Greater than 89 POC Glucose 119 H Random Glucose 126 H Calcium 8.4 L Magnesium 1.6 10/25/17 10/25/17 10/25/17 06:14 08:31 15:30 WBC RBC Hgb Hct MCV MCH MCHC RDW Plt Count MPV Sodium 140 Potassium 3.6 Chloride 106 Carbon Dioxide 25.7 Anion Gap 8 BUN 7 Creatinine 0.51 L Estimated GFR Greater than 89 POC Glucose 153 H 145 H Random Glucose 154 H Calcium 8.5 Magnesium 1.6 Assessment and Plan - Assessment (1) Small bowel obstruction Code(s): K56.609 - Unspecified intestinal obstruction, unspecified as to partial versus complete obstruction Status: Acute - Plan Abdominal pain with partial small bowel obstruction. Improving tolerating clamped NG and liquid diet. Continue IV hydration and pain management with IV morphine. 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 Appreciate medical oncology, Dr. Ha. Hypertension chronic essential. Blood pressure controlled. Hypothyroidism. Chronic continue home medications. GERD. Continue Protonix. Thrombocytopenia due to splenomegaly. No signs of bleeding. Stable. Continue to monitor. urinary retention. Resolved refusing Flomax which will be discontinued DVT prophylaxisbilateral SCDs, dc anticoagulation if platelet ct < 50K Discharge Planning: DC when cleared by general surgery
[2017-10-25] MEDS: LORazepam 0.5 MG Tablet PO PRN (18:36)
[2017-10-26] MEDS: Morphine Inj 4 MG/ML Vial IV.PUSH PRN ×5 (06:21→23:06)
[2017-10-26] MEDS: Metoprolol Tartrate 25 MG Tablet PO SCH ×2 (08:00→21:38)
[2017-10-26] MEDS: Levothyroxine 75 MCG Tablet PO SCH (08:00)
--- NOTE | 2017-10-26 11:02 | P.PN ---
Subjective Interval history: Follow-up SBO. He is doing good tolerating clear liquid diet. Will advance to full awaiting GS evaluation Physical Exam Vital signs: Vital Signs 10/25/17 12:00 10/25/17 20:25 10/25/17 20:34 Temperature 97.8 F 98.1 F Pulse Rate 70 91 H Respiratory Rate 16 17 1 L Blood Pressure 121/57 L 134/62 Pulse Oximetry 97 99 10/25/17 23:20 10/26/17 00:00 10/26/17 07:20 Temperature 97.7 F Pulse Rate 72 Respiratory Rate 15 17 15 Blood Pressure 118/58 L Pulse Oximetry 97 10/26/17 08:00 Temperature 97.3 F L Pulse Rate 80 Respiratory Rate 17 Blood Pressure 130/61 Pulse Oximetry 98 Intake & Output 10/25/17 10/26/17 10/26/17 18:59 06:59 18:59 Intake Total 3010 / 3010 2480 / 2480 Output Total 0 / 0 Balance 3010 / 3010 2480 / 2480 Intake: IV 3010 / 3010 1999 D5W/1/2NS + KCL 20 mEq Inj , 1999 / 1999 000 ML @ 100 mls/hr IV.CONT . Q10H ABBY Rx#:[id number] KCl Inj 20 MEQ In NS Inj 1,000 1010 / 1010 ML @ 100 mls/hr IV.CONT .Q10H6M ABBY Rx#:[id number] Oral 480 / 480 Output: Gastric Drainage 0 / 0 Right Nare Nasogastric Tube 0 / 0 Other: # Voids 3 Date of Last Bowel Movement 10/25/17 # Bowel Movements 6 1 Narrative: GENERAL: This is a well-nourished, well-developed patient, in no apparent distress. Clamped NGT CARDIOVASCULAR: Regular rate and rhythm without murmurs, gallops, or rubs. RESPIRATORY: Clear to auscultation. Breath sounds equal bilaterally. No wheezes , rales, or rhonchi. GASTROINTESTINAL: Abdomen soft, non-tender, nondistended. Normal active bowel sounds MUSCULOSKELETAL: Extremities without clubbing, cyanosis, or edema. NEURO: Alert & Oriented x4 to person, place, time, situation. Moves all ext x4 - Urinary Catheter Management Indwelling Urethral Catheter Cath placed during this visit: yes, but has since been removed by the nurse Reason for continuing: Acute urinary retention Insertion date: 10/22/17 Insertion time: 02:05 Removal date: 10/22/17 Removal time: 11:30 Results - Labs CBC & Chem 7: 10/24/17 22:52 10/25/17 15:30 Laboratory Results - last 24 hr 10/25/17 15:30 Sodium 140 Potassium 3.6 Chloride 106 Carbon Dioxide 25.7 Anion Gap 8 BUN 7 Creatinine 0.51 L Estimated GFR Greater than 89 Random Glucose 154 H Calcium 8.5 Magnesium 1.6 Assessment and Plan - Assessment (1) Small bowel obstruction Code(s): K56.609 - Unspecified intestinal obstruction, unspecified as to partial versus complete obstruction Status: Acute - Plan Abdominal pain with partial small bowel obstruction. Improving tolerating clamped NG and liquid diet. Advance to full liquid continue IV hydration and pain management with IV morphine. 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 Appreciate medical oncology, Dr. Ha. Hypertension chronic essential. Blood pressure controlled. Hypothyroidism. Chronic continue home medications. GERD. Continue Protonix. Thrombocytopenia due to splenomegaly. No signs of bleeding. Stable. Continue to monitor. urinary retention. Resolved refusing Flomax which will be discontinued DVT prophylaxisbilateral SCDs, dc anticoagulation if platelet ct < 50K Discharge Planning: DC when cleared by general surgery possibly tomorrow
[2017-10-26] MEDS: KCL 20 mEq/D5W/NaCl 0.45% Inj 1,000 ML IV.CONT SCH ×2 (11:50→16:16)
--- NOTE | 2017-10-26 14:02 | P.PNGS ---
Subjective Interval history: He has had multiple bowel movts. Tolerating clears and fulls now. Feels much improved. Physical Exam Vital signs: Vital Signs 10/25/17 20:25 10/25/17 20:34 10/25/17 23:20 Temperature 98.1 F Pulse Rate 91 H Respiratory Rate 17 1 L 15 Blood Pressure 134/62 Pulse Oximetry 99 10/26/17 00:00 10/26/17 07:20 10/26/17 08:00 Temperature 97.7 F 97.3 F L Pulse Rate 72 80 Respiratory Rate 17 15 17 Blood Pressure 118/58 L 130/61 Pulse Oximetry 97 98 10/26/17 12:00 Temperature 98.2 F Pulse Rate 73 Respiratory Rate 18 Blood Pressure 116/59 L Pulse Oximetry 98 Intake & Output 10/25/17 10/26/17 10/26/17 18:59 06:59 18:59 Intake Total 3010 / 3010 2480 / 2480 1000 / 1000 Output Total 0 / 0 Balance 3010 / 3010 2480 / 2480 1000 / 1000 Intake: IV 3010 / 3010 1999 / 1999 1000 / 1000 D5W/1/2NS + KCL 20 mEq Inj , 1999 / 1999 1999 / 1999 1000 / 1000 000 ML @ 100 mls/hr IV.CONT . Q10H ABBY Rx#:[id number] KCl Inj 20 MEQ In NS Inj 1,000 1010 / 1010 ML @ 100 mls/hr IV.CONT .Q10H6M ABBY Rx#:[id number] Oral 480 / 480 Output: Gastric Drainage 0 / 0 Right Nare Nasogastric Tube 0 / 0 Other: # Voids 3 Date of Last Bowel Movement 10/25/17 # Bowel Movements 6 1 Narrative: Abd: soft, nontender, NG clamped - Urinary Catheter Management Indwelling Urethral Catheter Cath placed during this visit: yes, but has since been removed by the nurse Reason for continuing: Acute urinary retention Insertion date: 10/22/17 Insertion time: 02:05 Removal date: 10/22/17 Removal time: 11:30 Assessment and Plan - Assessment (1) Small bowel obstruction Code(s): K56.609 - Unspecified intestinal obstruction, unspecified as to partial versus complete obstruction Status: Acute Plan: Small bowel series today NPO/NGT Ambulate - Plan Improving. D/c NGT. Start soft diet. Anticipate dc home tomorrow if tolerating diet.
--- NOTE | 2017-10-26 21:08 | P.PNONC ---
Subjective Interval history: Sitting at bedside. Eating dinner. Reports improvement in abdominal pain Objective Vital Signs/Intake & Output: Vital Signs 10/25/17 23:20 10/26/17 00:00 10/26/17 07:20 Temperature 97.7 F Pulse Rate 72 Respiratory Rate 15 17 15 Blood Pressure 118/58 L Pulse Oximetry 97 10/26/17 08:00 10/26/17 12:00 10/26/17 16:00 Temperature 97.3 F L 98.2 F 97.9 F Pulse Rate 80 73 72 Respiratory Rate 17 18 17 Blood Pressure 130/61 116/59 L 135/60 Pulse Oximetry 98 98 99 Intake & Output 10/26/17 10/26/17 10/27/17 06:59 18:59 06:59 Intake Total 2480 / 2480 2960 / 2960 Balance 2480 / 2480 2960 / 2960 Intake: IV 1999 D5W/1/2NS + KCL 20 mEq Inj , 1999 000 ML @ 100 mls/hr IV.CONT . Q10H ABBY Rx#:[id number] Oral 480 / 480 960 / 960 Other: # Voids 3 3 # Bowel Movements 1 Result Diagrams: 10/24/17 22:52 10/25/17 15:30 Medications: Active Medications Generic Name Dose Route Start Last Admin Trade Name Freq PRN Reason Stop Dose Admin Enoxaparin Sodium 30 mg 10/23/17 00:00 10/24/17 00:36 Lovenox Inj SQ 30 mg Q24H ABBY Administration Potassium Chloride/Dextrose/Sod Cl 1,000 mls @ 100 mls/hr 10/23/17 11:30 01/05 16:16 D5w/1/2ns + Kcl 20 Meq Inj IV.CONT 80 mls/hr .Q10H ABBY Administration Potassium Chloride 20 meq/ 1,010 mls @ 100 mls/hr 10/24/17 19:07 10/25/17 12: 06 Sodium Chloride IV.CONT 100 mls/hr .Q10H6M ABBY Administration Levothyroxine Sodium 75 mcg 10/22/17 09:00 10/26/17 08:00 Synthroid PO 75 mcg DAILY ABBY Administration Lorazepam 0.5 mg 10/21/17 18:57 10/25/17 18:36 Ativan PO 0.5 mg Q8HR PRN Administration Anxiety Metoclopramide HCl 10 mg 10/25/17 00:00 10/26/17 18:56 Reglan Inj IV.PUSH 10 mg Q6HR ABBY Administration Metoprolol Tartrate 25 mg 10/21/17 21:00 10/26/17 08:00 Lopressor PO 25 mg BID ABBY Administration Morphine Sulfate 15 mg 10/21/17 18:57 10/24/17 08:46 Msir PO 15 mg Q6H PRN Administration Pain Morphine Sulfate 2 mg 10/21/17 19:18 10/26/17 18:56 Morphine Inj IV.PUSH 2 mg Q4H PRN Administration breakthrough pain/cant PO Pantoprazole Sodium 40 mg 10/26/17 09:00 10/26/17 08:00 Protonix PO 40 mg DAILY ABBY Administration Objective Remarks: GENERAL: Well-nourished, well-developed patient. SKIN: Warm and dry. HEAD: Normocephalic. EYES: No scleral icterus. No injection or drainage. NECK: Supple, trachea midline. No JVD or lymphadenopathy. RESPIRATORY: No accessory muscle use. EXTREMITIES: No cyanosis, or edema. MUSCULOSKELETAL: Adequate muscle tone. NEUROLOGICAL: No obvious focal deficit. Awake, alert, and oriented x3. PSYCHIATRIC: Appropriate mood and affect; insight and judgment normal. Assessment/Plan - Plan 1. 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 s/p [employer] ppx with IT mtx 2. Thrombocytopenia: during treatment had TCP due to chemotherapy which resolved prior to initiation of next cycle. Splenomegaly likely contributing somewhat to current TCP. Recent bone marrow biopsy from 09/28/2017 with hypercellular marrow, trilineage hematopoiesis, no evidence of lymphoma by morphologic review, chromosome report, flow. Continue to follow. 3. Small bowel obstruction: conservative management. surgery team following. Improvement in symptoms. If continues to do well will be discharged tomorrow. Close follow up in oncology clinic.
[2017-10-26] MEDS: LORazepam 0.5 MG Tablet PO PRN (21:38)
[2017-10-27] MEDS: Morphine Inj 4 MG/ML Vial IV.PUSH PRN ×2 (03:20→08:01)
[2017-10-27] MEDS: KCL 20 mEq/D5W/NaCl 0.45% Inj 1,000 ML IV.CONT SCH (06:33)
[2017-10-27] MEDS: Potassium Chloride Inj 20 MEQ in Sod Chloride 0.9% Inj 1,000 ML IV.CONT SCH (06:35)
--- NOTE | 2017-10-27 07:52 | P.PNGS ---
Subjective Interval history: Tolerated soft diet for dinner last night and continues to have bowel movts. Denies abdominal pain. Physical Exam Vital signs: Vital Signs 10/26/17 08:00 10/26/17 12:00 10/26/17 16:00 Temperature 97.3 F L 98.2 F 97.9 F Pulse Rate 80 73 72 Respiratory Rate 17 18 17 Blood Pressure 130/61 116/59 L 135/60 Pulse Oximetry 98 98 99 10/26/17 20:18 10/27/17 00:34 Temperature 97.9 F 97.8 F Pulse Rate 86 85 Respiratory Rate 18 18 Blood Pressure 139/65 158/71 H Pulse Oximetry 97 96 Intake & Output 10/26/17 10/27/17 10/27/17 18:59 06:59 18:59 Intake Total 2960 / 2960 3315 / 3315 Balance 2960 / 2960 3315 / 3315 Weight 68.5 kg Intake: IV 1999 2835 / 2835 D5W/1/2NS + KCL 20 mEq Inj 1, 1999 2835 / 2835 000 ML @ 100 mls/hr IV.CONT . Q10H ABBY Rx#:[id number] Oral 960 / 960 480 / 480 Other: # Voids 3 4 Date of Last Bowel Movement 10/26/17 # Bowel Movements 0 Narrative: Abd: soft, mild distention, nontender - Urinary Catheter Management Indwelling Urethral Catheter Cath placed during this visit: yes, but has since been removed by the nurse Reason for continuing: Acute urinary retention Insertion date: 10/22/17 Insertion time: 02:05 Removal date: 10/22/17 Removal time: 11:30 Assessment and Plan - Assessment (1) Small bowel obstruction Code(s): K56.609 - Unspecified intestinal obstruction, unspecified as to partial versus complete obstruction Status: Acute Plan: Small bowel series today NPO/NGT Ambulate - Plan Small bowel obstruction has resolved. Clear for discharge home today. F/u as needed. Avoid large amts of nuts, raw vegetables, tough meats. Discussed in detail with the patient and his .
--- NOTE | 2017-10-27 09:35 | P.DS ---
Date of admission: 10/21/17 18:53 Primary care physician: Sancho Mackenzie Brief History from admission: 71-year-old male with a history of lymphoma reportedly status post chemotherapy , reportedly in remission (now on prophylactic methotrexate with most recent intrathecal dose this past Thursday) presents with a 1 day history of constant dull periUmbilical abdominal pain radiating across his abdomen, as well as decreased appetite over the past day, nausea with bilious emesis. Patient denies any fevers, chills, chest pain, shortness of breath, dysuria. Most recent bowel movement was yesterday. Patient reports feeling fine prior to this , had been intentionally gaining weight, 20 pounds over the past several months. Patient follows with [facility]. He did have recent laparoscopic abdominal surgery with lysis of adhesions in July. DS: Diagnosis - Discharge Diagnosis (1) Small bowel obstruction Status: Acute DS: Summary Hospital Course: Abdominal pain with partial small bowel obstruction. Improving tolerating clamped NG and liquid diet. Advance to full liquid continue IV hydration and pain management with IV morphine. 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 Appreciate medical oncology, Dr. Ha. Hypertension chronic essential. Blood pressure controlled. Hypothyroidism. Chronic continue home medications. GERD. Continue Protonix. Thrombocytopenia due to splenomegaly. No signs of bleeding. Stable. Continue to monitor. urinary retention. Resolved refusing Flomax which will be discontinued DVT prophylaxisbilateral SCDs, dc anticoagulation if platelet ct < 50K - Time Spent with Patient Total time spent providing and/or coordinating discharge services: Exam Vital signs: Vital Signs 10/26/17 12:00 10/26/17 16:00 10/26/17 20:18 Temperature 98.2 F 97.9 F 97.9 F Pulse Rate 73 72 86 Respiratory Rate 18 17 18 Blood Pressure 116/59 L 135/60 139/65 Pulse Oximetry 98 99 97 10/27/17 00:34 10/27/17 08:00 Temperature 97.8 F 98.0 F Pulse Rate 85 100 H Respiratory Rate 18 17 Blood Pressure 158/71 H 131/62 Pulse Oximetry 96 100 Intake & Output 10/26/17 10/27/17 10/27/17 18:59 06:59 18:59 Intake Total 2960 / 2960 3315 / 3315 Balance 2960 / 2960 3315 / 3315 Weight 68.5 kg Intake: IV 1999 2835 / 2835 D5W/1/2NS + KCL 20 mEq Inj 1, 1999 2835 / 2835 000 ML @ 100 mls/hr IV.CONT . Q10H ABBY Rx#:[id number] Oral 960 / 960 480 / 480 Other: # Voids 3 4 Date of Last Bowel Movement 10/26/17 # Bowel Movements 0 Narrative: GENERAL: This is a well-nourished, well-developed patient, in no apparent distress. Clamped NGT CARDIOVASCULAR: Regular rate and rhythm without murmurs, gallops, or rubs. RESPIRATORY: Clear to auscultation. Breath sounds equal bilaterally. No wheezes , rales, or rhonchi. GASTROINTESTINAL: Abdomen soft, non-tender, nondistended. Normal active bowel sounds MUSCULOSKELETAL: Extremities without clubbing, cyanosis, or edema. NEURO: Alert & Oriented x4 to person, place, time, situation. Moves all ext x4 Results Procedures completed during hospitalization: none - Impressions ITS Impressions Abdomen/Pelvis CT 10/21/17 14:54 CONCLUSION: 1. Dilatation of proximal and mid small bowel with distal decompression characteristic of at least a partial small bowel obstruction. 2. Mild constipation with colonic diverticula without evidence for diverticulitis. 3. Loculated rim-enhancing bilateral pleural effusions slightly decreased in size from July. 4. Stable splenomegaly. 5. Removal of bilateral ureteral stents with persistent mild bilateral hydronephrosis and nonobstructing tiny renal calculi. Chest X-Ray 10/22/17 02:12 CONCLUSION: 1. Gastric tube in good position. 2. Patchy nonconsolidative infiltrates right lower lung. Abdomen X-Ray 10/23/17 06:00 CONCLUSION: There has been improvement with the bowel gas pattern compared to the prior exam. There is now an NG tube in the stomach is compressed. There is a single proximal loop of small bowel remaining which is mildly dilated. Small Bowel X-Ray 10/24/17 06:00 CONCLUSION: Multiple dilated small bowel loops with wall thickening. Discharge Plan - Discharge Disposition Patient Disposition: 01 Discharge Home - Discharge Condition Condition: Stable - Discharge Order Discharge Orders: Discharge Order (Routine); Ordered 10/27/17 Ordered By: Ángel Caldwell General Surgery Clear for Discharge (Routine); Ordered 10/27/17 Ordered By: Je Julien - Physicians Team Primary Care Provider: Sancho Mackenzie Attending Provider: Ángel Caldwell Other Providers: Solomon Carbajal ; WilyJe MD ; Flakita Ha
== END 2017-10-27 09:30 | disposition home or self-care (01) ==
LOC: NEPD 12:46 → NEDA 18:53 → N06 22:54
PROVIDERS: ADMIT Internal Medicine; ATTEND Internal Medicine